=== PATIENT | female | born 1995 | race Caucasian/White ===

== ENCOUNTER 2017-11-13 03:55 | Emergency (ER) | payer MEDICAID, SELFPAY ==
[2017-11-13 03:56] VITALS: BP 134/79; PULSE 70; RESP 16; TEMP 36.5; O2SAT 98; BMI 42.3
--- NOTE | 2017-11-13 04:32 | ED.VISSUMM ---
- ER Visit Summary Date of Service: 11/13/17 Chief Complaint: [] left ear pain that started at midnight History of Present Illness: The patient is a 22 F with the above complaint that started at midnight. She took some Tylenol and some eardrops. The aching pain of moderate to severe in intensity. Came in for further evaluation. Physical Examination: [] Vital signs reviewed General: Well-nourished well-developed Head: Normocephalic atraumatic Eyes: Pupils equal round and reactive to light extraocular movements intact ENT: TMs left-sided acute otitis media with dullness redness and decreased landmarks. No hemotympanum no trauma Neck: Nontender full range of motion Cardiovascular: Regular rate rhythm no murmurs normal S1-S2 Respiratory: No distress clear to auscultation bilaterally chest nontender Abdomen: Soft nontender nondistended normal bowel sounds no masses Back: Nontender no CVA tenderness Extremities: Nontender active range of motion ?4 extremities no trauma Skin: Normal color no trauma Neuro alert oriented cranial nerves II through XII intact normal strength sensation reflexes Test Results: [] Emergency Department Course and Treatment: [] Given amoxicillin and home pack of Vicodin 4 tablets. She also use ibuprofen. She will continue amoxicillin for otitis media Treatment Plan: [] Disposition: [] Impression: [] Acute left-sided otitis media This note was generated with [employer] dictation software. It may contain incorrect words, spelling, and punctuation that were not noted in review of the chart prior to signing ED Disposition - Plan for ED Patient: Chief Complaint: Ear Problem Referrals: Care Physician,No Primary [Primary Care Provider] -
--- NOTE | 2017-11-13 04:33 | ED.DEP ---
ED Disposition - Plan for ED Patient: Disposition: Home or Assisted Living Chief Complaint: Ear Problem Instructions: ED Otitis Media Acute Adult Prescriptions: Amoxicillin 875 mg PO BID #14 tab Referrals: Care Physician,No Primary [Primary Care Provider] - Blade Hester DO [NON-STAFF] -
[2017-11-13] MEDS: AMOXICILLIN 500 MG CAPSULE 1000 MG PO (04:38)
[2017-11-13] MEDS: HYDROcodone Bitartrate/Apap 5/325 Tablet PO (04:39)
[2017-11-13 04:43] VITALS: BP 122/76; PULSE 74; RESP 17; O2SAT 98
== END 2017-11-13 04:43 | disposition home or self-care (01) ==
PROVIDERS: Emergency Provider Emergency Medicine
DX: H66.92 Otitis media, unspecified, left ear (principal); Z72.0 Tobacco use
CPT/HCPCS: 99283

== ENCOUNTER 2018-02-05 09:57 | Emergency (ER) | payer MEDICAID, SELFPAY ==
[2018-02-05 09:57] VITALS: BP 154/95; PULSE 99; RESP 14; TEMP 36.6; O2SAT 100; BMI 35.4
--- NOTE | 2018-02-05 10:15 | CT_ITS ---
STUDY: CT ABDOMEN AND PELVIS WITHOUT CONTRAST REASON FOR EXAM: Female, 22 years old. Lower abdomen pain x1 year, worse today. RADIATION DOSAGE (If Supplied By Facility): CTDIvol = ( 19.5 ) mGy, DLP = ( 993.6 ) mGycm TECHNIQUE: Transaxial images were obtained from the dome of the diaphragm to the symphysis pubis without oral contrast, and without intravenous contrast. Sagittal and coronal images were reconstructed. Individualized dose optimization techniques were used for this CT. COMPARISON: None. FINDINGS: The visualized lung bases are remarkable only for mild multifocal subsegmental atelectasis. The visualized portions of the heart are within normal limits. Normal liver. Normal gallbladder and extrahepatic biliary system. Normal spleen. Normal pancreas. Normal bilateral adrenal glands. Normal right kidney. There is a 4.2 mm nonobstructing calculi within the left renal collecting system. Normal visualized stomach. Normal small intestine. Normal colon. The appendix is visualized and appears normal. Normal abdominal aorta. Normal inferior vena cava. Normal retroperitoneum. Normal urinary bladder. There multiple calcified pelvic phleboliths. The right ovary appears minimally asymmetrically enlarged. Normal abdominal wall. Normal osseous structures. CT/Abdomen/Pelvis without Cont IMPRESSION: Mild multifocal subsegmental atelectasis throughout visualized lung bases. Asymmetrically enlarged right ovary. Consider evaluation with dedicated pelvic sonography. Otherwise, no CT evident acute intra-abdominal or intrapelvic pathology. Electronically Signed: Cresencio Briseno MD at 12:49 EDT , Service support ,
[2018-02-05 10:31] LABS: Absolute Lymphocyte Count 3.61 X10^3/ul (0.83-4.51); Absolute Neutrophil Count 4.2 X10^3/uL (2.0-7.7); Basophil# 0.03 X10^3/uL; Basophil% 0.3 % (0-1); Eosinophil# 0.31 X10^3/uL; Eosinophils% 3.6 % (0-5); Hematocrit 42.9 % (37-47); Lymphocyte # 3.61 X10^3/ul (4.0); Lymphocyte % 41.5 % (19-41); Mean Corp Hgb Conc 32.6 g/gl (32-36); Mean Corpuscular Hgb 29.9 pg (27.0-32.0); Mean Corpuscular Volume 91.5 fL (81-99); Mean Platelet Vol. 9.7 fl (6.2-12.0); Monocyte# 0.52 X10^3/uL; Neutrophil # 4.22 X10^3/uL (2.7-7.7); Neutrophil % 48.5 % (47-70); POSITIVE COUNT NO; POSITIVE DIFFERENTIAL NO; POSITIVE MORPHOLOGY NO; Platelet Count 332 K/mm3 (150-450); RBC Distribution Width CV 12.3 % (11.6-14.6); RBC Distribution Width SD 41.1 fl (35.1-43.9); Red Blood Count 4.69 M/mm3 (4.2-5.4); White Blood Count 8.7 K/mm3 (4.4-11.0)
[2018-02-05] MEDS: 0.9% Normal Saline 1,000 ML 125 ML IV (10:36)
[2018-02-05] MEDS: HYDROmorphone 1 MG/ML Syringe IV ×2 (10:37→11:32)
[2018-02-05 10:44] LABS: Mucous, Urine 0 SEEN /hpf (<or=2+); Red Blood Cells-Urine 0 SEEN /hpf (0-5)
[2018-02-05] MEDS: Ondansetron 4 MG/2 ML Vial IV (10:44)
[2018-02-05 10:45] LABS: Color, Urine Yellow (Yellow); Glucose, Dipstick Normal (Normal); Ketone-Dipstick Negative (Negative); Leukocyte Esterase-Dipstick 25 /ul (Negative); Nitrite-Dipstick Positive (Negative); Occult Blood-Urine 150 /ul (Negative); Protein-Dipstick 15 mg/dl (Negative); Urine Bilirubin Dipstick Negative (Negative); Urine Clarity Clear (Clear); Urine Urobilinogen Normal (Normal)
[2018-02-05 10:46] LABS: Anion Gap 5 (5-15); BUN 8 mg/dL (7-18); BUN/Creat Ratio 11.2 RATIO (10-20); Calcium,Total 9.1 mg/dL (8.5-10.1); Chloride 104 mmol/L (98-107); Creatinine, Serum 0.71 mg/dL (0.55-1.02); EST Glomerular Filtration Rate 106 mL/min (>60); Est Glom Filt Rate - Afr Amer 129 mL/min (>60); Estimated Creatinine Clearance 101.07 ml/min; Glucose 85 mg/dL (74-106); Potassium 4.1 mmol/L (3.5-5.1); Sodium Level 138 mmol/L (136-145)
[2018-02-05 10:51] LABS: Pregnancy, Serum, hCG Quali. NEGATIVE Negative (0-9 Nonpreg)
[2018-02-05 11:00] LABS: Bacteria 2+ /hpf (None Seen); Squamous Epithelial Cells - UA 0-5 SEEN /hpf (5-10); White Blood Cells 0-5 SEEN /hpf (0-5)
[2018-02-05] MEDS: Ceftriaxone 1 GM/50 ML BAG IV (12:07)
[2018-02-05] MEDS: proMETHazine 25 MG/ML Syringe 12.5 MG IV (13:09)
[2018-02-05 13:10] VITALS: BP 113/72; PULSE 95; RESP 14; O2SAT 98
--- NOTE | 2018-02-05 13:39 | ED.DCSUM_ITS ---
- ER Visit Summary Date of Service: 02/05/18 Chief Complaint: [Abdominal pain] History of Present Illness: The patient is a 22 F [presents to the emergency department with abdominal pain that started greater than 6 months ago. Patient has been seen by general surgeon and been diagnosed with endometriosis. Patient states she has had CAT scans and MRIs of her abdomen. The pain was more severe today and she called Dr. Lopez's office and was instructed to come to the emergency department. Patient denies any fever. Patient denies nausea or vomiting. Patient denies diarrhea. Her last menstrual period was 1 month ago.] Physical Examination: [HEENT-PERRLA, EOMI. Cranial nerves II through XII grossly intact. TMs clear. Mucous membranes moist. No adenopathy. Cardiovascular-regular rate and rhythm without murmur or ectopy Lungs-clear to auscultation, chest wall stable without crepitus or subcu emphysema Abdomen-normoactive bowel sounds, soft. Patient has tenderness to palpation over right lower quadrant. There is a soft tissue mass in the right lower pelvic region adjacent to her scar it is tender to palpation. There is no rebound, rigidity, or perineal signs. Extremities-intact ?4, normal range of motion, normal pulses, atraumatic] Test Results: [CBC with differential intentional weight of 8.7, hemoglobin 14, hematocrit 43, platelets 332. Chemistries were normal. Urinalysis was positive for nitrates. Positive for 0-5 WBCs and +2 bacteria. [address] was negative. [address] flank obtained read by radiology as mild multifocal subsegmental atelectasis throughout the visualized lung bases. Patient also had asymmetric enlargement of the right ovary.] Emergency Department Course and Treatment: Patient was medicated with Dilaudid. Patient ventrally had pain control after second dose of Dilaudid. Patient case was discussed with Dr. Lopez who states that patient has endometrioma of the right abdominal wall musculature and that will require surgical excision however he wants the patient to have quit smoking for 4 weeks prior to surgery. [] Treatment Plan: [Patient advised to quit smoking. And follow-up with Dr. Lopez 's office.] Disposition: [Discharged home in stable condition] Impression: [Abdominal pain Endometrioma] This note was generated with [employer] software. It may contain incorrect words, spelling, and punctuation that were not noted in review of the chart prior to signing ED Disposition - Plan for ED Patient: Chief Complaint: Abd Pain Referrals: Care Physician,No Primary [Primary Care Provider] -
--- NOTE | 2018-02-05 13:41 | DCINST.ED_ITS ---
ED Disposition - Plan for ED Patient: Chief Complaint: Abd Pain Instructions: ED Endometriosis Prescriptions: Hydrocodone Bitart/Apap 5-325 [[place] 5/325] 1 - 2 tab PO Q4H PRN PRN 5 Days #20 tab PRN Reason: Pain Referrals: Care Physician,No Primary [Primary Care Provider] - Bishop Dash MD [STAFF PHYSICIAN] - As Needed
[2018-02-05 14:03] VITALS: PULSE 92; RESP 16; O2SAT 98
== END 2018-02-05 14:04 | disposition home or self-care (01) ==
LOC: ED 10:33
PROVIDERS: Emergency Provider Emergency Medicine
DX: N80.9 Endometriosis, unspecified (principal); F17.200 Nicotine dependence, unspecified, uncomplicated
CPT/HCPCS: 74176; 80048; 81001; 84703; 85025; 87086; 87088; 87186; 96365; 96375; 96376; 99283; J7030; A4216; J2405

== ENCOUNTER 2018-04-07 11:50 | Emergency (ER) | payer MEDICAID, SELFPAY ==
[2018-04-07 11:50] VITALS: BP 161/94; PULSE 101; RESP 16; TEMP 36.6; O2SAT 99; BMI 38.7
--- NOTE | 2018-04-07 12:18 | US_ITS ---
STUDY: FIRST TRIMESTER OBSTETRICAL ULTRASOUND REASON FOR EXAM: Female, 23 years old. Bleeding. History of endometriosis. LMP: March 05, 2018. TECHNIQUE: Transabdominal and Transvaginal PRIOR ULTRASOUND: None. FINDINGS: There is no demonstrated intrauterine gestational sac. There is no demonstrated yolk sac. The placenta is non-visualized. There is no demonstrated embryo ( pole). The estimated gestation age (EGA) by LMP is 4 weeks, 5 days. The estimated date of delivery (RUDOLPH) by LMP is December 10, 2018. The uterus measures 8.8 cm x 3.9 cm x 4.1 cm. The endometrium measures 4.4 mm. There is no demonstrated uterine fibroid. The cervix is closed. The right ovary measures 3.7 cm x 2.1 cm x 3.0 cm. There is no right ovarian cyst. There is no visualized right adnexal mass or complex lesion. The left ovary is not visualized. There is no fluid in the cul de sac. US/Transvaginal w/Preg US IMPRESSION: No intrauterine gestational sac is seen. The left ovary is not visualized. Electronically Signed: Evelio Briscoe MD at 14:27 EDT Tel [phone], Service support ,
[2018-04-07 13:00] LABS: Absolute Lymphocyte Count 2.93 X10^3/ul (0.83-4.51); Absolute Neutrophil Count 3.7 X10^3/uL (2.0-7.7); Basophil# 0.06 X10^3/uL; Basophil% 0.8 % (0-1); Eosinophil# 0.35 X10^3/uL; Eosinophils% 4.7 % (0-5); Hematocrit 40.6 % (37-47); Hemoglobin 13.3 g/dl (12.0-15.0); Lymphocyte # 2.93 X10^3/ul (4.0); Lymphocyte % 39.3 % (19-41); Mean Corp Hgb Conc 32.8 g/gl (32-36); Mean Corpuscular Hgb 29.8 pg (27.0-32.0); Mean Corpuscular Volume 90.8 fL (81-99); Mean Platelet Vol. 9.6 fl (6.2-12.0); Monocyte# 0.43 X10^3/uL; Monocyte% 5.8 % (0-10); Neutrophil # 3.68 X10^3/uL (2.7-7.7); Neutrophil % 49.3 % (47-70); Platelet Count 335 K/mm3 (150-450); RBC Distribution Width CV 12.1 % (11.6-14.6); RBC Distribution Width SD 40.5 fl (35.1-43.9); Red Blood Count 4.47 M/mm3 (4.2-5.4); White Blood Count 7.5 K/mm3 (4.4-11.0)
[2018-04-07 13:08] LABS: POSITIVE COUNT NO; POSITIVE DIFFERENTIAL NO; POSITIVE MORPHOLOGY NO
[2018-04-07 13:16] LABS: hCG Titer Quant., Serum 200 mIU/mL (<9 non-preg)
[2018-04-07 13:56] LABS: Mucous, Urine 0 SEEN /hpf (<or=2+); White Blood Cells 0 SEEN /hpf (0-5)
[2018-04-07 13:58] LABS: Color, Urine Yellow (Yellow); Glucose, Dipstick Normal (Normal); Ketone-Dipstick Negative (Negative); Leukocyte Esterase-Dipstick Negative /ul (Negative); Nitrite-Dipstick Negative (Negative); Occult Blood-Urine 250 /ul (Negative); Protein-Dipstick Negative (Negative); Specific Gravity, Urine 1.015 (1.002-1.030); Urine Bilirubin Dipstick Negative (Negative); Urine Clarity Sl. Cloudy (Clear); Urine Urobilinogen Normal (Normal)
[2018-04-07 14:03] LABS: Red Blood Cells-Urine 25-50 SEEN /hpf (0-5); Squamous Epithelial Cells - UA 0-5 SEEN /hpf (5-10)
[2018-04-07 14:04] LABS: Bacteria 1+ /hpf (None Seen)
[2018-04-07 14:41] VITALS: BP 126/66; PULSE 77; RESP 18; O2SAT 96
--- NOTE | 2018-04-07 15:16 | ED.DCSUM_ITS ---
- ER Visit Summary Date of Service: 04/07/18 Chief Complaint: [vaginal bleeding] History of Present Illness: The patient is a 23 F [that presents with anal bleeding that began this morning. She describes light vaginal bleeding similar to her period. She denies passing any clots. She took a test yesterday that was positive. She was concerned because on 03/12 had an abdominal wall mass removed by Dr. Lopez due to history of endometriosis. She states she was not at that time. She is uncertain about LMP history of irregular periods from endometriosis. She denies any pelvic pain. She appears in no acute distress. She has no other complaints.] Physical Examination: [General: The patient appears well and in no apparent distress. Patient is resting comfortably on cart. Skin: Warm, dry, no pallor noted. No rash. Head: Normocephalic, atraumatic Neck: Supple, nontender. Cardiovascular: Regular Rate and Rhythm, no gallups or rubs Respiratory: Patient is in no distress, no accessory muscle use, lungs are clear to auscultation, no wheezing, rales or rhonchi Musculoskeletal: normal ROM, no deformity, no tenderness, no swelling. 2+ radial and DP pulses symmetric. GI: No tenderness to palpation, no masses appreciated. No rebound, guarding, or rigidity noted. : Patient declines pelvic exam. Neurological: A&O, normal strength and sensation. Psychiatric: Cooperative] Test Results: [Quant HCG 200. CBC is normal. Ultrasound visualizes no gestational sac but no other acute abnormalities were identified. There was nonvisualization of the left ovary. Urinalysis not consistent with infection.] Emergency Department Course and Treatment: [see below] Treatment Plan: [Quant HCG 200. There was no definite intrauterine on ultrasound. Patient appears hemodynamically stable. She had no further bleeding in the emergency department. She declines pelvic examination secondary to just having had an ultrasound. I spoke with Dr. Langley, ux information architect for Dr. Cunha, who is agreeable with patient discharge and close follow-up with their office to obtain repeat quantitative hCG testing and further evaluation. Patient understands return with any new or worsening symptoms. Patient discharged home in stable condition.] Disposition: [discharge] Impression: [Threatened ] This note was generated with [employer] software. It may contain incorrect words, spelling, and punctuation that were not noted in review of the chart prior to signing ED Disposition - Plan for ED Patient: Chief Complaint: Vag Bleeding Referrals: Care Physician,No Primary [Primary Care Provider] -
--- NOTE | 2018-04-07 15:18 | ED.DCSUM_ITS ---
- ER Visit Summary Date of Service: 04/07/18 Chief Complaint: [] History of Present Illness: The patient is a 23 F [] Physical Examination: [] Test Results: [] Emergency Department Course and Treatment: [] Treatment Plan: [] Disposition: [] Impression: [] This note was generated with [employer] dictation software. It may contain incorrect words, spelling, and punctuation that were not noted in review of the chart prior to signing ED Disposition - Plan for ED Patient: Disposition: Home or Assisted Living Chief Complaint: Vag Bleeding Instructions: Bleeding During Early Referrals: Philly Cunha MD [STAFF PHYSICIAN] - Additional Instructions: Call tomorrow for close follow up and and repeat hCG testing.
[2018-04-07 15:27] VITALS: BP 112/71; PULSE 67; RESP 15; O2SAT 98
== END 2018-04-07 15:27 | disposition home or self-care (01) ==
PROVIDERS: Emergency Provider Emergency Medicine
DX: O20.0 Threatened abortion (principal); Z3A.00 Weeks of gestation of pregnancy not specified
CPT/HCPCS: 76817; 81001; 84702; 85025; 86900; 99283

== ENCOUNTER → 2018-04-09 13:22 | Outpatient (CLI) | payer MEDICAID, SELFPAY ==
[2018-04-09 14:45] LABS: hCG Titer Quant., Serum 158 mIU/mL (<9 non-preg)
== END ==
PROVIDERS: Visit Provider Obstetrics & Gynecology
DX: O20.0 Threatened abortion (principal); Z3A.00 Weeks of gestation of pregnancy not specified
CPT/HCPCS: 36415; 84702

== ENCOUNTER → 2018-04-14 13:16 | Outpatient (CLI) | payer MEDICAID, SELFPAY ==
[2018-04-14 14:17] LABS: hCG Titer Quant., Serum 82 mIU/mL (<9 non-preg)
== END ==
PROVIDERS: Visit Provider Obstetrics & Gynecology
DX: O03.9 Complete or unspecified spontaneous abortion without complication (principal)
CPT/HCPCS: 36415; 84702

== ENCOUNTER → 2018-04-29 11:57 | Outpatient (CLI) | payer MEDICAID, SELFPAY ==
[2018-04-29 12:44] LABS: hCG Titer Quant., Serum 11 mIU/mL (<9 non-preg)
== END ==
PROVIDERS: Visit Provider Obstetrics & Gynecology
DX: O20.0 Threatened abortion (principal); Z3A.00 Weeks of gestation of pregnancy not specified
CPT/HCPCS: 36415; 84702

== ENCOUNTER → 2018-08-12 18:52 | Outpatient (CLI) | payer MEDICAID, SELFPAY ==
[2018-08-12 21:13] LABS: Chlamydia Trachomatis by PCR Negative (Negative); Neisserai gonorrhoeae by PCR Negative (Negative); Probe Check PASS; Sample Adequacy Control PASS; Specimen Processing Control PASS
== END ==
PROVIDERS: Referring Provider Obstetrics & Gynecology; Visit Provider Obstetrics & Gynecology
DX: Z11.3 Encounter for screening for infections with a predominantly sexual mode of transmission (principal); R10.9 Unspecified abdominal pain
CPT/HCPCS: 87086; 87088; 87186; 87491; 87591

== ENCOUNTER 2018-08-17 18:08 | Observation (INO) | payer MEDICAID, SELFPAY ==
[2018-08-17 18:09] VITALS: BP 163/81; PULSE 95; RESP 17; TEMP 36.6; O2SAT 100; BMI 39.3
--- NOTE | 2018-08-17 18:49 | US_ITS ---
STUDY: FIRST TRIMESTER OBSTETRICAL ULTRASOUND REASON FOR EXAM: Female, 23 years old. Left lower quadrant pain LMP: TECHNIQUE: Transvaginal TECHNICAL QUALITY: Adequate. PRIOR ULTRASOUND: None. FINDINGS: There is visualization of a single gestational sac in a normal intrauterine position. The mean sac diameter (MSD) measures 3.69 cm, indicating an estimated gestational age (EGA) of 9 weeks, 2 days. The gestational sac shape is within normal limits. There is a visualized yolk sac. The yolk sac measures 3 mm. The placenta is non-visualized. There is visualization of a live embryo. The crown-rump length (CRL) measures 2.46 cm, indicating an estimated gestational age (EGA) of 9 weeks, 2 days. There is demonstrated cardiac activity with a heart rate of 170 bpm. The estimated gestation age (EGA) by LMP is 9 weeks, 3 days. The estimated date of delivery (RUDOLPH) by LMP is March 19 2019. The estimated gestation age (EGA) by US is 9 weeks, 2 days. The estimated date of delivery (RUDOLPH) by US is March 20, 2019. The uterus measures 12.1 x 7.2 x 6.4 cm. There is no demonstrated uterine fibroid. The cervix is closed. The right ovary measures 4.3 x 2.2 x 2.9 cm. There is no right ovarian cyst. There is no visualized right adnexal mass or complex lesion. Left ovary is nonvisualized. There is no adnexal mass There is no fluid in the cul de sac. US/Transvaginal w/Preg US IMPRESSION: Viable intrauterine gestation approximately 9 weeks 2 days gestational age. No acute abnormalities Nonvisualization of left ovary however if there is concern for adnexal mass MRI recommended Electronically Signed: Arnoldo Montes MD at 20:33 EST , Service support ,
--- NOTE | 2018-08-17 18:54 | ED.DCSUM_ITS ---
- ER Visit Summary Date of Service: 08/17/18 Chief Complaint: Abdominal pain History of Present Illness: The patient is a 23 F with 3-hour history of left lower quadrant abdominal pain, she has some pain into her left lower back and CVA region. She is 9 weeks . She denies any vaginal bleeding. She is on Keflex for urinary tract infection but denies any urinary symptoms. She has no upper abdominal pain. No right sided abdominal pain. No fever or chills. No diarrhea constipation. She is nauseated but no vomiting. Physical Examination: Patient appears in some distress. Moist mucous membranes, no obvious facial deformity No C-spine tenderness supple neck. Regular rate and rhythm without any obvious murmurs Clear lungs bilaterally speaking in full sentences without any obvious respiratory distress Abdomen soft, there is some tenderness in the left suprapubic and left lower quadrant region. No guarding or rebound Moves all extremities without any difficulty or pain. Skin does not show any obvious rashes or lesions, no trauma. Alert oriented ?3 with no gross focal deficit Emergency Department Course and Treatment: Patient had a normal EKG. Troponin was unremarkable. Chest x-ray alert rest of blood work were also unremarkable. His heart score is a 0 although he does have some high blood pressure noticed on the monitor in the emergency department which would make his heart score 1. He appears well. I advised him that he needs to take his blood pressure over the next week to have a daily record of this and to go to see his PCP. I also advised him that his chest pain is getting worse or changing in quality he needs to return for reevaluation. At this time he appears well and is asymptomatic and has a very low risk for adverse cardiac events in the next 30 days. Disposition: Discharge stable condition Impression: Chest pain This note was generated with [employer] dictation software. It may contain incorrect words, spelling, and punctuation that were not noted in review of the chart prior to signing ED Disposition - Plan for ED Patient: Disposition: Home or Assisted Living Chief Complaint: Abd Pain Instructions: ED Chest Pain Atypical Unkn Cause Referrals: Care Physician,No Primary [Primary Care Provider] - 1 Week
[2018-08-17 19:00] LABS: Absolute Neutrophil Count 7.1 X10^3/uL (2.0-7.7); Basophil# 0.04 X10^3/uL; Basophil% 0.3 % (0-1); Eosinophils% 2.6 % (0-5); Hematocrit 37.8 % (37-47); Hemoglobin 12.6 g/dl (12.0-15.0); Lymphocyte % 29.4 % (19-41); Mean Corp Hgb Conc 33.3 g/gl (32-36); Mean Corpuscular Hgb 30.3 pg (27.0-32.0); Mean Corpuscular Volume 90.9 fL (81-99); Mean Platelet Vol. 10.1 fl (6.2-12.0); Monocyte# 0.71 X10^3/uL; Monocyte% 6.1 % (0-10); Neutrophil # 7.08 X10^3/uL (2.7-7.7); Neutrophil % 61.3 % (47-70); POSITIVE COUNT NO; POSITIVE DIFFERENTIAL NO; POSITIVE MORPHOLOGY NO; Platelet Count 347 K/mm3 (150-450); RBC Distribution Width CV 11.9 % (11.6-14.6); RBC Distribution Width SD 38.8 fl (35.1-43.9); Red Blood Count 4.16 M/mm3 (4.2-5.4); White Blood Count 11.6 K/mm3 (4.4-11.0)
[2018-08-17] MEDS: Morphine 4 MG/ML Syringe IV ×2 (19:03→20:25)
[2018-08-17] MEDS: 0.9% Normal Saline 1,000 ML 1000 ML IV (19:03)
[2018-08-17] MEDS: proMETHazine 25 MG/ML Syringe 12.5 MG IV (19:03)
[2018-08-17 19:15] LABS: Color, Urine Yellow (Yellow); Glucose, Dipstick Normal (Normal); Ketone-Dipstick 5 mg/dl (Negative); Leukocyte Esterase-Dipstick 500 /ul (Negative); Nitrite-Dipstick Negative (Negative); Occult Blood-Urine 150 /ul (Negative); Protein-Dipstick 30 mg/dl (Negative); Specific Gravity, Urine 1.025 (1.002-1.030); Urine Bilirubin Dipstick Negative (Negative); Urine Clarity Clear (Clear); Urine Urobilinogen Normal (Normal)
[2018-08-17 19:19] LABS: Anion Gap 7 (5-15); BUN 8 mg/dL (7-18); BUN/Creat Ratio 13.8 RATIO (10-20); Calcium,Total 8.4 mg/dL (8.5-10.1); Chloride 106 mmol/L (98-107); Creatinine, Serum 0.58 mg/dL (0.55-1.02); EST Glomerular Filtration Rate 134 mL/min (>60); Est Glom Filt Rate - Afr Amer 162 mL/min (>60); Estimated Creatinine Clearance 122.66 ml/min; Glucose 103 mg/dL (74-106); Potassium 3.4 mmol/L (3.5-5.1); Sodium Level 138 mmol/L (136-145)
[2018-08-17 19:22] LABS: Bacteria 1+ /hpf (None Seen); Mucous, Urine RARE /hpf (<or=2+); Red Blood Cells-Urine 5-10 SEEN /hpf (0-5); Squamous Epithelial Cells - UA 5-10 SEEN /hpf (5-10); White Blood Cells 10-25 SEEN /hpf (0-5); Yeast-Urine 2+ /hpf (None Seen)
[2018-08-17 20:16] VITALS: BP 122/85; PULSE 85; RESP 15; O2SAT 97
[2018-08-17] MEDS: Ceftriaxone 1 GM/50 ML BAG IV (21:07)
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
[2018-08-17 22:10] VITALS: RESP 14
[2018-08-17 23:08] VITALS: BP 115/67; PULSE 68; RESP 14; O2SAT 98
[2018-08-17 23:15] VITALS: BMI 39.9; BMI 40.0
[2018-08-17 23:32] VITALS: BP 109/59; PULSE 83; RESP 16; TEMP 36.5; O2SAT 99
[2018-08-18] MEDS: Ondansetron 4 MG/2 ML Vial IV (00:07)
[2018-08-18] MEDS: Lactated Ringers 1,000 ML 500 ML IV (00:07)
[2018-08-18] MEDS: 0.9% NaCl Peripheral Flush Adult/Peds IV (00:08)
[2018-08-18] MEDS: Prenatal Vits Tablet 1 TABLET PO ×2 (00:22→22:27)
[2018-08-18] MEDS: Lactated Ringers 1,000 ML 125 ML IV ×3 (02:26→20:32)
[2018-08-18 05:28] VITALS: BP 117/66; PULSE 75; RESP 18; TEMP 36.6; O2SAT 100
[2018-08-18] MEDS: Cefazolin 2 GM in 0.9% Normal Saline 100 ML IV ×3 (06:36→22:26)
[2018-08-18 07:07] LABS: Hematocrit 35.6 % (37-47); Hemoglobin 11.6 g/dl (12.0-15.0); Mean Corp Hgb Conc 32.6 g/gl (32-36); Mean Corpuscular Hgb 29.7 pg (27.0-32.0); Mean Corpuscular Volume 91.3 fL (81-99); Mean Platelet Vol. 9.8 fl (6.2-12.0); Platelet Count 289 K/mm3 (150-450); RBC Distribution Width CV 12.3 % (11.6-14.6); RBC Distribution Width SD 40.9 fl (35.1-43.9); White Blood Count 8.3 K/mm3 (4.4-11.0)
[2018-08-18 07:10] LABS: Scan Indicated on CBC? Y/N NO
--- NOTE | 2018-08-18 08:28 | CT_ITS ---
STUDY: CT ABDOMEN AND PELVIS WITH CONTRAST REASON FOR EXAM: Female, 23 years old. Severe left lower quadrant pain. The patient is 9 weeks spurring. RADIATION DOSAGE (If Supplied By Facility): CTDIvol = ( 16.78 ) mGy, DLP = ( 1240.11 ) mGycm TECHNIQUE: Transaxial images were obtained from the dome of the diaphragm to the symphysis pubis without oral contrast. 100 ml of Isovue 300 contrast was administered. Sagittal and coronal images were reconstructed. Individualized dose optimization techniques were used for this CT. COMPARISON: Comparison is made with prior study dated February 05, 2018. FINDINGS: Mild degree of increased linear markings at the lung bases suggestive of bibasilar atelectasis. This is slightly worse on the left side. The visualized portions of the heart are within normal limits. Normal liver. Normal gallbladder and extrahepatic biliary system. Normal spleen. Normal pancreas. Normal bilateral adrenal glands. Normal right kidney. Normal left kidney. The previously seen 4.2 mm nonobstructive calculus in the upper pole of the left kidney is is now seen in the distal portion of the left ureter at the ureterovesical junction. Normal visualized stomach. Normal small intestine. Normal colon. The appendix is visualized and appears normal. Normal abdominal aorta. Normal inferior vena cava. Normal retroperitoneum. Normal urinary bladder. There is a 2.6 cm right ovarian cyst. A gravid uterus is seen. Small bilateral benign appearing inguinal lymph nodes. Normal abdominal wall. Normal osseous structures. CT/Abdomen/Pelvis W IV Cont ONLY IMPRESSION: 2.6 cm right ovarian cyst. 4.2 mm calculus at the left ureterovesical junction. Electronically Signed: Evelio Briscoe MD at 11:24 EST Tel [phone], Service support ,
--- NOTE | 2018-08-18 08:31 | PCM.PROGNOTE ---
Subjective: 9 wk EGA . Severe LLQ pain. States still with pain 7-8/10 on pain scale unless medicated. IV fluids running after IV bolus given at admission. Tolerating diet very well. Reg diet tray for breakfast. States pain more in front, but still severe. In front and radiation to lower L back last pm. Objective: Sitting up eating regular breakfast. - Physical Exam General: Alert, Oriented x3, Cooperative, No apparent distress HEENT: Atraumatic Neck: Supple Abdomen: Soft, Non Tender - Back No CVAT this am. Neurological: Cranial nerves II-XII grossly intact Psych/Mental Status: Normal Affect Vital Signs Temp Pulse Resp BP Pulse Ox 97.9 F 75 18 117/66 100 08/18/18 05:28 08/18/18 05:28 08/18/18 05:28 08/18/18 05:28 08/18/18 05:28 Oxygen Delivery Method Room Air Weight: 102.4 kg Body Mass Index (BMI) 39.9 Intake and Output for Last 24 Hours 08/17/18 08/17/18 08/18/18 00:59 23:59 23:59 Intake Total 1937 / 1937 Output Total 100 / 100 Balance 1838 / 1838 Laboratory Tests Past 24 Hrs 08/17/18 08/17/18 08/17/18 18:30 18:30 19:06 WBC 11.6 H RBC 4.16 L Hgb 12.6 Hct 37.8 MCV 90.9 MCH 30.3 MCHC 33.3 RDW 11.9 RDW Differential 38.8 Plt Count 347 MPV 10.1 Immature Gran % (Auto) 0.300 Neut % (Auto) 61.3 Lymph % (Auto) 29.4 [place] % (Auto) 6.1 Eos % (Auto) 2.6 Baso % (Auto) 0.3 Absolute Neuts (auto) 7.1 Absolute Lymphs (auto) 3.40 Total Counted Not Reportable Sodium 138 Potassium 3.4 L Chloride 106 Carbon Dioxide 25.0 Anion Gap 7 BUN 8 Creatinine 0.58 Estim Creat Clear Calc 122.66 Est GFR (MDRD) Af Amer 162 Est GFR (MDRD) Non-Af 134 BUN/Creatinine Ratio 13.8 Glucose 103 Calcium 8.4 L Urine Color Yellow Urine Clarity Clear Urine pH 5.0 Ur Specific Dresser 1.025 Urine Protein 30 H Urine Glucose (UA) Normal Urine Ketones 5 H Urine Occult Blood 150 H Urine Nitrite Negative Urine Bilirubin Negative Urine Urobilinogen Normal Ur Leukocyte Esterase 500 H Urine RBC 5-10 SEEN Urine WBC 10-25 SEEN Ur Squamous Epith Cells 5-10 SEEN Urine Bacteria 1+ Urine Mucus RARE Urine Yeast 2+ 08/18/18 06:37 WBC 8.3 RBC 3.90 L Hgb 11.6 L Hct 35.6 L MCV 91.3 MCH 29.7 MCHC 32.6 RDW 12.3 RDW Differential 40.9 Plt Count 289 MPV 9.8 Immature Gran % (Auto) Neut % (Auto) Lymph % (Auto) [place] % (Auto) Eos % (Auto) Baso % (Auto) Absolute Neuts (auto) Absolute Lymphs (auto) Total Counted Sodium Potassium Chloride Carbon Dioxide Anion Gap BUN Creatinine Estim Creat Clear Calc Est GFR (MDRD) Af Amer Est GFR (MDRD) Non-Af BUN/Creatinine Ratio Glucose Calcium Urine Color Urine Clarity Urine pH Ur Specific Dresser Urine Protein Urine Glucose (UA) Urine Ketones Urine Occult Blood Urine Nitrite Urine Bilirubin Urine Urobilinogen Ur Leukocyte Esterase Urine RBC Urine WBC Ur Squamous Epith Cells Urine Bacteria Urine Mucus Urine Yeast Medical Necessity - Tobacco Use Smoking Status: Current every day smoker Tobacco Use: Cigarettes Assessment/Plan Hematuria LLQ pain Likely urolithiasis. -- Still requiring IV narcotics for pain. -- plan CT today for persistent, severe LLQ pain. Leukocytosis Resolved. CBC wnl this am. 9 wk EGA . Viable IUP and no adnexal pathology on L side last night sono. Continue care with prn IV narcotics to control pain.
[2018-08-18 10:34] VITALS: BP 116/64; PULSE 81; RESP 18; TEMP 36.4; O2SAT 95
[2018-08-18] MEDS: Acetaminophen 500 MG Tablet PO ×2 (10:36→17:56)
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
[2018-08-18 14:00] VITALS: BP 99/55; PULSE 94; RESP 16; TEMP 37; O2SAT 96
[2018-08-18] MEDS: oxyCODONE 5 MG Tablet PO (20:20)
[2018-08-18 20:25] VITALS: BP 96/55; PULSE 65; RESP 16; TEMP 36.8; O2SAT 100
--- NOTE | 2018-08-18 21:22 | NURSING ---
walking in [place] gait steady
[2018-08-19 02:25] VITALS: BP 103/59; PULSE 75; RESP 16; TEMP 36.9; O2SAT 98
[2018-08-19] MEDS: Lactated Ringers 1,000 ML 125 ML IV (04:47)
[2018-08-19] MEDS: Cefazolin 2 GM in 0.9% Normal Saline 100 ML IV (05:22)
[2018-08-19] MEDS: oxyCODONE 5 MG Tablet PO (07:14)
[2018-08-19 07:52] VITALS: BP 105/71; PULSE 90; RESP 18; TEMP 37; O2SAT 98
--- NOTE | 2018-08-19 08:02 | PCM.PROGNOTE ---
Subjective: HD#3 Admitted Sun for LLQ pain, severe Pain improved. States voiding a lot. IV fluids at 125 cc /hr still. Strained urine but no stones, crystals only. Tolerating diet. No IV narcotic recently. PO meds only. - Physical Exam General: Alert, Oriented x3, Cooperative, No apparent distress HEENT: Atraumatic Neck: Supple Abdomen: Obese Neurological: Cranial nerves II-XII grossly intact Psych/Mental Status: Normal Affect Vital Signs Temp Pulse Resp BP Pulse Ox 98.6 F 90 18 105/71 98 08/19/18 07:52 08/19/18 07:52 08/19/18 07:52 08/19/18 07:52 08/19/18 07:52 Oxygen Delivery Method Room Air Weight: 102.4 kg Body Mass Index (BMI) 39.9 Intake and Output for Last 24 Hours 08/17/18 08/18/18 08/19/18 23:59 23:59 23:59 Intake Total 3873 / 3873 1697 / 1697 Output Total 1800 / 1800 2200 / 2200 Balance 2072 / 2072 -503 / -503 Medical Necessity - Tobacco Use Smoking Status: Current every day smoker Tobacco Use: Cigarettes Assessment/Plan Hematuria LLQ pain Likely urolithiasis. -- No longer requiring IV narcotics for pain. -- CT yesterday showed migration of stone which had been in L kidney, to L ureterovesical jct. -- D/C IV fluids. continue PO meds for pain. If adequate pain control by oral meds, home later today. Advised will need to maintain adequate hydration or risk recurrent stones. Encouraged inc water, less pop. 9 wk EGA . Viable IUP and no adnexal pathology on L side last night sono. Continue care with possible dischg later today if stable.
[2018-08-19] MEDS: 0.9% NaCl Peripheral Flush Adult/Peds IV (08:51)
[2018-08-19] MEDS: Acetaminophen 500 MG Tablet PO (11:01)
--- NOTE | 2018-08-19 12:37 | PCM.PN.BLA ---
Progress Note ADDENDUM: Sitting up eating lunch. Parents in room now with lunch from [employer]. AVSS States taking pain med prn , no further IV pain med. Sore, but manageable. A/P: kidney stone Pain ok for now. likely stone passage into bladder. Home. PO OxyIR prn.
--- NOTE | 2018-08-19 12:39 | PCM.DC ---
- Discharge Diagnoses Current Active Problems: Kidney stone, L flank pain. 8- 9 wk You will use the following diet at home:: No restrictions Discharge Activity: May not drive while taking narcotic pain medications., May Shower, May Take a Tub Bath Return to work on:: 08/25/18 May resume sexual activity in: No Restrictions Call your doctor if you observe: Uncontrolled pain Allergies/Adverse Reactions: Allergies nickel [Nickel] Allergy (Unknown, Verified 08/17/18 18:08) Rash Medications to take at Discharge Vits [Prenatabs FA ] 1 tablet PO DAILY 08/17/18 Acetaminophen [Tylenol] 500 - 1,000 mg PO Q6H PRN PRN tablet 08/19/18 Oxycodone [Oxyir] 5 mg PO Q6H PRN PRN 4 Days #15 tablet 08/19/18 Vits [Prenatabs FA ] 1 tablet PO DAILY@2200 tablet 08/19/18 The following prescriptions were given: Oxycodone [Oxyir] 5 mg PO Q6H PRN PRN 4 Days #15 tablet PRN Reason: Severe Pain (6-10/10) Primary Care Physician: Care Physician,No Primary [Primary Care Provider] - 1 Week Test Results: Test results from this visit will be discussed in further detail at your follow-up appointment, if applicable. Please Follow Up With: Philly Cunha MD - [phone] When: within 1 wk, by 08/25/18 Proposed Discharge Date: 08/19/18
--- NOTE | 2018-08-19 12:43 | DCINST_ITS ---
- Discharge Diagnoses Current Active Problems: Kidney stone, L flank pain. 8- 9 wk You will use the following diet at home:: No restrictions Discharge Activity: May not drive while taking narcotic pain medications., May Shower, May Take a Tub Bath Return to work on:: 08/25/18 May resume sexual activity in: No Restrictions Call your doctor if you observe: Uncontrolled pain Allergies/Adverse Reactions: Allergies nickel [Nickel] Allergy (Unknown, Verified 08/17/18 18:08) Rash Medications to take at Discharge Vits [Prenatabs FA ] 1 tablet PO DAILY 08/17/18 Acetaminophen [Tylenol] 500 - 1,000 mg PO Q6H PRN PRN tablet 08/19/18 Oxycodone [Oxyir] 5 mg PO Q6H PRN PRN 4 Days #15 tablet 08/19/18 Vits [Prenatabs FA ] 1 tablet PO DAILY@2200 tablet 08/19/18 The following prescriptions were given: Oxycodone [Oxyir] 5 mg PO Q6H PRN PRN 4 Days #15 tablet PRN Reason: Severe Pain (6-10/10) Primary Care Physician: Care Physician,No Primary [Primary Care Provider] - 1 Week Test Results: Test results from this visit will be discussed in further detail at your follow- up appointment, if applicable. Please Follow Up With: Philly Cunha MD - [phone] When: within 1 wk, by 08/25/18 Proposed Discharge Date: 08/19/18
--- NOTE | 2018-08-19 12:45 | PCM.DC.SUM ---
Discharge Date and Diagnosis Date of Admission: 08/17/18 - L flank pain, Kidney stone. 8-9 wk EGA Date of Discharge: 08/19/18 - Same Hospital Course and Treatment Summary of Care Provided: The patient is a 23 year old F approx 8-9 wk EGA presents with severe LLQ, L flank pain. Admitted for IV pain medication, IV fluids w/ diagnosis of likely kidney stone. requiring IV narcotics still by HD#2. CT done to r/o other pathology : kidney stone which has been non obstructing at pole of L kidney now at ureterovesical junction. Pt stable and now on PO OxyIR with less pain. Home to continue PO pain med prn. Encouraged to cut back on pop and to maintain hydration. RTO in 1 wk or less for f/u in office. - Physical Exam Vital Signs Temp Pulse Resp BP Pulse Ox 98.6 F 90 18 105/71 98 08/19/18 07:52 08/19/18 07:52 08/19/18 07:52 08/19/18 07:52 08/19/18 07:52 Oxygen Delivery Method Room Air Weight: 102.4 kg Body Mass Index (BMI) 39.9 Intake and Output for Last 24 Hours 08/17/18 08/18/18 08/19/18 23:59 23:59 23:59 Intake Total 3873 / 3873 1697 / 1697 Output Total 1800 / 1800 2200 / 2200 Balance 2073 / 2073 -503 / -503 Microbiology Past 72 Hours 08/17/18 19:06 Urine Culture - Final Urine, Clean Catch Mixed Gram Pos & Gram Neg Org Discharge Activity: May not drive while taking narcotic pain medications., May Shower, May Take a Tub Bath Return to work on:: 08/25/18 May resume sexual activity in: No Restrictions Call your doctor if you observe: Uncontrolled pain Home Medications: Medications to take at Discharge Vits [Prenatabs FA ] 1 tablet PO DAILY 08/17/18 Acetaminophen [Tylenol] 500 - 1,000 mg PO Q6H PRN PRN tablet 08/19/18 Oxycodone [Oxyir] 5 mg PO Q6H PRN PRN 4 Days #15 tablet 08/19/18 Vits [Prenatabs FA ] 1 tablet PO DAILY@2200 tablet 08/19/18 Following Prescrptions Were Given to Patient: Oxycodone [Oxyir] 5 mg PO Q6H PRN PRN 4 Days #15 tablet PRN Reason: Severe Pain (-07/23) Primary Care Physician: Care Physician,No Primary [Primary Care Provider] - 1 Week Please Follow Up With: Philly Cunha MD - [phone] When: within 1 wk, by 08/25/18 Medical Necessity - Tobacco Use Smoking Status: Current every day smoker Tobacco Use: Cigarettes Meaningful Use Info Meaningful Use Diagnoses (Choose all that apply): None applicable
[2018-08-19 13:27] VITALS: BP 110/59; PULSE 85; RESP 16; TEMP 37.1; O2SAT 99
== END 2018-08-19 14:43 | disposition home or self-care (01) ==
LOC: ED 18:56 → MS3 22:46
PROVIDERS: Admitting Provider Obstetrics & Gynecology; Emergency Provider Emergency Medicine; Visit Provider Obstetrics & Gynecology
DX: O26.839 Pregnancy related renal disease, unspecified trimester (principal); Z3A.09 9 weeks gestation of pregnancy; N20.0 Calculus of kidney; O99.331 Smoking (tobacco) complicating pregnancy, first trimester; F17.210 Nicotine dependence, cigarettes, uncomplicated; O23.41 Unspecified infection of urinary tract in pregnancy, first trimester
CPT/HCPCS: 36415; 74177; 76817; 80048; 81001; 85025; 85027; 87086; 87088; 96361; 96365; 96366; 96367; 96375; 96376; 99218; 99282; 99406; J7030; J7050; J7120; Q9967; A4216; G0378; J2405

== ENCOUNTER → 2018-11-24 17:17 | Outpatient (CLI) | payer MEDICAID, SELFPAY ==
[2018-08-17 23:15] VITALS: BMI 39.9
[2018-11-24 19:53] LABS: Chlamydia Trachomatis by PCR Negative (Negative); Neisserai gonorrhoeae by PCR Negative (Negative); Probe Check PASS; Sample Adequacy Control PASS; Specimen Processing Control PASS
== END ==
PROVIDERS: Referring Provider Obstetrics & Gynecology; Visit Provider Obstetrics & Gynecology
DX: Z11.3 Encounter for screening for infections with a predominantly sexual mode of transmission (principal)
CPT/HCPCS: 87491; 87591

== ENCOUNTER 2019-09-22 22:49 | Emergency (ER) | payer MEDICAID, SELFPAY ==
[2019-07-02 17:09] VITALS: BMI 39.9
[2019-09-22 22:50] VITALS: BP 137/82; PULSE 99; RESP 15; TEMP 36.3; O2SAT 98; BMI 42.0
--- NOTE | 2019-09-22 22:58 | ED.DCSUM_ITS ---
History of Present Illness Chief Complaint: Abd Pain Informant: Patient Onset: Days Context: Gradual Onset Timing: Intermittent Current Severity: Moderate Maximum Severity: Moderate Narrative: The patient is a 24-year-old female with medical history significant for recurrent urinary tract infection and kidney stone that presents to the emergency department with pelvic pain and dysuria. She states she is had symptoms for about 5 days. She states initially she started with some pain when she would urinate. Now she has persistent pain that is made much worse when she urinates. She denies any fevers or chills. She denies any back pain. She denies any nausea or vomiting. She states that she noticed her urine was blood- tinged today. She is otherwise been in her normal state of health. Prior similar symptoms: No Recent Illness/Hospitalization: No Past Medical History - Allergies and Home Meds Allergies/Adverse Reactions: Allergies nickel [Nickel] Allergy (Unknown, Verified 09/22/19 22:50) Rash Primary Care Physician: Care Physician,No Primary [Primary Care Provider] - Prior records reviewed: Yes Past Medical History: - - Frequent UTI, kidney stones Surgical History: noncontributory Smoking Status: Current every day smoker Review of Systems General: Denies: Chills, Fever, Sweats Eyes: Denies: Visual changes - bilaterally, Diplopia ENT: Denies: Rhinorrhea, Sore throat Cardiovascular: Denies: Chest pain, Palpitations Respiratory: Denies: Dyspnea, Cough, Dyspnea on exertion Gastrointestinal: Denies: Abdominal pain, Nausea, Vomiting, Diarrhea, Melena, Hematochezia Genitourinary: Reports: Dysuria, Hematuria, Frequency Musculoskeletal: Denies: Back pain, Extremity Pain Skin: Denies: Rash, Wounds Neurological: Denies: Headache, Weakness, Numbness Physical Exam Vital Signs/Narrative: Vital Signs Temp Pulse Resp BP Pulse Ox 09/22/19 22:50 97.3 F L 99 15 137/82 H 98 Inital Vital Signs reviewed: Yes General: Well nourished, Well developed, No Acute Distress Head: Normocephalic, Atraumatic Eyes: Perrl, EOMI ENT: Moist mucous membranes, No rhinorrhea Neck: Supple, Nontender Cardiovascular: Regular rate, Regular rhythm, No murmurs Respiratory: No distress, CTA bilaterally, Chest nontender Abdomen: Soft, Nontender, Nondistended, Normal bowel sounds Back: Nontender, Normal Inspection Extremities: Nontender, No edema Skin: Normal color, No rash Neurological: Alert, Oriented x3, Cranial nerves II-XII grossly intact, Normal Strength, Normal Sensation Psychological: Normal affect, Normal Mood Diagnostic/Tx/Re-eval - Medical Decision Making The patient has no flank pain. She does have dysuria and suprapubic pain. Urine was obtained. She is not . There is evidence of infection. Culture was added. I do not suspect stone or pyelonephritis. The patient will be started on Bactrim. She was counseled on concerning symptoms and reasons to return. She will be discharged home. Impression 1. Acute cystitis ED Disposition - Plan for ED Patient: Instructions: Bladder Infection, Female (Adult) Prescriptions: Smz/Tmp Ds [Bactrim Ds] 1 tab PO BID #6 tab Prescription Printed Phenazopyridine HCl [Pyridium] 200 mg PO BID PRN PRN #10 tab PRN Reason: Pain Prescription Printed Referrals: Care Physician,No Primary [Primary Care Provider] -
[2019-09-22 23:37] LABS: Color, Urine Yellow (Yellow); Glucose, Dipstick Normal (Normal); Ketone-Dipstick 5 mg/dl (Negative); Leukocyte Esterase-Dipstick 25 /ul (Negative); Nitrite-Dipstick Negative (Negative); Occult Blood-Urine Negative /ul (Negative); Protein-Dipstick Negative (Negative); Urine Bilirubin Dipstick Negative (Negative); Urine Clarity Clear (Clear); Urine Urobilinogen 1 mg/dl (Normal)
[2019-09-22 23:49] LABS: Internal QC Validated? YES +Cl - CLEAR BKGD; Pregnancy, Urine Negative Negative
[2019-09-23 00:02] LABS: Bacteria RARE /hpf (None Seen); Mucous, Urine 1+ /hpf (<or=2+); Red Blood Cells-Urine 0-5 SEEN /hpf (0-5)
[2019-09-23 00:03] LABS: Squamous Epithelial Cells - UA 0-5 SEEN /hpf (5-10); White Blood Cells 0-5 SEEN /hpf (0-5)
[2019-09-23] MEDS: Phenazopyridine 95 MG Tablet 190 MG PO (00:15)
[2019-09-23] MEDS: Smz/Tmp Ds Tablet 1 TABLET PO (00:15)
[2019-09-23 00:18] VITALS: BP 134/78; PULSE 78; RESP 16; O2SAT 100
== END 2019-09-23 00:19 | disposition home or self-care (01) ==
LOC: ED 23:12
PROVIDERS: Emergency Provider Emergency Medicine
DX: N30.00 Acute cystitis without hematuria (principal); Z87.442 Personal history of urinary calculi; Z87.440 Personal history of urinary (tract) infections; F17.200 Nicotine dependence, unspecified, uncomplicated
CPT/HCPCS: 81001; 81025; 87086; 87088; 99283

== ENCOUNTER 2019-11-17 00:37 | Emergency (ER) | payer MEDICAID, SELFPAY ==
[2019-11-17 00:41] VITALS: BP 122/76; PULSE 90; RESP 17; TEMP 36.6; O2SAT 98; BMI 40.7
--- NOTE | 2019-11-17 00:51 | ED.RN ---
PULLED OLD EKG
--- NOTE | 2019-11-17 01:14 | EKG12_ITS ---
Test Reason : DYSRHYTHMIA Blood Pressure : / mmHG Vent. Rate : 092 BPM Atrial Rate : 092 BPM P-R Int : 160 ms QRS Dur : 088 ms QT Int : 356 ms P-R-T Axes : 055 021 036 degrees QTc Int : 440 ms Normal sinus rhythm Nonspecific ST abnormality Abnormal ECG Confirmed by TONY TREJO ([id number]), book editor GREG STEVE ([id number]) on 11/20/2019 9:26:01 AM Referred By: No Primary Care Physician Confirmed By:TONY TREJO
--- NOTE | 2019-11-17 01:16 | ED.DCSUM_ITS ---
History of Present Illness Chief Complaint: Dizziness Narrative: Patient is a 24-year-old female who presents with sudden onset of nausea vomiting and diarrhea. This is severe. It began 2 hours ago. While on the commode she had a syncopal episode. She was woke by her daughter. Since that time she has developed abdominal pain which was initially 5 but she now rates it as 7. When asked to describe it I asked if it was dull, aching, cramping. She replied all of the above. No fevers. Daughter is ill with a fever but does not have similar symptoms of vomiting and diarrhea. Patient does have a history of endometriosis. She has not had an appendectomy, cholecystectomy, no history of bowel resection. She does have a history of surgery for scarring related to endometriosis by Dr. Dash that sounds like possibly it was lysis of adhesions. Patient also reports removal of a benign mass. She had a hernia repair as well with mesh. Last menstrual period was 2 weeks ago. No vaginal bleeding or discharge. No urinary symptoms such as dysuria or frequency. Past Medical History - Allergies and Home Meds Allergies/Adverse Reactions: Allergies nickel [Nickel] Allergy (Unknown, Verified 11/17/19 00:49) Rash Primary Care Physician: Care Physician,No Primary [Primary Care Provider] - Past Medical History: - - Endometriosis Surgical History: noncontributory Smoking Status: Current every day smoker Review of Systems All systems negative except as indicated General: Denies: Fever Cardiovascular: Reports: - - Syncope. Denies: Chest pain Respiratory: Denies: Dyspnea Gastrointestinal: Reports: Abdominal pain, Nausea, Vomiting, Diarrhea Musculoskeletal: Denies: Myalgias Skin: Denies: Rash Neurological: Denies: Headache Physical Exam Vital Signs/Narrative: Vital Signs Temp Pulse Resp BP Pulse Ox 11/17/19 00:41 97.9 F 90 17 122/76 H 98 Inital Vital Signs reviewed: Yes General: Well nourished Head: Normocephalic Eyes: EOMI ENT: Moist mucous membranes Neck: Supple Cardiovascular: Regular rate, Regular rhythm Respiratory: No distress, CTA bilaterally Abdomen: Soft, Tender, - - Diffuse nonfocal abdominal tenderness without guarding without rebound. Negative for: Guarding, Rebound tenderness Skin: Normal color Neurological: Alert Psychological: Normal affect Diagnostic/Tx/Re-eval Impressions Abdomen/Pelvis CT 02/04/20 01:39 IMPRESSION: Right ovarian cyst as described above. Fluid within the colon which may represent nonspecific enteritis versus a diarrhea. No acute appendicitis or bowel obstruction. Unremarkable abdominal viscera. Electronically Signed: Shanice Jessica MD at 2:41 EST , Service support , Transvaginal US 11/17/19 03:18 IMPRESSION: Large right ovarian simple cyst. No right ovarian torsion. The left ovary is not visualized. Intrauterine device in good position. Electronically Signed: Maddie Conner MD at 5:12 EST , Service support , 11/17/19 01:39 CT Abd [Abdomen/Pelvis W IV Cont ONLY] [CT] Stat 11/17/19 03:18 Transvaginal Non- [US] Stat Laboratory Results 11/17/19 11/17/19 11/17/19 01:00 01:00 01:00 WBC 20.3 H RBC 5.04 Hgb 15.1 H Hct 45.5 MCV 90.3 MCH 30.0 MCHC 33.2 RDW Std Deviation 38.5 RDW Coeff of Theo 11.8 Plt Count 365 MPV 10.1 Immature Gran % (Auto) 0.600 Neut % (Auto) 80.7 H Lymph % (Auto) 10.6 L Armstrong % (Auto) 6.4 Eos % (Auto) 1.3 Baso % (Auto) 0.4 Absolute Neuts (auto) 16.4 H Absolute Lymphs (auto) 2.14 Nucleated RBC % 0 Sodium 138 Potassium 3.3 L Chloride 104 Carbon Dioxide 25.0 Anion Gap 9 BUN 16 Creatinine 0.90 Estim Creat Clear Calc 78.36 Est GFR (MDRD) Af Amer 97 Est GFR (MDRD) Non-Af 80 BUN/Creatinine Ratio 17.8 Glucose 155 H Lactic Acid Calcium 9.6 Total Bilirubin 0.30 AST 17 ALT 33 Alkaline Phosphatase 96 Total Protein 8.4 H Albumin 4.4 Globulin 4.0 Albumin/Globulin Ratio 1.1 Lipase 102 Serum , Qual NEGATIVE Urine Color Urine Clarity Urine pH Ur Specific [place] Urine Protein Urine Glucose (UA) Urine Ketones Urine Occult Blood Urine Nitrite Urine Bilirubin Urine Urobilinogen Ur Leukocyte Esterase Urine RBC Urine WBC Ur Squamous Epith Cells Urine Bacteria Urine Mucus 11/17/19 11/17/19 01:51 02:50 WBC RBC Hgb Hct MCV MCH MCHC RDW Std Deviation RDW Coeff of Theo Plt Count MPV Immature Gran % (Auto) Neut % (Auto) Lymph % (Auto) Armstrong % (Auto) Eos % (Auto) Baso % (Auto) Absolute Neuts (auto) Absolute Lymphs (auto) Nucleated RBC % Sodium Potassium Chloride Carbon Dioxide Anion Gap BUN Creatinine Estim Creat Clear Calc Est GFR (MDRD) Af Amer Est GFR (MDRD) Non-Af BUN/Creatinine Ratio Glucose Lactic Acid 1.1 Calcium Total Bilirubin AST ALT Alkaline Phosphatase Total Protein Albumin Globulin Albumin/Globulin Ratio Lipase Serum , Qual Urine Color Yellow Urine Clarity Clear Urine pH 5.0 Ur Specific [place] 1.010 Urine Protein 15 H Urine Glucose (UA) Normal Urine Ketones 15 H Urine Occult Blood Negative Urine Nitrite Negative Urine Bilirubin Negative Urine Urobilinogen Normal Ur Leukocyte Esterase Negative Urine RBC 0 SEEN Urine WBC 0 SEEN Ur Squamous Epith Cells 0 SEEN Urine Bacteria 0 SEEN Urine Mucus 0 SEEN - Medical Decision Making Patient's initial presentation was most suggestive of a viral syndrome, viral gastroenteritis or food poisoning. She was given IV fluids, Bentyl, Zofran. She continued to complain of significant pain and nausea so was then given morphine and Phenergan. On reevaluation she is resting comfortably and feels much better. However her labs did return notable for a white count of 20,000. At this point I did obtain CT imaging. CT results as above notable for right ovarian cyst otherwise essentially unremarkable. Pelvic ultrasound was obtained to rule out torsion given her pain and vomiting. This shows a simple cyst without evidence of ovarian torsion although the left ovary was not visualized the side with the cyst has good flow. I discussed hospital observation versus outpatient follow-up. The patient would prefer to go home and follow-up as an outpatient. 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 I advised that she actually make an appointment for follow-up for reevaluation and possible repeat laboratory testing. Her leukocytosis is most likely reactive to her acute illness and I see no evidence of any focal bacterial infection. I did not leave antibiotics are warranted at this time. She tolerated a p.o. challenge well here. She was given clear instructions to return for new or worsening symptoms and was instructed on specific signs and symptoms to monitor for and she was discharged home. ED Disposition - Plan for ED Patient: Disposition: Home or Assisted Living Diagnosis: Gastroenteritis, Ovarian cyst Instructions: FOOD POISONING or GASTROENTERITIS (6y-Adult), Ovarian Cyst Prescriptions: Ondansetron [Zofran Odt] 4 mg PO Q8H PRN PRN #10 tab PRN Reason: Nausea Prescription Printed Referrals: Care Physician,No Primary [Primary Care Provider] - Emma Haji MD [COURTESY STAFF PHYSICIAN] - Brenda Elizalde MD [STAFF PHYSICIAN] -
[2019-11-17 01:21] LABS: Absolute Lymphocyte Count 2.14 X10^3/uL (0.83-4.51); Absolute Neutrophil Count 16.4 X10^3/uL (2.0-7.7); Basophil# 0.09 X10^3/uL; Basophil% 0.4 % (0-1); Eosinophil# 0.27 X10^3/uL; Eosinophils% 1.3 % (0-5); Hematocrit 45.5 % (37-47); Hemoglobin 15.1 g/dL (12.0-15.0); Lymphocyte # 2.14 X10^3/ul (4.0); Lymphocyte % 10.6 % (19-41); Mean Corp Hgb Conc 33.2 g/dL (32-36); Mean Corpuscular Volume 90.3 fL (81-99); Mean Platelet Vol. 10.1 fl (6.2-12.0); Monocyte# 1.29 X10^3/uL; Monocyte% 6.4 % (0-10); NRBC Flagged by Analyzer 0 % (0-5); Neutrophil # 16.36 X10^3/uL (2.7-7.7); Neutrophil % 80.7 % (47-70); Platelet Count 365 K/mm3 (150-450); RBC Distribution Width CV 11.8 % (11.6-14.6); RBC Distribution Width SD 38.5 fl (35.1-43.9); Red Blood Count 5.04 M/mm3 (4.2-5.4); White Blood Count 20.3 K/mm3 (4.4-11.0)
[2019-11-17 01:26] LABS: Internal QC Validated? YES +Cl - CLEAR BKGD; Pregnancy, Serum, hCG Quali. NEGATIVE Negative
[2019-11-17] MEDS: Dicyclomine 20 MG/2 ML Vial IM (01:31)
[2019-11-17] MEDS: Ondansetron 4 MG/2 ML Vial IV (01:31)
[2019-11-17] MEDS: 0.9% Normal Saline 1,000 ML 999 ML IV (01:31)
[2019-11-17 01:35] LABS: ALB/GLOB Ratio 1.1 RATIO (0.9-2.4); AST(SGOT) 17 U/L (15-37); Alanine Aminotransfer ALT/SGPT 33 U/L (13-56); Albumin, Serum 4.4 g/dL (3.2-5.0); Alkaline Phosphatase 96 U/L (45-117); Anion Gap 9 (5-15); BUN 16 mg/dL (7-18); BUN/Creat Ratio 17.8 RATIO (10-20); Calcium,Total 9.6 mg/dL (8.5-10.1); Chloride 104 mmol/L (98-107); EST Glomerular Filtration Rate 80 mL/min (>60); Est Glom Filt Rate - Afr Amer 97 mL/min (>60); Estimated Creatinine Clearance 78.36 ml/min; Glucose 155 mg/dL (74-106); Lipase 102 U/L (73-393); Potassium 3.3 mmol/L (3.5-5.1); Protein, Total 8.4 g/dL (6.4-8.2); Sodium Level 138 mmol/L (136-145)
--- NOTE | 2019-11-17 01:39 | CT_ITS ---
STUDY: CT ABDOMEN AND PELVIS WITH CONTRAST REASON FOR EXAM: Female, 24 years old. ABD PAIN N/V/D. Syncopal episodes. Tumor removed from stomach 2017 RADIATION DOSAGE (If Supplied By Facility): CTDIvol = ( 15.30 ) mGy, DLP = ( 1301.26 ) mGycm TECHNIQUE: Transaxial images were obtained from the dome of the diaphragm to the symphysis pubis without oral contrast. Isovue 370 100ml was administered. Sagittal and coronal images were reconstructed. Individualized dose optimization techniques were used for this CT. COMPARISON: 08/18/2018. FINDINGS: The visualized lung bases are unremarkable. The visualized portions of the heart are within normal limits. Normal liver. Normal gallbladder and extrahepatic biliary system. Normal spleen. Normal pancreas. Normal bilateral adrenal glands. Normal right kidney. Normal left kidney. Normal visualized stomach. Normal small intestine. Fluid within the colon which may be seen with nonspecific enteritis or diarrhea. Mild focal loop of small bowel distention in the proximal jejunum which may represent localized ileus. The appendix is visualized and appears normal. Normal abdominal aorta. Normal inferior vena cava. Normal retroperitoneum. The urinary bladder is decompressed. The uterus is anteverted with IUD in place. There is a right-sided ovarian cyst measuring 5.1 x 5.0 cm. Normal abdominal wall. Normal osseous structures. CT/Abdomen/Pelvis W IV Cont ONLY IMPRESSION: Right ovarian cyst as described above. Fluid within the colon which may represent nonspecific enteritis versus a diarrhea. No acute appendicitis or bowel obstruction. Unremarkable abdominal viscera. Electronically Signed: Shanice Jessica MD at 2:41 EST , Service support ,
[2019-11-17 02:26] LABS: Lactic Acid 1.1 mmol/L (0.4-1.9)
[2019-11-17 02:54] VITALS: BP 129/80; PULSE 72; RESP 18; O2SAT 99
[2019-11-17 03:01] LABS: Bacteria 0 SEEN /hpf (None Seen); Mucous, Urine 0 SEEN /hpf (<or=2+); Red Blood Cells-Urine 0 SEEN /hpf (0-5); Squamous Epithelial Cells - UA 0 SEEN /hpf (5-10); White Blood Cells 0 SEEN /hpf (0-5)
[2019-11-17 03:02] LABS: Color, Urine Yellow (Yellow); Glucose, Dipstick Normal (Normal); Ketone-Dipstick 15 mg/dl (Negative); Leukocyte Esterase-Dipstick Negative /ul (Negative); Nitrite-Dipstick Negative (Negative); Occult Blood-Urine Negative /ul (Negative); Protein-Dipstick 15 mg/dl (Negative); Urine Bilirubin Dipstick Negative (Negative); Urine Clarity Clear (Clear); Urine Urobilinogen Normal (Normal)
[2019-11-17] MEDS: proMETHazine 25 MG/ML Syringe 12.5 MG IV (03:07)
[2019-11-17] MEDS: Morphine 4 MG/ML Syringe IV (03:07)
--- NOTE | 2019-11-17 03:18 | US_ITS ---
STUDY: ULTRASOUND TRANSVAGINAL CLINICAL: Female, 24 years old. Ovarian cyst, pelvic pain. 4 para 3 TECHNIQUE: Transvaginal COMPARISON: CT abdomen pelvis 11/17/2019 FINDINGS: Normal uterine size measuring 9 cm in maximal craniocaudal dimension. There are no myometrial masses. Normal endometrial thickness measuring 7 mm. There is an intrauterine device in good position. Normal uterine cervix. Normal right ovary, measuring 6 x 5 x 5 x 4.5 cm. There is color flow. There is a 4.5 x 3.8 x 4.2 cm simple cyst. Left ovary is not visualized. There is no free fluid in the pelvis. Polycystic ovary disease: No. US/Transvaginal Non- IMPRESSION: Large right ovarian simple cyst. No right ovarian torsion. The left ovary is not visualized. Intrauterine device in good position. Electronically Signed: Maddie Conner MD at 5:12 EST , Service support ,
[2019-11-17 04:14] VITALS: BP 100/71; PULSE 62; RESP 16; O2SAT 98
[2019-11-17 05:35] VITALS: BP 120/72; PULSE 70; RESP 16; O2SAT 97
[2019-11-17 05:41] VITALS: BP 120/72; PULSE 70; RESP 16; O2SAT 97
== END 2019-11-17 05:47 | disposition home or self-care (01) ==
PROVIDERS: Emergency Provider Emergency Medicine
DX: N83.201 Unspecified ovarian cyst, right side (principal); K52.9 Noninfective gastroenteritis and colitis, unspecified; R55 Syncope and collapse; Z72.0 Tobacco use
CPT/HCPCS: 74177; 76830; 80053; 81001; 83605; 83690; 84703; 85025; 93005; 93976; 96361; 96372; 96374; 96375; 99285; J7030; Q9967; A4216; J2405

== ENCOUNTER 2019-11-28 22:53 | Emergency (ER) | payer MEDICAID, SELFPAY ==
[2019-11-28 22:54] VITALS: BP 118/96; PULSE 102; RESP 18; TEMP 36.6; O2SAT 98; BMI 40.1
--- NOTE | 2019-11-28 23:07 | ED.VIS.GEN ---
History of Present Illness Chief Complaint: Lower Extremity Injury Detail of Chief Complaint: Left foot injury Informant: Patient Onset: Today Current Severity: Moderate Maximum Severity: Moderate Narrative: Patient presents with pain to the top of her left foot. She was trying to go down some steps with shoes that had a heel on them. She rolled her foot. She denies any other injury. She denies pain at the ankle. Past Medical History - Allergies and Home Meds Allergies/Adverse Reactions: Allergies nickel [Nickel] Allergy (Unknown, Verified 11/28/19 22:53) Rash pistachio nut Allergy (Verified 11/28/19 22:53) Swelling Primary Care Physician: Care Physician,No Primary [Primary Care Provider] - Past Medical History: None Surgical History: noncontributory Lives: With Family Smoking Status: Former smoker Review of Systems General: Denies: Chills, Fever Eyes: Denies: Visual changes - bilaterally ENT: Denies: Bilateral ear pain Cardiovascular: Denies: Chest pain Respiratory: Denies: Dyspnea, Cough Gastrointestinal: Denies: Abdominal pain, Nausea, Vomiting, Diarrhea Musculoskeletal: Reports: Extremity Pain. Denies: Back pain Skin: Denies: Rash Neurological: Denies: Parasthesia Allergy: Denies: Uticaria Physical Exam Vital Signs/Narrative: Vital Signs Temp Pulse Resp BP Pulse Ox 11/28/19 22:54 97.9 F 102 H 18 118/96 H 98 Inital Vital Signs reviewed: Yes General: Well nourished, Well developed Head: Normocephalic ENT: Moist mucous membranes Neck: Supple Cardiovascular: Regular rate, Regular rhythm Respiratory: No distress, CTA bilaterally Abdomen: Soft, Nontender Extremities: - - Tenderness outpatient over the dorsum of the left foot. Minimal edema. No ecchymosis. No obvious deformity. Good cap refill distally and good sensation. No tenderness of the ankle or knee. Neurological: Alert, Oriented x3 Psychological: Normal affect Diagnostic/Tx/Re-eval Impressions Foot X-Ray 11/28/19 23:10 IMPRESSION: Normal x-ray examination of the foot. Electronically Signed: Marcelo Rashid MD at 23:20 EST , Service support , 11/28/19 23:10 Foot min 3 Views [RAD] Stat - Medical Decision Making Patient was given naproxen for pain. On repeat evaluation she is resting comfortably. Test results are discussed with her. Foot will be wrapped in an Marvin wrap and she will be given crutches, she may weight-bear as tolerated. ED Disposition - Plan for ED Patient: Disposition: Home or Assisted Living Diagnosis: Sprain of left foot Instructions: Sprain Foot Prescriptions: Naproxen [Naprosyn] 500 mg PO BID PRN PRN #20 tablet PRN Reason: Pain Score 4-10/10 Referrals: Al Bernardo MD [STAFF PHYSICIAN] - 1 Week if not improving
[2019-11-28] MEDS: Naproxen 500 MG Tablet PO (23:10)
--- NOTE | 2019-11-28 23:10 | RAD_ITS ---
STUDY: X-RAY - LEFT FOOT CLINICAL: Female, 24 years old. Foot injury, felt a pop on top of foot, pain TECHNIQUE: 3 view(s) of the foot. COMPARISON: None. FINDINGS: Normal talus, calcaneus, and tarsal bones. Normal visualized subtalar, talonavicular, calcaneocuboid, tarsal and tarsometatarsal articulations. Normal metatarsi. Normal metatarsophalangeal joint of the great toe. Normal tibial and fibular sesamoid bones. Normal interphalangeal joint of the great toe. Normal phalanges of the great toe. Normal second through fifth metatarsophalangeal joints. Normal interphalangeal joints and phalanges of the lesser toes. The soft tissue structures are unremarkable. There is no demonstrated fracture. RAD/Foot min 3 Views IMPRESSION: Normal x-ray examination of the foot. Electronically Signed: Marcelo Rashid MD at 23:20 EST , Service support ,
[2019-11-28 23:33] VITALS: PULSE 82; RESP 15; O2SAT 100
== END 2019-11-29 00:11 | disposition home or self-care (01) ==
PROVIDERS: Emergency Provider Emergency Medicine
DX: S93.602A Unspecified sprain of left foot, initial encounter (principal); X50.1XXA Overexertion from prolonged static or awkward postures, initial encounter; Y93.89 Activity, other specified; Y92.89 Other specified places as the place of occurrence of the external cause; Z87.891 Personal history of nicotine dependence
CPT/HCPCS: 73630; 99284

== ENCOUNTER 2020-06-27 18:20 | Observation (INO) | payer MEDICAID, SELFPAY ==
[2020-06-27 18:21] VITALS: BP 124/66; PULSE 86; PULSE 89; RESP 17; TEMP 36.3; O2SAT 99; BMI 35.9
--- NOTE | 2020-06-27 18:42 | CT_ITS ---
STUDY: CTA HEAD AND NECK WITH CONTRAST REASON FOR EXAM: Female, 25 years old. BLURRED VISIONIN BOTH EYES,LT EYE PRESSURE,IMPAIRED MEMORY LOSS X 6 MONTHS,MIGRAINE HEADACHE''S,PREG TEST WAS NEG RADIATION DOSAGE (If Supplied By Facility): CTDIvol = ( 26.86 ) mGy, DLP = ( 1480.06 ) mGycm TECHNIQUE: CT angiography was performed with a multi-detector CT scanner. Data acquisition was obtained from the skull base through the vertex following intravenous administration of . MIP images were reconstructed from the axial data set. Post-processing of the angiographic images was performed, with multiplanar reformation and 3D reconstruction. Individualized dose optimization techniques were used for this CT. COMPARISON: No relevant priors. FINDINGS: Normal bilateral petrous carotid arteries. Normal right cavernous carotid artery with a normal supraclinoid bifurcation. Normal left cavernous carotid artery with a normal supraclinoid bifurcation. Normal right A1 segments of the anterior cerebral artery. Normal left A1 segments of the anterior cerebral artery. Normal intact anterior communicating artery (ACOM). Normal bilateral A2 segments of the anterior cerebral arteries. Normal right M1 and M2 segments of the middle cerebral arteries, with a normal M1 bifurcation. Normal left M1 and M2 segments of the middle cerebral arteries, with a normal M1 bifurcation. Nonvisualization of the posterior communicating arteries (PCOM). Normal bilateral vertebral arteries. Normal basilar artery with a normal basilar bifurcation. The visualized bilateral superior cerebellar (SCA) arteries are normal. Normal bilateral P1, P2 and visualized P3 segments of the posterior cerebral arteries. There is no demonstrated aneurysm of the [place]. There is no demonstrated abnormality of the visualized brain. AORTIC ARCH: Normal visualized aortic arch. Normal origins of the brachiocephalic, left common carotid, and left subclavian arteries. RIGHT CAROTID ARTERIES: Normal right common carotid artery (CCA). Normal right common carotid bulb. Normal origin of the right internal carotid (ICA) artery without a hemodynamically significant stenosis. Normal visualized cervical portion of the right internal carotid artery. Normal origin of the right external carotid artery (ECA). LEFT CAROTID ARTERIES: Normal left common carotid artery (CCA). Normal left common carotid bulb. Normal origin of the left internal carotid (ICA) artery without a hemodynamically significant stenosis. Normal visualized cervical portion of the left internal carotid artery. Normal origin of the left external carotid artery (ECA). VERTEBRAL ARTERIES: Normal bilateral vertebral arteries. CT/CTA Head AND Neck W/ Contrast IMPRESSION: Normal CTA Head and neck with contrast. Electronically Signed: Jaya Benito DO at 20:32 EDT Tel [phone], Service support ,
--- NOTE | 2020-06-27 18:53 | ED.VISSUMM ---
- ER Visit Summary Date of Service: 06/27/20 Chief Complaint: Vision changes History of Present Illness: The patient is a 25 F presenting with vision changes. She states that this started approximately 1 hour ago. She states that she feels like she is looking through a kaleidoscope with her left eye. Her right eye is blurry. She has a pressure behind her left eye. She states she has a history of migraines but this feels different. She has no headache. Denies nausea or vomiting. Denies fever. She states her boyfriend has also noticed that she has been repeating herself and has had memory loss over the past 6 months. She denies other complaints. Physical Examination: Vitals are stable. Patient is afebrile. Alert no acute distress. HEENT exam is unremarkable. PERRL, EOMI Neck is supple. No meningismus Lungs are clear and equal bilaterally. Heart is regular rate and rhythm. Abdomen is soft nontender nondistended. Extremities are unremarkable. Skin is warm and dry. No focal neurologic deficit. NIH is 0. Remainder of exam is unremarkable. Emergency Department Course and Treatment: Visual acuity shows 20/40 OD, 20/40 OS, 20/25 OU. Intraocular pressure 23. CTA head and neck normal CTA head and neck with contrast. CBC, chemistries unremarkable. hCG negative. Discussed with ophthalmology and [facility] neurology. Her symptoms likely represent an ocular migraine. Neurology recommends admission for MRI to rule out MS. Discussed with the hospitalist for admission. Disposition: Observation Impression: Ocular migraine This note was generated with [employer] dictation software. It may contain incorrect words, spelling, and punctuation that were not noted in review of the chart prior to signing ED Disposition - Plan for ED Patient: Disposition: Acute Care Hospital [facility]
[2020-06-27] MEDS: Tetracaine 0.5% Ophthalmic Bottle 1 DRP LEFT EYE (19:17)
[2020-06-27 19:35] LABS: Absolute Lymphocyte Count 3.14 X10^3/uL (0.83-4.51); Absolute Neutrophil Count 5.5 X10^3/uL (2.0-7.7); Basophil# 0.05 X10^3/uL; Basophil% 0.5 % (0-1); Eosinophil# 0.21 X10^3/uL; Eosinophils% 2.2 % (0-5); Hematocrit 39.9 % (37-47); Hemoglobin 13.3 g/dL (12.0-15.0); Lymphocyte # 3.14 X10^3/ul (4.0); Lymphocyte % 33.2 % (19-41); Mean Corp Hgb Conc 33.3 g/dL (32-36); Mean Corpuscular Hgb 30.4 pg (27.0-32.0); Mean Corpuscular Volume 91.3 fL (81-99); Mean Platelet Vol. 10.3 fl (6.2-12.0); Monocyte# 0.56 X10^3/uL; Monocyte% 5.9 % (0-10); NRBC Flagged by Analyzer 0 % (0-5); Neutrophil # 5.47 X10^3/uL (2.7-7.7); Neutrophil % 57.9 % (47-70); Platelet Count 367 K/mm3 (150-450); RBC Distribution Width CV 11.1 % (11.6-14.6); RBC Distribution Width SD 37.3 fl (35.1-43.9); Red Blood Count 4.37 M/mm3 (4.2-5.4); White Blood Count 9.5 K/mm3 (4.4-11.0)
[2020-06-27 19:50] LABS: Internal QC Validated? YES +Cl - CLEAR BKGD; Pregnancy, Serum, hCG Quali. NEGATIVE Negative
[2020-06-27 19:53] LABS: Anion Gap 5 (5-15); BUN 9 mg/dL (7-18); BUN/Creat Ratio 10.5 RATIO (10-20); Calcium,Total 8.6 mg/dL (8.5-10.1); Chloride 106 mmol/L (98-107); Creatinine, Serum 0.86 mg/dL (0.55-1.02); EST Glomerular Filtration Rate 84 mL/min (>60); Est Glom Filt Rate - Afr Amer 102 mL/min (>60); Estimated Creatinine Clearance 81.28 ml/min; Glucose 136 mg/dL (74-106); Potassium 3.5 mmol/L (3.5-5.1); Sodium Level 139 mmol/L (136-145)
--- NOTE | 2020-06-27 21:07 | TELEMED_ITS ---
[facility] Telemed has confirmed receipt of a request for visit. This document confirms receipt of the order initiating the consult. To find the results of the consultation, please view the patient's reports for the scanned Telemed Consult.
[2020-06-27 21:45] VITALS: BP 110/71; PULSE 64; RESP 16; TEMP 36.7; O2SAT 99
--- NOTE | 2020-06-27 22:05 | PCM.HP.STD ---
Problem List (1) Ocular migraine Status: Acute History of Present Illness Date of Admission: 06/27/20 Chief Complaint: Blurry vision The patient is a 25 year old F with a significant history of PCOS; migraine; and endometriosis who presents to the emergency department with bilateral blurry vision that started on the same day of presentation. Patient described her blurry vision as a feeling of looking into kaleidoscope. She reports seeing triangular spots which looks blurry inside. Her blurry vision is worse in her left eye. Moreover she she feels a severe pressure behind her left eye. She had a headache that she described as pain at the back of her neck after she had received IV contrast at emergency department. She describes this headache as mild. She reported that this headache usually appears when she received IV contrast. She reported that she also had this blurry vision about 3 weeks ago. Emergent department doctor reported discussing the case with an collections manager who thought the patient may be having ocular migraine and patient can follow outpatient upon discharge. Also emergency department doctor consulted [facility] neurologist who recommended that multiple sclerosis be ruled out with brain and spine MRI with and without contrast. Past Medical History Medical History: Medical History (Last Reviewed 06/27/20 @ 23:[address] Abhijit Quinones MD) History of endometriosis Z87.42 mass removal 2018 history of child Allergies nickel [Nickel] Allergy (Unknown, Verified 06/27/20 18:21) Rash pistachio nut Allergy (Verified 06/27/20 18:21) Swelling Home Medications: Ambulatory Orders Medication Instructions Recorded Levonorgesterol [Mirena] 1 ea IY X1 09/22/19 Naproxen [Naprosyn] 500 mg PO BID PRN PRN #20 tab 11/28/19 Spironolactone [Aldactone] 100 mg PO 06/27/20 Surgical History: herniorrhaphy - With mesh in place, - - Removal of mass from abdomen secondary to scar tissue from endometriosis. Smoking Status: Never smoker Alcohol: Occasional Review of Systems Constitutional: Denies: Chills, Fever, Weight Change HEENT: Reports: Eye Pain, Head Aches. Denies: Sinus Congestion, Sinus Drainage Cardiovascular: Denies: Chest Pain, Palpitations Respiratory: Denies: Cough, Shortness of breath at rest, Sputum production Gastrointestinal: Denies: Abdominal Pain, Nausea, Vomiting Genitourinary: Denies: Dysuria Musculoskeletal: Reports: Neck Pain. Denies: Joint Pain, Joint Tenderness Skin: Denies: Rash, Wounds Neurological: Reports: Blurred vision. Denies: Focal weakness, Numbness, Tingling Psychiatric: Denies: Anxiety, Depression, Homicidal Ideations, Suicidal Ideations Hematologic/ Lymphatic: Denies: Easy Bruising, Easy Bleeding VTE Information - Inpt Only VTE Present on Admission: No VTE Mechan Device Prophylaxis: None VTE Pharm Prophylaxis ordered?: Yes Patient Problems: Active and Suspected Problems (Last Reviewed 06/27/20 @ 23:[address] Abhijit Quinones MD) Ocular migraine (Acute) - Physical Exam Vitals/I&O's: Vital Signs Temp Pulse Resp BP Pulse Ox 98.1 F 64 16 110/71 99 06/27/20 21:45 06/27/20 21:45 06/27/20 21:45 06/27/20 21:45 06/27/20 21:45 Oxygen Delivery Method Room Air Weight: 92.079 kg Body Mass Index (BMI) 35.9 General: Alert, Oriented x3, Cooperative HEENT: Atraumatic, PERRLA, EOMI, Normocephalic Neck: Supple, No JVD, Negative Carotid Bruits Lungs: Clear to auscultation, Normal air movement Cardiovascular: Regular rate, Regular Rhythm, Normal S1, Normal S2, No murmurs Abdomen: Bowel Sounds Present, Soft, Non Tender Extremities: No edema, Capillary Refill Less than 3 Seconds Skin: No rashes, No breakdown Musculoskeletal: No Tenderness to Palpation of Joints or Extremities Neurological: Cranial nerves II-XII grossly intact - Except that patient has blurry vision of bilateral eyes with left worse than right. Psych/Mental Status: Normal Affect, Appropriate Laboratory Results 06/27/20 19:05: WBC 9.5, RBC 4.37, Hgb 13.3, Hct 39.9, MCV 91.3, MCH 30.4, MCHC 33.3, RDW Std Deviation 37.3, RDW Coeff of Theo 11.1 L, Plt Count 367, MPV 10.3, Immature Gran % (Auto) 0.300, Neut % (Auto) 57.9, Lymph % (Auto) 33.2, [place] % (Auto) 5.9, Eos % (Auto) 2.2, Baso % (Auto) 0.5, Absolute Neuts (auto) 5.5, Absolute Lymphs (auto) 3.14, Nucleated RBC % 0 06/27/20 19:05: Sodium 139, Potassium 3.5, Chloride 106, Carbon Dioxide 28.0, Anion Gap 5, BUN 9, Creatinine 0.86, Estim Creat Clear Calc 81.28, Est GFR (MDRD) Af Amer 102, Est GFR (MDRD) Non-Af 84, BUN/Creatinine Ratio 10.5, Glucose 136 H, Calcium 8.6 06/27/20 19:05: Serum , Qual NEGATIVE Assessment/Plan All Active Problems (Last Reviewed 06/27/20 @ 23:[address] Abhijit Quinones MD) Ocular migraine (Acute) The patient is a 25 year old F with a significant history of PCOS; migraine; and endometriosis who presents emergency department with bilateral blurry vision and left eye pain. Complex migraine Emergency department doctor reported normal eye pressure measurements of 28. Will order MRI of brain and spine with and without contrast per neurology recommendation. Will order MRA of head and neck pain neurology recommendation. Tylenol PRN , ibuprofen PRN , and oxycodone PRN for pain. DVT Prophylaxis Subcutaneous Lovenox. OBSV E&M: [id number] Initial observation care L3
[2020-06-27 22:13] VITALS: BP 110/71; PULSE 64; RESP 16; TEMP 36.7; O2SAT 99
[2020-06-27 23:04] VITALS: BMI 35.9
[2020-06-27 23:13] VITALS: BMI 35.9
[2020-06-27 23:27] VITALS: BP 128/69; PULSE 86; RESP 16; TEMP 36.7; O2SAT 96
[2020-06-27 23:31] VITALS: PULSE 75
[2020-06-27] MEDS: oxyCODONE 5 MG Tablet 10 MG PO (23:34)
[2020-06-28 03:00] VITALS: PULSE 81
[2020-06-28] MEDS: Acetaminophen 325 MG Tablet 650 MG PO (03:48)
[2020-06-28 03:53] VITALS: BP 106/69; PULSE 80; RESP 16; TEMP 36.8; O2SAT 96
[2020-06-28 06:35] VITALS: PULSE 60
--- NOTE | 2020-06-28 08:00 | MRI_ITS ---
STUDY: MRA NECK WITH AND WITHOUT CONTRAST REASON FOR EXAM: Female, 25 years old. Blurred vision, H/A, pressure behind eyes TECHNIQUE: 3-D ceum-xd-ltfnab (TOF) imaging was performed in an 1.5 T MRI scanner. IV Dotarem 18ml was administered for the contrast enhanced images. COMPARISON: None. FINDINGS: RIGHT CAROTID ARTERIES: Normal right common carotid artery (CCA). Normal right common carotid bulb. Normal origin of the right internal carotid (ICA) artery without a hemodynamically significant stenosis. Normal visualized cervical portion of the right internal carotid artery. Normal origin of the right external carotid artery (ECA). LEFT CAROTID ARTERIES: Normal left common carotid artery (CCA). Normal left common carotid bulb. Normal origin of the left internal carotid (ICA) artery without a hemodynamically significant stenosis. Normal visualized cervical portion of the left internal carotid artery. Normal origin of the left external carotid artery (ECA). VERTEBRAL ARTERIES: Normal antegrade flow within the bilateral vertebral artery without a hemodynamically significant stenosis. MRI/MRA Neck WITH and W/O Contrast IMPRESSION: Normal bilateral cervical carotid and vertebral arteries. Electronically Signed: Bishop Adkins MD at 10:16 EDT Tel , Service support ,
--- NOTE | 2020-06-28 08:00 | MRI_ITS ---
STUDY: MRI BRAIN WITH AND WITHOUT CONTRAST REASON FOR EXAM: Female, 25 years old. Blurred vision,H/A, memory loss, pressure behind eyes TECHNIQUE: Standardized multiplanar fat and water weighted pulse sequences were obtained. 18ml Dotarem via IV was administered for the contrast portion of the examination. COMPARISON: None. FINDINGS: Normal size of the ventricles and extra-axial spaces for the patient''s age. Normal white matter tracts of the supratentorial brain. There is no evidence for recent intracranial ischemia or other cause of cytotoxic edema on diffusion weighted imaging (DWI). Normal T2* images of the brain without demonstrated susceptibility artifact. There is no demonstrated hemosiderin stain. Normal bilateral basal ganglia. Normal thalami. There is no extra-axial fluid accumulation. Normal flow voids within the major intracranial circulation suggesting patency by spin echo criteria. Normal venous enhancement. There is no enhancing intra-axial or extra-axial abnormality. Normal sella turcica, pituitary gland, infundibular stalk, optic chiasm and hypothalamus. Normal tectal plate and pineal gland. Normal midbrain, roxanne and medulla. Normal cerebellum. Normal basal cisterns. Normal bilateral temporal bones. Normal bilateral internal auditory canals. No demonstrated orbital abnormality, within the constraints of a routine brain study. Normal visualized paranasal sinuses. Normal calvarium and skull base. Normal visualized soft tissue structures. Normal visualized upper cervical spine. MRI/Brain W/WO Contrast IMPRESSION: Normal unenhanced and enhanced MRI of the brain. Electronically Signed: Bishop Adkins MD at 10:11 EDT Tel , Service support ,
--- NOTE | 2020-06-28 08:00 | MRI_ITS ---
STUDY: MRA OF THE HEAD WITHOUT CONTRAST REASON FOR EXAM: Female, 25 years old. Blurred vision, pressure behind eye, memory loss. Blurred vision, pressure behind eye, memory loss TECHNIQUE: 3-D bspa-ec-xbigbn (TOF) imaging was performed with MIPs. The study was performed unenhanced. COMPARISON: None. FINDINGS: Patent right cavernous carotid artery. Patent left cavernous carotid artery. Patent right A1 segments of the anterior cerebral artery. Patent left A1 segments of the anterior cerebral artery. Unremarkable anterior communicating artery (ACOM) region. Normal bilateral A2 segments of the anterior cerebral arteries. Patent right M1 and M2 segments of the middle cerebral arteries, with a unremarkable M1 bifurcation. Patent left M1 and M2 segments of the middle cerebral arteries, with a unremarkable M1 bifurcation. There is non-visualization of the right posterior communicating artery (PCOM). There is non-visualization of the left posterior communicating artery (PCOM). Patent basilar artery with a normal basilar bifurcation. Patent bilateral posterior cerebral arteries. MRI/MRA Head ONLY without Contrast IMPRESSION: No large vessel occlusion Electronically Signed: Chayito Keith MD at 10:27 EDT Tel , Service support ,
--- NOTE | 2020-06-28 08:00 | MRI_ITS ---
STUDY: MRI CERVICAL SPINE WITH AND WITHOUT CONTRAST REASON FOR EXAM: Female, 25 years old. Blurred vision, H/A, vertigo,pressure behind eyes TECHNIQUE: Standardized fat and water weighted pulse sequences were obtained in the sagittal and axial following administration of IV Dotarem 18ml. COMPARISON: None FINDINGS: Normal foramen magnum and brainstem-cervical cord junction. Normal craniovertebral junction. Normal anterior atlantoaxial articulation. Normal odontoid process. There is straightening of the normal cervical lordosis. Normal vertebral bodies and posterior osseous elements. C2-3: Normal endplates. Normal disc height, signal and morphology. Normal central canal and intervertebral neural foramina. C3-4: Normal endplates. Normal disc height, signal and morphology. Normal central canal and intervertebral neural foramina. C4-5: Normal endplates. Normal disc height, signal and morphology. Normal central canal and intervertebral neural foramina. C5-6: Normal endplates. Normal disc height, signal and morphology. Normal central canal and intervertebral neural foramina. C6-7: Normal endplates. Normal disc height, signal and morphology. Normal central canal and intervertebral neural foramina. C7-T1: Normal endplates. Normal disc height, signal and morphology. Normal central canal and intervertebral neural foramina. Normal cervical cord. Normal visualized soft tissue structures. MRI/Spine Cervical W/WO Contrast IMPRESSION: Straightening of the normal lordotic curvature possibly from muscular spasm. No spinal stenosis or neural foraminal stenosis. Electronically Signed: Bishop Adkins MD at 10:16 EDT Tel , Service support ,
[2020-06-28] MEDS: 0.9% Saline Lock 10 ML Syringe IV ×2 (08:01→13:05)
[2020-06-28] MEDS: Ondansetron 4 MG/2 ML Vial IV (08:01)
[2020-06-28] MEDS: oxyCODONE 5 MG Tablet 10 MG PO (08:01)
[2020-06-28 10:03] VITALS: BP 110/68; PULSE 73; RESP 14; TEMP 36.6; O2SAT 98
--- NOTE | 2020-06-28 11:20 | DCINST_ITS ---
- Discharge Diagnoses Current Active Problems: Current Active and Chronic Problems (Last Reviewed 06/27/20 @ 23:[address] Abhiijt Quinones MD) Ocular migraine (Acute) You will use the following diet at home:: No restrictions Discharge Activity: Return to Normal Activity Call your doctor if you observe: Shortness of breath, Dizziness, Fainting spells, Chest pain Additional Instructions: Attempt lifestyle modifications to help reduce migraine s including regulating sleep cycle, eating regular meals, adequate hydration, avoiding common food triggers such as cheese, chocolate or red wine. Keep a calendar to document migraine events. Allergies/Adverse Reactions: Allergies nickel [Nickel] Allergy (Unknown, Verified 06/27/20 18:21) Rash pistachio nut Allergy (Verified 06/27/20 18:21) Swelling Medications to take at Discharge Levonorgesterol [Mirena] 1 ea IY X1 09/22/19 Naproxen [Naprosyn] 500 mg PO BID PRN PRN #20 tab 11/28/19 Spironolactone [Aldactone] 100 mg PO 06/27/20 Primary Care Physician: Care Physician,No Primary [Primary Care Provider] - Please follow up with your Primary Care Physician in: 1 Week Test Results: Test results from this visit will be discussed in further detail at your follow- up appointment, if applicable. Please Follow Up With: Rafita Hampton MD - Neurology When: As scheduled 07/19/2020 at 2pm Proposed Discharge Date: 06/28/20
--- NOTE | 2020-06-28 11:51 | PHA.DC.MR ---
Pharmacy Service has performed discharge medication reconciliation for this patient. No new medications at time of discharge review. Medications reviewed are form previously reported home medications. Home Medications Levonorgesterol [Mirena] 1 ea IY X1 09/22/19 Naproxen [Naprosyn] 500 mg PO BID PRN PRN #20 tab 11/28/19 Spironolactone [Aldactone] 100 mg PO 06/27/20 The patient's discharge medication list was reviewed for discrepancies and discrepancies were resolved.
--- NOTE | 2020-06-28 12:00 | PCM.DC.SUM ---
<JesúsRobyn [employer] OPERATOR - Last Filed: 06/28/20 12:13> Discharge Date and Diagnosis Date of Admission: 06/27/20 Date of Discharge: 06/28/20 - Primary Discharge Diagnosis Acute Problems: Active Problems (Last Reviewed 06/27/20 @ 23:[address] Abhijit Quinones MD) 1. Intractable recurrent migraine 2. PCOS/endometriosis 3. Obesity Hospital Course and Treatment Imaging Results: Diagnostic Data Head/Neck CTA 06/27/20 18:42 IMPRESSION: Normal CTA Head and neck with contrast. Electronically Signed: Jaya Benito DO at 20:32 EDT Tel [phone], Service support , Brain MRI 06/28/20 08:00 IMPRESSION: Normal unenhanced and enhanced MRI of the brain. Electronically Signed: Bishop Adkins MD at 10:11 EDT Tel , Service support , Cervical Spine MRI 06/28/20 08:00 IMPRESSION: Straightening of the normal lordotic curvature possibly from muscular spasm. No spinal stenosis or neural foraminal stenosis. Electronically Signed: Bishop Adkins MD at 10:16 EDT Tel , Service support , Head MRA 06/28/20 08:00 IMPRESSION: No large vessel occlusion Electronically Signed: Chayito Keith MD at 10:27 EDT Tel , Service support , Neck MRA 06/28/20 08:00 IMPRESSION: Normal bilateral cervical carotid and vertebral arteries. Electronically Signed: Bishop Adkins MD at 10:16 EDT Tel , Service support , SOC neurology Operations: None Summary of Care Provided: The patient is a 25 year old F admitted 06/27/2020 due to blurry vision. 1. Intractable recurrent migraine-patient reports chronic history of migraines for the past 10 years however have increased in frequency and severity recently. She has not previously seen neurology or had work-up for her migraines. Imaging including MRA of neck, MRA of head, cervical spine MRI and brain MRI unremarkable. SOC neurology consult obtained who recommends lifestyle modifications to help reduce migraines including regulating sleep cycle, eating regular meals, adequate hydration, avoiding common food triggers such as cheese, chocolate or red wine. As well as keeping calendar of migraine events. Referred to neurology for outpatient evaluation and consideration of daily prophylactic treatment. Appointment scheduled with neurology, Dr. Hampton 07/19/2020. Follow-up with PCP in 1 week. 2. PCOS/endometriosis-on Aldactone. 3. Obesity-60 pound weight loss over the past year. Encouraged continued lifestyle and dietary modifications. Patient seen and examined prior to discharge. Physical assessment as noted below. Patient is stable for discharge with follow up recommendations as noted above. This patient was seen by BROOKE Mcpherson under the supervision of Dr. Duque. - Physical Exam Vitals/I&O's: Vital Signs Temp Pulse Resp BP Pulse Ox 97.8 F 73 14 110/68 98 06/28/20 10:03 06/28/20 10:03 06/28/20 10:03 06/28/20 10:03 06/28/20 10:03 Oxygen Delivery Method Room Air Weight: 202 lb 9.6 oz Body Mass Index (BMI) 35.9 Intake and Output for Last 24 Hours 06/26/20 06/27/20 06/28/20 23:59 23:59 23:59 Intake Total 100 / 100 150 / 150 Balance 100 / 100 150 / 150 General: Alert, Oriented x3, Cooperative HEENT: Atraumatic, PERRLA, EOMI, Normocephalic Neck: Supple, No JVD, Negative Carotid Bruits Lungs: Clear to auscultation, Normal air movement Cardiovascular: Regular rate, No murmurs Abdomen: Bowel Sounds Present, Soft, Non Tender Extremities: No edema, Capillary Refill Less than 3 Seconds Skin: No rashes, No breakdown Musculoskeletal: No Tenderness to Palpation of Joints or Extremities Neurological: Cranial nerves II-XII grossly intact, Neuro grossly intact Psych/Mental Status: Normal Affect, Appropriate Laboratory Results 06/27/20 19:05: WBC 9.5, RBC 4.37, Hgb 13.3, Hct 39.9, MCV 91.3, MCH 30.4, MCHC 33.3, RDW Std Deviation 37.3, RDW Coeff of Theo 11.1 L, Plt Count 367, MPV 10.3, Immature Gran % (Auto) 0.300, Neut % (Auto) 57.9, Lymph % (Auto) 33.2, Hutchinson % (Auto) 5.9, Eos % (Auto) 2.2, Baso % (Auto) 0.5, Absolute Neuts (auto) 5.5, Absolute Lymphs (auto) 3.14, Nucleated RBC % 0 06/27/20 19:05: Sodium 139, Potassium 3.5, Chloride 106, Carbon Dioxide 28.0, Anion Gap 5, BUN 9, Creatinine 0.86, Estim Creat Clear Calc 81.28, Est GFR (MDRD) Af Amer 102, Est GFR (MDRD) Non-Af 84, BUN/Creatinine Ratio 10.5, Glucose 136 H, Calcium 8.6 06/27/20 19:05: Serum , Qual NEGATIVE Current Medications Acetaminophen (Tylenol) 650 mg PO Q6H PRN PRN PRN Reason: Pain Score 1-10/Temp > 100.7 F Last Admin: 06/28/20 03:48 Dose: 650 mg Documented by: Enoxaparin Sodium (Lovenox) 40 mg SC DAILY GISELA Sodium Chloride () 250 mls @ 15 mls/hr IV .[id number] PRN PRN Reason: Saline Flush Sodium Chloride () 250 mls @ 15 mls/hr IV .[id number] PRN PRN Reason: Additional IVPB Infusion Ibuprofen (Motrin) 400 mg PO Q4H PRN PRN PRN Reason: Pain Score 1-10/Temp > 100.7 F Melatonin (Melatonin) 3 mg PO QHS PRN PRN PRN Reason: INSOMNIA Ondansetron HCl (Zofran) 4 mg IV Q8H PRN PRN PRN Reason: NAUSEA/VOMITING Last Admin: 06/28/20 08:01 Dose: 4 mg Documented by: Oxycodone HCl (Oxyir) 5 mg PO Q4H PRN PRN PRN Reason: Pain Score 4-5/10 Oxycodone HCl (Oxyir) 10 mg PO Q4H PRN PRN PRN Reason: Pain Score 6-10/10 Last Admin: 06/28/20 08:01 Dose: 10 mg Documented by: Sodium Chloride () 10 - 40 ml IV UD PRN PRN Reason: SALINE FLUSH Last Admin: 06/28/20 08:01 Dose: 20 ml Documented by: Discharge Diet: No Restrictions Discharge Activity: Return to Normal Activity Call your doctor if you observe: Shortness of breath, Dizziness, Fainting spells, Chest pain Home Medications: Medications to take at Discharge Levonorgesterol [Mirena] 1 ea IY X1 09/22/19 Naproxen [Naprosyn] 500 mg PO BID PRN PRN #20 tab 11/28/19 Spironolactone [Aldactone] 100 mg PO 06/27/20 Primary Care Physician: Care Physician,No Primary [Primary Care Provider] - Please follow up with your Primary Care Physician in: 1 Week Please Follow Up With: Rafita Hampton MD - Neurology When: As scheduled 07/19/2020 at 2pm Disposition: Home Minutes spent on discharge:: 35 Patient Condition:: Stable Medical Necessity - Tobacco Use Smoking Status: Former smoker Meaningful Use Info Meaningful Use Diagnoses (Choose all that apply): None applicable <Pamella Duque - Last Filed: 06/28/20 12:28> Hospital Course and Treatment Imaging Results: 06/28/20 08:00 Brain W/WO Contrast [MRI] Routine MRA Head ONLY without Contrast [MRI] Routine MRA Neck WITH and W/O Contrast [MRI] Routine Spine Cervical W/WO Contrast [MRI] Routine Summary of Care Provided: This patient was seen in conjunction with Robyn Espinosa NP. I have independently interviewed and examined the patient and reviewed pertinent historical, laboratory, and other data. Please refer to her note for patient's presentation, findings, and recommendations. 68-year-old female with past medical history of chronic migraine, who presented with bilateral blurred vision as well as headaches that started on the day of presentation. Patient describes the vision changes as apparently she is looking to a kaleidoscope with her left eye. Her right eye is blurry. She feels pressure behind the left eye. She complains of having migraine headaches 4-5 times a week and takes Excedrin which helps. Her usual migraines are associated with photophobia and blurred vision. She has noted memory deficits past few months. He had denied any focal neurological presentation. Physical exam was unremarkable. CTA of the head and neck was also unremarkable. Cervical spine MRI, brain MRI, MRA of the head and neck were also unremarkable. Patient was monitored overnight with improvement in her dizziness. Blurry vision appeared improved but was slightly persistent. Tele-neurology did not recommend daily prophylactic treatment for migraine. Recommended lifestyle modification and follow-up with neurologist within 2 weeks. On the day of discharge, patient was seen and examined. Denied any new complaint. She felt much improved. 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: Grossly intact - Physical Exam Vitals/I&O's: Vital Signs Temp Pulse Resp BP Pulse Ox 97.8 F 73 14 110/68 98 06/28/20 10:03 06/28/20 10:03 06/28/20 10:03 06/28/20 10:03 06/28/20 10:03 Oxygen Delivery Method Room Air Weight: 91.898 kg Body Mass Index (BMI) 35.9 Intake and Output for Last 24 Hours 06/26/20 06/27/20 06/28/20 23:59 23:59 23:59 Intake Total 100 / 100 150 / 150 Balance 100 / 100 150 / 150 Laboratory Results 06/27/20 19:05: WBC 9.5, RBC 4.37, Hgb 13.3, Hct 39.9, MCV 91.3, MCH 30.4, MCHC 33.3, RDW Std Deviation 37.3, RDW Coeff of Theo 11.1 L, Plt Count 367, MPV 10.3, Immature Gran % (Auto) 0.300, Neut % (Auto) 57.9, Lymph % (Auto) 33.2, Hutchinson % (Auto) 5.9, Eos % (Auto) 2.2, Baso % (Auto) 0.5, Absolute Neuts (auto) 5.5, Absolute Lymphs (auto) 3.14, Nucleated RBC % 0 06/27/20 19:05: Sodium 139, Potassium 3.5, Chloride 106, Carbon Dioxide 28.0, Anion Gap 5, BUN 9, Creatinine 0.86, Estim Creat Clear Calc 81.28, Est GFR (MDRD) Af Amer 102, Est GFR (MDRD) Non-Af 84, BUN/Creatinine Ratio 10.5, Glucose 136 H, Calcium 8.6 06/27/20 19:05: Serum , Qual NEGATIVE Current Medications Acetaminophen (Tylenol) 650 mg PO Q6H PRN PRN PRN Reason: Pain Score 1-10/Temp > 100.7 F Last Admin: 06/28/20 03:48 Dose: 650 mg Documented by: Enoxaparin Sodium (Lovenox) 40 mg SC DAILY GISELA Sodium Chloride () 250 mls @ 15 mls/hr IV .[id number] PRN PRN Reason: Saline Flush Sodium Chloride () 250 mls @ 15 mls/hr IV .[id number] PRN PRN Reason: Additional IVPB Infusion Ibuprofen (Motrin) 400 mg PO Q4H PRN PRN PRN Reason: Pain Score 1-10/Temp > 100.7 F Melatonin (Melatonin) 3 mg PO QHS PRN PRN PRN Reason: INSOMNIA Ondansetron HCl (Zofran) 4 mg IV Q8H PRN PRN PRN Reason: NAUSEA/VOMITING Last Admin: 06/28/20 08:01 Dose: 4 mg Documented by: Oxycodone HCl (Oxyir) 5 mg PO Q4H PRN PRN PRN Reason: Pain Score 4-5/10 Oxycodone HCl (Oxyir) 10 mg PO Q4H PRN PRN PRN Reason: Pain Score 6-10/10 Last Admin: 06/28/20 08:01 Dose: 10 mg Documented by: Sodium Chloride () 10 - 40 ml IV UD PRN PRN Reason: SALINE FLUSH Last Admin: 06/28/20 08:01 Dose: 20 ml Documented by: OBSV E&M: [id number] Observation care discharge
[2020-06-28] MEDS: dexAMETHasone 10 MG/ML Vial IV (13:05)
[2020-06-28 13:13] VITALS: BP 102/62; PULSE 71; RESP 14; TEMP 36.6; O2SAT 97
[2020-06-28] MEDS: Ibuprofen 400 MG Tablet PO (13:31)
== END 2020-06-28 11:20 | disposition home or self-care (01) ==
LOC: ED 19:22 → PCU 22:29
PROVIDERS: Admitting Provider Hospitalist; Emergency Provider Emergency Medicine; Visit Provider Internal Medicine
DX: G43.109 Migraine with aura, not intractable, without status migrainosus (principal); E28.2 Polycystic ovarian syndrome; E66.9 Obesity, unspecified; Z79.899 Other long term (current) drug therapy; Z68.35 Body mass index [BMI] 35.0-35.9, adult; Z87.891 Personal history of nicotine dependence
CPT/HCPCS: 70496; 70498; 70544; 70549; 70553; 72156; 80048; 84703; 85025; 96374; 96375; 99218; 99285; A9575; Q9967; A4216; G0378; J2405

== ENCOUNTER 2020-09-17 20:56 | Observation (INO) | payer MEDICAID, SELFPAY ==
[2020-09-17 20:56] VITALS: BP 118/86; PULSE 92; RESP 16; TEMP 36.3; O2SAT 100; BMI 36.4
--- NOTE | 2020-09-17 21:02 | CT_ITS ---
STUDY: CT ABDOMEN AND PELVIS WITHOUT CONTRAST REASON FOR EXAM: Female, 25 years old. RLQ PAIN X 2 HR. Hx of asthma, seizures and kidney stones RADIATION DOSAGE (If Supplied By Facility): CTDIvol = ( 18.39 ) mGy, DLP = ( 950.92 ) mGycm TECHNIQUE: Transaxial images were obtained from the dome of the diaphragm to the symphysis pubis without oral contrast, and without intravenous contrast. Sagittal and coronal images were reconstructed. Individualized dose optimization techniques were used for this CT. COMPARISON: None. FINDINGS: The visualized lung bases are unremarkable. The visualized portions of the heart are within normal limits. Normal liver. Normal gallbladder and extrahepatic biliary system. Normal spleen. Normal pancreas. Normal bilateral adrenal glands. Normal right kidney. Normal left kidney. Normal visualized stomach. Normal small intestine. Normal colon. The appendix is visualized and appears normal. Normal abdominal aorta. Normal inferior vena cava. Normal retroperitoneum. Normal urinary bladder. Multiple right ovarian cysts are present and limited by noncontrast CT evaluation. Normal abdominal wall. Normal osseous structures. CT/Abdomen/Pelvis without Cont IMPRESSION: 1. No evidence of nephrolithiasis or hydronephrosis. 2. Right quadrant adnexal multiple cysts likely ovarian, further characterization may be obtained with dedicated pelvic ultrasound as clinically warranted. Electronically Signed: Evan Saleh DO at 22:10 EST , Service support ,
[2020-09-17] MEDS: 0.9% Normal Saline 1,000 ML 1000 ML IV (21:14)
[2020-09-17] MEDS: Ondansetron 4 MG/2 ML Vial IV (21:15)
[2020-09-17] MEDS: morphine 8 MG/ML Syringe IV ×2 (21:15→22:03)
[2020-09-17 21:21] LABS: Absolute Lymphocyte Count 2.85 X10^3/uL (0.83-4.51); Absolute Neutrophil Count 7.3 X10^3/uL (2.0-7.7); Basophil# 0.07 X10^3/uL; Basophil% 0.6 % (0-1); Eosinophil# 0.18 X10^3/uL; Eosinophils% 1.6 % (0-5); Hematocrit 38.7 % (37-47); Hemoglobin 13.1 g/dL (12.0-15.0); Lymphocyte # 2.85 X10^3/ul (4.0); Lymphocyte % 25.6 % (19-41); Mean Corp Hgb Conc 33.9 g/dL (32-36); Mean Corpuscular Hgb 31.2 pg (27.0-32.0); Mean Corpuscular Volume 92.1 fL (81-99); Mean Platelet Vol. 9.7 fl (6.2-12.0); Monocyte# 0.72 X10^3/uL; Monocyte% 6.5 % (0-10); NRBC Flagged by Analyzer 0 % (0-5); Neutrophil # 7.27 X10^3/uL (2.7-7.7); Neutrophil % 65.3 % (47-70); Platelet Count 377 K/mm3 (150-450); RBC Distribution Width CV 11.6 % (11.6-14.6); White Blood Count 11.1 K/mm3 (4.4-11.0)
[2020-09-17 21:31] LABS: Internal QC Validated? YES +Cl - CLEAR BKGD; Pregnancy, Serum, hCG Quali. NEGATIVE Negative
[2020-09-17 21:37] LABS: ALB/GLOB Ratio 1.1 RATIO (0.9-2.4); AST(SGOT) 14 U/L (15-37); Alanine Aminotransfer ALT/SGPT 26 U/L (13-56); Albumin, Serum 3.9 g/dL (3.2-5.0); Alkaline Phosphatase 80 U/L (45-117); Anion Gap 6 (5-15); BUN 10 mg/dL (7-18); BUN/Creat Ratio 14.9 RATIO (10-20); Calcium,Total 8.7 mg/dL (8.5-10.1); Chloride 107 mmol/L (98-107); Creatinine, Serum 0.67 mg/dL (0.55-1.02); EST Glomerular Filtration Rate 111 mL/min (>60); Est Glom Filt Rate - Afr Amer 135 mL/min (>60); Estimated Creatinine Clearance 104.33 ml/min; Globulin 3.7 g/dL (2.2-4.2); Glucose 116 mg/dL (74-106); Lipase 138 U/L (73-393); Protein, Total 7.6 g/dL (6.4-8.2); Sodium Level 141 mmol/L (136-145)
--- NOTE | 2020-09-17 21:37 | ED.DCSUM_ITS ---
History of Present Illness Chief Complaint: Abd Pain Informant: Patient Onset: Hours Maximum Severity: Mild Narrative: Patient presents with 2-hour history of right flank pain that began suddenly while she was shopping for groceries she was not ill when she walked into the grocery store, she has had no coronavirus exposures, has history of hernia mesh repair to the right lower abdomen years ago no complications with that normal bowel bladder habits has an IUD does not believe she is , describes the pain as sharp and stabbing bowel and bladder habits unremarkable Past Medical History - Allergies and Home Meds Allergies/Adverse Reactions: Allergies nickel [Nickel] Allergy (Unknown, Verified 09/17/20 20:58) Rash pistachio nut Allergy (Verified 09/17/20 20:58) Swelling Primary Care Physician: Care Physician,No Primary [Primary Care Provider] - Past Medical History: - Surgical History: herniorrhaphy - With mesh in place, - - Removal of mass from abdomen secondary to scar tissue from endometriosis. Smoking Status: Never smoker Review of Systems ROS: - Clues as above General: Denies: Chills, Fever, Sweats Eyes: Denies: Visual changes - bilaterally, Diplopia ENT: Denies: Rhinorrhea, Sore throat Cardiovascular: Denies: Chest pain, Palpitations Respiratory: Denies: Dyspnea, Cough, Dyspnea on exertion Gastrointestinal: Reports: Abdominal pain. Denies: Nausea, Vomiting, Diarrhea, Melena, Hematochezia Genitourinary: Denies: Dysuria, Hematuria, Frequency Musculoskeletal: Denies: Back pain, Extremity Pain Skin: Denies: Rash, Wounds Neurological: Denies: Headache, Weakness, Numbness Physical Exam Vital Signs/Narrative: Vital Signs Temp Pulse Resp BP Pulse Ox 09/17/20 20:56 97.3 F L 92 16 118/86 H 100 General: Well nourished, Well developed, No Acute Distress Head: Normocephalic, Atraumatic Eyes: Perrl, EOMI ENT: Moist mucous membranes, No rhinorrhea Neck: Supple, Nontender Cardiovascular: Regular rate, Regular rhythm, No murmurs Respiratory: No distress, CTA bilaterally, Chest nontender Abdomen: Soft, Nontender, Nondistended, Normal bowel sounds Back: Nontender, Normal Inspection Extremities: Nontender, No edema Skin: Normal color, No rash Neurological: Alert, Oriented x3, Cranial nerves II-XII grossly intact, Normal Strength, Normal Sensation Psychological: Normal affect, Normal Mood Diagnostic/Tx/Re-eval - Medical Decision Making Is a vague discomfort to the right lower abdomen there is no obvious signs of hernia redness warmth swelling or anything acute, her back is unremarkable, her lower extremities the rest of her exam is unremarkable given all of the above ED screening evaluation labs urine CT pain management Patient's ED screening evaluation labs and UA are generally unremarkable, hCG negative, CT abdomen pelvis shows right-sided ovarian cysts normal appendix size of cyst etc. not delineated on the scan recommend ultrasound, the technical assistant was called in stat to evaluate this condition for ovarian torsion etc. 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
[2020-09-17] MEDS: Ketorolac 30 MG/ML Syringe IV (21:40)
[2020-09-17 22:01] VITALS: BP 110/72; PULSE 68; RESP 16; O2SAT 99
[2020-09-17 22:21] LABS: Color, Urine Yellow (Yellow); Glucose, Dipstick Normal (Normal); Ketone-Dipstick Negative (Negative); Leukocyte Esterase-Dipstick 25 /ul (Negative); Mucous, Urine 0 SEEN /hpf (<or=2+); Nitrite-Dipstick Negative (Negative); Occult Blood-Urine Negative /ul (Negative); Protein-Dipstick Negative (Negative); Red Blood Cells-Urine 0 SEEN /hpf (0-5); Urine Bilirubin Dipstick Negative (Negative); Urine Clarity Clear (Clear); Urine Urobilinogen Normal (Normal)
[2020-09-17 22:27] LABS: Bacteria 1+ /hpf (None Seen); White Blood Cells 0-5 SEEN /hpf (0-5)
[2020-09-17 22:28] LABS: Squamous Epithelial Cells - UA 0-5 SEEN /hpf (5-10)
--- NOTE | 2020-09-17 22:28 | US_ITS ---
We are attempting to reach an attending provider to discuss findings. An addendum with communication details will be sent when the communication is complete. HISTORY: ABNL CT PELVIC PAIN ADDITIONAL HISTORY: None provided. COMPARISON: CT 09/17/2020 TECHNIQUE: Transvaginal sonographic images of the pelvis were acquired utilizing grayscale, color Doppler and spectral Doppler imaging. FINDINGS: UTERUS: Unremarkable measuring 10.3 x 5.5 x 3.4 cm. ENDOMETRIUM: Unremarkable measuring [address] OVARIES: An enlarged ovary is seen in the posterior pelvis with cysts, ovary measuring up to 6.2 x 4.9 x 6.2 cm. Cysts are noted within this ovary measuring up to 3.4 cm. This appears to arise from the right adnexum on the CT but is measured as the left ovary on ultrasound. Only high resistance flow is present within this ovary on the single spectral Doppler image provided. The structure measured as the right ovary on ultrasound is heterogeneous in density with atypical appearance for ovarian tissue. No additional ovary is definitively demonstrated. ADNEXA: No mass. FREE FLUID: Small amount of free fluid. US/Transvaginal Non- IMPRESSION: Enlarged ovary with only high resistance flow demonstrated. Based upon correlation of the CT and ultrasound, this is favored to represent the right ovary. Appearance is concerning for the possibility of incomplete torsion. at 0025 Reported and signed by: Neida Helms MD Electronically Signed: Neida Helms MD at 0:25 EST Tel , Service support ,
[2020-09-18] VITALS (13 sets, daily range): BP systolic 86–123; BP diastolic 52–82; PULSE 66–110; RESP 16–18; TEMP 36.3–37.3; O2SAT 94–100; BMI 36.8; BMI 37.0
[2020-09-18] MEDS: HYDROmorphone 1 MG/ML Syringe IV ×3 (00:04→08:11)
[2020-09-18] MEDS: HYDROmorphone 0.5 MG/0.5 ML SYRINGE IV ×2 (01:41→03:16)
[2020-09-18] MEDS: 0.9% Normal Saline 1,000 ML 125 ML IV (03:15)
[2020-09-18] MEDS: 0.9% Saline Lock 10 ML Syringe IV ×2 (03:15→06:00)
[2020-09-18] MEDS: Ondansetron 4 MG/2 ML Vial IV (03:16)
[2020-09-18] MEDS: Metoclopramide 10 MG/2 ML Vial 5 MG IV (06:08)
--- NOTE | 2020-09-18 07:38 | NURSING ---
dr taylor called to get update on pt
--- NOTE | 2020-09-18 08:48 | HP.PCM_ITS ---
History of Present Illness Date of Admission: 09/18/20 Chief Complaint: Lower abdominal pain The patient is a 25 year old F presents with lower abdominal pain. Patient states last night she was at the store and the pain brought her to her knees. Thus she presented to the ED. The pain medications initially helped some but now they maybe improve the pain from a 10 to an 8. Holding her knees up makes the pain more tolerable. The pain can radiate to her right back and down her right leg. Past Medical History Medical History: Medical History (Last Reviewed 06/27/20 @ 23:[address] Abhijit Quinones MD) History of endometriosis Z87.42 mass removal 2018 history of child Allergies nickel [Nickel] Allergy (Unknown, Verified 09/17/20 20:58) Rash pistachio nut Allergy (Verified 09/17/20 20:58) Swelling Home Medications: Ambulatory Orders Medication Instructions Recorded Levonorgesterol [Mirena] 1 ea IY X1 09/22/19 Spironolactone [Aldactone] 100 mg PO DAILY 06/27/20 Imitrex 09/17/20 Oxycodone [Oxyir] 5 mg PO Q6H PRN PRN 3 Days #12 tab 09/18/20 Surgical History: herniorrhaphy - With mesh in place - at incision, - - Removal of mass from abdomen secondary to scar tissue from endometriosis. 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 History: endometriosis, ovarian cysts Smoking Status: Former smoker Tobacco Use: Cigarettes Review of Systems Constitutional: Denies: Chills, Fever, Weight Change Cardiovascular: Denies: Chest Pain, Palpitations Respiratory: Denies: Cough, Shortness of breath at rest, Sputum production Genitourinary: Reports: - - Some difficulty urinating because of the pain, denies dysuria Neurological: Denies: Numbness, Tingling, Focal weakness VTE Information - Inpt Only VTE Present on Admission: No - Physical Exam Vitals/I&O's: Vital Signs Temp Pulse Resp BP Pulse Ox 98.9 F 88 18 120/67 99 09/18/20 07:56 09/18/20 07:56 09/18/20 07:56 09/18/20 07:56 09/18/20 07:56 Oxygen Delivery Method Room Air Weight: 208 lb 12.444 oz Body Mass Index (BMI) 37.0 Intake and Output for Last 24 Hours 12/04/20 12/05/20 12/06/20 23:59 23:59 23:59 Intake Total 999 0 / 0 Balance 999 0 / 0 General: Alert, Oriented x3 Lungs: Clear to auscultation, Normal air movement Cardiovascular: Regular rate, Regular Rhythm Abdomen: Soft, Tender - diffuse abdominal tenderness that is worse in the lower abdomen, right more than left Extremities: No Calf Tenderness Neurological: Cranial nerves II-XII grossly intact Psych/Mental Status: Normal Affect - but in pain Laboratory Results 09/17/20 21:15: WBC 11.1 H, RBC 4.20, Hgb 13.1, Hct 38.7, MCV 92.1, MCH 31.2, MCHC 33.9, RDW Std Deviation 39.0, RDW Coeff of Theo 11.6, Plt Count 377, MPV 9.7, Immature Gran % (Auto) 0.400, Neut % (Auto) 65.3, Lymph % (Auto) 25.6, [place] % (Auto) 6.5, Eos % (Auto) 1.6, Baso % (Auto) 0.6, Absolute Neuts (auto) 7.3, Absolute Lymphs (auto) 2.85, Nucleated RBC % 0 09/17/20 21:15: Sodium 141, Potassium 4.0, Chloride 107, Carbon Dioxide 28.0, Anion Gap 6, BUN 10, Creatinine 0.67, Estim Creat Clear Calc 104.33, Est GFR (MDRD) Af Amer 135, Est GFR (MDRD) Non-Af 111, BUN/Creatinine Ratio 14.9, Glucose 116 H, Calcium 8.7, Total Bilirubin 0.20, AST 14 L, ALT 26, Alkaline Phosphatase 80, Total Protein 7.6, Albumin 3.9, Globulin 3.7, Albumin/Globulin Ratio 1.1, Lipase 138 09/17/20 21:15: Serum , Qual NEGATIVE 09/17/20 22:10: Urine Color Yellow, Urine Clarity Clear, Urine pH 7.0, Ur Specific [place] 1.010, Urine Protein Negative, Urine Glucose (UA) Normal, Urine Ketones Negative, Urine Occult Blood Negative, Urine Nitrite Negative, Urine Bilirubin Negative, Urine Urobilinogen Normal, Ur Leukocyte Esterase 25 H, Urine RBC 0 SEEN, Urine WBC 0-5 SEEN, Ur Squamous Epith Cells 0-5 SEEN, Urine Bacteria 1+, Urine Mucus 0 SEEN Current Medications Hydromorphone HCl (Hydromorphone 1 Mg/Ml Syringe) 1 mg IV Q2H PRN PRN PRN Reason: Pain 1-10 or Fever Last Admin: 09/18/20 08:11 Dose: 1 mg Documented by: Sodium Chloride () 1,000 mls @ 125 mls/hr IV .Q8H GISELA Last Admin: 09/18/20 03:15 Dose: 125 mls/hr Documented by: Metoclopramide HCl (Metoclopramide 10 Mg/2 Ml Vial) 5 mg IV Q8H PRN PRN PRN Reason: NAUSEA Last Admin: 09/18/20 06:08 Dose: 5 mg Documented by: Ondansetron HCl (Ondansetron 4 Mg/2 Ml Vial) 4 mg IV Q6H PRN PRN PRN Reason: NAUSEA Sodium Chloride (0.9% Saline Lock 10 Ml Syringe) 10 - 40 ml IV UD PRN PRN Reason: SALINE FLUSH Last Admin: 09/18/20 06:00 Dose: 10 ml Documented by: Assessment/Plan All Active Problems (Last Reviewed 06/27/20 @ 23:[address] Abhijit Quinones MD) Ocular migraine (Acute) 25yo female with lower abdominal pain & right ovarian cysts Pelvic imaging shows right ovarian cysts with decreased blood flow to the right adnexa. Patient with worsening pain that is no longer controlled with medication. Thus patient with suspected ovarian torsion. Discussed R/B/A with patient & will proceed with laparoscopic right ovarian cystectomy, possible RSO. Patient agrees with plan & all questions answered. to assist with surgery. COVID test negative Patient requests discharge to home later today if possible
[2020-09-18 08:54] LABS: Absolute Lymphocyte Count 2.35 X10^3/uL (0.83-4.51); Absolute Neutrophil Count 6.9 X10^3/uL (2.0-7.7); Basophil# 0.06 X10^3/uL; Basophil% 0.6 % (0-1); Eosinophil# 0.05 X10^3/uL; Eosinophils% 0.5 % (0-5); Hematocrit 38.6 % (37-47); Hemoglobin 12.2 g/dL (12.0-15.0); Lymphocyte # 2.35 X10^3/ul (4.0); Lymphocyte % 23.2 % (19-41); Mean Corp Hgb Conc 31.6 g/dL (32-36); Mean Corpuscular Hgb 29.5 pg (27.0-32.0); Mean Corpuscular Volume 93.5 fL (81-99); Mean Platelet Vol. 9.5 fl (6.2-12.0); Monocyte# 0.72 X10^3/uL; Monocyte% 7.1 % (0-10); NRBC Flagged by Analyzer 0 % (0-5); Neutrophil # 6.91 X10^3/uL (2.7-7.7); Neutrophil % 68.2 % (47-70); Platelet Count 393 K/mm3 (150-450); RBC Distribution Width CV 11.7 % (11.6-14.6); RBC Distribution Width SD 40.5 fl (35.1-43.9); Red Blood Count 4.13 M/mm3 (4.2-5.4); White Blood Count 10.1 K/mm3 (4.4-11.0)
[2020-09-18 09:17] LABS: Thyroid Stim Hormone (TSH) 1.61 uIU/mL (0.358-3.74)
--- NOTE | 2020-09-18 09:41 | PCM.DC.TUB ---
Discharge Diet: No Restrictions Discharge Activity: May not drive while taking narcotic pain medications., May Shower May resume sexual activity in: 4 weeks Weight Bearing Status: Weight bearing as tolerated Call your doctor if your incision/area has: Continuous Slow Oozing, Sudden Increased Bleeding, Increased Pain/ Swelling, Increased Redness, Foul Smelling Discharge, Swelling at the incision site Call your doctor if you observe: Fever of 101 or Higher, Coldness, Increased Pain, Numbness or Tingling, Change in Color, Inability to urinate, Inability to have a bowel movement, Using more than one pad per hour, Shortness of breath, Fainting spells, Chest pain, Increased palpitations (irregular heartbeat) Suture Line Care: Avoid Pulling/Pushing, Avoid Pinching/Bending Cleanse incision/area with: Soap & Water Allergies/Adverse Reactions: Allergies nickel [Nickel] Allergy (Unknown, Verified 09/17/20 20:58) Rash pistachio nut Allergy (Verified 09/17/20 20:58) Swelling Medications to take at Discharge Levonorgesterol [Mirena] 1 ea IY X1 09/22/19 Spironolactone [Aldactone] 100 mg PO DAILY 06/27/20 Imitrex 09/17/20 Oxycodone [Oxyir] 5 mg PO Q6H PRN PRN 3 Days #12 tab 09/18/20 The following prescriptions were given: Oxycodone [Oxyir] 5 mg PO Q6H PRN PRN 3 Days #12 tab PRN Reason: Pain Score 6-10 Transmission Status: Received by [facility] Primary Care Physician: Care Physician,No Primary [Primary Care Provider] - Test Results: Test results from this visit will be discussed in further detail at your follow-up appointment, if applicable. Please Follow Up With: Migue Schofield MD When: 1-2 weeks
--- NOTE | 2020-09-18 10:08 | NURSING ---
@ 0549 pt take to surgical area per their request via bed
[2020-09-18] MEDS: Bupivacaine Mpf 0.5% 30 ML VIAL (10:20)
[2020-09-18] MEDS: 0.9% Normal Saline 1,000 ML 100 ML IV (10:45)
--- NOTE | 2020-09-18 10:46 | OP.PCM_ITS ---
Report of Operation Date of Procedure: 09/18/20 Pre-Operative Diagnosis: right ovarian cyst, RLQ pain, right ovarian torsion Post-Operative Diagnosis: right ovarian hemorrhagic cyst, right ovarian torsion Surgery/Procedure Performed:: Laparoscopic correction of right ovarian torsion and evacuation right ovarian hemorrhagic cyst Description of Surgical Findings:: right ovarian cyst w/ torsion of tube and ovary, normal left ovary, tube and chapo sariah sustainability purchasing agent: Misty Stephens Type of Anesthesia:: General Anesthesiologist: Christina Schneider Special Medications: none Specimen's removed: none Drains: none Estimated Blood Loss (mL): 20 Fluids Replaced: 500 Description of Procedure: The patient was taken to the operating room where she was prepped and draped in the dorsolithotomy position. A weighted speculum was placed in the vagina and the anterior lip of the cervix was grasped with a tenaculum. The Conn cannula uterine manipulator was placed because I could not easily penetrate the internal cervical os and the remainder of the instruments were removed from the vagina. Attention was turned to the abdomen. All port sites were infiltrated with 0.5% Marcaine before skin incisions were made. A 5 mm [intraumbilical] incision was made. The anterior abdominal wall was tented up with 2 towel clamps while a 5 mm blade less trocar and sleeve were [directly inserted]. Intraperitoneal placement was confirmed with the laparoscope. The pneumoperitoneum was created and the underlying abdominal contents were intact. The patient was placed in Trendelenburg. Right and left lower quadrant ports were placed under direct visualization lateral to the inferior epigastric vessels. The bowel was swept away and the above findings were noted. Ovary and tube were untwisted. The hemorrhagic cyst was then ruptured bluntly and a suction raw hide trimmer was used to evacuate blood and clots. Some fibrillar was placed in the ovarian cyst and the wall wrapped around it. Hemostasis was assured. The ovary was then placed in the posterior cul-de-sac and care was again taken to make sure that none of the pedicles are tube were torsed. There was still some white tissue on the ovary and it began to look much urine color and the tube pinked up nicely so the decision was to conserve the tube and ovary. The lateral ports were removed under direct visualization and no active bleeding was noted. The pneumoperitoneum was released. The skin incisions were closed with skin glue. The vaginal instruments were removed and the vaginal sweep was completed by DR. Schofield. The procedure was performed by Dr. Schofield with my assistance. All sponge and needle counts were correct and the patient was taken to the recovery room in stable condition. Start time 1018 Stop time 1048 The primary surgeon was Dr. Schofield, Dr. Stephens was the support assistant Grafts/Implants Used: none - Complications none - Admit VTE Documentation VTE Present on Admission: No VTE Mechan Device Prophylaxis: SCD's VTE Pharm Prophylaxis ordered?: No Reason prophylaxis not ordered:: Procedure Not Indicated
[2020-09-18] MEDS: Acetaminophen 500 MG Tablet 1000 MG PO (12:13)
[2020-09-18] MEDS: oxyCODONE 5 MG Tablet PO (12:13)
[2020-09-18] MEDS: Lactated Ringers 1,000 ML 70 ML IV (12:15)
[2020-09-18] MEDS: Ketorolac 30 MG/ML Syringe IV (13:43)
[2020-09-18] MEDS: Ondansetron ODT 4 MG Tablet PO (13:43)
[2020-09-18 14:40] LABS: Hematocrit 36.6 % (37-47); Hemoglobin 12.1 g/dL (12.0-15.0); Mean Corp Hgb Conc 33.1 g/dL (32-36); Mean Corpuscular Volume 93.8 fL (81-99); Mean Platelet Vol. 9.8 fl (6.2-12.0); Platelet Count 376 K/mm3 (150-450); RBC Distribution Width CV 11.7 % (11.6-14.6); White Blood Count 16.9 K/mm3 (4.4-11.0)
== END 2020-09-18 16:18 | disposition home or self-care (01) ==
LOC: ED 22:21 → MS3 09-19 13:42
PROVIDERS: Obstetrics & Gynecology; Admitting Provider Obstetrics & Gynecology; Emergency Provider Emergency Medicine; Visit Provider Obstetrics & Gynecology
PROC: (CPT 58999; principal; 2020-09-18 09:30)
DX: N83.201 Unspecified ovarian cyst, right side (principal); N83.511 Torsion of right ovary and ovarian pedicle; Z87.891 Personal history of nicotine dependence; Z86.39 Personal history of other endocrine, nutritional and metabolic disease; E66.01 Morbid (severe) obesity due to excess calories; G43.809 Other migraine, not intractable, without status migrainosus; Z68.37 Body mass index [BMI] 37.0-37.9, adult
CPT/HCPCS: 00840; 49322; 58999; 36415; 74176; 76830; 80053; 81001; 83690; 84443; 84703; 85025; 85027; 86850; 86900; 86901; 87426; 93976; 94762; 96361; 96374; 96375; 96376; 99218; 99284; J7030; J7120; A4216; G0378; J2405

== ENCOUNTER 2021-08-19 23:00 | Emergency (ER) | payer MEDICAID, SELFPAY ==
[2021-08-19 23:00] VITALS: BP 140/83; PULSE 94; RESP 16; TEMP 36.6; O2SAT 97; BMI 45.2
--- NOTE | 2021-08-19 23:44 | EDS_ITS ---
HPI HPI - Female History of Present Illness Chief Complaint: Vag Bld, Preg Informant: patient Pain Pain: Positive for - (NO pain) Bleeding Issue: Positive for Vaginal bleeding Onset: Today Context: - (noticed when went to restroom at work tonight) Current Severity: Spotting Associated Symptoms P: 2 Ab: 3 Narrative Narrative: Patient has had multiple miscarriages, currently 15 weeks , started bleeding today. No pain. History of a blood type of O+, she feels well otherwise and wants to have the baby checked out. She has not been feeling any movement yet. She has already had an ultrasound showing intrauterine . Follows with Dr. Birdie Schofield. [facility] Medical History history of child History of endometriosis Home Medications levonorgestrel 1 ea IY X1 09/22/19 [History Last Taken Unknown] spironolactone 100 mg PO DAILY 06/27/20 [History Last Taken 06/27/20] Imitrex 09/17/20 [History Last Taken Unknown] Allergy/AdvReac Type Severity Reaction Status Date / Time nickel [Nickel] Allergy Unknown Rash Verified 08/19/21 23:04 pistachio nut Allergy Swelling Verified 08/19/21 23:04 Social History Smoking Status: Former smoker alcohol intake: never ROS ROS ED Constitutional Constitutional ED: Denies chills or fever(s) Eyes Eyes: Denies change in vision or diplopia ENT ENT ED: Denies rhinorrhea or sore throat Cardiovascular Cardiovascular: Denies chest pain or palpitations Respiratory/Chest Respiratory/Chest: Denies cough or dyspnea Gastrointestinal Gastrointestinal: Denies abdominal pain, diarrhea, nausea or vomiting Genitourinary Genitourinary ED: Reports vaginal bleeding; Denies dysuria or hematuria Musculoskeletal Musculoskeletal: Denies back pain or neck pain Integumentary Denies abscess or rash Neurologic Neurologic: Denies headache(s), paresthesias or weakness Psychiatric Psychiatric: Denies anxiety or suicidal thoughts EXAM Physical Exam Const Vital Signs: 08/19/21 23:00 Temperature 97.8 F Temperature Source Temporal Pulse Rate 94 Respiratory Rate 16 Blood Pressure 140/83 H Blood Pressure Mean 102 Pulse Ox 97 Oxygen Delivery Method Room Air Positive well nourished and well developed General Appearance ED: well developed and NAD HEENT Reports moist mucous membranes normocephalic and atraumatic Eyes PERRL and EOMs intact bilaterally Neck full ROM and supple Resp normal respiratory effort Cardio regular rate, regular rhythm and no murmurs GI non-tender and non-distended Auscultation: normoactive bowel sounds Palpation: soft Speculum Exam - Vagina: vaginal bleeding Neuro oriented x3, CN's II-XII intact bilaterally and no sensory deficits noted Sensorium / Orientation: awake and alert Motor Exam: strength 5/5 throughout Skin no rashes or lesions noted and no wounds MDM MDM MDM Narrative Medical decision making narrative: I visualize the single live intrauterine with a heartbeat and movement with our ED bedside ultrasound. Biparietal distance is consistent with 15-week 2-day , and hear tbeat is 142, normal. Patient is reassured, her blood type is confirmed to be O+ based on prior blood bank measurement, therefore RhoGam is not indicated and she does not have any urinary symptoms so I am okay with her going home and following up with her OB after the weekend. She is comfortable with that plan. Discharge Plan Triage Chief Complaint: Vag Bld, Preg ED Provider: Tray Jaime Dx/Rx/DC Orders Clinical Impression: Vaginal bleeding during , antepartum Instructions: Bleeding During Early Prescriptions: No Action levonorgestrel 1 EACH intrauterine device 1 ea IY X1 RF: 0 spironolactone 100 MG tablet 100 mg PO DAILY RF: 0 Imitrex RF: 0 Primary Care Provider: Care Physician,No Primary Referrals: Migue Schofield MD [STAFF PHYSICIAN] - As soon as possible Care Physician,No Primary [Primary Care Provider] - Disposition Disposition: Home, Self Care
[2021-08-19 23:51] VITALS: PULSE 90; RESP 15; O2SAT 98
== END 2021-08-19 23:53 | disposition home or self-care (01) ==
PROVIDERS: Emergency Provider Emergency Medicine
DX: O20.9 Hemorrhage in early pregnancy, unspecified (principal); Z3A.15 15 weeks gestation of pregnancy; Z87.891 Personal history of nicotine dependence
CPT/HCPCS: 99282

== ENCOUNTER 2022-02-01 15:35 | Inpatient (IN) | payer MEDICAID, SELFPAY ==
[2022-02-01] VITALS (13 sets, daily range): BP systolic 94–129; BP diastolic 55–78; PULSE 74–114; RESP 12–20; TEMP 36.5–37; O2SAT 96–100; BMI 42.3
--- NOTE | 2022-02-01 | FALS_PTH ---
PATIENT: CLARK LOPEZ LOC: [facility] U#:[id number] AGE/SX: 26/F ROOM: WP004 RE02/01/[address]: Dr. Misty Stephens MD : 1995 BED: 1 DIS: 02/03/2022 SPEC #: [id number] RECD: 02/02/22 10:59 STATUS: CHRIS REJuana #: [id number] BIBI: 02/01/22 00:[address]: iMsty Stephens DEPT: SURGICAL PATHOLOGY RECD BY: Parish Soriano ENTERED: 02/02/22 10:59 SP TYPE: FALL TUBES OTHR DR: No Primary Care Phys Tissues: Fallopian tube Procedures: Surgery Specimen Level II HEADER OPERATION: Tubal ligation PRE-OP DIAGNOSIS: Sterilization TISSUE SUBMITTED: Fallopian tubes MICROSCOPIC DIAGNOSIS Bilateral fallopian tubes, salpingectomy: Bilateral fallopian tubes, no pathologic diagnosis. KELLIE:jeff 02/05/2022 MICROSCOPIC DESCRIPTION Slides are reviewed. GROSS DESCRIPTION Received in fixative is one container labeled with the patient's name and designated bilateral fallopian tubes, suture in left tube. The specimen consists of bilateral fallopian tubes including fimbrial ends. The right fallopian tube measures 7 cm in length and up to 0.8 cm in diameter and the left fallopian tube measures 5.5 cm in length and 0.8 cm in diameter. Sections reveal unremarkable cut surfaces. Hot Strip Finisher sections are submitted in two cassettes as follows: 1 - right fallopian tube, 2 - left fallopian tube. / KELLIE:jeff 02/02/2022 TC:4 CPT: 84653 x2
--- NOTE | 2022-02-01 15:48 | HP.PCM.OB_ITS ---
HPI - General General Date of Admission: 02/01/22 HPI Narrative HPI: The patient is a 26 year old female presenting for pre-operative visit. She is scheduled for , for late decels and 38 weeks w/ h/o previous c/s on today. Procedure discussed along with risks, benefits and complications. Other alternatives discussed for management. Consent form signed? Yes. ? ? PAST MEDICAL HISTORY PAST MEDICAL HISTORY Diagnosis Date ? Diabetes, gestational ? ? Endometriosis ? ? Goiter 01/27/2016 ? Herpes simplex type 2 (HSV-2) infection affecting , antepartum, unspecified trimester 12/12/2021 ? History of pre-eclampsia in prior , currently ? ? Intractable migraine with aura ? ? Kidney stones 03/11/2018 ? Mental disorder ? ? Non morbid obesity 03/11/2018 ? Ovarian torsion 09/18/2020 ? right ? PCOS (polycystic ovarian syndrome) ? ? depression ? ? hemorrhage ? ? Recurrent UTI ? ? ? PAST SURGICAL HISTORY PAST SURGICAL HISTORY Procedure Laterality Date ? SECTION HX ? 2011,2009 ? HERNIA REPAIR HX ? 03/12/2018 ? ventral hernia repair [facility] ? OTHER ? 12/2017 ? laparotomy with removal of endometriosis implants ? PAST SURGICAL HISTORY OF ? 09/18/2020 ? right ovarian torsion-had right ovarian cystectomy ? ? ? CURRENT MEDICATIONS Current Outpatient Medications Medication Sig Dispense Refill ? blood sugar diagnostic test strip 1 Strip four times daily. Use as instructed 120 Strip 9 ? Lancets lancets 1 Each four times daily. Use as instructed 120 Each 9 ? acyclovir (ZOVIRAX) 400 mg tablet Take 1 tablet by mouth three times daily. 90 tablet 4 ? triamcinolone acetonide (KENALOG) 0.1 % cream Apply to affected area twice daily. 28.4 g 1 ? cholecalciferol, vitamin D3, (VITAMIN D3 ORAL) Take by mouth. ? ? ? pyridoxine, vitamin B6, (VITAMIN B-6) 50 mg tablet Take 1 tablet by mouth twice daily. 60 tablet 3 ? ondansetron orally disintegrating (ZOFRAN ODT) 4 mg disintegrating tablet Take 1 tablet by mouth once daily. DISSOLVE ON TONGUE 20 tablet 1 ? Yvordapz-Yb-Egz-Fe-FA ( VITAMIN) tab Take 1 tablet by mouth once daily. ? ? ? Lactobacillus acidophilus (PROBIOTIC ACIDOPHILUS ORAL) Take 1 capsule by mouth once daily. ? ? ? No current facility-administered medications for this visit. ? ? ALLERGIES: Tree Nuts and Nickel ? PERSONAL HISTORY: SOCIAL HISTORY Social History ? Tobacco Use ? Smoking status: Former Smoker ? ? Packs/day: 0.50 ? ? Years: 4.00 ? ? Pack years: 2.00 ? ? Quit date: 02/18/2018 ? ? Years since quittin.9 ? Smokeless tobacco: Never Used Vaping Use ? Vaping Use: Some days ? Substances: Nicotine ? Devices: Pre-filled or refillable cartridge Substance Use Topics ? Alcohol use: Not Currently ? ? Comment: occasional ? Drug use: No ? FAMILY HISTORY: FAMILY HISTORY FAMILY HISTORY Problem Relation Age of Onset ? Cancer Mother 49 ? SCC lung cancer ? GI Mother ? ? PUD ? Thyroid Father ? ? No Known Problems Sister ? ? Infertility Sister ? ? Breast Cancer Maternal Grandmother ? ? other (black lung disease) Maternal Grandfather ? ? Diabetes Paternal Grandmother ? ? No Known Problems Paternal Grandfather ? ? No Known Problems Son ? ? No Known Problems Daughter ? ? ? REVIEW OF SYMPTOMS: GENERAL: denies fevers or chills ENDOCRINOLOGY: has not been on steroids Cardiology : denies palpitations or chest pain Respiratory: denies SOB or cough Hematology: denies history of prolonged bleeding or easy bruising or VTE Allergy: Denies history of personal or family history of allergy to anesthesia ? PHYSICAL EXAMINATION: ? VITALS: Blood pressure 118/74, weight 239 lb 9.6 oz (108.7 kg), last menstrual period 05/08/2021. ? GENERAL: The patient is well nourished, well hydrated in no acute distress. , The patient is oriented to time, place, and person. NECK: Supple. No lynphadenopathy, normal thyroid, no thyromegaly. LUNGS: Clear to auscultation bilaterally. no wheezes, rhonchi or rales HEART: Regular rate and rhythm, Normal heart sounds and No murmurs or gallops ? IMPRESSION: 38w3d with decels, previous c/s, sterilization request ? PLAN: The risks/benefits/alternatives and personal involved for the planned c/s and bilateral salpingectomy were reviewed with the patient. Her questions were answered to her satisfaction and she desires to proceed. Consent was signed. I reviewed with her postop instructions and expectations. ? Risks, benefits and alternatives to sterilization have been discussed with the patient. She declines reversible options including LARC. She understands sterilization is permanent, irreversible, risks of failure, regret and ectopic. In addition she understands there are surgical risks as well. Her questions were answered to her satisfaction and consent was signed ? I have reviewed and updated past medical and surgical history, medications and allergies Maternal Data Information Final RUDOLPH: 02/12/22 Gestational age: 38 3/7 [facility] Medical History history of child History of endometriosis Home Medications levonorgestrel 1 ea IY X1 09/22/19 [History Last Taken Unknown] spironolactone 100 mg PO DAILY 06/27/20 [History Last Taken 06/27/20] Imitrex 09/17/20 [History Last Taken Unknown] Allergy/AdvReac Type Severity Reaction Status Date / Time nickel [Nickel] Allergy Unknown Rash Verified 08/19/21 23:04 pistachio nut Allergy Swelling Verified 08/19/21 23:04 Social History Smoking Status: Former smoker alcohol intake: never Vital Signs Vital Signs Vital Signs: Weight Weight: 108.3 kg Body Mass Index (BMI) 42.3 Labs Labs Labs: Blood Type O POSITIVE Antibody Screen NEGATIVE Hct 36.6 % (37-47) L Hgb 12.1 g/dL (12.0-15.0) Obstetrics US Chlamydia DNA (ALEYDA) Negative (Negative-) Neisseria gonorrhoeae DNA (ALEYDA) Negative (Negative-) Assessment & Plan (1) 38 weeks gestation of : (2) High risk multigravida in third trimester: (3) Maternal 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: (4) Previous delivery affecting , antepartum: (5) Sterilization: (6) BMI 40.0-44.9, adult: (7) Late deceleration of heart rate:
[2022-02-01] MEDS: Lactated Ringers 1,000 ML 150 ML IV (16:05)
[2022-02-01 16:31] LABS: Absolute Lymphocyte Count 1.84 X10^3/uL (0.83-4.51); Absolute Neutrophil Count 6.6 X10^3/uL (2.0-7.7); Basophil# 0.04 X10^3/uL; Basophil% 0.4 % (0-1); Eosinophils% 1.1 % (0-5); Hematocrit 34.8 % (37-47); Lymphocyte # 1.84 X10^3/ul (0.83-4.51); Lymphocyte % 19.9 % (19-41); Mean Corp Hgb Conc 34.5 g/dL (32-36); Mean Corpuscular Hgb 30.5 pg (27.0-32.0); Mean Corpuscular Volume 88.3 fL (81-99); Mean Platelet Vol. 10.4 fl (6.2-12.0); Monocyte# 0.59 X10^3/uL; Monocyte% 6.4 % (0-10); NRBC Flagged by Analyzer 0 % (0-5); Neutrophil # 6.62 X10^3/uL (2.7-7.7); Neutrophil % 71.8 % (47-70); Platelet Count 304 K/mm3 (150-450); RBC Distribution Width CV 12.9 % (11.6-14.6); RBC Distribution Width SD 41.6 fl (35.1-43.9); Red Blood Count 3.94 M/mm3 (4.2-5.4); White Blood Count 9.2 K/mm3 (4.4-11.0)
[2022-02-01] MEDS: Acetaminophen 500 MG Tablet 1000 MG PO ×2 (17:15→22:51)
[2022-02-01] MEDS: Sodium Citrate/Citric Acid 30 ML UDC PO (17:20)
[2022-02-01] MEDS: Cefazolin 2 GM in 0.9% Normal Saline 100 ML IV (17:45)
--- NOTE | 2022-02-01 18:18 | OP.PCM_ITS ---
Assessment & Plan (1) Late deceleration of heart rate: (2) BMI 40.0-44.9, adult: (3) Sterilization: (4) Previous delivery affecting , antepartum: (5) Maternal 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: (6) High risk multigravida in third trimester: (7) 38 weeks gestation of : Maternal Data Information Final RUDOLPH: 02/05/22 Gestational age: 38 3*/7 Details Operative Information Date of Procedure: 02/01/22 Pre-Operative Diagnosis: late decels Post-Operative Diagnosis: same Indications for : Repeat Elective and Desires elective sterilization Classification: Scheduled Procedure Type: bilateral salpingectomy Type of Anesthesia: Spinal Anesthesiologist: Reinier Worley Special Medications: none Antibiotic Given: Ancef 2 grams IV x1 Drain: Alfred to straight drain Estimated Blood Loss: 700 Fluids Replaced: 1000 Procedure Start Time: 17:50 Procedure Stop Time: 18:21 Time of Delivery: 17:55 Findings Description of Procedure: The patient was taken to the operating room. She was prepped and draped in the dorsal supine position with a leftward tilt. A Pfannenstiel skin incision was made approximately 2 cm above the symphysis pubis and carried through to underlying layer fascia with the scalpel. The fascia was incised incised in the midline and extended laterally with the Knowles scissors. The fascia was dissected off the rectus muscles with blunt and sharp dissection. The rectus muscles were in the midline and the peritoneum was entered bluntly. The peritoneal incision was stretched and the Eligio O retractor was placed. There were no significant peritoneal adhesions. The uterine incision was made in a low transverse fashion with the scalpel and extended superiorly and inferiorly with blunt dissection. The amniotic membranes were ruptured bluntly and clear amniotic fluid returned. The infant's head was brought to the incision in the flexed position and delivered without difficulty. The remainder of the infant was delivered with gentle traction and fundal pressure in the standard fashion. The mouth and nares were bulb suctioned. The cord was clamped and cut as the was stimulated. Cord clamping was delayed. The was handed off to the waiting nursing staff. The placenta was delivered with fundal massage and gentle traction in the standard fashion. The uterus was exteriorized and cleared of all clots and debris. The cervix was dilated with a ring forcep. The uterine incision was closed with #1 Vicryl in a running locked fashion. The incision was examined and was found to be hemostatic. The right fallopian tube was identified and followed up to the form but fimbriated end. The LigaSure device was used to clamp, seal and transect antimesenteric portion of the tube to the insertion of the tube at the cornua. The LigaSure device was used to amputate the tube from the cornua and hemostasis of the pedicles was noted. The same procedure was pe rformed performed on the contralateral side. The uterus was placed back into the peritoneal cavity and hemostasis was again confirmed. The rectus muscles were examined and any bleeding was Bovie cau terized. The parietal peritoneum and rectus muscles were closed en bloc with an 0 Vicryl running suture. The surgical teams outer gloves were then changed. The rectus fascia was examined and any bleeding was Bovie cauterized and the rectus fascia was closed with #1 PDS suture in a running standard fashion. The subcutaneous tissue was examining and any bleeding was Bovie cauterized. The subcutaneous tissue was reapproximated with 3-0 Vicryl suture. The skin was closed in a subcuticular fashion by the HIGH SCHOOL ADMISSIONS REPRESENTATIVE with me present in the labor and delivery suite. I performed the remainder of the procedure with assistance. All sponge, lap, and needle counts were correct. The patient was taken to her room for recovery in a stable condition. Presentation: Positive for Vertex Amniotic Membrane Rupture Type: Artificial Amniotic Fluid Description: Clear Placental Delivery Description: Expressed Placenta Disposition: [facility] Specimen(s) Sent to Pathology: bilateral fallopian tubes Cord Vessel Description: 3 Vessels Cord Entanglement: None Infant A Gender: Male (Syed 7lb 2 oz) (1 minute): 8 (5 minute): 9 Delayed Cord Clamping: Yes Complications Complications: none Admit VTE Documentation VTE Present on Admission: No VTE Mechan Device Prophylaxis: [facility] [place] [place] Pharm Prophylaxis Ordered: Yes
[2022-02-01] MEDS: Oxytocin 30 units/NS 500 ml 30 UNITS/500 ML IV.SOLN 167 UNITS IV (18:50)
[2022-02-01] MEDS: Ketorolac 30 MG/ML Syringe IV (19:28)
[2022-02-01] MEDS: 0.9% Saline Lock 10 ML Syringe IV ×2 (19:28→20:18)
[2022-02-01] MEDS: HYDROmorphone 1 MG/ML Syringe IV (20:18)
--- NOTE | 2022-02-01 20:55 | NURSING ---
pt CPR certified
[2022-02-01] MEDS: Lactated Ringers 1,000 ML 100 ML IV (22:01)
[2022-02-01] MEDS: oxyCODONE 5 MG Tablet PO (22:25)
[2022-02-02] VITALS (7 sets, daily range): BP systolic 101–132; BP diastolic 56–71; PULSE 82–101; RESP 18; TEMP 36.2–37; O2SAT 95–98
[2022-02-02] MEDS: Ketorolac 30 MG/ML Syringe IV ×3 (00:58→14:46)
[2022-02-02] MEDS: 0.9% Saline Lock 10 ML Syringe IV ×4 (00:58→20:54)
[2022-02-02] MEDS: oxyCODONE 5 MG Tablet PO ×5 (03:02→21:44)
[2022-02-02] MEDS: Acetaminophen 500 MG Tablet 1000 MG PO ×4 (05:14→23:05)
[2022-02-02] MEDS: Enoxaparin 40 MG/0.4 ML Syringe SC ×2 (06:29→23:05)
--- NOTE | 2022-02-02 08:38 | PN.OBGYN_ITS ---
Subjective Subjective Patient seen at bedside. Resting. Pain controlled at this time. Up and ambulated x1. without support. Denies any headache, vision changes, SOB, or CP. Desires discharge home tomorrow. Objective Data Objective Data Vital Signs: Vital Signs Temp Pulse Resp BP Pulse Ox 97.5 F L 87 18 114/57 L 96 02/02/22 08:04 02/02/22 08:04 02/02/22 08:04 02/02/22 08:04 02/02/22 08:04 Oxygen Delivery Method Room Air Weight: 238 lb 12.17 oz Body Mass Index (BMI) 42.3 Intake & Output: Intake and Output for Last 24 Hours 01/31/22 02/01/22 02/02/22 23:59 23:59 23:59 Intake Total 1367.5 / 1367.5 953.33 / 953.33 Output Total 250 / 250 1300 / 1300 Balance 1117.5 / 1117.5 -346.67 / -346.67 Lab / Micro Data Result Diagrams: 02/01/22 16:05 Labs: Laboratory Results - last 24 hr 02/01/22 16:05: WBC 9.2, RBC 3.94 L, Hgb 12.0, Hct 34.8 L, MCV 88.3, MCH 30.5, MCHC 34.5, RDW Std Deviation 41.6, RDW Coeff of Theo 12.9, Plt Count 304, MPV 10.4, Immature Gran % (Auto) 0.400, Neut % (Auto) 71.8 H, Lymph % (Auto) 19.9, [place] % (Auto) 6.4, Eos % (Auto) 1.1, Baso % (Auto) 0.4, Absolute Neuts (auto) 6.6, Absolute Lymphs (auto) 1.84, Nucleated RBC % 0 02/01/22 16:05: Blood Type O POSITIVE, Antibody Screen NEGATIVE Micro: Microbiology 02/01/22 16:15 Nasal Secretion SARS-CoV-2 Antigen (Rapid) - Final ROS Eyes Eyes: Denies blurry vision, change in vision or spots in vision ENT HEENT: Denies dizziness or headache(s) Cardiovascular Cardiovascular: Denies abdominal pain, chest pain or dyspnea Respiratory/Chest Respiratory/Chest: Denies cough, dyspnea, shortness of breath at rest or shortness of breath with exertion Gastrointestinal Gastrointestinal: Denies abdominal pain, diarrhea or vomiting Genitourinary Genitourinary: Denies change in urinary stream, difficulty urinating or dysuria Musculoskeletal Musculoskeletal: Reports none Integumentary Integumentary: Denies rash Neurologic Neurologic: Denies dizziness, headache(s), memory loss or weakness Physical Exam Narrative Dressing is dry and intact Const alert and no apparent distress General Appearance: cooperative and comfortable Exam Limitations: no limitations HEENT normocephalic Eyes General Eye: normal appearance of both eyes Neck full ROM General: normal visual inspection Chest Chest: symmetrical chest wall rise Resp normal respiratory effort and normal air movement Effort and Inspection: symmetric chest movement Auscultation: clear to auscultation bilaterally Cardio regular rate and regular rhythm GI normal to inspection, nondistended, normoactive bowel sounds Back/Spine normal ROM Extremity full ROM and no calf tenderness General Extremity: normal exam except as noted Skin no rashes or lesions noted Neuro CN's II-XII intact bilaterally Psych mental status grossly normal Assessment & Plan (1) Status post repeat low transverse section: (2) Care and examination of lactating mother: PLAN: PO Day 1 Repeat C/S Routine care Pain control support Ambulate Anticipate discharge home tomorrow
[2022-02-02] MEDS: Senna/Docusate Sodium 1 Tablet PO (12:05)
[2022-02-02 13:05] LABS: Hematocrit 34.6 % (37-47); Hemoglobin 11.4 g/dL (12.0-15.0); Mean Corp Hgb Conc 32.9 g/dL (32-36); Mean Corpuscular Hgb 30.1 pg (27.0-32.0); Mean Corpuscular Volume 91.3 fL (81-99); Mean Platelet Vol. 10.3 fl (6.2-12.0); Platelet Count 271 K/mm3 (150-450); RBC Distribution Width CV 13.1 % (11.6-14.6); RBC Distribution Width SD 42.5 fl (35.1-43.9); Red Blood Count 3.79 M/mm3 (4.2-5.4); White Blood Count 9.5 K/mm3 (4.4-11.0)
[2022-02-02] MEDS: Ondansetron 4 MG/2 ML Vial IV (20:54)
[2022-02-02] MEDS: Naproxen 500 MG Tablet PO (23:05)
[2022-02-03 02:35] VITALS: BP 99/65; PULSE 93; RESP 16; TEMP 36.6
[2022-02-03] MEDS: oxyCODONE 5 MG Tablet PO (04:55)
[2022-02-03] MEDS: Naproxen 500 MG Tablet PO (05:59)
[2022-02-03] MEDS: Acetaminophen 500 MG Tablet 1000 MG PO (05:59)
--- NOTE | 2022-02-03 07:44 | PCM.DC.SUM ---
Providers Date of Admission: 02/01/22 Primary Care Physician: No Primary Care Phys Reason For Visit: RPEAT C SECTION/C SECTION DELIVERY Diagnosis Discharge Diagnosis (1) Status post repeat low transverse section: Status: Acute Code(s): Z98.891 - History of uterine scar from previous surgery (2) Care and examination of lactating mother: Status: Acute Code(s): Z39.1 - Encounter for care and examination of lactating mother Medications at Discharge Home Medications PNV #[id number] 1 cap PO DAILY 02/01/22 Hospital Course Operations section Summary of Care Provided Hospital Course: Patient here for repeat section. Hospital course was uneventful. Physical Exam Narrative Patient seen at bedside. Feeling good. Ambulating and voiding without difficulty. Pain is controlled. independantly. Desires discharge home today. Const alert and no apparent distress General Appearance: cooperative and comfortable Exam Limitations: no limitations HEENT normocephalic Eyes General Eye: normal appearance of both eyes Neck full ROM General: normal visual inspection Chest Chest: symmetrical chest wall rise Resp normal respiratory effort and normal air movement Effort and Inspection: symmetric chest movement Auscultation: clear to auscultation bilaterally Cardio regular rate and regular rhythm GI normal to inspection, nondistended, normoactive bowel sounds Back/Spine normal ROM Extremity full ROM and no calf tenderness General Extremity: normal exam except as noted Skin no rashes or lesions noted Neuro CN's II-XII intact bilaterally Psych mental status grossly normal Weight / BMI Weight Weight: 238 lb 12.17 oz Body Mass Index (BMI) 42.3 ABG / Lab / Microbiology Data Result Diagrams: 02/02/22 12:50 Laboratory: Laboratory Results - last 24 hr 02/02/22 12:50: WBC 9.5, RBC 3.79 L, Hgb 11.4 L, Hct 34.6 L, MCV 91.3, MCH 30.1, MCHC 32.9, RDW Std Deviation 42.5, RDW Coeff of Theo 13.1, Plt Count 271, MPV 10.3 Microbiology: Microbiology 02/01/22 16:15 Nasal Secretion SARS-CoV-2 Antigen (Rapid) - Final D/C Instructions Discharge Diet: No restrictions May resume sexual activity in: 6-8 weeks Weight Bearing Status: Weight bearing as tolerated Lifting Restrictions: 20 lbs Call your doctor if your incision/area has: Continuous Slow Oozing, Increased Pain/ Swelling, Increased Redness, Foul Smelling Discharge and Swelling at the incision site Call your doctor if you observe: Fever of 101 or Higher, Inability to urinate, Using more than 1 pad per hour, Shortness of breath, Chest pain, Calf discomfort and Uncontrolled pain Remove Dressing in: 5 days Cleanse incision/area with: Soap & Water and Keep Dressing Clean & Dry When: 1 week in office for incision check or sooner if needed 6 weeks Meaningful Use Info Meaningful Use Diagnoses (Choose all that apply): None applicable Discharge Plan Admission Admit Date/Time: 02/01/22 15:35 Primary Reason for Your Visit: Repeat section Attending Provider: Misty Stephens Primary Care Provider: Care Physician,Mary Primary Discharge Orders/Prescriptions Prescriptions: Continued PNV #[id number] 27 mg iron-1 mg -300 mg-50 mg Capsule 1 cap PO DAILY RF: 0 Discontinued acyclovir 400 mg tablet 400 mg PO TID RF: 0 Referrals / Follow Up: Care Physician,No Primary [Primary Care Provider] - Disposition Disposition (needs filled in before D/C Order can be placed): Home, Self Care
[2022-02-03 11:07] VITALS: BP 118/78; PULSE 98; RESP 16; TEMP 36.6; O2SAT 98
[2022-02-03 11:13] VITALS: RESP 16
[2022-02-05 15:26] LABS: Pathology Specimen OB SEE PATHOLOGY REPORT
== END 2022-02-03 11:20 | disposition home or self-care (01) | DRG 539 ==
PROVIDERS: Admitting Provider Obstetrics & Gynecology; Visit Provider Obstetrics & Gynecology
DX: O34.211 Maternal care for low transverse scar from previous cesarean delivery (principal); O98.33 Other infections with a predominantly sexual mode of transmission complicating the puerperium; A60.9 Anogenital herpesviral infection, unspecified; O76 Abnormality in fetal heart rate and rhythm complicating labor and delivery; O99.213 Obesity complicating pregnancy, third trimester; Z37.0 Single live birth; Z87.891 Personal history of nicotine dependence; Z3A.38 38 weeks gestation of pregnancy; Z30.2 Encounter for sterilization; O24.429 Gestational diabetes mellitus in childbirth, unspecified control; Z79.899 Other long term (current) drug therapy
CPT/HCPCS: 59025; 59050; 85025; 85027; 86850; 86900; 86901; 87426; 88302; 99218; 99251; 99406; J7120; A4216; G0378; G0463; J2405

== ENCOUNTER 2022-12-13 05:33 | Emergency (ER) | payer MEDICAID, SELFPAY ==
[2022-12-13 05:33] VITALS: BP 101/65; PULSE 97; RESP 18; TEMP 36.1; O2SAT 97; BMI 42.0
--- NOTE | 2022-12-13 06:10 | EKG12_ITS ---
Test Reason : GENERAL Blood Pressure : / mmHG Vent. Rate : 106 BPM Atrial Rate : 106 BPM P-R Int : 136 ms QRS Dur : 084 ms QT Int : 338 ms P-R-T Axes : 063 030 005 degrees QTc Int : 448 ms Sinus tachycardia Nonspecific ST and T wave abnormality Abnormal ECG Confirmed by GARY LU, MARTIN ([id number]), publishing editor DARIN MACE ([id number]) on 12/17/2022 10:59:53 AM Referred By: Confirmed By:MARTIN VEGA MD
--- NOTE | 2022-12-13 06:28 | EDS_ITS ---
HPI History of Present Illness Chief Complaint: Nausea/Vomiting Narrative Narrative: Patient is a 27-year-old female with past medical history of endometriosis and PCOS. 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 She states that yesterday evening she began feeling an upset stomach which progressed to bouts of nausea vomiting and diarrhea. She reports there is no blood or discoloration to either. She states there has been no recent travel outside the country recent antibiotic use or livestock exposure. She denies any history of ulcerative colitis Crohn's disease or IBS. She states that this evening/morning she was in the bathroom having bouts of vomiting and diarrhea in the next thing she remembers is waking up on the bathroom floor with daughter reported that she had a bout of passing out. Therefore with her GI symptoms and now syncopal event she was brought in for evaluation [facility] Medical History 38 weeks gestation of BMI 40.0-44.9, adult Care and examination of lactating mother High risk multigravida in third trimester history of child History of endometriosis Late deceleration of heart rate Maternal 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 Sterilization Home Medications PNV#14-iron [id number] 27 mg iron-1 mg-300 mg-50 mg capsule 1 cap PO DAILY Check with primary doctor 02/01/22 [History Last Taken Unknown] oxycodone 5 mg tablet 5 - 10 mg PO Q6H PRN PRN Pain Score 6-10 5 days #15 tabs 02/03/22 [Rx Last Taken Unknown] dicyclomine 20 mg tablet 20 mg PO 4X/DAY PRN PRN Abdominal bloating/spasm #28 tabs 12/13/22 [Rx Last Taken Unknown] diphenoxylate-atropine 2.5 mg-0.025 mg tablet (Lomotil) 1 tab PO 4X/DAY PRN PRN diarrhea 5 days #20 tabs 12/13/22 [Rx Last Taken Unknown] ondansetron 4 mg disintegrating tablet 4 mg PO TID PRN nausea and vomiting #21 tabs 12/13/22 [Rx Last Taken Unknown] oxycodone-acetaminophen 5 mg-325 mg tablet (Percocet) 1 tab PO Q6H PRN pain 3 days #12 tabs 12/13/22 [Rx Last Taken Unknown] Allergy/AdvReac Type Severity Reaction Status Date / Time nickel [Nickel] Allergy Unknown Rash Verified 12/13/22 05:36 pistachio nut Allergy Swelling Verified 12/13/22 05:36 Surgical History Previous delivery affecting , antepartum Status post repeat low transverse section Social History Smoking Status: Current every day smoker tobacco type: cigarettes alcohol intake: never ROS ROS ED Constitutional Constitutional ED: Denies chills or fever(s) ENT ENT ED: Denies sore throat Cardiovascular Cardiovascular: Reports other Details: Positive syncope ; Denies chest pain Respiratory/Chest Respiratory/Chest: Denies cough or dyspnea Gastrointestinal Gastrointestinal: Reports abdominal pain, diarrhea, nausea and vomiting Genitourinary Genitourinary ED: Denies dysuria Musculoskeletal Musculoskeletal: Reports myalgias; Denies back pain Integumentary Denies rash Neurologic Neurologic: Denies headache(s) Hematologic/Lymphatic Hematologic/Lymphatic: Denies easy bleeding or easy bruising EXAM Physical Exam Const Vital Signs: 12/13/22 05:33 Temperature 96.9 F L Temperature Source Temporal Pulse Rate 97 Respiratory Rate 18 Blood Pressure 101/65 Blood Pressure Mean 77 Pulse Ox 97 Oxygen Delivery Method Room Air Positive well nourished, well developed and obese General Appearance ED: well developed Nutritional Appearance: obese HEENT Reports dry mucous membranes HEENT Narrative: Mucous membranes are dry and tacky Mouth ED: Yes dry mucous membranes Mouth: dry mucous membranes Eyes PERRL and EOMs intact bilaterally General Eye ED: Negative for scleral icterus Neck supple Neck Narrative: No nuchal rigidity or meningeal signs noted Resp normal respiratory effort and clear to auscultation bilaterally Cardio regular rhythm Rate: tachycardic and other Other Details: Slightly tachycardic rate with regular rhythm radial pulses are plus 2 out of 4 bilaterally are equal and symmetric GI non-distended GI Narrative: Abdomen is obese soft and nondistended with hyperactive bowel sounds. Patient has mild diffuse pain on palpation without voluntary guarding or rigidity. No pulsatile mass or fluid wave Auscultation: hyperactive bowel sounds Palpation: soft Extremity normal to inspection Neuro oriented x3 and CN's II-XII intact bilaterally Sensorium / Orientation: alert Psych mental status grossly normal Skin no rashes or lesions noted General Skin Exam: Negative for jaundice MDM MDM MDM Narrative Medical decision making narrative: You want her to go patient presented to the ER with stable vitals and a soft nonsurgical abdomen so I felt no need for emergent imaging studies. Her history and exam is most consistent with a viral stomach infection but as there is concern this could be gallbladder dysfunction and acute pancreatitis a possible complication or she could have severe dehydration causing acute kidney injury or electrolyte imbalance basic blood work was obtained. Labs revealed no clinically significant finding. Patient was given 2 L of fluid for hydration. She was treated with morphine and Zofran and still complained of mild nausea so Compazine was added as well as Bentyl. On reevaluation after treatment she reports feeling moderate improvement in her abdomen remains soft and nonsurgical. Therefore at this time there is no need for imaging studies as she has had improvement of symptoms and negative laboratory values. The plan of care was discussed with the patient she does feel comfortable going home. I do feel her syncopal event was related to activation of the vagal nerve secondary to retching and as her EKG reveals no cardiac dysrhythmia and she had no further bouts of syncope there is no need for further evaluation of this and she is otherwise safe for discharge History & Record Review Discussion w/independent historian: EMS personnel and Patient Lab Data Attestation: I reviewed the patient's lab results. Labs: Laboratory Results - last 24 hr 12/13/22 12/13/22 12/13/22 06:25 06:25 06:25 WBC 9.8 RBC 4.53 Hgb 13.4 Hct 41.0 MCV 90.5 MCH 29.6 MCHC 32.7 RDW Std Deviation 38.2 RDW Coeff of Theo 11.5 L Plt Count 395 MPV 9.8 Immature Gran % (Auto) 0.300 Neut % (Auto) 83.0 H Lymph % (Auto) 8.9 L [place] % (Auto) 4.9 Eos % (Auto) 2.5 Baso % (Auto) 0.4 Absolute Neuts (auto) 8.2 H Absolute Lymphs (auto) 0.88 Nucleated RBC % 0 Sodium 136 Potassium 4.0 Chloride 103 Carbon Dioxide 25.0 Anion Gap 8 BUN 10 Creatinine 0.70 Estim Creat Clear Calc 98.09 Est GFR (MDRD) Af Amer 126 Est GFR (MDRD) Non-Af 105 BUN/Creatinine Ratio 14.3 Glucose 110 H Calcium 8.7 Total Bilirubin 0.40 Direct Bilirubin 0.10 AST 19 ALT 31 Alkaline Phosphatase 106 Total Protein 7.5 Albumin 3.5 Globulin 4.0 Lipase 142 Serum , Qual NEGATIVE Discharge Plan Triage Chief Complaint: Nausea/Vomiting ED Provider: Arnaldo Olivas Dx/Rx/DC Orders Clinical Impression: Nausea vomiting and diarrhea, Dehydration, Nonspecific abdominal pain Instructions: ED Dehydration (Adult), ED Gastroenteritis, Viral (Adult) Prescriptions: New ondansetron 4 mg tablet,disintegrating 4 mg PO TID PRN (Reason: nausea and vomiting) Qty: 21 0RF dicyclomine 20 mg tablet 20 mg PO 4X/DAY PRN PRN (Reason: Abdominal bloating/spasm) Qty: 28 0RF diphenoxylate-atropine [Lomotil] 2.5-0.025 mg tablet 1 tab PO 4X/DAY PRN PRN (Reason: diarrhea) 5 Days Qty: 20 0RF oxycodone-acetaminophen [Percocet] 5-325 mg tablet 1 tab PO Q6H PRN (Reason: pain) 3 Days Qty: 12 0RF No Action PNV #[id number] 27 mg iron-1 mg -300 mg-50 mg Capsule 1 cap PO DAILY oxycodone 5 mg Tablet 5 - 10 mg PO Q6H PRN PRN (Reason: Pain Score 6-10) 5 Days Qty: 15 0RF Stand Alone Forms: ED Work / School Excuse Primary Care Provider: Care Physician,No Primary Referrals: Juan Batres MD [Non-Staff] - Care Physician,No Primary [Primary Care Provider] - Activity Restrictions/Additional Instructions: Please keep yourself well-hydrated and take your medication as directed to help control your symptoms. If you have any further concerns or worsening of symptoms despite taking her medication please return for repeat evaluation Disposition Disposition: Home, Self Care
[2022-12-13 06:31] LABS: Absolute Lymphocyte Count 0.88 X10^3/uL (0.83-4.51); Absolute Neutrophil Count 8.2 X10^3/uL (2.0-7.7); Basophil# 0.04 X10^3/uL; Basophil% 0.4 % (0-1); Eosinophil# 0.25 X10^3/uL; Eosinophils% 2.5 % (0-5); Hemoglobin 13.4 g/dL (12.0-15.0); Lymphocyte # 0.88 X10^3/ul (0.83-4.51); Lymphocyte % 8.9 % (19-41); Mean Corp Hgb Conc 32.7 g/dL (32-36); Mean Corpuscular Hgb 29.6 pg (27.0-32.0); Mean Corpuscular Volume 90.5 fL (81-99); Mean Platelet Vol. 9.8 fl (6.2-12.0); Monocyte# 0.48 X10^3/uL; Monocyte% 4.9 % (0-10); NRBC Flagged by Analyzer 0 % (0-5); Neutrophil # 8.16 X10^3/uL (2.7-7.7); Platelet Count 395 K/mm3 (150-450); RBC Distribution Width CV 11.5 % (11.6-14.6); RBC Distribution Width SD 38.2 fl (35.1-43.9); Red Blood Count 4.53 M/mm3 (4.2-5.4); White Blood Count 9.8 K/mm3 (4.4-11.0)
[2022-12-13 06:50] LABS: AST(SGOT) 19 U/L (15-37); Alanine Aminotransfer ALT/SGPT 31 U/L (13-56); Albumin, Serum 3.5 g/dL (3.2-5.0); Alkaline Phosphatase 106 U/L (45-117); Anion Gap 8 (5-15); BUN 10 mg/dL (7-18); BUN/Creat Ratio 14.3 RATIO (10-20); Calcium,Total 8.7 mg/dL (8.5-10.1); Chloride 103 mmol/L (98-107); EST Glomerular Filtration Rate 105 mL/min (>60); Est Glom Filt Rate - Afr Amer 126 mL/min (>60); Estimated Creatinine Clearance 98.09 ml/min; Glucose 110 mg/dL (74-106); Lipase 142 U/L (73-393); Protein, Total 7.5 g/dL (6.4-8.2); Sodium Level 136 mmol/L (136-145)
[2022-12-13] MEDS: Morphine 4 MG/ML Syringe IV (06:53)
[2022-12-13] MEDS: Ondansetron 4 MG/2 ML Vial IV (06:53)
[2022-12-13] MEDS: 0.9% Normal Saline 1,000 ML 999 ML IV ×2 (06:54→08:26)
[2022-12-13 06:57] LABS: Internal QC Validated? YES +Cl - CLEAR BKGD; Pregnancy, Serum, hCG Quali. NEGATIVE Negative
[2022-12-13] MEDS: proCHLORPERazine 10 MG/2 ML Vial IV (07:41)
[2022-12-13] MEDS: Ketorolac 30 MG/ML Syringe IV (07:42)
[2022-12-13] MEDS: Dicyclomine 10 MG Capsule 20 MG PO (07:43)
[2022-12-13 10:34] VITALS: BP 120/82; PULSE 79; RESP 16; O2SAT 97
== END 2022-12-13 10:44 | disposition home or self-care (01) ==
PROVIDERS: Emergency Provider Emergency Medicine; Visit Provider Emergency Medicine
DX: R11.2 Nausea with vomiting, unspecified (principal); R19.7 Diarrhea, unspecified; E86.0 Dehydration; R10.9 Unspecified abdominal pain; F17.210 Nicotine dependence, cigarettes, uncomplicated; E66.9 Obesity, unspecified
CPT/HCPCS: 80048; 80076; 83690; 84703; 85025; 93005; 96374; 96375; 99285; J7030; A4216; J2405

== ENCOUNTER 2024-02-04 08:59 | Emergency (ER) | payer MEDICAID, SELFPAY ==
[2024-02-04 08:59] VITALS: BP 115/79; PULSE 97; RESP 18; TEMP 36.6; O2SAT 99; BMI 40.0
--- NOTE | 2024-02-04 10:04 | CT_ITS ---
STUDY: CT SOFT TISSUE NECK WITH CONTRAST REASON FOR EXAM: Female, 28 years old. Pharyngitis. Left-sided sore throat with swelling. RADIATION DOSAGE (If Supplied By Facility): CTDIvol = ( 17.69 ) mGy, DLP = ( 508.14 ) mGycm TECHNIQUE: The patient was scanned in a multi-detector CT scanner. High resolution transaxial imaging was performed following intravenous administration of IV 100mL Isovue-300. Sagittal and coronal images were reconstructed. Individualized dose optimization techniques were used for this CT. COMPARISON: None. FINDINGS: Normal bilateral parotid glands. Normal bilateral shutdown coordinator spaces. Normal bilateral parapharyngeal spaces. Normal bilateral carotid spaces. Normal bilateral sublingual and submandibular glands and spaces. Normal visualized nasopharynx. Normal retropharyngeal space. Normal perivertebral space. There is enlargement of the faucial tonsils bilaterally more prominent on the left side. There is heterogeneous appearance of the left tonsil with areas of decreased attenuation suggestive of possible early abscess formation. There is narrowing of the airway at that site. The visualized tongue, tongue base and oropharynx are normal. There are minimally enlarged lymph nodes of the neck, with preservation of normal anahy architecture, consistent with a reactive lymph hyperplasia. There is no demonstrated solid or cystic mass lesion. There is no abnormal contrast enhancement. Normal epiglottis, bilateral vallecula and hypopharynx. The pre-epiglottic and paraglottic adipose spaces are normal. Normal visualized bilateral piriform sinuses, aryepiglottic folds, vocal cords, and arytenoid-cricoid articulations. Normal subglottic trachea. Normal bilateral lobes of the thyroid gland. Normal visualized pulmonary apices. Normal visualized paranasal sinuses. Normal visualized cervical spine. CT/Soft Tissue Neck WITH Contrast IMPRESSION: Enlargement of the faucial tonsils bilaterally worse on the left side with focal areas of decreased attenuation in the left tonsils suggestive of early abscess formation. Mild narrowing of the airways. Electronically Signed: Evelio Briscoe MD at 11:09 EDT ,
--- NOTE | 2024-02-04 10:04 | EX.ED.VIS.UR ---
HPI HPI - URI History of Present Illness Chief Complaint: Sore Throat Informant: patient Onset/Context/Timing Onset: Days (5) Context: Gradual Onset Timing: Continuous Quality: Sharp Location: Left side of throat Worsened by: Swallowing Relieved by: - (Nothing) Associated Symptoms Associated Symptoms: Positive for Headache, Myalgias, Nausea and Diarrhea; Negative for Nasal Congestion, Sinus Pressure, Vomiting, Shortness of Breath, Chest Pain, Nonproductive cough, Hemoptysis or Productive Cough Narrative Narrative: Patient presents with sore throat that has been getting worse over the past 5 days. Patient states she went to the urgent care yesterday and they did a rapid strep. Patient states that they called her today and told her that her rapid strep was negative. Patient states she was started on amoxicillin yesterday. Patient states she has had 3 doses. Patient states her pain is sharp. Patient states it is worse with swallowing. Patient states it is worse on the left side of her throat. Patient admits to some general myalgias. Patient admits to some nausea but denies any vomiting. Patient states she started having some diarrhea today because of the antibiotics. Patient also admits to a mild headache. ROS ROS ED Constitutional Constitutional ED: Reports chills, fever(s) and sweats Eyes Eyes: Denies blurry vision or change in vision ENT ENT ED: Reports sore throat; Denies rhinorrhea Cardiovascular Cardiovascular: Denies chest pain or palpitations Respiratory/Chest Respiratory/Chest: Denies cough or dyspnea Gastrointestinal Gastrointestinal: Denies nausea or vomiting Genitourinary Genitourinary ED: Denies dysuria or hematuria Musculoskeletal Musculoskeletal: Reports myalgias and neck pain; Denies back pain Integumentary Denies abscess or rash Neurologic Neurologic: Reports headache(s); Denies weakness Allergic/Immunologic Allergic/Immunologic ED: Denies mouth swelling or urticaria [facility] Medical History 38 weeks gestation of BMI 40.0-44.9, adult Care and examination of lactating mother High risk multigravida in third trimester history of child History of endometriosis Late deceleration of heart rate Maternal 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 Sterilization Home Medications ondansetron 4 mg disintegrating tablet 4 mg PO TID PRN nausea and vomiting #21 tabs 12/13/22 [Rx Last Taken Unknown] acyclovir 400 mg tablet 400 mg PO TID 02/04/24 [History Last Taken Unknown] amoxicillin 875 mg-potassium clavulanate 125 mg tablet 875 mg (0.875 x 875-125 mg) PO Q12H #20 TABLETS 02/04/24 [Rx Last Taken Unknown] Allergy/AdvReac Type Severity Reaction Status Date / Time nickel [Nickel] Allergy Unknown Rash Verified 02/04/24 08:59 pistachio nut Allergy Swelling Verified 02/04/24 08:59 Surgical History Previous delivery affecting , antepartum Status post repeat low transverse section Social History Smoking Status: Current every day smoker tobacco type: cigarettes alcohol intake: never EXAM Physical Exam Const Vital Signs: 02/04/24 08:59 Temperature 97.8 F Temperature Source Temporal Pulse Rate 97 Respiratory Rate 18 Blood Pressure 115/79 Blood Pressure Mean 91 Pulse Ox 99 Oxygen Delivery Method Room Air Positive well nourished, well developed and obese General Appearance ED: well developed and NAD Nutritional Appearance: obese HEENT Reports moist mucous membranes HEENT Narrative: Oropharynx is erythematous. There are exudates noted. There is some swelling of the left tonsil and peritonsillar area. There is no fluctuance. Airway is patent. normocephalic Throat: tonsils abnormal and posterior oropharynx abnormal Positive for erythema and exudates Neck supple, no meningeal signs and no JVD Cardio Rate: regular rate Rhythm: regular rhythm GI non-tender and non-distended Palpation: soft Extremity normal to inspection and full ROM Neuro oriented x3, CN's II-XII intact bilaterally and no sensory deficits noted Motor Exam: strength 5/5 throughout Psych mental status grossly normal MDM MDM MDM Narrative Medical decision making narrative: Differential diagnosis includes pharyngitis, viral infection, and peritonsillar abscess. CBC will be obtained to assess for leukocytosis and anemia. Basic metabolic profile will be obtained to assess for electrolyte abnormality and renal function. Soft tissue neck CT will be obtained to assess for peritonsillar abscess. COVID-19, influenza, and RSV PCR will be obtained to assess for viral infection. Lab Data Attestation: I reviewed the patient's lab results. Lab results narrative: CBC was reviewed and was within normal limits. Basic metabolic profile was reviewed. Potassium is slightly low at 3.1. The remainder was within normal limits. COVID-19 PCR was reviewed and was negative. Influenza PCR was reviewed and was negative for influenza A and influenza B. RSV PCR was reviewed and was negative. Labs: Laboratory Results - last 24 hr 02/04/24 10:20 WBC 8.1 RBC 4.56 Hgb 13.4 Hct 41.2 MCV 90.4 MCH 29.4 MCHC 32.5 RDW Std Deviation 40.3 RDW Coeff of Theo 12.1 Plt Count 358 MPV 9.5 Immature Gran % (Auto) 0.200 Neut % (Auto) 70.9 H Lymph % (Auto) 18.7 L [place] % (Auto) 8.1 Eos % (Auto) 1.5 Baso % (Auto) 0.6 Absolute Neuts (auto) 5.7 Absolute Lymphs (auto) 1.51 Nucleated RBC % 0 Sodium 138 Potassium 3.1 L Chloride 104 Carbon Dioxide 29.0 Anion Gap 5 BUN 6 L Creatinine 0.63 Estim Creat Clear Calc 149.37 Est GFR (MDRD) Af Amer 141 Est GFR (MDRD) Non-Af 117 BUN/Creatinine Ratio 9.5 L Glucose 96 Calcium 8.7 Radiography Diagnostic Testing: Clinical Impression(s) from Imaging Studies Soft Tissue Neck CT 02/04/24 10:04 IMPRESSION: Enlargement of the faucial tonsils bilaterally worse on the left side with focal areas of decreased attenuation in the left tonsils suggestive of early abscess formation. Mild narrowing of the airways. Electronically Signed: Evelio Briscoe MD at 11:09 EDT , CT scan of the soft tissue neck was obtained. There is enlargement of the tonsils bilaterally, worse on the left. There could be early abscess formation. This was interpreted by the radiologist and was also independently reviewed by myself. Treatment and Re-Evaluation Narrative: Patient was given a dose of Unasyn here. Patient was given a dose of potassium. Patient was advised of her findings. Patient was instructed to stop the amoxicillin. Patient was given a prescription for Augmentin. Patient was instructed to drink plenty of fluids. Patient was given a referral for ENT for follow-up in 3 to 5 days. Patient was instructed to return if worse in any way. Patient understood and was agreeable with the plan. All questions were answered. Discharge Plan Triage Chief Complaint: Sore Throat ED Provider: Reinier Lopez Dx/Rx/DC Orders Clinical Impression: Acute tonsillitis, Pharyngitis Instructions: ED Peritonsillar Abscess Prescriptions: New amoxicillin-pot clavulanate [amoxicillin-pot clavulanate] 875-125 mg tablet 875 mg PO Q12H Qty: 20 0RF Discontinued amoxicillin 500 mg capsule 500 mg PO BID No Action ondansetron 4 mg tablet,disintegrating 4 mg PO TID PRN (Reason: nausea and vomiting) Qty: 21 0RF acyclovir 400 mg tablet 400 mg PO TID Primary Care Provider: Care Physician,No Primary Referrals: Anton Guajardo MD [Med Staff - Active Staff] - 3-5 Days Care Physician,No Primary [Primary Care Provider] - Disposition Disposition: Home, Self Care
[2024-02-04 10:44] LABS: Anion Gap 5 (5-15); BUN 6 mg/dL (7-18); BUN/Creat Ratio 9.5 RATIO (10-20); Calcium,Total 8.7 mg/dL (8.5-10.1); Chloride 104 mmol/L (98-107); Creatinine, Serum 0.63 mg/dL (0.55-1.02); EST Glomerular Filtration Rate 117 mL/min (>60); Est Glom Filt Rate - Afr Amer 141 mL/min (>60); Estimated Creatinine Clearance 149.37 ml/min; Glucose 96 mg/dL (74-106); Potassium 3.1 mmol/L (3.5-5.1); Sodium Level 138 mmol/L (136-145)
[2024-02-04] MEDS: Ampicillin/Sulbactam 3 GM in 0.9% Normal Saline (100mL MB+) 100 ML IV (10:44)
[2024-02-04 10:52] LABS: Absolute Lymphocyte Count 1.51 X10^3/uL (0.83-4.51); Absolute Neutrophil Count 5.7 X10^3/uL (2.0-7.7); Basophil# 0.05 X10^3/uL; Basophil% 0.6 % (0-1); Eosinophil# 0.12 X10^3/uL; Eosinophils% 1.5 % (0-5); Hematocrit 41.2 % (37-47); Hemoglobin 13.4 g/dL (12.0-15.0); Lymphocyte # 1.51 X10^3/ul (0.83-4.51); Lymphocyte % 18.7 % (19-41); Mean Corp Hgb Conc 32.5 g/dL (32-36); Mean Corpuscular Hgb 29.4 pg (27.0-32.0); Mean Corpuscular Volume 90.4 fL (81-99); Mean Platelet Vol. 9.5 fl (6.2-12.0); Monocyte# 0.65 X10^3/uL; Monocyte% 8.1 % (0-10); NRBC Flagged by Analyzer 0 % (0-5); Neutrophil # 5.71 X10^3/uL (2.7-7.7); Neutrophil % 70.9 % (47-70); Platelet Count 358 K/mm3 (150-450); RBC Distribution Width CV 12.1 % (11.6-14.6); RBC Distribution Width SD 40.3 fl (35.1-43.9); Red Blood Count 4.56 M/mm3 (4.2-5.4); White Blood Count 8.1 K/mm3 (4.4-11.0)
[2024-02-04] MEDS: Potassium Chloride Oral Tablet 20 MEQ 40 MEQ PO (11:36)
[2024-02-04 12:10] VITALS: BP 115/68; PULSE 96; RESP 18; TEMP 36.8; O2SAT 97
== END 2024-02-04 12:10 | disposition home or self-care (01) ==
PROVIDERS: Emergency Provider Emergency Medicine; Visit Provider Emergency Medicine
DX: J03.90 Acute tonsillitis, unspecified (principal); F17.210 Nicotine dependence, cigarettes, uncomplicated; E66.9 Obesity, unspecified
CPT/HCPCS: 70491; 80048; 85025; 87631; 96365; 99283; Q9967; A4216; J0295

== ENCOUNTER 2024-02-18 15:30 | Outpatient (RCR) | payer MEDICAID, SELFPAY ==
--- NOTE | 2024-01-23 17:46 | HP.OTEVAL_ITS ---
Patient's Visit Information Visit Information Visit Information: CLARK LOPEZ is a 28 year old F, referred to Occupational Therapy by RUBY Thompson, with a diagnosis of radial styloid tenosynovitis. Date of Evaluation: 01/23/24 Occupational Therapist: Sarina Villeda Subjective Subjective: This female arrives for OT s/p sx for dequerviens complete Dec 10 6 weeks and 2 days out on date of eval. pt is having pain at thumb region and reports some numbness. pt has not had any therapy s/p sx at this time. pt wearing brace which now wants on 25% of day and off 75%. wear at night. 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 pt is affected in day to day tasks due to pain as well as weakness and stiffness. pt is R hand dominant. Pt goal is to decrease stiffness and pain and increase ROM for return to day to day tasks as well as work. Pain R radial wrist region: Current Pain Intensity: 5 Pain Intensity Range: 8 Objective Objective/Observation: pt arrives this date with slight swelling in R wrist region scar healed and intact ROM Shoulder: wfl Elbow: wfl Forearm: supination 60 degrees pronation 50 Wrist: R 60/45 CMC: R 0/15 MP: R 0/45 IP: R 0/55 Opposition: able to oppose to D3 MP: wfl PIP: wfl DIP: wfl ROM Comments: reports stiffness with movement Strength Commercial Litigation Paralegal: L hand 60 pounds Lateral Pinch: L hand 18 pounds Tripod Pinch: L hand 15 pounds Strength Comments: unable to test R hand at this time due to pain and swelling to assess once able Edema Other: L 16 cm R 18.5 cm wrist Sensation Sensation Comments: numbness along scar line up and down as well as side to side Quick DASH-Disab of Arm,Shoulder& Hand Quick DASH Score: [phone] Goals Goal:100% adherence to protocol: Yes Comment: dequervain post op recovery protocal Goal:Daily scar massage when approriate: Yes Goal:ROM equal to unaffected hand: Yes Goal:Commercial Litigation Paralegal/Pinch strength at least 75% of unaffected hand: Yes Comment: manager animal strength once appropriate Goal:No pain with affected hand use: Yes Goal:Full use of affected hand in daily activities including work: Yes Goal:Decrease scar hypersensitivity: Yes Other Goal: pt will improve quick dash score by 10 points for improved participation in day to day activities within 6 weeks pt will demonstrate 100% accuracy in completion of post op dequervain sx HEP by second session Rehabilitation Rehabilitation Potential: Good Anticipated Interventions Anticipated Interventions: A/AAROM/PROM, Strengthening, Edema Control, Scar Care, Massage, Triggerpoint Release, Sensory Retraining, Modalities, Joint Protection/Energy Conservation, Ergonomic Education, Fine Motor Coord/Pramod, ADL Training, Education re Diagnosis, Education re Self Massage Techniques and Home Program Visit Plan Frequency: 2x /Week Duration: 6 Weeks General Plan: increase AROM, decrease stiffness decrease pain provide ed and training on joint protection and positioning modalities and swelling management TEXT: Thank you for the opportunity to evaluate your patient. For Medicare and Medicare HMO plans, please review the plan of care and approve it. It will need to be FAXED BACK to us at [phone] for Medicare purposes. Please let me know if there are questions or concerns regarding this plan of care. Physician Signature: Date:
--- NOTE | 2024-05-05 11:00 | HP.OT.NRP ---
Patient Information Patient Information: CLARK LOPEZ was seen in my office for initial evaluation on 01/23/24. The following Plan of Care was established for this patient: POC Established Initial Frequency: 2x /Week Initial Duration: 6 Weeks Plan: AROM AAROM trigger point massage modalities scar massage Anticipated Interventions Anticipated Interventions: A/AAROM/PROM, Strengthening, Edema Control, Scar Care, Massage, Triggerpoint Release, Sensory Retraining, Modalities, Joint Protection/Energy Conservation, Ergonomic Education, Fine Motor Coord/Pramod, ADL Training, Education re Diagnosis, Education re Self Massage Techniques and Home Program Last Seen Last Seen: This patient was last seen in our office 02/18/24. Pertinent comments regarding their Occupational therapy will appear below: This 29 year old female seen for OT s/p sx for [place] complete 12/10/23 pt was seen 6 weeks after surgery and attended 6 sessions before no showing final three visits. Pt made progress in ROM in pain reduction as well as ROM and functional use of hand. discharge at this time as pt stopped showing up for appointments and lapse in time. At this point I will be discontinuing this patient from occupational therapy. I would be happy to see this patient again in the future if found appropriate by the physician. Thank you! Sarina Villeda
== END 2024-02-18 19:00 | disposition home or self-care (01) ==
LOC: OT 15:30
PROVIDERS: Referring Provider Physician Assistant Surgical; Visit Provider Physician Assistant Surgical
DX: M65.4 Radial styloid tenosynovitis [de Quervain] (principal)
CPT/HCPCS: 97035; 97110; 97140; 97165; 97530

== ENCOUNTER 2024-02-19 21:53 | Emergency (ER) | payer SELFPAY ==
[2024-02-19 21:54] VITALS: BP 121/83; PULSE 107; RESP 14; TEMP 36.1; O2SAT 93; BMI 41.1
[2024-02-19] MEDS: Morphine 4 MG/ML Syringe IV (23:06)
[2024-02-19] MEDS: 0.9% Normal Saline (1000mL) 1,000 ML 999 ML IV (23:06)
[2024-02-19] MEDS: DiphenhydrAMINE 50 MG/ML Syringe 12.5 MG IV (23:06)
[2024-02-19] MEDS: proCHLORPERazine 10 MG/2 ML Vial IV (23:06)
[2024-02-19 23:30] LABS: Absolute Lymphocyte Count 0.78 X10^3/uL (0.83-4.51); Absolute Neutrophil Count 7.9 X10^3/uL (2.0-7.7); Basophil# 0.05 X10^3/uL; Basophil% 0.5 % (0-1); Eosinophil# 0.17 X10^3/uL; Eosinophils% 1.8 % (0-5); Hematocrit 38.3 % (37-47); Hemoglobin 12.3 g/dL (12.0-15.0); Lymphocyte # 0.78 X10^3/ul (0.83-4.51); Lymphocyte % 8.2 % (19-41); Mean Corp Hgb Conc 32.1 g/dL (32-36); Mean Corpuscular Volume 90.3 fL (81-99); Mean Platelet Vol. 9.8 fl (6.2-12.0); Monocyte# 0.65 X10^3/uL; Monocyte% 6.8 % (0-10); NRBC Flagged by Analyzer 0 % (0-5); Neutrophil # 7.88 X10^3/uL (2.7-7.7); Neutrophil % 82.3 % (47-70); Platelet Count 381 K/mm3 (150-450); RBC Distribution Width CV 12.6 % (11.6-14.6); RBC Distribution Width SD 41.2 fl (35.1-43.9); Red Blood Count 4.24 M/mm3 (4.2-5.4); White Blood Count 9.6 K/mm3 (4.4-11.0)
[2024-02-19 23:53] VITALS: BP 125/80; PULSE 87; RESP 18; O2SAT 99
[2024-02-19 23:53] LABS: AST(SGOT) 17 U/L (15-37); Alanine Aminotransfer ALT/SGPT 30 U/L (13-56); Albumin, Serum 3.3 g/dL (3.2-5.0); Alkaline Phosphatase 65 U/L (45-117); Anion Gap 5 (5-15); BUN 7 mg/dL (7-18); BUN/Creat Ratio 13.6 RATIO (10-20); Bilirubin, Direct 0.16 mg/dL (0.00-0.30); Calcium,Total 8.3 mg/dL (8.5-10.1); Chloride 107 mmol/L (98-107); Creatinine, Serum 0.52 mg/dL (0.55-1.02); EST Glomerular Filtration Rate 148 mL/min (>60); Est Glom Filt Rate - Afr Amer 179 mL/min (>60); Estimated Creatinine Clearance 183.67 ml/min; Globulin 3.5 g/dL (2.2-4.2); Glucose 98 mg/dL (74-106); Lipase 43 U/L (13-75); Magnesium 1.7 mg/dL (1.6-2.6); Potassium 3.7 mmol/L (3.5-5.1); Protein, Total 6.8 g/dL (6.4-8.2); Sodium Level 138 mmol/L (136-145)
--- NOTE | 2024-02-20 00:27 | EX.ED.DYSGE1 ---
HPI History of Present Illness Chief Complaint: Nausea/Vomiting/Diarrhea Informant: patient and friend Narrative Narrative: Patient is a 28-year-old female with past medical history of migraine as well as endometriosis. She states that earlier today she developed generalized abdominal discomfort with sensation of fatigue and bouts of nausea vomiting and diarrhea. She denies any history of intestinal disorders such as ulcer colitis or Crohn's disease. She denies any known sick contact. 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 Sterilization Home Medications ondansetron 4 mg disintegrating tablet 4 mg PO TID PRN nausea and vomiting #21 tabs 12/13/22 [Rx Last Taken Unknown] acyclovir 400 mg tablet 400 mg PO TID 02/04/24 [History Last Taken Unknown] amoxicillin 875 mg-potassium clavulanate 125 mg tablet 875 mg (0.875 x 875-125 mg) PO Q12H #20 TABLETS 02/04/24 [Rx Last Taken Unknown] ondansetron 4 mg disintegrating tablet 4 mg PO TID PRN nausea and vomiting #21 tabs 02/20/24 [Rx Last Taken Unknown] Allergy/AdvReac Type Severity Reaction Status Date / Time nickel [Nickel] Allergy Unknown Rash Verified 02/19/24 21:56 pistachio nut Allergy Swelling Verified 02/19/24 21:56 Surgical History Previous delivery affecting , antepartum Status post repeat low transverse section Social History Smoking Status: Current every day smoker tobacco type: cigarettes alcohol intake: never ROS ROS ED Constitutional Constitutional ED: Reports chills, fever(s) and subjective Eyes Eyes: Denies change in vision ENT ENT ED: Denies sore throat Cardiovascular Cardiovascular: Denies chest pain Respiratory/Chest Respiratory/Chest: Denies cough or dyspnea Gastrointestinal Gastrointestinal: Reports abdominal pain, diarrhea, nausea and vomiting; Denies melena Genitourinary Genitourinary ED: Denies dysuria, hematuria or urinary frequency Musculoskeletal Musculoskeletal: Reports myalgias Integumentary Denies rash Neurologic Neurologic: Reports headache(s) Hematologic/Lymphatic Hematologic/Lymphatic: Denies easy bleeding or easy bruising EXAM Physical Exam Const Vital Signs: 02/19/24 21:54 02/19/24 23:53 Temperature 96.9 F L Temperature Source Temporal Pulse Rate 107 H 87 Respiratory Rate 14 18 Blood Pressure 121/83 H 125/80 H Blood Pressure Mean 95 95 Pulse Ox 93 99 Oxygen Delivery Method Room Air Room Air Positive well nourished, well developed and obese General Appearance ED: well developed; Negative for pallor Nutritional Appearance: obese HEENT Reports dry mucous membranes HEENT Narrative: Mucous membranes are mildly dry and tacky No tongue or lip swelling no oral lesions no airway edema or compromise No secondary findings to suggest infection in the posterior pharynx Mouth ED: Yes dry mucous membranes Mouth: dry mucous membranes Eyes PERRL and EOMs intact bilaterally General Eye ED: Negative for scleral icterus Neck supple Neck Narrative: No nuchal rigidity or meningeal signs Resp normal respiratory effort and clear to auscultation bilaterally Cardio regular rhythm Rate: tachycardic and other Other Details: Mildly tachycardic rate with regular rhythm Radial and carotid pulses are equal and symmetric GI non-distended and no masses GI Narrative: Abdomen is soft and nondistended with hyperactive bowel sounds. There is mild diffuse pain on palpation without voluntary guarding or rigidity or pulsatile mass Auscultation: hyperactive bowel sounds Palpation: soft Back/Spine no CVA tenderness Extremity normal to inspection Neuro oriented x3, CN's II-XII intact bilaterally and no sensory deficits noted Sensorium / Orientation: alert Motor Exam: strength 5/5 throughout Psych mental status grossly normal Skin no rashes or lesions noted and no wounds Skin Narrative: Skin turgor is slightly increased General Skin Exam: Negative for jaundice or pallor MDM MDM MDM Narrative Medical decision making narrative: Patient arrived to the ER afebrile but mildly tachycardic. She reported multiple sowed's of nausea vomiting and diarrhea while at home. Differential diagnosis is for viral stomach infection such as [place] virus versus rotavirus. There is also concern for potential pancreatitis versus biliary colic versus acute cholecystitis versus acute kidney injury or severe electrolyte abnormality. Basic blood work was obtained which revealed no clinically significant changes and after treatment with IV hydration and nausea meds and pain control she had complete resolution of symptoms with no further bouts of vomiting or diarrhea while in the ER. As she does not have any risk factors for infectious diarrhea did not feel the need for stool sample at this time. Therefore as patient's had resolution of symptoms and overall negative workup I feel this is most likely viral in nature and she will be discharged home with symptomatic care History & Record Review Discussion w/independent historian: Patient and Friend Lab Data Attestation: I reviewed the patient's lab results. Labs: Laboratory Results - last 24 hr 02/19/24 23:05 WBC 9.6 RBC 4.24 Hgb 12.3 Hct 38.3 MCV 90.3 MCH 29.0 MCHC 32.1 RDW Std Deviation 41.2 RDW Coeff of Theo 12.6 Plt Count 381 MPV 9.8 Immature Gran % (Auto) 0.400 Neut % (Auto) 82.3 H Lymph % (Auto) 8.2 L [place] % (Auto) 6.8 Eos % (Auto) 1.8 Baso % (Auto) 0.5 Absolute Neuts (auto) 7.9 H Absolute Lymphs (auto) 0.78 L Nucleated RBC % 0 Sodium 138 Potassium 3.7 Chloride 107 Carbon Dioxide 26.0 Anion Gap 5 BUN 7 Creatinine 0.52 L Estim Creat Clear Calc 183.67 Est GFR (MDRD) Af Amer 179 Est GFR (MDRD) Non-Af 148 BUN/Creatinine Ratio 13.6 Glucose 98 Calcium 8.3 L Magnesium 1.7 Total Bilirubin 0.50 Direct Bilirubin 0.16 AST 17 ALT 30 Alkaline Phosphatase 65 Total Protein 6.8 Albumin 3.3 Globulin 3.5 Lipase 43 Discharge Plan Triage Chief Complaint: Nausea/Vomiting/Diarrhea ED Provider: Arnaldo Olivas Dx/Rx/DC Orders Clinical Impression: Nausea vomiting and diarrhea, Mild dehydration, History of endometriosis Instructions: ED Dehydration (Adult), ED Gastroenteritis, Viral (Adult) Prescriptions: New ondansetron 4 mg tablet,disintegrating 4 mg PO TID PRN (Reason: nausea and vomiting) Qty: 21 0RF No Action ondansetron 4 mg tablet,disintegrating 4 mg PO TID PRN (Reason: nausea and vomiting) Qty: 21 0RF acyclovir 400 mg tablet 400 mg PO TID amoxicillin-pot clavulanate [amoxicillin-pot clavulanate] 875-125 mg tablet 875 mg PO Q12H Qty: 20 0RF Stand Alone Forms: ED Work / School Excuse Primary Care Provider: Care Physician,No Primary Referrals: Tony Sandoval MD [Med Staff - Active Staff] - Care Physician,No Primary [Primary Care Provider] - Activity Restrictions/Additional Instructions: Keep yourself well-hydrated and use the Zofran as directed to control any further bouts of nausea and vomiting. Return to the ER should you have any further concerns Disposition Disposition: Home, Self Care Discharge Date/Time: 02/20/24 00:36
== END 2024-02-20 00:36 | disposition home or self-care (01) ==
PROVIDERS: Emergency Provider Emergency Medicine; Visit Provider Emergency Medicine
DX: R11.2 Nausea with vomiting, unspecified (principal); E86.0 Dehydration; R19.7 Diarrhea, unspecified; F17.210 Nicotine dependence, cigarettes, uncomplicated; E66.9 Obesity, unspecified; Z87.42 Personal history of other diseases of the female genital tract
CPT/HCPCS: 80048; 80076; 83690; 83735; 85025; 96361; 96374; 96375; 99283; J7030; A4216

== ENCOUNTER 2024-04-23 00:39 | Observation (INO) | payer MEDICAID, SELFPAY ==
[2024-04-23] VITALS (20 sets, daily range): BP systolic 96–140; BP diastolic 55–90; PULSE 85–116; RESP 16–28; TEMP 36.5–39.4; O2SAT 93–98; BMI 39.5
[2024-04-23 01:41] LABS: Absolute Lymphocyte Count 1.21 X10^3/uL (0.83-4.51); Absolute Neutrophil Count 13.2 X10^3/uL (2.0-7.7); Basophil# 0.06 X10^3/uL; Basophil% 0.4 % (0-1); Eosinophil# 0.04 X10^3/uL; Eosinophils% 0.3 % (0-5); Hematocrit 44.4 % (37-47); Hemoglobin 14.8 g/dL (12.0-15.0); Lymphocyte # 1.21 X10^3/ul (0.83-4.51); Lymphocyte % 7.9 % (19-41); Mean Corp Hgb Conc 33.3 g/dL (32-36); Mean Corpuscular Hgb 28.9 pg (27.0-32.0); Mean Corpuscular Volume 86.7 fL (81-99); Mean Platelet Vol. 10.3 fl (6.2-12.0); Monocyte# 0.72 X10^3/uL; Monocyte% 4.7 % (0-10); NRBC Flagged by Analyzer 0 % (0-5); Neutrophil # 13.23 X10^3/uL (2.7-7.7); Neutrophil % 86.3 % (47-70); Platelet Count 349 K/mm3 (150-450); RBC Distribution Width CV 12.3 % (11.6-14.6); Red Blood Count 5.12 M/mm3 (4.2-5.4); White Blood Count 15.3 K/mm3 (4.4-11.0)
[2024-04-23 01:57] LABS: ALB/GLOB Ratio 0.8 RATIO (0.9-2.4); AST(SGOT) 15 U/L (15-37); Alanine Aminotransfer ALT/SGPT 24 U/L (13-56); Albumin, Serum 3.7 g/dL (3.2-5.0); Alkaline Phosphatase 99 U/L (45-117); Anion Gap 11 (5-15); BUN 11 mg/dL (7-18); Calcium,Total 9.8 mg/dL (8.5-10.1); Chloride 99 mmol/L (98-107); EST Glomerular Filtration Rate 69 mL/min (>60); Est Glom Filt Rate - Afr Amer 83 mL/min (>60); Globulin 4.6 g/dL (2.2-4.2); Glucose 136 mg/dL (74-106); Potassium 3.4 mmol/L (3.5-5.1); Protein, Total 8.3 g/dL (6.4-8.2); Sodium Level 133 mmol/L (136-145)
[2024-04-23] MEDS: Ondansetron 4 MG/2 ML Vial IV (01:58)
[2024-04-23] MEDS: 0.9% Normal Saline (1000mL) 1,000 ML 999 ML IV ×3 (01:58→06:50)
--- NOTE | 2024-04-23 02:03 | ED.RN ---
Pt found on bedside commode, naked. Pt told this RN that she had passed out on commode, but was able to put self back onto it. There is diarrhea on pt, the floor and all over the commode. RN assisted pt with cleaning, placed pt back into bed. Dr. Coburn notified.
--- NOTE | 2024-04-23 02:09 | EKG12_ITS ---
Test Reason : NAUSEA/VOMITING Blood Pressure : / mmHG Vent. Rate : 105 BPM Atrial Rate : 105 BPM P-R Int : 144 ms QRS Dur : 084 ms QT Int : 322 ms P-R-T Axes : 063 030 048 degrees QTc Int : 425 ms Sinus tachycardia Nonspecific ST abnormality Abnormal ECG Confirmed by EDDI LU, JIM ([id number]), editor managing newspaper DARIN MACE ([id number]) on 04/29/2024 10:36:38 A M Referred By: LINH Confirmed By:NICOLE MONTAGUE MD
[2024-04-23] MEDS: Ketorolac 15 MG/ML Vial IV (02:15)
[2024-04-23 03:03] LABS: Lactic Acid 2.3 mmol/L (0.4-1.9)
--- NOTE | 2024-04-23 03:10 | EDS_ITS ---
HPI History of Present Illness Chief Complaint: Nausea/Vomiting Informant: patient Narrative Narrative: Patient is a 29-year-old female with history of multiple abdominal surgeries presenting with 2 days of chills and sweats that is progressed into vomiting and now diarrhea. Patient states she does with fluid lightheaded and dizzy. She denies any blood in her vomit or her stool. She not been eating or drinking much over the past 2 days because her symptoms. She states she is now starting to have some crampy abdominal pain attributed to her diarrhea. She is here abdomen otherwise has been feeling sore from the vomiting. Denies any sick contacts but does that her son was treated for pneumonia about a week ago and is feeling better. She denies any cough or respiratory symptoms. Has no report of fever even though she is felt very cold. Denies any URI symptoms. Denies any urinary symptoms. While patient was on the bedside commode in her room she apparently had a syncopal episode and fell to the ground. She was able to get herself back up onto the commode before nurses were made aware. [facility] Medical History Care and examination of lactating mother Late deceleration of heart rate BMI 40.0-44.9, adult Sterilization Maternal 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 High risk multigravida in third trimester 38 weeks gestation of History of endometriosis history of child Home Medications ?Medication ?Instructions ?Recorded ?Last Taken ?Type NK 04/23/24 Unknown History Allergy/AdvReac Type Severity Reaction Status Date / Time nickel (Nickel) Allergy Unknown Rash Verified 02/19/24 21:56 pistachio nut Allergy Swelling Verified 02/19/24 21:56 Surgical History Status post repeat low transverse section Previous delivery affecting , antepartum Social History Smoking Status: Current every day smoker tobacco type: cigarettes and e- cigarettes alcohol intake: never ROS ROS ED Constitutional Constitutional ED: Reports chills; Denies fever(s) Eyes Eyes: Denies change in vision ENT ENT ED: Denies sore throat Cardiovascular Cardiovascular: Reports chest pain; Denies palpitations Respiratory/Chest Respiratory/Chest: Reports cough and dyspnea Gastrointestinal Gastrointestinal: Reports abdominal pain, diarrhea, nausea and vomiting Genitourinary Genitourinary ED: Denies dysuria Musculoskeletal Musculoskeletal: Reports other Details: right shoulder pain after fall ; Denies arthralgias Integumentary Denies rash Neurologic Neurologic: Reports headache(s) and weakness Psychiatric Psychiatric: Denies anxiety EXAM Physical Exam Const Vital Signs: 04/23/24 00:40 04/23/24 00:52 04/23/24 00:55 Temperature 97.7 F L 98.6 F 98.7 F Temperature Source Oral Oral Oral Pulse Rate 96 101 H 105 H Respiratory Rate 20 H 25 H 28 H Blood Pressure 96/70 96/70 96/70 Blood Pressure Mean 78 78 78 Pulse Ox 96 98 96 Oxygen Delivery Method Room Air Room Air Room Air 04/23/24 02:01 04/23/24 02:40 04/23/24 03:00 Temperature 98.1 F 97.8 F Temperature Source Oral Temporal Pulse Rate 101 H 96 103 H Respiratory Rate 27 H 17 22 H Blood Pressure 105/59 L 112/72 106/73 Blood Pressure Mean 74 85 84 Pulse Ox 97 95 96 Oxygen Delivery Method Room Air Room Air Room Air 04/23/24 04:00 04/23/24 05:00 04/23/24 06:00 Temperature 97.9 F 98.4 F 98.1 F Temperature Source Temporal Temporal Temporal Pulse Rate 102 H 85 89 Respiratory Rate 20 H 18 19 H Blood Pressure 103/71 140/90 H 138/83 H Blood Pressure Mean 81 106 101 Pulse Ox 95 95 95 Oxygen Delivery Method Room Air Room Air Room Air 04/23/24 06:52 04/23/24 07:00 Temperature 97.9 F 98.1 F Temperature Source Temporal Pulse Rate 96 94 Respiratory Rate 16 18 Blood Pressure 118/66 112/70 Blood Pressure Mean 83 84 Pulse Ox 95 93 Oxygen Delivery Method Room Air Positive well nourished and well developed General Appearance ED: well developed HEENT Reports TM's clear and dry mucous membranes Tympanic Membrane ED: Yes TM's clear Mouth ED: Yes dry mucous membranes Mouth: dry mucous membranes Eyes PERRL and EOMs intact bilaterally Neck supple General: Negative for tenderness Chest Wall inspection of chest normal Resp normal respiratory effort Auscultation: diminished lung sounds right lower; Negative for wheezes Cardio regular rate and regular rhythm GI normal to inspection, nondistended, normoactive bowel sounds and non-tender Back/Spine no CVA tenderness Extremity normal to inspection Extremity Narrative: No deformity. No tenderness over the clavicles. Pain with range of motion of the right shoulder anterior aspect. Range of motion is preserved and I do not suspect a subluxation or dislocation. Neuro oriented x3 Sensorium / Orientation: alert Motor Exam: general weakness Psych mental status grossly normal Skin no rashes or lesions noted Sepsis Attestation Sepsis Alert: Yes Sepsis Attestation: Agree w/Sepsis Date exam was performed: 04/23/24 Time exam was performed: 04:00 Possible Source of Sepsis: Pulmonary Sepsis Organ Dysfunction Criteria Present: Lactic Acid > 2 mmol/L Fluid Resuscitation Fluid resuscitation indicated?: Yes Amount of fluid ordered: 3,000 Sepsis Note Date exam was performed: 04/23/24 Time exam was performed: 06:35 Sepsis Attestation: Sepsis re-evaluation was performed (Patient was not hypotensive, repeat lactate is pending) MDM MDM MDM Narrative Medical decision making narrative: Patient is evaluated for nausea, vomiting, cough and episode of diarrhea. She has a syncopal episode while in the emergency room. Concern for infectious etiology/acute dehydration. She does have a significant leukocytosis of 15.3. As well her creatinine is normal at 1.0 this is elevated from her baseline of 0.5-0.6. Patient is given 2 L IV fluid in the emergency room. She also has an elevated lactate of 2.3. CT of the abdomen pelvis as well as chest x-ray are obtained looking for infectious source/cause of her symptoms. CT and chest x- ray both show airspace disease of the right lung consistent with pneumonia. This fits patient's clinical picture and the patient's son recently had pneumonia. Patient started on advised her kidney acquired pneumonia (Rocephin and azithromycin). Attempt to ambulate patient after 2 L of fluid given her initial syncopal episode. She did not tolerate this and was very dizzy and had to lay back down again. O2 saturation sleeping goes down to 9091% and I am not able to check an amatory pulse ox because she is too dizzy to ambulate. Will admit patient for antibiotics, IV fluids and further supportive care. Patient agreeable this plan of care. Lab Data Attestation: I reviewed the patient's lab results. Labs: Laboratory Results - last 24 hr 04/23/24 04/23/24 04/23/24 00:52 02:03 06:20 WBC 15.3 H RBC 5.12 Hgb 14.8 Hct 44.4 MCV 86.7 MCH 28.9 MCHC 33.3 RDW Std Deviation 39.0 RDW Coeff of Theo 12.3 Plt Count 349 MPV 10.3 Immature Gran % (Auto) 0.400 Neut % (Auto) 86.3 H Lymph % (Auto) 7.9 L Payne % (Auto) 4.7 Eos % (Auto) 0.3 Baso % (Auto) 0.4 Absolute Neuts (auto) 13.2 H Absolute Lymphs (auto) 1.21 Nucleated RBC % 0 Sodium 133 L Potassium 3.4 L Chloride 99 Carbon Dioxide 23.0 Anion Gap 11 BUN 11 Creatinine 1.00 Estim Creat Clear Calc 92.60 Est GFR (MDRD) Af Amer 83 Est GFR (MDRD) Non-Af 69 BUN/Creatinine Ratio 11.0 Glucose 136 H Lactic Acid 2.3 H* 1.1 Calcium 9.8 Total Bilirubin 0.60 AST 15 ALT 24 Alkaline Phosphatase 99 Total Protein 8.3 H Albumin 3.7 Globulin 4.6 H Albumin/Globulin Ratio 0.8 L Radiography Chest X-Ray - ED: 1 View, Read by ED Physician, Read by Radiologist and Right Infiltrate Diagnostic Testing: Clinical Impression(s) from Imaging Studies Abdomen/Pelvis CT 04/23/24 04:48 IMPRESSION: Dense right lung base airspace disease, to include pneumonia. Recommend follow-up to resolution. No acute abdominal abnormality is identified, to include normal appendix and no evidence of obstructing ureteral calculus. Electronically Signed: Hussein Yu MD at 5:48 EDT , Chest X-Ray 04/23/24 04:48 IMPRESSION: Dense right lung base airspace disease, to include pneumonia, containing air bronchograms. Recommend follow-up to resolution. Electronically Signed: Hussein Yu MD at 5:30 EDT , Rhythm Strip Rhythm Strip: Sinus Tach Rate: 105 Ectopy: None EKG Initial EKG: Attestation: I personally reviewed and interpreted this EKG as follows: Interpretation: Sinus Tachycardia Comments: Sinus tachycardia rate 105 bpm Normal axis Normal intervals Normal ST segments Management Discussion w/another healthcare provider: Hospitalist Discharge Plan Triage Chief Complaint: Nausea/Vomiting ED Provider: Miranda Coburn Dx/Rx/DC Orders Clinical Impression: Syncope and collapse, RLL pneumonia, Nausea vomiting and diarrhea, Sepsis, Contusion of right shoulder Prescriptions: No Action NK Primary Care Provider: Care Physician,No Primary Referrals: Care Physician,No Primary [Primary Care Provider] - Print Language: Kinyarwanda Disposition Disposition: Acute Care [facility]
--- NOTE | 2024-04-23 04:48 | CT_ITS ---
INDICATION: ABD PAIN COMPARISON: None. IV Contrast dosage and agent: 100 cc [id number]-370 IV. A radiation dose optimization technique was used for this scan. RADIATION DOSAGE (If Supplied By Facility): CTDIvol/DLP = ( 17.00 ) / ( 1334.76 ) mGy/mGycm FINDINGS: Contrast enhanced serial CT axial images through the abdomen and pelvis with coronal and sagittal reformatted series. PANCREAS: No peripancreatic fat stranding. BOWEL/MESENTERY: No dilated bowel loops. No significant free fluid. No free air. GALLBLADDER: No pericholecystic fat stranding. LIVER/STOMACH: Fatty liver. Likely associated hepatomegaly measuring up to 22 cm in the craniocaudal dimension. URINARY COLLECTING SYSTEM/ KIDNEYS: No obstructing ureteral calculus. No significant renal parenchymal abnormality. APPENDIX: Normal caliber appendix. LUNG BASES: Dense right lung base pulmonary parenchymal consolidation containing air bronchograms, consistent with airspace disease. BONES: Unremarkable for age. CT/Abdomen/Pelvis W IV Cont ONLY IMPRESSION: Dense right lung base airspace disease, to include pneumonia. Recommend follow-up to resolution. No acute abdominal abnormality is identified, to include normal appendix and no evidence of obstructing ureteral calculus. Electronically Signed: Hussein Yu MD at 5:48 EDT ,
--- NOTE | 2024-04-23 04:48 | RAD_ITS ---
INDICATION: sob EXAMINATION/TECHNIQUE: X-RAY - XR Chest 1 View COMPARISON: None. Findings: Single frontal view of the chest. LUNG PARENCHYMA: Dense right lung base airspace disease containing air bronchograms. PLEURA: No pleural effusion. No pneumothorax. HEART/GREAT VESSELS: Cardiomediastinal silhouette is unremarkable. BONES: Osseous structures are unremarkable for age. RAD/Chest 1 View (Portable) IMPRESSION: Dense right lung base airspace disease, to include pneumonia, containing air bronchograms. Recommend follow-up to resolution. Electronically Signed: Hussein Yu MD at 5:30 EDT ,
[2024-04-23 06:11] LABS: Reflex Lactate? Y
[2024-04-23] MEDS: Ceftriaxone 2 GM in 0.9% Normal Saline (50mL MB+) 50 ML IV (06:50)
[2024-04-23 06:52] LABS: Lactic Acid 1.1 mmol/L (0.4-1.9)
[2024-04-23] MEDS: Azithromycin 500 MG in Dextrose 5%-Water (250mL Bag) 250 ML 250 MG IV (07:27)
--- NOTE | 2024-04-23 08:15 | PCM.HP.STD ---
[facility] - General General Date of Admission: 04/23/24 Date of Service: 04/23/24 Chief Complaint: shortness of breath. n/v. HPI Narrative CLARK LOPEZ, is a 29 F who presents with shortness of breath that began 1 day but beginning yesterday,has had intractable nausea and vomiting. She presented to the ED where she was diagnosed with pneumonia. Patient has not been eating or drinking during this time and received several liters of IV fluid as well as antibiotics with ceftriaxone azithromycin. Patient is also been dizzy. Patient has a history of syncope particular when she gets sick. She was on the toilet today and then passed out. She did not hit her head but had no recollection of the event. Patient has been having cough. Cough has been nonproductive. Patient is also having headache. Chest tightness. Started having diarrhea today. [facility] Medical History Care and examination of lactating mother Late deceleration of heart rate BMI 40.0-44.9, adult Sterilization Maternal 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 High risk multigravida in third trimester 38 weeks gestation of History of endometriosis history of child Home Medications ?Medication ?Instructions ?Recorded ?Last Taken ?Type NK 04/23/24 Unknown History Allergy/AdvReac Type Severity Reaction Status Date / Time nickel (Nickel) Allergy Unknown Rash Verified 02/19/24 21:56 pistachio nut Allergy Swelling Verified 02/19/24 21:56 Surgical History Status post repeat low transverse section Previous delivery affecting , antepartum Social History Smoking Status: Current every day smoker tobacco type: cigarettes and e-cigarettes alcohol intake: never ROS ROS Narrative All review of systems were negative except as mentioned above in the history of present illness and the other review of systems. Vital Signs Vital Signs Vital Signs: 04/23/24 00:40 04/23/24 00:52 04/23/24 00:55 Temperature 36.5 C L 37.0 C 37.1 C Temperature Source Oral Oral Oral Pulse Rate 96 101 H 105 H Respiratory Rate 20 H 25 H 28 H Blood Pressure 96/70 96/70 96/70 Blood Pressure Mean 78 78 78 Pulse Ox 96 98 96 Oxygen Delivery Method Room Air Room Air Room Air 04/23/24 02:01 04/23/24 02:40 04/23/24 03:00 Temperature 36.7 C 36.6 C Temperature Source Oral Temporal Pulse Rate 101 H 96 103 H Respiratory Rate 27 H 17 22 H Blood Pressure 105/59 L 112/72 106/73 Blood Pressure Mean 74 85 84 Pulse Ox 97 95 96 Oxygen Delivery Method Room Air Room Air Room Air 04/23/24 04:00 04/23/24 05:00 04/23/24 06:00 Temperature 36.6 C 36.9 C 36.7 C Temperature Source Temporal Temporal Temporal Pulse Rate 102 H 85 89 Respiratory Rate 20 H 18 19 H Blood Pressure 103/71 140/90 H 138/83 H Blood Pressure Mean 81 106 101 Pulse Ox 95 95 95 Oxygen Delivery Method Room Air Room Air Room Air 04/23/24 06:52 04/23/24 07:00 Temperature 36.6 C 36.7 C Temperature Source Temporal Pulse Rate 96 94 Respiratory Rate 16 18 Blood Pressure 118/66 112/70 Blood Pressure Mean 83 84 Pulse Ox 95 93 Oxygen Delivery Method Room Air Weight Weight: 101.3 kg Body Mass Index (BMI) 39.5 Physical Exam Const alert and no apparent distress HEENT normocephalic and moist oral mucous membranes Resp normal respiratory effort, no retractions, no use of accessory muscles and clear to auscultation bilaterally Cardio regular rate, regular rhythm, S1 normal heart sound and S2 normal heart sound GI normal to inspection, nondistended, normoactive bowel sounds, soft to palpation, non-tender and non-distended Extremity normal to inspection Neuro Sensorium / Orientation: awake and alert Results Lab / Micro Data 04/23/24 00:52 04/23/24 00:52 Labs: Laboratory Results - last 24 hr 04/23/24 00:52: WBC 15.3 H, RBC 5.12, Hgb 14.8, Hct 44.4, MCV 86.7, MCH 28.9, MCHC 33.3, RDW Std Deviation 39.0, RDW Coeff of Theo 12.3, Plt Count 349, MPV 10.3, Immature Gran % (Auto) 0.400, Neut % (Auto) 86.3 H, Lymph % (Auto) 7.9 L, Garland % (Auto) 4.7, Eos % (Auto) 0.3, Baso % (Auto) 0.4, Absolute Neuts (auto) 13.2 H, Absolute Lymphs (auto) 1.21, Nucleated RBC % 0, Sodium 133 L, Potassium 3.4 L, Chloride 99, Carbon Dioxide 23.0, Anion Gap 11, BUN 11, Creatinine 1.00, Estim Creat Clear Calc 92.60, Est GFR (MDRD) Af Amer 83, Est GFR (MDRD) Non-Af 69, BUN/Creatinine Ratio 11.0, Glucose 136 H, Calcium 9.8, Total Bilirubin 0.60, AST 15, ALT 24, Alkaline Phosphatase 99, Total Protein 8.3 H, Albumin 3.7, Globulin 4.6 H, Albumin/Globulin Ratio 0.8 L 04/23/24 02:03: Lactic Acid 2.3 H* 04/23/24 06:20: Lactic Acid 1.1 Micro: Microbiology 04/23/24 02:16 Nasal Secretion SARS-CoV-2 Antigen (Rapid) - Final Rhythm Strip Rhythm Strip: Sinus Tach Rate: 105 Ectopy: None EKG Initial EKG: Attestation: I personally reviewed and interpreted this EKG as follows: Prior EKG tracings: available for review EKG Rhythm Intrepretation: Sinus Rhythm Imaging Radiology Impression Abdomen/Pelvis CT 04/23/24 04:48 IMPRESSION: Dense right lung base airspace disease, to include pneumonia. Recommend follow-up to resolution. No acute abdominal abnormality is identified, to include normal appendix and no evidence of obstructing ureteral calculus. Electronically Signed: Hussein Yu MD at 5:48 EDT , Chest X-Ray 04/23/24 04:48 IMPRESSION: Dense right lung base airspace disease, to include pneumonia, containing air bronchograms. Recommend follow-up to resolution. Electronically Signed: Hussein Yu MD at 5:30 EDT , Assessment & Plan Assessment/Plan (1) RLL pneumonia: PLAN: Plan Pneumonia Suspect pneumococcal Continue antibiotics ceftriaxone azithromycin Pulmonary toilet. Check urinary antigens for strep and Legionella. Check sputum culture. Nausea and vomiting . Zofran. Syncope Suspect vasovagal. Patient has had a series of syncopal events in the past when she gets sick. May also be due to the fact that she got dehydrated she felt dizzy particular when she stands up and sits up. Hopefully with correcting her volume depletion that that will improve. Will monitor on telemetry for the next 24 hours if no events, then can likely discontinue. If she does continue to have further events that may consider additional studies. VTE prophylaxis with enoxaparin CODE STATUS: Addressed with the patient. Patient wishes to be DNR Comfort Care arrest. Patient advised that she may change her mind at any time during the admission. Charges/Coding Visit Charges Inpatient E&M: 67230 Init Hosp L3
[2024-04-23 08:30] LABS: Bacteria 0 SEEN /hpf (None Seen); Mucous, Urine 0 SEEN /hpf (<or=2+)
[2024-04-23 08:34] LABS: Color, Urine Yellow (Yellow); Glucose, Dipstick Normal (Normal); Leukocyte Esterase-Dipstick 100 /ul (Negative); Nitrite-Dipstick Positive (Negative); Occult Blood-Urine 150 /ul (Negative); Protein-Dipstick 15 mg/dl (Negative); Urine Bilirubin Dipstick Negative (Negative); Urine Clarity Sl. Cloudy (Clear); Urine Urobilinogen Normal (Normal)
[2024-04-23 08:36] LABS: Ketone-Dipstick 150 mg/dl (Negative)
[2024-04-23 08:40] LABS: Internal QC Validated? YES +Cl - CLEAR BKGD; Pregnancy, Urine Negative Negative; Record Kit Lot#,Urine Preg HCG0000772476; Red Blood Cells-Urine 0-5 SEEN /hpf (0-5); Squamous Epithelial Cells - UA 0-5 SEEN /hpf (5-10); White Blood Cells 10-25 SEEN /hpf (0-5)
[2024-04-23] MEDS: 0.9% Normal Saline (1000mL) 1,000 ML 125 ML IV (08:57)
[2024-04-23] MEDS: Enoxaparin 40 MG/0.4 ML Syringe SC (09:17)
[2024-04-23] MEDS: Guaifenesin/Codeine 5 ML WCH UDC PO (09:18)
[2024-04-23] MEDS: Acetaminophen 500 MG Tablet 1000 MG PO ×2 (09:27→20:59)
[2024-04-23] MEDS: Ketorolac 30 MG/ML Syringe IV ×2 (14:21→20:59)
--- NOTE | 2024-04-23 15:27 | CT_ITS ---
STUDY: CT BRAIN WITHOUT CONTRAST REASON FOR EXAM: Female, 29 years old. syncope RADIATION DOSAGE (If Supplied By Facility): CTDIvol = ( 44.99 ) mGy, DLP = ( 796.11 ) mGycm TECHNIQUE: Transaxial CT imaging of the brain was performed without administration of intravenous contrast material. Individualized dose optimization techniques were used for this CT. COMPARISON: No relevant priors. FINDINGS: Normal soft tissue structures. Normal calvarium. Normal size ventricles and extra-axial spaces for the patient''s age. Normal white matter tracts of the cerebral hemispheres. Normal basal ganglia and thalami. Normal brainstem. Normal cerebellum. There is no intracranial hemorrhage. There are no findings of an acute ischemic infarction. Normal visualized paranasal sinuses. CT/Brain/Head without Contrast IMPRESSION: Normal unenhanced CT scan of the brain. Electronically Signed: Bishop Adkins MD at 16:21 EDT ,
[2024-04-23] MEDS: cycloBENZAPRine HCl 10 MG Tablet PO (16:13)
[2024-04-23] MEDS: Albuterol 2.5 MG/3 ML VIAL.NEB. INHALATION ×2 (16:44→21:26)
[2024-04-23] MEDS: Guaifenesin/Codeine 5 ML WCH UDC 10 ML PO (21:02)
[2024-04-24] VITALS (9 sets, daily range): BP systolic 92–137; BP diastolic 62–80; PULSE 66–110; RESP 16–18; TEMP 36.7–37.4; O2SAT 92–97
[2024-04-24] MEDS: cycloBENZAPRine HCl 10 MG Tablet PO ×2 (03:58→13:12)
[2024-04-24] MEDS: Ketorolac 30 MG/ML Syringe IV ×4 (03:58→21:01)
[2024-04-24] MEDS: Guaifenesin/Codeine 5 ML WCH UDC 10 ML PO ×4 (03:59→22:01)
[2024-04-24] MEDS: Acetaminophen 500 MG Tablet 1000 MG PO ×3 (03:59→22:01)
[2024-04-24] MEDS: Albuterol 2.5 MG/3 ML VIAL.NEB. INHALATION ×4 (05:05→22:23)
[2024-04-24 06:08] LABS: Absolute Lymphocyte Count 1.06 X10^3/uL (0.83-4.51); Absolute Neutrophil Count 7.3 X10^3/uL (2.0-7.7); Basophil# 0.04 X10^3/uL; Basophil% 0.4 % (0-1); Eosinophil# 0.01 X10^3/uL; Eosinophils% 0.1 % (0-5); Hematocrit 34.1 % (37-47); Hemoglobin 11.4 g/dL (12.0-15.0); Lymphocyte # 1.06 X10^3/ul (0.83-4.51); Lymphocyte % 11.4 % (19-41); Mean Corp Hgb Conc 33.4 g/dL (32-36); Mean Corpuscular Hgb 29.5 pg (27.0-32.0); Mean Corpuscular Volume 88.1 fL (81-99); Mean Platelet Vol. 10.2 fl (6.2-12.0); Monocyte# 0.86 X10^3/uL; Monocyte% 9.2 % (0-10); NRBC Flagged by Analyzer 0 % (0-5); Neutrophil # 7.32 X10^3/uL (2.7-7.7); Neutrophil % 78.6 % (47-70); Platelet Count 286 K/mm3 (150-450); RBC Distribution Width CV 12.4 % (11.6-14.6); RBC Distribution Width SD 40.4 fl (35.1-43.9); Red Blood Count 3.87 M/mm3 (4.2-5.4); White Blood Count 9.3 K/mm3 (4.4-11.0)
[2024-04-24 07:06] LABS: Anion Gap 6 (5-15); BUN 7 mg/dL (7-18); Calcium,Total 8.1 mg/dL (8.5-10.1); Chloride 105 mmol/L (98-107); Creatinine, Serum 0.64 mg/dL (0.55-1.02); EST Glomerular Filtration Rate 116 mL/min (>60); Est Glom Filt Rate - Afr Amer 140 mL/min (>60); Estimated Creatinine Clearance 144.69 ml/min; Glucose 135 mg/dL (74-106); Potassium 3.2 mmol/L (3.5-5.1); Sodium Level 135 mmol/L (136-145)
--- NOTE | 2024-04-24 07:39 | PCM.PN.HOSP ---
Reason for Visit Reason for Visit: Diagnoses Pneumonia, unspecified organism (04/23/24) Subjective Subjective Still coughing but more productive. Still feels dizzy when she stands up. States that she went to brush her teeth today but had to sit down because she was so dizzy when she was standing up. No loss of consciousness. Objective Data Objective Data Vital Signs: Vital Signs Temp Pulse Resp BP Pulse Ox O2 Del Method 37.4 C H 101 H 18 137/80 H 94 Room Air 04/24/24 04:47 04/24/24 05:05 04/24/24 05:05 04/24/24 04:47 04/24/24 04:47 04/24/24 04:47 Oxygen Delivery Method Room Air Weight: 101.3 kg Body Mass Index (BMI) 39.5 Intake & Output: Intake and Output for Last 24 Hours 04/22/24 04/23/24 04/24/24 23:59 23:59 23:59 Intake Total 4305.00 / 4305.00 800 / 800 Balance 4305.00 / 4305.00 800 / 800 Lab / Micro Data 04/24/24 05:19 04/24/24 05:19 Labs: Laboratory Results - last 24 hr 04/23/24 08:20: Urine Color Yellow, Urine Clarity Sl. Cloudy, Urine pH 5.0, Ur Specific [place] 1.010, Urine Protein 15 H, Urine Glucose (UA) Normal, Urine Ketones 150 A*, Urine Occult Blood 150 H, Urine Nitrite Positive H, Urine Bilirubin Negative, Urine Urobilinogen Normal, Ur Leukocyte Esterase 100 H, Urine RBC 0-5 SEEN, Urine WBC 10-25 SEEN, Ur Squamous Epith Cells 0-5 SEEN, Urine Bacteria 0 SEEN, Urine Mucus 0 SEEN, Urine Test Negative 04/24/24 05:19: WBC 9.3, RBC 3.87 L, Hgb 11.4 L, Hct 34.1 L, MCV 88.1, MCH 29.5, MCHC 33.4, RDW Std Deviation 40.4, RDW Coeff of Theo 12.4, Plt Count 286, MPV 10.2, Immature Gran % (Auto) 0.300, Neut % (Auto) 78.6 H, Lymph % (Auto) 11.4 L, Parker % (Auto) 9.2, Eos % (Auto) 0.1, Baso % (Auto) 0.4, Absolute Neuts (auto) 7.3, Absolute Lymphs (auto) 1.06, Nucleated RBC % 0, Sodium 135 L, Potassium 3.2 L, Chloride 105, Carbon Dioxide 24.0, Anion Gap 6, BUN 7, Creatinine 0.64, Estim Creat Clear Calc 144.69, Est GFR (MDRD) Af Amer 140, Est GFR (MDRD) Non-Af 116, BUN/Creatinine Ratio 11.0, Glucose 135 H, Calcium 8.1 L Micro: Microbiology 04/23/24 09:28 Mucosa - Nasopharyngeal Respiratory Panel (PCR) - Final 04/23/24 08:20 Urine, Clean Catch Legionella Antigen - Final 04/23/24 08:20 Urine, Clean Catch Streptococcus pneumoniae Antigen (M - Final 04/23/24 02:16 Nasal Secretion SARS-CoV-2 Antigen (Rapid) - Final Radiography Diagnostic Testing: Radiology Impression Brain CT 04/23/24 15:27 IMPRESSION: Normal unenhanced CT scan of the brain. Electronically Signed: Bishop Adkins MD at 16:21 EDT , Rhythm Strip Rhythm Strip: Sinus Tach Rate: 105 Ectopy: None Physical Exam Const alert, no apparent distress and average body habitus HEENT head/scalp atraumatic and moist oral mucous membranes Eyes EOMs intact bilaterally Eyes Narrative: No nystagmus though she did state that she felt her eyes lagging behind my finger Resp normal respiratory effort, no retractions, no use of accessory muscles and clear to auscultation bilaterally Cardio regular rate, regular rhythm, S1 normal heart sound and S2 normal heart sound GI normal to inspection, nondistended, normoactive bowel sounds, soft to palpation, non-tender and non-distended Extremity normal to inspection and full ROM Neuro oriented x3 and moves all extremities Sensorium / Orientation: awake and alert Psych affect normal Assessment & Plan Assessment/Plan (1) RLL pneumonia: PLAN: Plan Pneumonia Suspect pneumococcal Continue antibiotics ceftriaxone azithromycin Pulmonary toilet. Strep and Legionella antigens negative. Respiratory panel negative. COVID-19, influenza and RSV negative. Check sputum culture. Nausea and vomiting Improving, likely due to the underlying illness. Zofran. Syncope Suspect vasovagal. Patient has had a series of syncopal events in the past when she gets sick. May also be due to the fact that she got dehydrated she felt dizzy particular when she stands up and sits up. Hopefully with correcting her volume depletion that that will improve. Will monitor on telemetry for the next 24 hours if no events, then can likely discontinue. If she does continue to have further events that may consider additional studies. Head CT negative Still have dizziness when she stands up no reproducible nystagmus. Unclear if she does have some underlying due to vertigo at this time. VTE prophylaxis with enoxaparin CODE STATUS: Addressed with the patient. Patient wishes to be DNR Comfort Care arrest. Patient advised that she may change her mind at any time during the admission. Charges/Coding Visit Charges Inpatient E&M: 88761 Subs Hosp L2
[2024-04-24] MEDS: 0.9% Saline Lock 10 ML Syringe IV ×3 (09:33→21:01)
[2024-04-24] MEDS: Ceftriaxone 2 GM in 0.9% Normal Saline (50mL MB+) 50 ML IV (09:34)
[2024-04-24] MEDS: Enoxaparin 40 MG/0.4 ML Syringe SC (09:46)
[2024-04-24] MEDS: Azithromycin 500 MG in Dextrose 5%-Water (250mL Bag) 250 ML 250 MG IV (10:13)
--- NOTE | 2024-04-24 12:05 | CASEMGMT ---
RN CM Face to Face with patient for initial transition planning/care coordination assessment. RN CM introduced self and role at [facility]. Patient lying in bed, alert and oriented, father at bedside. Patient willing to participate in assessment and is able to answer all questions appropriately. Care providers, pharmacy, and demographics verified. PCP: No PCP, list provided Specialists: none Preferred Pharmacy: [facility] retail Insurance: [employer] Prescription Benefit: yes Living Will/HPOA: none LNOK: father Living Arrangements: Patient lives with children in a 2 story duplex. Children are staying with family. Patient is independent and ambulates stairs. Transportation: self, dad DME/HHC: Patient denies DME. Previous HHC or SNF Patient wishes to discharge home, denies need for home health at this time. Patient states he has no further needs or concerns at this time. CM to follow for discharge planning needs that may arise. Disposition Plan: Patient to discharge home with family support and follow-up plans in place. Francia WALTER, RN, CM
--- NOTE | 2024-04-24 14:47 | CASEMGMT ---
Per LUCILA Feldman CM, the pt might qualify for home oxygen and prefers [facility] for this need. GREEN SHEET placed on chart to facilitate weekend DC if the pt qualifies for home oxygen.
--- NOTE | 2024-04-24 15:01 | CT_ITS ---
STUDY: CTA CHEST REASON FOR EXAM: Female, 29 years old. Shortness of breath RADIATION DOSAGE (If Supplied By Facility): CTDIvol = ( 12.59 ) mGy, DLP = ( 503.47 ) mGycm TECHNIQUE: The examination was performed with the intravenous administration of IV 100mL Isovue-370. Post-processing of the angiographic images was performed, with multiplanar reformation and 3D reconstruction. The protocol utilizes one or more of the following dose reduction techniques: automated exposure control, adjustment of mA and/or kV according to patient size,and/or use of iterative reconstruction technique. COMPARISON: CT of the abdomen and pelvis dated April 23, 2024 FINDINGS: Normal enhancement of the main pulmonary artery and right and left pulmonary arteries. Normal enhancement of the bilateral peripheral pulmonary arteries. There is no demonstrated pulmonary embolism. Normal thoracic aorta and visualized great vessels. There is no demonstrated aortic dissection. Normal heart and pericardium. There are no coronary artery calcifications. Normal mediastinum. There are prominent right hilar lymph nodes. Normal visualized trachea and bronchi. There is a small right pleural effusion associated with extensive consolidation within the right lower lobe with air bronchograms. There are associated few bibasilar patchy opacities. Normal chest wall structures. Normal osseous structures. Normal visualized upper abdomen. CT/CTA Chest W/WO Contrast IMPRESSION: No demonstrated pulmonary embolism or arterial dissection. Right lower lobe consolidation associated with a small right pleural effusion and additional bibasilar patchy opacities concerning for pneumonia; recommend follow-up chest CT in 6-8 weeks for cannot exclude an underlying neoplastic process. Prominent right hilar lymph nodes, likely reactive. Electronically Signed: Eileen Hayes MD at 15:25 EDT ,
[2024-04-25] VITALS (17 sets, daily range): BP systolic 93–124; BP diastolic 54–86; PULSE 64–99; RESP 15–18; TEMP 36.6–37; O2SAT 91–97
[2024-04-25] MEDS: Ketorolac 30 MG/ML Syringe IV ×3 (03:31→15:04)
[2024-04-25] MEDS: 0.9% Saline Lock 10 ML Syringe IV ×3 (03:31→15:05)
[2024-04-25] MEDS: cycloBENZAPRine HCl 10 MG Tablet PO ×2 (05:28→19:52)
[2024-04-25] MEDS: Acetaminophen 500 MG Tablet 1000 MG PO ×3 (05:28→21:57)
[2024-04-25] MEDS: Guaifenesin/Codeine 5 ML WCH UDC 10 ML PO ×3 (05:30→19:53)
[2024-04-25] MEDS: Albuterol 2.5 MG/3 ML VIAL.NEB. INHALATION (05:46)
--- NOTE | 2024-04-25 07:20 | PN.HOSP_ITS ---
Reason for Visit Reason for Visit: Diagnoses Pneumonia, unspecified organism (04/23/24) Subjective Subjective Coughing somewhat better but still frequent. Not coughing anything up but she feels at the back of her throat. Still feeling dizzy when she stands up. Still with chills but the severity is not as intense that it has been. Objective Data Objective Data Vital Signs: Vital Signs Temp Pulse Resp BP Pulse Ox O2 Del Method 37.0 C 77 18 116/66 96 Room Air 04/25/24 06:15 04/25/24 06:15 04/25/24 06:15 04/25/24 06:15 04/25/24 06:15 04/25/24 06:15 Oxygen Delivery Method Room Air Weight: 101.3 kg Body Mass Index (BMI) 39.5 Intake & Output: Intake and Output for Last 24 Hours 04/23/24 04/24/24 04/25/24 23:59 23:59 23:59 Intake Total 4305.00 / 4305.00 1105 / 1105 400 / 400 Balance 4305.00 / 4305.00 1105 / 1105 400 / 400 Lab / Micro Data 04/24/24 05:19 04/24/24 05:19 Micro: Microbiology 04/23/24 09:28 Mucosa - Nasopharyngeal Respiratory Panel (PCR) - Final 04/23/24 08:20 Urine, Clean Catch Legionella Antigen - Final 04/23/24 08:20 Urine, Clean Catch Streptococcus pneumoniae Antigen (M - Final 04/23/24 02:16 Nasal Secretion SARS-CoV-2 Antigen (Rapid) - Final Radiography Diagnostic Testing: Radiology Impression Chest CTA 04/24/24 15:01 IMPRESSION: No demonstrated pulmonary embolism or arterial dissection. Right lower lobe consolidation associated with a small right pleural effusion and additional bibasilar patchy opacities concerning for pneumonia; recommend follow-up chest CT in 6-8 weeks for cannot exclude an underlying neoplastic process. Prominent right hilar lymph nodes, likely reactive. Electronically Signed: Eileen Hayes MD at 15:25 EDT , Rhythm Strip Rhythm Strip: Sinus Tach Rate: 105 Ectopy: None Physical Exam Const alert and no apparent distress HEENT head/scalp atraumatic and moist oral mucous membranes Resp normal respiratory effort and no retractions Resp Narrative: Diminished in right lower lobe. Cardio regular rate, regular rhythm, S1 normal heart sound and S2 normal heart sound GI normal to inspection, nondistended, normoactive bowel sounds, soft to palpation, non-tender, non-distended and hepatosplenomegaly Extremity normal to inspection and full ROM Neuro Sensorium / Orientation: awake and alert Assessment & Plan Assessment/Plan (1) RLL pneumonia: PLAN: Plan Pneumonia * Suspect pneumococcal * Continue antibiotics ceftriaxone azithromycin * Pulmonary toilet. * Strep and Legionella antigens negative. Respiratory panel negative. COVID- 19, influenza and RSV negative. * Check sputum culture. * CTA of the chest did not show any PE but did show right lower lobe consolidation. Add PEP, duonebs. Patient will need outpatient follow-up CAT scan in about 6 weeks. Nausea and vomiting * Improving, likely due to the underlying illness. * Zofran. Syncope * Suspect vasovagal. Patient has had a series of syncopal events in the past when she gets sick. May also be due to the fact that she got dehydrated she felt dizzy particular when she stands up and sits up. * Hopefully with correcting her volume depletion that that will improve. * Will monitor on telemetry for the next 24 hours if no events, then can likely discontinue. If she does continue to have further events that may consider additional studies. * Head CT negative * Still have dizziness when she stands up no reproducible nystagmus. Unclear if she does have some underlying due to vertigo at this time. VTE prophylaxis with enoxaparin CODE STATUS: Addressed with the patient. Patient wishes to be DNR Comfort Care arrest. Patient advised that she may change her mind at any time during the admission. Disposition: To be determined. Monitor patient daily basis. Ideally like to see the patient coughing up more phlegm and overall feeling better. Charges/Coding Visit Charges Inpatient E&M: 20823 Subs Hosp L2
[2024-04-25] MEDS: Ipratropium/Albuterol Sulfate 3 ML AMPUL.NEB INHALATION ×5 (08:22→23:56)
[2024-04-25] MEDS: guaiFENesin 600 MG Tablet PO ×2 (09:17→21:56)
[2024-04-25] MEDS: Enoxaparin 40 MG/0.4 ML Syringe SC (09:17)
[2024-04-25] MEDS: Ceftriaxone 2 GM in 0.9% Normal Saline (50mL MB+) 50 ML IV (09:17)
[2024-04-25] MEDS: Azithromycin 500 MG in Dextrose 5%-Water (250mL Bag) 250 ML 250 MG IV (10:38)
[2024-04-26] VITALS (14 sets, daily range): BP systolic 105–127; BP diastolic 67–83; PULSE 60–105; RESP 15–18; TEMP 36.5–37.2; O2SAT 94–97
[2024-04-26] MEDS: Ibuprofen 600 MG Tablet PO (03:32)
[2024-04-26] MEDS: Ipratropium/Albuterol Sulfate 3 ML AMPUL.NEB INHALATION ×4 (03:37→23:52)
[2024-04-26] MEDS: Acetaminophen 500 MG Tablet 1000 MG PO ×3 (06:44→21:20)
[2024-04-26] MEDS: Guaifenesin/Codeine 5 ML WCH UDC 10 ML PO ×2 (07:02→21:20)
--- NOTE | 2024-04-26 07:34 | PN.HOSP_ITS ---
Reason for Visit Reason for Visit: Diagnoses Pneumonia, unspecified organism (04/23/24) Subjective Subjective Breathing better. Coughing up some phlegm. Objective Data Objective Data Vital Signs: Vital Signs Temp Pulse Resp BP Pulse Ox O2 Del Method 37.2 C 60 16 120/75 95 Room Air 04/26/24 02:59 04/26/24 05:00 04/26/24 03:39 04/26/24 02:59 04/26/24 02:59 04/26/24 02:59 Oxygen Delivery Method Room Air Weight: 101.3 kg Body Mass Index (BMI) 39.5 Intake & Output: Intake and Output for Last 24 Hours 04/24/24 04/25/24 04/26/24 23:59 23:59 23:59 Intake Total 1105 / 1105 1705 / 1705 Balance 1105 / 1105 1705 / 1705 Lab / Micro Data 04/26/24 07:32 04/26/24 07:32 Micro: Microbiology 04/23/24 06:51 Blood Culture (Wb) - Anticubital Left Blood Culture - Preliminary No growth in 48 hours. 04/23/24 06:43 Blood Culture (Wb) - Anticubital Right Blood Culture - Preliminary No growth in 48 hours. 04/23/24 09:28 Mucosa - Nasopharyngeal Respiratory Panel (PCR) - Final 04/23/24 08:20 Urine, Clean Catch Legionella Antigen - Final 04/23/24 08:20 Urine, Clean Catch Streptococcus pneumoniae Antigen (M - Final 04/23/24 02:16 Nasal Secretion SARS-CoV-2 Antigen (Rapid) - Final Rhythm Strip Rhythm Strip: Sinus Tach Rate: 105 Ectopy: None Physical Exam Const alert and no apparent distress HEENT head/scalp atraumatic and moist oral mucous membranes Resp normal respiratory effort and no retractions Resp Narrative: Improved aeration in the right lower lobe, but still diminished compared to the left.. Cardio regular rate, regular rhythm, S1 normal heart sound and S2 normal heart sound GI normal to inspection, nondistended, normoactive bowel sounds, soft to palpation, non-tender and non-distended Neuro Sensorium / Orientation: awake and alert Assessment & Plan Assessment/Plan (1) RLL pneumonia: PLAN: Plan Pneumonia * Suspect pneumococcal * Continue antibiotics ceftriaxone azithromycin * Pulmonary toilet. * Strep and Legionella antigens negative. Respiratory panel negative. COVID- 19, influenza and RSV negative. * Check sputum culture. * CTA of the chest did not show any PE but did show right lower lobe consolidation. Add PEP, duonebs. Patient will need outpatient follow-up CAT scan in about 6 weeks. * Will add vest therapy today. Nausea and vomiting * Improving, likely due to the underlying illness. * Zofran. Syncope * Suspect vasovagal. Patient has had a series of syncopal events in the past when she gets sick. May also be due to the fact that she got dehydrated she felt dizzy particular when she stands up and sits up. * Hopefully with correcting her volume depletion that that will improve. * Will monitor on telemetry for the next 24 hours if no events, then can likely discontinue. If she does continue to have further events that may consider additional studies. * Head CT negative * Still have dizziness when she stands up no reproducible nystagmus. Unclear if she does have some underlying due to vertigo at this time. VTE prophylaxis with enoxaparin CODE STATUS: Addressed with the patient. Patient wishes to be DNR Comfort Care arrest. Patient advised that she may change her mind at any time during the admission. Disposition: To be determined. Monitor patient daily basis. Hopefully home in 1-2 more days. Greater than 50 minutes of which greater than 50% of time was reviewing the patient's treatment, plan, actually pulling up the images of her CAT scan to help her understand the severity of her pneumonia. Charges/Coding Visit Charges Inpatient E&M: 05584 Subs Hosp L3
[2024-04-26 07:53] LABS: Absolute Lymphocyte Count 1.45 X10^3/uL (0.83-4.51); Absolute Neutrophil Count 2.6 X10^3/uL (2.0-7.7); Basophil# 0.06 X10^3/uL; Basophil% 1.3 % (0-1); Eosinophil# 0.27 X10^3/uL; Eosinophils% 5.6 % (0-5); Hematocrit 33.6 % (37-47); Hemoglobin 10.8 g/dL (12.0-15.0); Lymphocyte # 1.45 X10^3/ul (0.83-4.51); Lymphocyte % 30.2 % (19-41); Mean Corp Hgb Conc 32.1 g/dL (32-36); Mean Corpuscular Hgb 28.5 pg (27.0-32.0); Mean Corpuscular Volume 88.7 fL (81-99); Mean Platelet Vol. 9.7 fl (6.2-12.0); Monocyte# 0.38 X10^3/uL; Monocyte% 7.9 % (0-10); NRBC Flagged by Analyzer 0 % (0-5); Neutrophil % 54.2 % (47-70); Platelet Count 338 K/mm3 (150-450); RBC Distribution Width CV 12.7 % (11.6-14.6); RBC Distribution Width SD 41.1 fl (35.1-43.9); Red Blood Count 3.79 M/mm3 (4.2-5.4); White Blood Count 4.8 K/mm3 (4.4-11.0)
[2024-04-26 08:14] LABS: Anion Gap 5 (5-15); BUN 9 mg/dL (7-18); BUN/Creat Ratio 17.1 RATIO (10-20); Calcium,Total 8.3 mg/dL (8.5-10.1); Chloride 107 mmol/L (98-107); Creatinine, Serum 0.52 mg/dL (0.55-1.02); EST Glomerular Filtration Rate 145 mL/min (>60); Est Glom Filt Rate - Afr Amer 175 mL/min (>60); Estimated Creatinine Clearance 178.07 ml/min; Glucose 91 mg/dL (74-106); Potassium 3.2 mmol/L (3.5-5.1); Sodium Level 139 mmol/L (136-145)
[2024-04-26] MEDS: guaiFENesin 600 MG Tablet PO ×2 (08:16→21:20)
[2024-04-26] MEDS: Enoxaparin 40 MG/0.4 ML Syringe SC (08:17)
[2024-04-26] MEDS: cycloBENZAPRine HCl 10 MG Tablet PO (08:21)
[2024-04-26] MEDS: Ceftriaxone 2 GM in 0.9% Normal Saline (50mL MB+) 50 ML IV (09:56)
[2024-04-26] MEDS: Ketorolac 30 MG/ML Syringe IV (09:56)
[2024-04-26] MEDS: Potassium Chloride Oral Tablet 20 MEQ 40 MEQ PO (09:56)
[2024-04-26] MEDS: Azithromycin 500 MG in Dextrose 5%-Water (250mL Bag) 250 ML 250 MG IV (10:44)
--- NOTE | 2024-04-26 19:48 | CPS ---
Requested to skip chest vest therapy at this time
[2024-04-27] MEDS: Ipratropium/Albuterol Sulfate 3 ML AMPUL.NEB INHALATION ×3 (03:46→10:06)
[2024-04-27 03:51] VITALS: BP 108/77; PULSE 78; RESP 18; TEMP 36.4; O2SAT 97
[2024-04-27] MEDS: Ketorolac 30 MG/ML Syringe IV (03:59)
[2024-04-27] MEDS: Guaifenesin/Codeine 5 ML WCH UDC 10 ML PO ×2 (03:59→04:24)
[2024-04-27] MEDS: Acetaminophen 500 MG Tablet 1000 MG PO (04:24)
--- NOTE | 2024-04-27 07:00 | PN.HOSP_ITS ---
Reason for Visit Reason for Visit: Diagnoses Pneumonia, unspecified organism (04/23/24) Subjective Subjective Feeling better. No longer coughing up phlegm. Not dizzy when she stands up, but has not walked very far. Objective Data Objective Data Vital Signs: Vital Signs Temp Pulse Resp BP Pulse Ox O2 Del Method 36.4 C L 78 18 108/77 97 Room Air 04/27/24 03:51 04/27/24 03:51 04/27/24 03:51 04/27/24 03:51 04/27/24 03:51 04/27/24 03:51 Oxygen Delivery Method Room Air Weight: 101.3 kg Body Mass Index (BMI) 39.5 Intake & Output: Intake and Output for Last 24 Hours 04/25/24 04/26/24 04/27/24 23:59 23:59 23:59 Intake Total 1705 / 1705 1205 / 1205 Balance 1705 / 1705 1205 / 1205 Lab / Micro Data 04/26/24 07:32 04/26/24 07:32 Labs: Laboratory Results - last 24 hr 04/26/24 07:32: WBC 4.8, RBC 3.79 L, Hgb 10.8 L, Hct 33.6 L, MCV 88.7, MCH 28.5, MCHC 32.1, RDW Std Deviation 41.1, RDW Coeff of Theo 12.7, Plt Count 338, MPV 9.7, Immature Gran % (Auto) 0.800, Neut % (Auto) 54.2, Lymph % (Auto) 30.2, Tate % (Auto) 7.9, Eos % (Auto) 5.6 H, Baso % (Auto) 1.3 H, Absolute Neuts (auto) 2.6, Absolute Lymphs (auto) 1.45, Nucleated RBC % 0, Sodium 139, Potassium 3.2 L , Chloride 107, Carbon Dioxide 27.0, Anion Gap 5, BUN 9, Creatinine 0.52 L, Estim Creat Clear Calc 178.07, Est GFR (MDRD) Af Amer 175, Est GFR (MDRD) Non-Af 145, BUN/Creatinine Ratio 17.1, Glucose 91, Calcium 8.3 L Micro: Microbiology 04/26/24 10:00 Sputum, Expectorated/Coughed Gram Stain - Final 04/23/24 06:51 Blood Culture (Wb) - Anticubital Left Blood Culture - Preliminary No growth in 48 hours. 04/23/24 06:43 Blood Culture (Wb) - Anticubital Right Blood Culture - Preliminary No growth in 48 hours. 04/23/24 09:28 Mucosa - Nasopharyngeal Respiratory Panel (PCR) - Final 04/23/24 08:20 Urine, Clean Catch Legionella Antigen - Final 04/23/24 08:20 Urine, Clean Catch Streptococcus pneumoniae Antigen (M - Final 04/23/24 02:16 Nasal Secretion SARS-CoV-2 Antigen (Rapid) - Final Rhythm Strip Rhythm Strip: Sinus Tach Rate: 105 Ectopy: None Physical Exam Const alert and no apparent distress Resp normal respiratory effort and no retractions Resp Narrative: diminished but present breath sounds in RLL. Assessment & Plan Assessment/Plan (1) RLL pneumonia: PLAN: Plan Pneumonia * Suspect pneumococcal * Continue antibiotics ceftriaxone azithromycin * Pulmonary toilet. * Strep and Legionella antigens negative. Respiratory panel negative. COVID- 19, influenza and RSV negative. * Check sputum culture. * CTA of the chest did not show any PE but did show right lower lobe consolidation. Add PEP, duonebs. Patient will need outpatient follow-up CAT scan in about 6 weeks. * PEP and vest therapy initiated. Nausea and vomiting * POA. Since resolved. Improving, likely due to the underlying illness. * Zofran. Syncope * Occurred in the ED while on the toilet. I suspect vasovagal. Patient has had a series of syncopal events in the past when she gets sick. May also be due to the fact that she got dehydrated she felt dizzy particular when she stands up and sits up. * Hopefully with correcting her volume depletion that that will improve. * Will monitor on telemetry for the next 24 hours if no events, then can likely discontinue. If she does continue to have further events that may consider additional studies. * Head CT negative VTE prophylaxis with enoxaparin CODE STATUS: Readdressed with the patient on 04/26. On admission, she wanted DNRCCA. When I readdressed, I emphasized that she has several small children, she changed back to full code. Disposition: to home.
[2024-04-27 07:01] VITALS: PULSE 88; RESP 16; O2SAT 93
[2024-04-27] MEDS: guaiFENesin 600 MG Tablet PO (08:01)
[2024-04-27] MEDS: Enoxaparin 40 MG/0.4 ML Syringe SC (08:05)
[2024-04-27 08:23] VITALS: BP 120/82; PULSE 98; RESP 16; TEMP 36.6; O2SAT 95
[2024-04-27] MEDS: Ceftriaxone 2 GM in 0.9% Normal Saline (50mL MB+) 50 ML IV (09:23)
[2024-04-27] MEDS: 0.9% Saline Lock 10 ML Syringe IV (09:24)
--- NOTE | 2024-04-27 09:25 | PCM.DC.SUM ---
Providers Date of Admission: 04/23/24 Primary Care Physician: No Primary Care Phys Reason For Visit: PNEUMONIA,SYNCOPE Diagnosis Discharge Diagnosis (1) RLL pneumonia: Status: Acute Code(s): J18.9 - Pneumonia, unspecified organism Plan Pneumonia Suspect pneumococcal Continue antibiotics ceftriaxone azithromycin Pulmonary toilet. Strep and Legionella antigens negative. Respiratory panel negative. COVID-19, influenza and RSV negative. Check sputum culture. CTA of the chest did not show any PE but did show right lower lobe consolidation. Add PEP, duonebs. Patient will need outpatient follow-up CAT scan in about 6 weeks. PEP and vest therapy initiated. Nausea and vomiting POA. Since resolved. Improving, likely due to the underlying illness. Zofran. Syncope Occurred in the ED while on the toilet. I suspect vasovagal. Patient has had a series of syncopal events in the past when she gets sick. May also be due to the fact that she got dehydrated she felt dizzy particular when she stands up and sits up. Hopefully with correcting her volume depletion that that will improve. Will monitor on telemetry for the next 24 hours if no events, then can likely discontinue. If she does continue to have further events that may consider additional studies. Head CT negative VTE prophylaxis with enoxaparin CODE STATUS: Readdressed with the patient on 04/26. On admission, she wanted DNRCCA. When I readdressed, I emphasized that she has several small children, she changed back to full code. Disposition: to home. Medications at Discharge Home Medications acetaminophen 500 mg tablet 1,000 mg (2 x 500 mg) PO Q8 PRN Pain #0 tabs 04/27/24 codeine 10 mg-guaifenesin 100 mg/5 mL oral liquid 10 ml PO Q4H PRN COUGH/CONGESTION #120 mL 04/27/24 cyclobenzaprine 10 mg tablet 10 mg PO TID PRN PRN Muscle Spasm #15 tabs 04/27/24 guaifenesin 600 mg tablet, extended release 12 hr (Mucinex) 600 mg PO BID #10 tabs 04/27/24 ibuprofen 200 mg tablet 400 mg (2 x 200 mg) PO Q6H PRN pain #30 tabs 04/27/24 levofloxacin 750 mg tablet 750 mg PO Q24H #3 tabs 04/27/24 Hospital Course Operations None Procedures None Summary of Care Provided Minutes Spent on Discharge: 35 Hospital Course: Patient presents with right lower lobe pneumonia. Course was complicated by syncopal episode that she sustained while she is in the emergency room in the emergency room. She landed on her right arm and hit her head. Subsequent head CT did not show any acute process. Symptoms from the pain and the fall did improve. Patient had issues in regards to dizziness Pilar when she stood up. Probably is related to being dehydrated as she was having intractable nausea and vomiting during and before her hospitalization. With her shortness of breath though she did not require oxygen, CTA was performed. Did not show any pulmonary embolism but did show a very dense consolidation in her right lower lobe. Patient was continued on antibiotics with ceftriaxone azithromycin but after getting a CAT scan results, vest therapy was initiated. Patient did have some productive phlegm with the vest therapy. Patient is continue to feel better but is not quite back to her baseline. Patient advised that it may take her least couple more weeks before she is back to normal. Patient is also advised that with her very dense consolidation that she should have a repeat CAT scan of her chest in 6 to 8 weeks. She will need to establish a primary care doctor and has been given a list of individuals to follow-up with. Weight / BMI Weight Weight: 101.3 kg Body Mass Index (BMI) 39.5 ABG / Lab / Microbiology Data 04/26/24 07:32 04/26/24 07:32 Microbiology: Microbiology 04/26/24 10:00 Sputum, Expectorated/Coughed Gram Stain - Final 04/23/24 06:51 Blood Culture (Wb) - Anticubital Left Blood Culture - Preliminary No growth in 48 hours. 04/23/24 06:43 Blood Culture (Wb) - Anticubital Right Blood Culture - Preliminary No growth in 48 hours. 04/23/24 09:28 Mucosa - Nasopharyngeal Respiratory Panel (PCR) - Final 04/23/24 08:20 Urine, Clean Catch Legionella Antigen - Final 04/23/24 08:20 Urine, Clean Catch Streptococcus pneumoniae Antigen (M - Final 04/23/24 02:16 Nasal Secretion SARS-CoV-2 Antigen (Rapid) - Final D/C Instructions Discharge Diet: No restrictions Return to work on: 05/04/24 Meaningful Use Info Meaningful Use Meaningful Use Diagnoses (Choose all that apply): None applicable Ischemic Stroke Statin Dosing Therapy Reference: STATIN DOSE THERAPY REFERENCE: * Patients > 75 years receive moderate or high dose statin therapy. * Patients 75 years or YOUNGER should receive HIGH intensity statin dose unless contraindicated. You will be required to document reason for non-treatment if statin daily dose does not meet guidelines. HIGH DOSE STATIN THERAPY DAILY Atorvastatin > than or = to 40 mg Rosuvastatin > than or = to 20 mg Amlodipine + Atorvastatin > than or = to 2.5/40 mg Ezetimibe + Simvastatin 10/80 mg Simvastatin 80mg Discharge Plan Admission Admit Date/Time: 04/23/24 07:47 Primary Reason for Your Visit: Pneumonia Attending Provider: Reinier Ho Primary Care Provider: Care Physician,No Primary Instructions Additional Instructions / Restrictions: You had a pneumonia and you overall done well. Scan take at least 2 more weeks till you are back to your baseline. 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 Please take your antibiotics until they are completed. Given the severity of your pneumonia, it is recommended that you do have a follow-up CAT scan in about 6 to 8 weeks to make sure that it is resolving. That will need to be initiated per your primary care doctor and you state you are provided a list of individuals to follow-up with. Discharge Orders/Prescriptions Prescriptions: New cyclobenzaprine 10 mg Tablet 10 mg PO TID PRN PRN (Reason: Muscle Spasm) Qty: 15 0RF acetaminophen 500 mg Tablet 1,000 mg PO Q8 PRN (Reason: Pain) Qty: 0 0RF codeine-guaifenesin 10-100 mg/5 mL Liquid 10 ml PO Q4H PRN (Reason: COUGH/CONGESTION) Qty: 120 0RF guaifenesin [Mucinex] 600 mg Tablet Extended Release 12hr 600 mg PO BID Qty: 10 0RF ibuprofen 200 mg tablet 400 mg PO Q6H PRN (Reason: pain) Qty: 30 0RF Rx Instructions: over the counter, no prescription required. levofloxacin 750 mg tablet 750 mg PO Q24H Qty: 3 0RF Rx Instructions: start 04/28 Referrals / Follow Up: Care Physician,No Primary [Primary Care Provider] - Disposition Disposition (needs filled in before D/C Order can be placed): Home, Self Care Charges/Coding Visit Charges Inpatient E&M: 88805 Disch Hosp >30min
[2024-04-27] MEDS: Azithromycin 500 MG in Dextrose 5%-Water (250mL Bag) 250 ML 250 MG IV (09:59)
[2024-04-27 10:09] VITALS: PULSE 79; RESP 18
--- NOTE | 2024-04-27 10:10 | CPS ---
patient refused vest at this time
--- NOTE | 2024-04-27 11:59 | PHA.DC.MC.R ---
Pharmacy [facility] has performed discharge medication reconciliation and counseling for this patient. 1. ACETAMINOPHEN 1000MG PO Q8H PRN PAIN 2. CODEINE/GUAIFENESIN 10ML PO Q4H PRN COUGH/CONGESTION 3. CYCLOBENZAPRINE 10MG PO TID PRN MUSCLE SPASMS 3. GUAIFENESIN 600MG PO BID 4. IBUPROFEN 400MG PO Q6H PRN PAIN 5. LEVOFLOXACIN 750MG PO DAILY X 3 DAYS The patient's discharge medication list was reviewed for discrepancies and discrepancies were resolved. The patient was counseled on the following discharge medications and changes in medications for homegoing were reviewed. The Reason for Use, instructions for use, and potential side effects were reviewed for all new medications. The patient's questions regarding all of their medications were answered. The patient was able to verbally demonstrate an understanding of their discharge medications. Patient counseled by pharmacy informatics manager Medications at Discharge Home Medications acetaminophen 500 mg tablet 1,000 mg (2 x 500 mg) PO Q8 PRN Pain #0 tabs 04/27/24 codeine 10 mg-guaifenesin 100 mg/5 mL oral liquid 10 ml PO Q4H PRN COUGH/CONGESTION #120 mL 04/27/24 cyclobenzaprine 10 mg tablet 10 mg PO TID PRN PRN Muscle Spasm #15 tabs 04/27/24 guaifenesin 600 mg tablet, extended release 12 hr (Mucinex) 600 mg PO BID #10 tabs 04/27/24 ibuprofen 200 mg tablet 400 mg (2 x 200 mg) PO Q6H PRN pain #30 tabs 04/27/24 levofloxacin 750 mg tablet 750 mg PO Q24H #3 tabs 04/27/24
== END 2024-04-27 11:54 | disposition home or self-care (01) | DRG 139 ==
LOC: ED 07:57 → MS3 04-24 09:14
PROVIDERS: Emergency Provider Emergency Medicine
DX: J18.9 Pneumonia, unspecified organism (principal); R19.7 Diarrhea, unspecified; S40.011A Contusion of right shoulder, initial encounter; R11.2 Nausea with vomiting, unspecified; W18.11XA Fall from or off toilet without subsequent striking against object, initial encounter; F17.290 Nicotine dependence, other tobacco product, uncomplicated; F17.210 Nicotine dependence, cigarettes, uncomplicated; R55 Syncope and collapse; Y92.238 Other place in hospital as the place of occurrence of the external cause; Z66 Do not resuscitate; R07.89 Other chest pain
CPT/HCPCS: 36415; 70450; 71045; 71275; 74177; 80048; 80053; 81001; 81025; 83605; 85025; 87040; 87070; 87205; 87449; 87633; 87811; 93005; 94640; 94667; 94668; 96361; 96365; 96366; 96367; 96372; 96375; 96376; 99221; 99284; J7030; Q9967; A4216; G0378; J0696; J2405

== ENCOUNTER 2024-11-27 12:38 | Emergency (ER) | payer MEDICAID, SELFPAY ==
[2024-11-27 12:39] VITALS: BP 110/76; PULSE 99; RESP 20; TEMP 36.3; O2SAT 99; BMI 42.7
--- NOTE | 2024-11-27 13:22 | EX.ED.DYSGE1 ---
HPI History of Present Illness Chief Complaint: Nausea/Vomiting/Diarrhea Informant: patient Narrative Narrative: Patient is a 29-year-old female presenting with sudden onset of nausea vomiting diarrhea and abdominal pain. Patient states her symptoms started this morning. She has had and numerous episodes of vomiting and diarrhea and has had multiple episodes since being in the ER. Denies any black or blood in her vomit or her stool. 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 Went to urgent care initially where she had flu swab (states it was a send out and does not have the results) as well as strep swab which she states was negative. Was sent to the ER. She did try to take some DayQuil with her symptoms with no relief. No fevers reported. States she is having pretty severe, diffuse abdominal pain. Has had tubal ligation and denies any concern for . No other complaints or concerns reported at this time. Denies eating any new foods or concerns for food poisoning. [facility] Medical History Care and examination of lactating mother Late deceleration of heart rate BMI 40.0-44.9, adult Sterilization Maternal 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 High risk multigravida in third trimester 38 weeks gestation of History of endometriosis history of child Home Medications ?Medication ?Instructions ?Recorded ?Last Taken ?Type acetaminophen 500 mg tablet 1,000 mg (2 x 500 mg) PO Q8 PRN 04/27/24 Unknown Rx Pain #0 tabs codeine 10 mg-guaifenesin 100 mg/5 10 ml PO Q4H PRN COUGH/CONGESTION 04/27/24 Unknown Rx mL oral liquid #120 mL cyclobenzaprine 10 mg tablet 10 mg PO TID PRN PRN Muscle Spasm 04/27/24 Unknown Rx #15 tabs guaifenesin 600 mg tablet, 600 mg PO BID #10 tabs 04/27/24 Unknown Rx extended release 12 hr (Mucinex) ibuprofen 200 mg tablet 400 mg (2 x 200 mg) PO Q6H PRN 04/27/24 Unknown Rx pain #30 tabs levofloxacin 750 mg tablet 750 mg PO Q24H #3 tabs 04/27/24 Unknown Rx ondansetron 4 mg disintegrating 4 mg PO Q6H PRN PRN Nausea #30 tabs 11/27/24 Unknown Rx tablet Allergy/AdvReac Type Severity Reaction Status Date / Time nickel (Nickel) Allergy Unknown Rash Verified 11/27/24 12:39 pistachio nut Allergy Swelling Verified 11/27/24 12:39 Surgical History Status post repeat low transverse section Previous delivery affecting , antepartum Social History Smoking Status: Former smoker alcohol intake: never ROS ROS ED Constitutional Constitutional ED: Reports sweats; Denies chills or fever(s) ENT ENT ED: Reports sore throat Cardiovascular Cardiovascular: Denies chest pain Respiratory/Chest Respiratory/Chest: Denies cough Gastrointestinal Gastrointestinal: Reports abdominal pain, diarrhea, nausea and vomiting; Denies melena Musculoskeletal Musculoskeletal: Reports myalgias; Denies arthralgias Neurologic Neurologic: Reports weakness Psychiatric Psychiatric: Denies anxiety Hematologic/Lymphatic Hematologic/Lymphatic: Denies easy bleeding or easy bruising EXAM Physical Exam Const Vital Signs: 11/27/24 12:39 Temperature 97.4 F L Temperature Source Oral Pulse Rate 99 Respiratory Rate 20 H Blood Pressure 110/76 Blood Pressure Mean 87 Pulse Ox 99 Oxygen Delivery Method Room Air Positive well nourished and well developed Constitutional Narrative: Uncomfortable. General Appearance ED: well developed and NAD HEENT Reports moist mucous membranes Eyes PERRL Neck supple Neck Narrative: No nuchal rigidity Resp normal respiratory effort and clear to auscultation bilaterally Cardio regular rate, regular rhythm and no murmurs GI non-tender and non-distended Inspection: Negative for abdominal distention Auscultation: hyperactive bowel sounds Palpation: soft; Negative for guarding Extremity normal to inspection General Extremety ED: Negative for edema General Extremity: Negative for edema Neuro oriented x3 Sensorium / Orientation: alert Motor Exam: general weakness Psych mental status grossly normal Skin no rashes or lesions noted and no wounds General Skin Exam: Negative for jaundice MDM MDM MDM Narrative Medical decision making narrative: Patient evaluated for acute onset abdominal pain, nausea, vomiting diarrhea. Vital signs normal in the emergency room. Patient appears to be in distress secondary to having vomiting and diarrhea and uncomfortable for this. She is nontoxic-appearing. Is given IV fluids, Toradol and Zofran for symptom control. I will send off stool study as well as basic labs including CBC, CMP and lipase. She has had tubal ligation so of the concern for . Patient does have significant leukocytosis of 23.8 by suspect this is reactive. Lab work is otherwise normal. Normal lipase. On repeat exam patient is feeling much better. Abdomen is soft and nontender. She is given a p.o. challenge and tolerates it. She states she is feeling much better. Will be discharged home with prescription for Zofran. Studies are pending at this time. Patient to return precautions. I did discuss that she does have a leukocytosis so she develops high fever, blood in her stool or worsening symptoms she should return the emergency room. At this point however I suspect this is more of an acute gastroenteritis and does not require advanced imaging. Patient discharged home in stable and improved condition. Lab Data Attestation: I reviewed the patient's lab results. Labs: Laboratory Results - last 24 hr 11/27/24 13:34 WBC 23.8 H RBC 5.37 Hgb 15.8 H Hct 47.8 H MCV 89.0 MCH 29.4 MCHC 33.1 RDW Std Deviation 39.7 RDW Coeff of Theo 12.2 Plt Count 496 H MPV 9.9 Immature Gran % (Auto) 0.500 Neut % (Auto) 80.6 H Lymph % (Auto) 10.9 L [place] % (Auto) 6.1 Eos % (Auto) 1.2 Baso % (Auto) 0.7 Absolute Neuts (auto) 19.2 H Absolute Lymphs (auto) 2.60 Nucleated RBC % 0 Sodium 140 Potassium 3.3 L Chloride 108 H Carbon Dioxide 22.0 Anion Gap 9 BUN 10 Creatinine 0.97 Estim Creat Clear Calc 99.87 Est GFR (MDRD) Af Amer 86 Est GFR (MDRD) Non-Af 71 BUN/Creatinine Ratio 10.3 Glucose 134 H Calcium 9.8 Total Bilirubin 0.30 AST 28 ALT 50 Alkaline Phosphatase 110 Total Protein 8.4 H Albumin 4.1 Globulin 4.3 H Albumin/Globulin Ratio 1.0 Lipase 46 L Discharge Plan Triage Chief Complaint: Nausea/Vomiting/Diarrhea Other Complaint: Sore Throat ED Provider: Miranda Coburn Dx/Rx/DC Orders Clinical Impression: Gastroenteritis Instructions: ED FOOD POIS or G-ENTERITIS 4y-israel, ED Gastroenteritis, Viral (Adult) Prescriptions: New ondansetron 4 mg tablet,disintegrating 4 mg PO Q6H PRN PRN (Reason: Nausea) Qty: 30 0RF No Action cyclobenzaprine 10 mg Tablet 10 mg PO TID PRN PRN (Reason: Muscle Spasm) Qty: 15 0RF acetaminophen 500 mg Tablet 1,000 mg PO Q8 PRN (Reason: Pain) Qty: 0 0RF codeine-guaifenesin 10-100 mg/5 mL Liquid 10 ml PO Q4H PRN (Reason: COUGH/CONGESTION) Qty: 120 0RF guaifenesin [Mucinex] 600 mg Tablet Extended Release 12hr 600 mg PO BID Qty: 10 0RF ibuprofen 200 mg tablet 400 mg PO Q6H PRN (Reason: pain) Qty: 30 0RF Rx Instructions: over the counter, no prescription required. levofloxacin 750 mg tablet 750 mg PO Q24H Qty: 3 0RF Rx Instructions: start 04/28 Primary Care Provider: Care Physician,No Primary Referrals: Care Physician,No Primary [Primary Care Provider] - [facility],Jerica Bailon [Non-Staff] - Activity Restrictions/Additional Instructions: I suspect you likely have a virus as cause your symptoms. Your stool was sent off for studies to make sure he did not have a bacterial pathogen that would require antibiotics. Your white blood cell count was elevated today but likely this is reactive from vomiting diarrhea. Could also high fever, worsening symptoms or blood in your stool please return to the emergency room. In the meantime push fluids and electrolytes. Print Language: Occitan Disposition Disposition: Home, Self Care
[2024-11-27] MEDS: Ketorolac 15 MG/ML Vial IV (13:32)
[2024-11-27] MEDS: 0.9% Normal Saline (1000mL) 1,000 ML 999 ML IV (13:32)
[2024-11-27] MEDS: Ondansetron 4 MG/2 ML Vial IV (13:32)
[2024-11-27 14:03] LABS: Absolute Neutrophil Count 19.2 X10^3/uL (2.0-7.7); Basophil# 0.16 X10^3/uL; Basophil% 0.7 % (0-1); Eosinophil# 0.28 X10^3/uL; Eosinophils% 1.2 % (0-5); Hematocrit 47.8 % (37-47); Hemoglobin 15.8 g/dL (12.0-15.0); Lymphocyte % 10.9 % (19-41); Mean Corp Hgb Conc 33.1 g/dL (32-36); Mean Corpuscular Hgb 29.4 pg (27.0-32.0); Mean Platelet Vol. 9.9 fl (6.2-12.0); Monocyte# 1.46 X10^3/uL; Monocyte% 6.1 % (0-10); NRBC Flagged by Analyzer 0 % (0-5); Neutrophil # 19.22 X10^3/uL (2.7-7.7); Neutrophil % 80.6 % (47-70); Platelet Count 496 K/mm3 (150-450); RBC Distribution Width CV 12.2 % (11.6-14.6); RBC Distribution Width SD 39.7 fl (35.1-43.9); Red Blood Count 5.37 M/mm3 (4.2-5.4); White Blood Count 23.8 K/mm3 (4.4-11.0)
[2024-11-27 14:17] LABS: AST(SGOT) 28 U/L (15-37); Alanine Aminotransfer ALT/SGPT 50 U/L (13-56); Albumin, Serum 4.1 g/dL (3.2-5.0); Alkaline Phosphatase 110 U/L (45-117); Anion Gap 9 (5-15); BUN 10 mg/dL (7-18); BUN/Creat Ratio 10.3 RATIO (10-20); Calcium,Total 9.8 mg/dL (8.5-10.1); Chloride 108 mmol/L (98-107); Creatinine, Serum 0.97 mg/dL (0.55-1.02); EST Glomerular Filtration Rate 71 mL/min (>60); Est Glom Filt Rate - Afr Amer 86 mL/min (>60); Estimated Creatinine Clearance 99.87 ml/min; Globulin 4.3 g/dL (2.2-4.2); Glucose 134 mg/dL (74-106); Lipase 46 U/L (73-393); Potassium 3.3 mmol/L (3.5-5.1); Protein, Total 8.4 g/dL (6.4-8.2); Sodium Level 140 mmol/L (136-145)
[2024-11-27 14:38] VITALS: PULSE 90; RESP 18; O2SAT 98
== END 2024-11-27 15:24 | disposition home or self-care (01) ==
PROVIDERS: Emergency Provider Emergency Medicine; Referring Provider Emergency Medicine; Visit Provider Emergency Medicine
DX: K52.9 Noninfective gastroenteritis and colitis, unspecified (principal); Z87.891 Personal history of nicotine dependence
CPT/HCPCS: 80053; 83690; 85025; 87493; 87506; 96361; 96374; 96375; 96376; 99285; A4216; J2405

== ENCOUNTER 2025-07-12 02:02 | Emergency (ER) | payer MEDICAID, SELFPAY ==
--- OUTSIDE RECORDS SUMMARY | 2025-06-18 15:36 | XMS RPT_ITS ---
Author Name Auto Generated Organization OHIP Care Team Providers Care Pipe Buffer Name Role Phone EROS CORTSE Referring Unavailable KERRY CROCKER Attending Unavailable KORTNEY JOHNSON Attending Unavailable KORTNEY JOHNSON Referring Unavailable YULIANA HARDING Attending Unavailable EROS CORTES Attending Unavailable PROBLEMS DATE TYPE CONDITION / CODE ATTENDING STATUS [facility] 06/18/2025 Active Encounter for gynecological examination with abnormal finding / Z01.411(ICD-10) YULIANA HARDING Active [facility] 06/18/2025 Active Chronic pelvic p ain in female / R10.2(ICD-10) YULIANA HARDING Active [facility] 06/18/2025 Active Chronic pelvic p ain in female / G89.29(ICD-10) YULIANA HARDING Active [facility] 06/18/2025 Active Deep dyspareunia / N94.12(ICD-10) YULIANA HARDING Active [facility] 06/18/2025 Active Endometriosis / N80.9(ICD-10) YULIANA HARDING Active [facility] 06/18/2025 Active Polycystic ovari an syndrome / E28.2(ICD-10) YULIANA HARDING Active [facility] 06/18/2025 Active Genital herpes s implex, unspecified site / A60.00(ICD-10) YULIANA HARDING Active [facility] 06/18/2025 Active Provided repeat prescription for oral contraceptive / Z30.41(ICD-10) YULIANA HARDING Active [facility] 06/18/2025 Active Screening for ce rvical cancer / Z12.4(ICD-10) YULIANA HARDING Active [facility] 06/18/2025 Active Encounter for sc reening for human papillomavirus (HPV) / Z11.51(ICD-10) YULIANA HARDING Active [facility] 06/09/2025 Active Acute cough / R05.1(ICD-10) KORTNEY JOHNSON Active [facility] 06/09/2025 Active URI with cough a nd congestion / J06.9(ICD-10) KORTNEY JOHNSON Active [facility] 05/04/2025 Active [employer]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 / H00.021(ICD-10) KERRY CROCKER Active [facility] 01/06/2025 Active Chronic bilatera l low back pain with right-sided sciatica / M54.41(ICD-10) NA Active [facility] 01/06/2025 Active Chronic bilatera l low back pain with right-sided sciatica / G89.29(ICD-10) NA Active [facility] 01/06/2025 Active SI (sacroiliac) pain / M53.3(ICD-10) NA Active [facility] PROCEDURES No Procedure Records Found RESULTS PAP TEST Collected: 5:06 PM Status: F Source: [facility] Order Comment: Specimen Type : FLUID SPECIMEN Ordering Facility: [facility] Address: [address] [place] [address] TYPE CODE TESTS RESULT OUT OF RANGE REFERENCE UNITS PATHOLOGY [id number] CASE REPORT Result Comment: Gynecologic Cytology Report Case: [id number] Authorizing Provider: Yuliana Harding APRN.AUXILIARY POWERPLANT OPERATOR Collected: 06/18/2025 05:06 PM Ordering Location: OB/Gynecology Received: 06/18/2025 05:14 PM First Screen: Reva Sandoval CT, ASCP Rescreen: Elliot Bruno CT, ASCP Specimen: Pap Test, ThinPrep, Cervix PATHOLOGY [id number] ADEQUACY Result Comment: Satisfactory for interpretation. No endocervical component PATHOLOGY [id number] INTERPRETATIO N, CYTOLOGY, QA INTERNSHIP Result Comment: Negative for intraepithelial lesion or malignancy. at 1458 EDT PATHOLOGY [id number] CLINICAL HISTORY, CYTOLOGY, QA INTERNSHIP Previous Abnormal Pap Result Comment: [facility] PATHOLOGY [id number] LMP 04/22/2025 PATHOLOGY PAPDC PAP DISCLAIMER COMMENT The Pap Smear is a screening test for cervical cancer. False negative results occur with all screening tests, emphasizing the need for rescreening at recommended intervals, and clinical correlation. PATHOLOGY [facility] FINAL PERFORMING LAB Result Comment: Technical co viv, digital marketing specialist screening performed at: [facility], [address] [place] [address] CLIA: [id number] Diagnostic interpretation performed at: [facility], [address] [place] [address] CLIA# [id number] Channel Executive: Sushil Monk MD Performed By: #### [id number] # ### [facility] CLIA [id number] [address] [place] [address] OF HOME HIGH RISK HUMAN PAPILLOMA VIRUS (HPV), PCR FOR DETECTION AND GENOTYPING Collected: 06/18/2025 5:06 PM Status: F Source: [facility] Order Comment: Specimen Type : FLUID SPECIMEN Ordering Facility: [facility] Address: [address] [place] [address] TYPE CODE TESTS RESULT OUT OF RANGE REFERENCE UNITS LAB 62339-3(LOINC) HPV16 Ag Spec Ql Not detected Not detected LAB 97165-6(LOINC) HPV18 Ag Spec Ql Not detected Not detected LAB 11847-1([facility]) HPV HR 12 DNA Cvx Ql ALEYDA+probe Not detected Not detected Result Comment: High Risk HP V Other Type includes HPV types 31, 33, 35, 39, 45, 51, 52, 56, 58, 59, 66 and 68. Performed By: #### HPVHRT ## ## [facility] CLIA [id number] [address] [place] [address] STATES OF HOME CNOV Observed: 06/18/2025 4:00 PM Status: COMPLETED Source: [facility] Office Visit (OBGYWM) LULA HULL ([id number]) 1995 F Date Time Provider Department 06/18/25 4:00 PM YULIANA HARDING During your visit today, we recorded the following information about you: Blood pressure Weight Height Last Period 114/81 112 kg 1.59 m 06/03/25 Yuliana Harding APRN.CNP 06/18/2025 9:59 PM Signed Cement Mason Helper offered: Patient declines. Lula is a 30 year old who presents for an annual gynecologic exam with complaints, pelvic pain and pain with intercourse. Pelvic Pain - Reports a dull ache and pressure-like sensation in the pelvis, described as similar to feeling constipated but without actual constipation. - Pain is constant and located above the pubic bone. - Symptoms are exacerbated after intercourse. - Denies any urinary symptoms. - Bowel movements are regular, occurring 1-2 times daily, with normal consistency. Dyspareunia - Long-standing dyspareunia, described as positional. - Pain persists after intercourse, accompanied by the same pressure sensation in the pelvis. Menstrual History - Reports regular monthly periods, which became consistent after the of her son. - Periods are described as horrible and painful, lasting about 5 days. - Previously had irregular and heavy periods before using Mirena IUD. Endometriosis - Diagnosed with endometriosis; had an endometrioma removed from the ovary in 2018, which provided immediate relief from previous stabbing pain. - Current pelvic pain is different from the stabbing pain experienced before the surgery. PCOS - Diagnosed with PCOS; has a history of ovarian cysts. - Has had multiple pregnancies despite PCOS, noting that she can get quickly. - She discontinued prescribed metformin. Herpes Simplex Virus - Takes Valtrex daily for herpes simplex virus suppression. - Denies recent outbreaks, stating it has been a while since the last one. Menses: cycles every 28-30 days and 5-6 days of flow. Contraception: tubal sterilization Bleeding amount bothersome: Yes Bleeding between periods: Yes Period symptoms: Acne; Breast tenderness; Cramps; Mood change; Pelvic pain HPV vaccine: No Last Pap: 05/12/2024 LSIL HPV: 05/12/2024 negative History of abnormal pap: Yes Last mammogram: never Sexually active: Yes History of STDS: None Patient concerns for STD exposure: No. Time with current partner: 1 year Number of lifetime partners: 6 Pain with intercourse: Yes, long-term and positional Postcoital bleeding: No Documentation from previous visit of 05/12/2024 was copied and pasted, documentation has been reviewed and edited as necessary for today's visit. OB History Gravida6 Para3 Term2 Preterm1 AB3 Living3 SAB3 IAB0 Ectopic0 Multiple1 Live Births4 Comment: Patient delivered twins at 26weeks and 5 days, 1 twin at 1 year at 3 weeks, from grade 4 brain bleed that she had at . [employer] History LMP: 06/03/2025 (Exact Date), Having periods Age at Menarche: 10 Age at First : Age at Menopause: [employer] History Comments: Sexual Activity: Yes; Male Contraception: Surgical Menstrual Tracking History Flowsheet Row Office Visit from 06/18/2025 in OB/Gynecology Appointment from 05/13/2025 in OB/Gynecology Period Cycle (Days) 25 25 Period Duration (Days) 5 5 Menstrual Flow Heavy Heavy PAST MEDICAL HISTORY Diagnosis Date Coitus painful for female Depression Diabetes, gestational (HCC) Endometriosis 2018 endometrioma removed Goiter 01/27/2016 Herpes simplex type 2 (HSV-2) infection affecting , antepartum, unspecified trimester (HCC) 12/12/2021 Intractable migraine with aura Kidney stones 03/11/2018 Mental disorder Ovarian torsion 09/18/2020 right PCOS (polycystic ovarian syndrome) Polycystic ovary syndrome depression hemorrhage (HCC) Recurrent UTI PAST SURGICAL HISTORY Procedure Laterality Date SECTION HX 2021, 2011,2009 HERNIA REPAIR HX 03/12/2018 ventral hernia repair Mata OTHER 12/2017 laparotomy with removal of endometriosis implants PAST SURGICAL HISTORY OF 09/18/2020 right ovarian torsion-had right ovarian cystectomy SALPINGECTOMY Bilateral 02/01/2022 FAMILY HISTORY Problem Relation Age of Onset Cancer Mother 49 SCC lung cancer GI Mother PUD Thyroid Father No Known Problems Sister Infertility Sister Breast Cancer Maternal Grandmother other (black lung disease) Maternal Grandfather Diabetes Paternal Grandmother No Known Problems Paternal Grandfather No Known Problems Son No Known Problems Daughter SOCIAL HISTORY Social History Tobacco Use Smoking status: Former Current packs/day: 0.00 Average packs/day: 0.5 packs/day for 4.0 years (2.0 ttl pk-yrs) Types: Cigarettes Start date: 02/18/2014 Quit date: 02/18/2018 Years since quittin.3 Smokeless tobacco: Never Vaping Use Vaping status: Former Substances: Nicotine Devices: Pre-filled or refillable cartridge Substance Use Topics Alcohol use: Yes Alcohol/week: 1.0 standard drink of alcohol Types: 1 Cans of beer per week Drug use: Not Currently Types: Marijuana REVIEW OF SYSTEMS Abdomen: see HPI (-) diarrhea, (-) constipation Genitourinary: (+) suprapubic pelvic pain, (+) dyspareunia, (+) dysmenorrhea, (-) dysuria, (-) vaginal discharge, (-) vaginal pruritus, (-) vaginal odor Breast: No breast lumps, nipple d/c, overlying skin changes, redness or skin retraction. Allergies and current medication updated:Yes SENSITIVE EXAM: The sensitive examination was discussed with the Patient or Patient's Authorized Air Brush Artist. As applicable, any other physician, advance practice provider, medical student, or other health professional student that will be observing or involved in the sensitive examination for educational or training purposes was discussed with the Patient or Authorized Air Brush Artist. The Patient or Authorized Air Brush Artist has agreed to proceed with the sensitive examination. (Sensitive examination includes inspection and/or palpation of the breasts, pelvis, prostate and anorectal regions). EXAM: BP 114/81 Ht 5' 2.598 (1.59m) Wt 247 lb (112.0kg) LMP 06/03/2025 BMI 44.32 kg/(m2). GENERAL: Pleasant; no acute distress BREAST: soft, non-tender, symmetric, no dominant mass, normal nipple-areolar complex, no lymphadenopathy, no nipple discharge PULMONARY: normal inspiratory effort ABDOMEN: soft, non-tender, no masses : - PELVIC: external genitalia normal, normal Bartholin's glands, urethra, [place]'s glands, no vulvar lesions, no cervical lesions, good vaginal support, physiologic discharge present, normal appearing perineal body and perianal region. Posterior cervical palpation elicited discomfort; generalized pelvic tenderness more pronounced in the midline - BIMANUAL: uterus normal size, shape and consistency, no adnexal masses, tenderness noted - Patient consent for exam received NEURO: alert and oriented x3 EXTREMITIES: normal ASSESSMENT/PLAN: 1) Health maintenance: Pap done with HPV. Nutrition, exercise and routine health maintenance exams reviewed. Calcium/Vitamin D supplementation information provided. 2. Chronic pelvic pain in female (R10.2) 3. Deep dyspareunia (N94.12) 4. Endometriosis (N80.9) 5. Polycystic ovarian syndrome (E28.2) - Chronic pelvic pain and deep dyspareunia, likely related to history of endometriosis and PCOS. - Pelvic pain described as a dull ache and pressure above the pubic bone, worse after intercourse; no urinary or GI symptoms. - History of endometrioma removal in 2018 with immediate symptom improvement; current pain is different from previous stabbing pain. - Discussed control options to suppress menstruation and reduce endometriosis symptoms; patient prefers to start with continuous oral contraceptive pills. - Start continuous oral contraceptive pills (hormone pills only); prescription sent with refills for 1 year. - Educated on potential for spotting with continuous use and strategies for managing breakthrough bleeding, including scheduled NSAID use. - Pelvic ultrasound ordered with slide sign to assess for endometriosis and ovarian cysts; to be scheduled for days 6-10 (preferably) of menstrual cycle. - Discussed alternative control options, including Annovera ring, which may be considered if oral contraceptive pills are not effective or well-tolerated. - Patient educated on risks and benefits of different control methods, including potential for Mirena IUD to exacerbate ovarian cysts. - Patient expressed understanding and agreement with plan. - Follow-up via phone or message with results of pelvic ultrasound and Pap test. - PELVIC US WHI - APRI 0.15 MG-0.03 MG TABLET 6. Genital herpes simplex, unspecified site (A60.00) - No recent outbreaks; patient takes Valtrex daily. - Continue Valtrex as prescribed. - VALACYCLOVIR 500 MG TABLET 7. Provided repeat prescription for oral contraceptive (Z30.41) - APRI 0.15 MG-0.03 MG TABLET 8) Contraception: tubal sterilization. Contraceptive options reviewed and information provided. 9) STD screening: Declined STI check. 10) Follow up one year or sooner as needed Yuliana Harding APRN.AUXILIARY POWERPLANT OPERATOR Medical Decision Making: Problems: Moderate: 1+ chronic illnesses with change and 2+ stable chronic illnesses Data: Unique test result(s) reviewed: 2 Unique test(s) ordered: 1 Risk: Moderate: Drug management and Moderate risk from testing/treatment Medical Decision Making Level: 4 - Moderate Yuliana Harding APRN.CNP 06/18/2025 9:48 PM Signed - Start the new control pill (hormone-only) on the Saturday after your next period ends and take it every day without the placebo pills; your prescription with refills for one year has been sent to your pharmacy. - You may notice spotting at times. If you want to time a period (for example, before a trip), stop the pills when you?re ready and, to reduce bleeding and cramps, take ibuprofen 600 mg every 6 hours (or ibuprofen 800 mg every 8 hours, or two naproxen tablets every 12 hours), starting 48 hours before you stop the pills and continuing for at least 5 days. - Begin daily vitamin D 1,000-2,000 IU to address your low levels. - Continue Valtrex daily as you?ve been taking it; your refill has been sent to the pharmacy. - A pelvic ultrasound has been ordered for the week after your period (days 6-12) - A Pap test with HPV co-testing was done today; results usually take 1-2 weeks. You will be notified of your Pap and ultrasound results and any recommended next steps. Allergies As of Date: 06/18/2025 Noted Allergy Reaction TREE NUTS 12/16/2019 10 - Anaphylaxis COCONUT 04/18/2023 10 - Anaphylaxis NICKEL 01/27/2016 4 - Hives Date Reviewed: 06/18/2025 Reviewed by: Yuliana Harding APRN.AUXILIARY POWERPLANT OPERATOR - Fully Assessed Reason for Visit: Well Woman [[id number]] Primary Visit Diagnosis:Encounter for gynecological examination with abnormal finding [Z01.411] Other Visit Diagnoses:Chronic pelvic pain in female [R10.2, G89.29] Deep dyspareunia [N94.12] Endometriosis [N80.9] Polycystic ovarian syndrome [E28.2] Genital herpes simplex, unspecified site [A60.00] Provided repeat prescription for oral contraceptive [Z30.41] Screening for cervical cancer [Z12.4] Encounter for screening for human papillomavirus (HPV) [Z11.51] Order(s):PAP TEST [JIC3078] Order #: [id number]. #:[id number] valACYclovir (VALTREX) 500 mg tabletTake 1 tablet by mouth once daily.Disp: 90 tabletRfl: 3 PELVIC US [facility] [[id number]] Order #: [id number]: 1 FUTURE Desogestrel-Ethinyl Estradiol (APRI) 0.15-0.03 mg per tabletTake 1 tablet by mouth once daily. FOR CONTINUOUS USE - Take only hormone pillsDisp: 112 tabletRfl: 5 Prescriptions as of 06/18/2025 - valACYclovir (VALTREX) 500 mg tablet Take 1 tablet by mouth once daily. - Desogestrel-Ethinyl Estradiol (APRI) 0.15-0.03 mg per tablet Take 1 tablet by mouth once daily. FOR CONTINUOUS USE - Take only hormone pills Problem List As Of Date 06/18/2025 Noted Resolved Goiter [E04.9] 01/27/2016 06/22/2021 Abdominal pain, right lower quadrant [R10.31] 02/07/2018 06/22/2021 Abdominal mass, right lower quadrant [R19.03] 02/07/2018 06/22/2021 Endometrioma [N80.129] 02/07/2018 06/22/2021 Kidney stones [N20.0] 03/11/2018 06/22/2021 Class 3 severe obesity with body mass index (BM*03/11/2018 on oral contraceptive [O09.899, Z79.3]06/22/2021 02/13/2022 complicated by previous recurrent mis*06/22/2021 02/13/2022 with history of section, ant*06/22/2021 02/13/2022 History of goiter [Z86.39] 06/22/2021 History of depression [Z86.59] 06/22/2021 01/02/2023 History of recurrent UTIs [Z87.440] 06/22/2021 History of nicotine vaping [Z87.891] 06/22/2021 Obesity in [O99.210] 06/22/2021 02/13/2022 Family history of congenital heart defect [Z82.*06/22/2021 01/02/2023 Patient request for diagnostic testing [Z01.89] 06/22/2021 02/13/2022 Request for sterilization [Z30.2] 06/22/2021 02/13/2022 PCOS (polycystic ovarian syndrome) [E28.2] 06/22/2021 Elevated glucose [R73.09] 11/23/2021 02/13/2022 Herpes simplex type 2 (HSV-2) infection affecti*12/12/2021 02/13/2022 Metabolic syndrome [E88.810] 01/01/2023 Stress incontinence [N39.3] 01/01/2023 Depression [F32.A] 01/01/2023 Vitamin D deficiency [E55.9] 01/02/2023 Other instructions from your clinician: - Start the new control pill (hormone-only) on the Saturday after your next period ends and take it every day without the placebo pills; your prescription with refills for one year has been sent to your pharmacy. - You may notice spotting at times. If you want to time a period (for example, before a trip), stop the pills when you?re ready and, to reduce bleeding and cramps, take ibuprofen 600 mg every 6 hours (or ibuprofen 800 mg every 8 hours, or two naproxen tablets every 12 hours), starting 48 hours before you stop the pills and continuing for at least 5 days. - Begin daily vitamin D 1,000-2,000 IU to address your low levels. - Continue Valtrex daily as you?ve been taking it; your refill has been sent to the pharmacy. - A pelvic ultrasound has been ordered for the week after your period (days 6-12) - A Pap test with HPV co-testing was done today; results usually take 1-2 weeks. You will be notified of your Pap and ultrasound results and any recommended next steps. Prescriptions ordered this encounter Disp Refills Start End VALACYCLOVIR 500 MG TABLET 90 t* 3 06/18/2025 06/18/2026 Route: PO Sig: Take 1 tablet by mouth once daily. APRI 0.15 MG-0.03 MG TABLET 112 * 5 06/18/2025 Route: PO Sig: Take 1 tablet by mouth once daily. FOR CONTINUOUS USE - Take only hormone pills Medications Discontinued During This Encounter Prescriptions - miSOPROStol (CYTOTEC) 200 mcg tablet (Discontinued) Reported on 11/27/2024 - valACYclovir (VALTREX) 500 mg tablet (Discontinued) Take 1 tablet by mouth once daily. - guaiFENesin (MUCINEX) 600 mg 12 hr tablet (Discontinued) Take 2 tablets by mouth two times a day. - benzonatate (TESSALON PERLE) 100 mg capsule (Discontinued) Take 2 capsules by mouth three times a day as needed. - ergocalciferol 50,000 unit capsule (VITAMIN D2, DRISDOL) (Discontinued) Reported on 11/27/2024 - fluconazole (DIFLUCAN) 150 mg tablet (Discontinued) Reported on 11/27/2024 - metFORMIN ER (GLUCOPHAGE XR) 500 mg 24 hr tablet (Discontinued) Reported on 11/27/2024 - buPROPion SR (WELLBUTRIN SR) 150 mg 12 hr tablet (Discontinued) Reported on 11/27/2024 Disposition: Return in 1 year (on 06/18/2026) for Annual Exam. Follow-up and Disposition History for Encounter Date Provider Department Center 06/18/2025 [id number]-GLDIGOAYULIANA HARDING [facility] Encounter Status:Closed by YULIANA HARDING on 06/18/25 PROGRESS Observed: 06/18/2025 3:54 PM Status: COMPLETED Source: [facility] HNO ID: [id number] Author: YULIANA HARDING APRN.AUXILIARY POWERPLANT OPERATOR Service: ? Author Type: Nurse Practitioner Type: Progress Notes Filed: 06/18/2025 21:59 Note Text: Cement Mason Helper offered: Patient declines. Lula is a 30 year old who presents for an annual gynecologic exam with complaints, pelvic pain and pain with intercourse. Pelvic Pain - Reports a dull ache and pressure-like sensation in the pelvis, described as similar to feeling constipated but without actual constipation. - Pain is constant and located above the pubic bone. - Symptoms are exacerbated after intercourse. - Denies any urinary symptoms. - Bowel movements are regular, occurring 1-2 times daily, with normal consistency. Dyspareunia - Long-standing dyspareunia, described as positional. - Pain persists after intercourse, accompanied by the same pressure sensation in the pelvis. Menstrual History - Reports regular monthly periods, which became consistent after the of her son. - Periods are described as horrible and painful, lasting about 5 days. - Previously had irregular and heavy periods before using Mirena IUD. Endometriosis - Diagnosed with endometriosis; had an endometrioma removed from the ovary in 2018, which provided immediate relief from previous stabbing pain. - Current pelvic pain is different from the stabbing pain experienced before the surgery. PCOS - Diagnosed with PCOS; has a history of ovarian cysts. - Has had multiple pregnancies despite PCOS, noting that she can get quickly. - She discontinued prescribed metformin. Herpes Simplex Virus - Takes Valtrex daily for herpes simplex virus suppression. - Denies recent outbreaks, stating it has been a while since the last one. Menses: cycles every 28-30 days and 5-6 days of flow. Contraception: tubal sterilization Bleeding amount bothersome: Yes Bleeding between periods: Yes Period symptoms: Acne; Breast tenderness; Cramps; Mood change; Pelvic pain HPV vaccine: No Last Pap: 05/12/2024 LSIL HPV: 05/12/2024 negative History of abnormal pap: Yes Last mammogram: never Sexually active: Yes History of STDS: None Patient concerns for STD exposure: No. Time with current partner: 1 year Number of lifetime partners: 6 Pain with intercourse: Yes, long-term and positional Postcoital bleeding: No Documentation from previous visit of 05/12/2024 was copied and pasted, documentation has been reviewed and edited as necessary for today's visit. OB History Gravida6 Para3 Term2 Preterm1 AB3 Living3 SAB3 IAB0 Ectopic0 Multiple1 Live Births4 Comment: Patient delivered twins at 26weeks and 5 days, 1 twin at 1 year at 3 weeks, from grade 4 brain bleed that she had at . [employer] History LMP: 06/03/2025 (Exact Date), Having periods Age at Menarche: 10 Age at First : Age at Menopause: [employer] History Comments: Sexual Activity: Yes; Male Contraception: Surgical Menstrual Tracking History Flowsheet Row Office Visit from 06/18/2025 in OB/Gynecology Appointment from 05/13/2025 in OB/Gynecology Period Cycle (Days) 25 25 Period Duration (Days) 5 5 Menstrual Flow Heavy Heavy PAST MEDICAL HISTORY Diagnosis Date Coitus painful for female Depression Diabetes, gestational (HCC) Endometriosis 2018 endometrioma removed Goiter 01/27/2016 Herpes simplex type 2 (HSV-2) infection affecting , antepartum, unspecified trimester (HCC) 12/12/2021 Intractable migraine with aura Kidney stones 03/11/2018 Mental disorder Ovarian torsion 09/18/2020 right PCOS (polycystic ovarian syndrome) Polycystic ovary syndrome depression hemorrhage (HCC) Recurrent UTI PAST SURGICAL HISTORY Procedure Laterality Date SECTION HX 2021, 2011,2009 HERNIA REPAIR HX 03/12/2018 ventral hernia repair [facility]ata OTHER 12/2017 laparotomy with removal of endometriosis implants PAST SURGICAL HISTORY OF 09/18/2020 right ovarian torsion-had right ovarian cystectomy SALPINGECTOMY Bilateral 02/01/2022 FAMILY HISTORY Problem Relation Age of Onset Cancer Mother 49 SCC lung cancer GI Mother PUD Thyroid Father No Known Problems Sister Infertility Sister Breast Cancer Maternal Grandmother other (black lung disease) Maternal Grandfather Diabetes Paternal Grandmother No Known Problems Paternal Grandfather No Known Problems Son No Known Problems Daughter SOCIAL HISTORY Social History Tobacco Use Smoking status: Former Current packs/day: 0.00 Average packs/day: 0.5 packs/day for 4.0 years (2.0 ttl pk-yrs) Types: Cigarettes Start date: 02/18/2014 Quit date: 02/18/2018 Years since quittin.3 Smokeless tobacco: Never Vaping Use Vaping status: Former Substances: Nicotine Devices: Pre-filled or refillable cartridge Substance Use Topics Alcohol use: Yes Alcohol/week: 1.0 standard drink of alcohol Types: 1 Cans of beer per week Drug use: Not Currently Types: Marijuana REVIEW OF SYSTEMS Abdomen: see HPI (-) diarrhea, (-) constipation Genitourinary: (+) suprapubic pelvic pain, (+) dyspareunia, (+) dysmenorrhea, (-) dysuria, (-) vaginal discharge, (-) vaginal pruritus, (-) vaginal odor Breast: No breast lumps, nipple d/c, overlying skin changes, redness or skin retraction. Allergies and current medication updated:Yes SENSITIVE EXAM: The sensitive examination was discussed with the Patient or Patient's Authorized Air Brush Artist. As applicable, any other physician, advance practice provider, medical student, or other health professional student that will be observing or involved in the sensitive examination for educational or training purposes was discussed with the Patient or Authorized Air Brush Artist. The Patient or Authorized Air Brush Artist has agreed to proceed with the sensitive examination. (Sensitive examination includes inspection and/or palpation of the breasts, pelvis, prostate and anorectal regions). EXAM: BP 114/81 Ht 5' 2.598 (1.59m) Wt 247 lb (112.0kg) LMP 06/03/2025 BMI 44.32 kg/(m2). GENERAL: Pleasant; no acute distress BREAST: soft, non-tender, symmetric, no dominant mass, normal nipple-areolar complex, no lymphadenopathy, no nipple discharge PULMONARY: normal inspiratory effort ABDOMEN: soft, non-tender, no masses : - PELVIC: external genitalia normal, normal Bartholin's glands, urethra, [place]'s glands, no vulvar lesions, no cervical lesions, good vaginal support, physiologic discharge present, normal appearing perineal body and perianal region. Posterior cervical palpation elicited discomfort; generalized pelvic tenderness more pronounced in the midline - BIMANUAL: uterus normal size, shape and consistency, no adnexal masses, tenderness noted - Patient consent for exam received NEURO: alert and oriented x3 EXTREMITIES: normal ASSESSMENT/PLAN: 1) Health maintenance: Pap done with HPV. Nutrition, exercise and routine health maintenance exams reviewed. Calcium/Vitamin D supplementation information provided. 2. Chronic pelvic pain in female (R10.2) 3. Deep dyspareunia (N94.12) 4. Endometriosis (N80.9) 5. Polycystic ovarian syndrome (E28.2) - Chronic pelvic pain and deep dyspareunia, likely related to history of endometriosis and PCOS. - Pelvic pain described as a dull ache and pressure above the pubic bone, worse after intercourse; no urinary or GI symptoms. - History of endometrioma removal in 2018 with immediate symptom improvement; current pain is different from previous stabbing pain. - Discussed control options to suppress menstruation and reduce endometriosis symptoms; patient prefers to start with continuous oral contraceptive pills. - Start continuous oral contraceptive pills (hormone pills only); prescription sent with refills for 1 year. - Educated on potential for spotting with continuous use and strategies for managing breakthrough bleeding, including scheduled NSAID use. - Pelvic ultrasound ordered with slide sign to assess for endometriosis and ovarian cysts; to be scheduled for days 6-10 (preferably) of menstrual cycle. - Discussed alternative control options, including Annovera ring, which may be considered if oral contraceptive pills are not effective or well-tolerated. - Patient educated on risks and benefits of different control methods, including potential for Mirena IUD to exacerbate ovarian cysts. - Patient expressed understanding and agreement with plan. - Follow-up via phone or message with results of pelvic ultrasound and Pap test. - PELVIC US WHI - APRI 0.15 MG-0.03 MG TABLET 6. Genital herpes simplex, unspecified site (A60.00) - No recent outbreaks; patient takes Valtrex daily. - Continue Valtrex as prescribed. - VALACYCLOVIR 500 MG TABLET 7. Provided repeat prescription for oral contraceptive (Z30.41) - APRI 0.15 MG-0.03 MG TABLET 8) Contraception: tubal sterilization. Contraceptive options reviewed and information provided. 9) STD screening: Declined STI check. 10) Follow up one year or sooner as needed Yuliana Harding APRN.AUXILIARY POWERPLANT OPERATOR Medical Decision Making: Problems: Moderate: 1+ chronic illnesses with change and 2+ stable chronic illnesses Data: Unique test result(s) reviewed: 2 Unique test(s) ordered: 1 Risk: Moderate: Drug management and Moderate risk from testing/treatment Medical Decision Making Level: 4 - Moderate XR CHEST 2V FRONTAL/LAT Observed: 2024 9:33 AM Status: F Source: [facility] * * *Final Report* * * DATE OF EXAM: Jun 09 2025 9:33AM WOX [id number] - XR CHEST 2V FRONTAL/LAT / PROCEDURE REASON: Acute cough * * * * Physician Interpretation * * * * EXAMINATION: CHEST RADIOGRAPH (2 VIEW FRONTAL and LATERAL) CLINICAL HISTORY: Acute cough MQ: [id number]_6 EXAM DATE/TIME: 06/09/2025 9:33 AM COMPARISON: No relevant prior studies available. RESULT: Lines, tubes, and devices: None. Lungs and pleura: Mild central peribronchial cuffing. No consolidation. No lung mass. No pleural effusion. No pneumothorax. Cardiomediastinal silhouette: Normal cardiomediastinal silhouette. Bones and soft tissues: Unremarkable. IMPRESSION: Central peribronchial cuffing which may be seen with small airways inflammation. Mortgage Loan Reviewer: PSCB Transcribe Date/Time: Jun 09 2025 9:37A Dictated by : JESUS NUNEZ MD This examination was interpreted and the report reviewed and electronically signed by: JESUS NUNEZ MD on Jun 09 2025 9:38AM EST [id number] PROGRESS Observed: 06/09/2025 9:30 AM Status: COMPLETED Source: [facility] HNO ID: [id number] Author: ALIX MANRIQUE RT(Mandy) Service: ? Author Type: Door Slinger Type: Progress Notes Filed: 06/09/2025 09:32 Note Text: Radiology Service Progress Note PATIENT NAME: Lula Hull DATE OF SERVICE: June 09, 2025 TIME: 9:26 AM PATIENT IDENTITY VERIFICATION COMPLETED USING TWO (2) IDENTIFIERS: Name and Date of confirmed by patient verbally. FALL SCREENING: Has the patient had 2 falls in the last year or 1 fall with injury or currently using an Ambulatory Assistive Device (Walker, Cane, Wheelchair, Crutches, etc.)? No PATIENT GENDER DATA: Assigned female at . status: : No status: NO. PATIENT RELEVANT IMPLANT DATA REVIEWED: Yes PATIENT PRESENTS WITH AN IMPLANTABLE OR ATTACHED WEB CONTENT EDITOR: No RADIOLOGY DEPARTMENT: General X-ray: Exam(s) Completed: Chest X-Ray PERIPHERAL IV DATA: Not applicable SIGNED BY: RT Sravan(R) June 09, 2025 9:26 AM PROGRESS Observed: 06/09/2025 9:16 AM Status: COMPLETED Source: [facility] HNO ID: [id number] Author: KORTNEY JOHNSON APRN.AUXILIARY POWERPLANT OPERATOR Service: ? Author Type: Nurse Practitioner Type: Progress Notes Filed: 06/09/2025 10:24 Note Text: Subjective Lula Hull is a 30 year old female. The history is provided by the patient. No aquatic instructor was used. HPI Lula Hull is a 30 year old female who presents today for CC of chest congestion, cough, and heaviness. She has used robitussin, and benadryl with out relief. 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 SOCIAL HISTORY[1] PAST MEDICAL HISTORY Diagnosis Date Depression Diabetes, gestational Endometriosis 2018 endometrioma removed Goiter 01/27/2016 Herpes simplex type 2 (HSV-2) infection affecting , antepartum, unspecified trimester 12/12/2021 Intractable migraine with aura Kidney stones 03/11/2018 Mental disorder Ovarian torsion 09/18/2020 right PCOS (polycystic ovarian syndrome) depression hemorrhage Recurrent UTI I have confirmed and edited as necessary, the [facility] Review of Systems Constitutional: Negative for chills, fatigue and fever. HENT: Positive for rhinorrhea and sinus pain. Negative for congestion, sneezing and sore throat. Respiratory: Positive for cough. Negative for shortness of breath and wheezing. Cardiovascular: Positive for chest pain (heaviness with cold). Musculoskeletal: Negative for arthralgias and myalgias. Skin: Negative for color change and rash. Neurological: Negative for headaches. Objective BP 102/70 Pulse 90 Temp 36.2 ?C (97.2 ?F) Resp 18 Wt 112.6 kg (248 lb 3.8 oz) LMP 04/22/2025 SpO2 99% BMI 43.97 kg/m? Physical Exam Vitals and nursing note reviewed. Constitutional: General: She is not in acute distress. Appearance: She is not diaphoretic. HENT: Head: Normocephalic and atraumatic. Right Ear: Tympanic membrane, ear canal and external ear normal. No middle ear effusion. Tympanic membrane is not injected, erythematous, retracted or bulging. Left Ear: Tympanic membrane, ear canal and external ear normal. No middle ear effusion. Tympanic membrane is not injected, erythematous, retracted or bulging. Nose: Nose normal. Right Sinus: No maxillary sinus tenderness or frontal sinus tenderness. Left Sinus: No maxillary sinus tenderness or frontal sinus tenderness. Mouth/Throat: Pharynx: Uvula midline. Eyes: Conjunctiva/sclera: Conjunctivae normal. Pupils: Pupils are equal, round, and reactive to light. Cardiovascular: Rate and Rhythm: Normal rate and regular rhythm. Heart sounds: Normal heart sounds. Pulmonary: Effort: Pulmonary effort is normal. No respiratory distress. Breath sounds: Normal breath sounds. No wheezing or rales. Musculoskeletal: Cervical back: Normal range of motion and neck supple. Lymphadenopathy: Head: Right side of head: No submental, submandibular, tonsillar, preauricular or posterior auricular adenopathy. Left side of head: No submental, submandibular, tonsillar, preauricular or posterior auricular adenopathy. Skin: General: Skin is warm and dry. Neurological: Mental Status: She is alert and oriented to person, place, and time. History and Record Review External record(s) reviewed: prior labs/imaging. Findings from review of prior labs/imaging: Previous Renal Function Panel Reviewed No results within last 365 days. Management I performed an independent interpretation of the following:imaging Imaging: My interpretation is negative for pneumonia ASSESSMENT/PLAN: 1. Acute cough - ICD9: 786.2, ICD10: R05.1 (primary diagnosis) Tessalon Perles 2 every 8 hours, do not combine this with robitussin or delsym - XR CHEST 2V FRONTAL/LAT RESULT: Lines, tubes, and devices: None. Lungs and pleura: Mild central peribronchial cuffing. No consolidation. No lung mass. No pleural effusion. No pneumothorax. Cardiomediastinal silhouette: Normal cardiomediastinal silhouette. Bones and soft tissues: Unremarkable. IMPRESSION: Central peribronchial cuffing which may be seen with small airways inflammation. Interpreted by : JESUS NUNEZ MD 2. URI with cough and congestion - ICD9: 465.9, ICD10: J06.9 - Discussed viral etiology and rationale for treatment. - Symptomatic treatment with prn analgesia - Supportive care with fluids and rest - Delayed rx given for doxycycline to start over the weekend if no improvement or worsening symptoms. When to seek a higher level of care discussed. Diagnosis and treatment plan were discussed and questions were answered to the patient's satisfaction. Pt acknowledged understanding of concepts and follow up plan. Specific signs and symptoms that would indicate the need for higher level of care were discussed in detail warranting prompt ER evaluation. Kortney Johnson APRN.AUXILIARY POWERPLANT OPERATOR [1] Social History Tobacco Use Smoking status: Former Current packs/day: 0.00 Average packs/day: 0.5 packs/day for 4.0 years (2.0 ttl pk-yrs) Types: Cigarettes Start date: 02/18/2014 Quit date: 02/18/2018 Years since quittin.3 Smokeless tobacco: Never Vaping Use Vaping status: Former Substances: Nicotine Devices: Pre-filled or refillable cartridge Substance Use Topics Alcohol use: Yes Alcohol/week: 1.0 standard drink of alcohol Types: 1 Cans of beer per week Drug use: Not Currently Types: Marijuana CNOV Observed: 06/09/2025 8:45 AM Status: COMPLETED Source: [facility] Office Visit ([facility]) LULA HULL ([id number]) 1995 F Date Time Provider Department 06/09/25 8:45 AM KORTNEY JOHNSON During your visit today, we recorded the following information about you: Temperature Pulse Respiration Blood pressure 97.2 degrees 90/minute 18/minute 102/70 Weight 112.6 kg Kortney Johnson APRN.AUXILIARY POWERPLANT OPERATOR 06/09/2025 10:24 AM Signed Subjective Lula Hull is a 30 year old female. The history is provided by the patient. No aquatic instructor was used. HPI Lula Hull is a 30 year old female who presents today for CC of chest congestion, cough, and heaviness. She has used robitussin, and benadryl with out relief. 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 SOCIAL HISTORY[1] PAST MEDICAL HISTORY Diagnosis Date Depression Diabetes, gestational Endometriosis 2018 endometrioma removed Goiter 01/27/2016 Herpes simplex type 2 (HSV-2) infection affecting , antepartum, unspecified trimester 12/12/2021 Intractable migraine with aura Kidney stones 03/11/2018 Mental disorder Ovarian torsion 09/18/2020 right PCOS (polycystic ovarian syndrome) depression hemorrhage Recurrent UTI I have confirmed and edited as necessary, the [facility] Review of Systems Constitutional: Negative for chills, fatigue and fever. HENT: Positive for rhinorrhea and sinus pain. Negative for congestion, sneezing and sore throat. Respiratory: Positive for cough. Negative for shortness of breath and wheezing. Cardiovascular: Positive for chest pain (heaviness with cold). Musculoskeletal: Negative for arthralgias and myalgias. Skin: Negative for color change and rash. Neurological: Negative for headaches. Objective BP 102/70 Pulse 90 Temp 36.2 ?C (97.2 ?F) Resp 18 Wt 112.6 kg (248 lb 3.8 oz) LMP 04/22/2025 SpO2 99% BMI 43.97 kg/m? Physical Exam Vitals and nursing note reviewed. Constitutional: General: She is not in acute distress. Appearance: She is not diaphoretic. HENT: Head: Normocephalic and atraumatic. Right Ear: Tympanic membrane, ear canal and external ear normal. No middle ear effusion. Tympanic membrane is not injected, erythematous, retracted or bulging. Left Ear: Tympanic membrane, ear canal and external ear normal. No middle ear effusion. Tympanic membrane is not injected, erythematous, retracted or bulging. Nose: Nose normal. Right Sinus: No maxillary sinus tenderness or frontal sinus tenderness. Left Sinus: No maxillary sinus tenderness or frontal sinus tenderness. Mouth/Throat: Pharynx: Uvula midline. Eyes: Conjunctiva/sclera: Conjunctivae normal. Pupils: Pupils are equal, round, and reactive to light. Cardiovascular: Rate and Rhythm: Normal rate and regular rhythm. Heart sounds: Normal heart sounds. Pulmonary: Effort: Pulmonary effort is normal. No respiratory distress. Breath sounds: Normal breath sounds. No wheezing or rales. Musculoskeletal: Cervical back: Normal range of motion and neck supple. Lymphadenopathy: Head: Right side of head: No submental, submandibular, tonsillar, preauricular or posterior auricular adenopathy. Left side of head: No submental, submandibular, tonsillar, preauricular or posterior auricular adenopathy. Skin: General: Skin is warm and dry. Neurological: Mental Status: She is alert and oriented to person, place, and time. History and Record Review External record(s) reviewed: prior labs/imaging. Findings from review of prior labs/imaging: Previous Renal Function Panel Reviewed No results within last 365 days. Management I performed an independent interpretation of the following:imaging Imaging: My interpretation is negative for pneumonia ASSESSMENT/PLAN: 1. Acute cough - ICD9: 786.2, ICD10: R05.1 (primary diagnosis) Miko Morfin 2 every 8 hours, do not combine this with robitussin or delsym - XR CHEST 2V FRONTAL/LAT RESULT: Lines, tubes, and devices: None. Lungs and pleura: Mild central peribronchial cuffing. No consolidation. No lung mass. No pleural effusion. No pneumothorax. Cardiomediastinal silhouette: Normal cardiomediastinal silhouette. Bones and soft tissues: Unremarkable. IMPRESSION: Central peribronchial cuffing which may be seen with small airways inflammation. Interpreted by : JESUS NUNEZ MD 2. URI with cough and congestion - ICD9: 465.9, ICD10: J06.9 - Discussed viral etiology and rationale for treatment. - Symptomatic treatment with prn analgesia - Supportive care with fluids and rest - Delayed rx given for doxycycline to start over the weekend if no improvement or worsening symptoms. When to seek a higher level of care discussed. Diagnosis and treatment plan were discussed and questions were answered to the patient's satisfaction. Pt acknowledged understanding of concepts and follow up plan. Specific signs and symptoms that would indicate the need for higher level of care were discussed in detail warranting prompt ER evaluation. Kortney Johnson APRN.AUXILIARY POWERPLANT OPERATOR [1] Social History Tobacco Use Smoking status: Former Current packs/day: 0.00 Average packs/day: 0.5 packs/day for 4.0 years (2.0 ttl pk-yrs) Types: Cigarettes Start date: 02/18/2014 Quit date: 02/18/2018 Years since quittin.3 Smokeless tobacco: Never Vaping Use Vaping status: Former Substances: Nicotine Devices: Pre-filled or refillable cartridge Substance Use Topics Alcohol use: Yes Alcohol/week: 1.0 standard drink of alcohol Types: 1 Cans of beer per week Drug use: Not Currently Types: Marijuana Kortney Johnson APRN.AUXILIARY POWERPLANT OPERATOR 06/09/2025 9:52 AM Signed No pneumonia on xray Rest, increase water intake Motrin or Tylenol as needed for fever or pain. Salt water gargles, chloraseptic spray or lozenges as needed for sore throat. Warm beverages, honey. Nasal saline spray as needed Cool mist humidifier at night A cold normally lasts 7-10 days. If your symptoms are lasting longer, develop fever, or worsening by that time instead of improving then return to clinic or follow up with PCP for re-evaluation. If no improvement or worsening symptoms start doxycycline as directed Tylenol (generic acetaminophen) 500 mg-2 tabs every 8 hrs. as needed for fever and aches Ibuprofen 600 mg (3-200mg tablets) every 6 hours -Mucinex (generic is fine) Guaifenesin 1200 mg twice daily to help with cough and to thin out mucus Tessalon Perles 1-2 every 8 hours, do not combine this with robitussin or delsym Allergies As of Date: 06/09/2025 Noted Allergy Reaction TREE NUTS 12/16/2019 10 - Anaphylaxis COCONUT 04/18/2023 10 - Anaphylaxis NICKEL 01/27/2016 4 - Hives Date Reviewed: 06/09/2025 Reviewed by: Michell Andrew MA - Fully Assessed Reason for Visit: Cough [28] Cmt: Chest congestion/tightness/pressure, sob, HINOJOSA x 5 days Primary Visit Diagnosis:Acute cough [R05.1] Other Visit Diagnosis:URI with cough and congestion [J06.9] Order(s):XR CHEST 2V FRONTAL/LAT [[id number]] Order #: [id number] FUTURE doxycycline (VIBRA-TABS) 100 mg tabletTake 1 tablet by mouth two times a day for 7 days.Disp: 14 tabletRfl: 0 benzonatate (TESSALON PERLE) 100 mg capsuleTake 2 capsules by mouth three times a day as needed.Disp: 40 capsuleRfl: 0 guaiFENesin (MUCINEX) 600 mg 12 hr tabletTake 2 tablets by mouth two times a day.Disp: 20 tabletRfl: 0 Prescriptions as of 06/09/2025 - doxycycline (VIBRA-TABS) 100 mg tablet Take 1 tablet by mouth two times a day for 7 days. - benzonatate (TESSALON PERLE) 100 mg capsule Take 2 capsules by mouth three times a day as needed. - guaiFENesin (MUCINEX) 600 mg 12 hr tablet Take 2 tablets by mouth two times a day. - valACYclovir (VALTREX) 500 mg tablet Take 1 tablet by mouth once daily. - fluconazole (DIFLUCAN) 150 mg tablet Take 1 tablet by mouth as directed. Take one tablet at beginning of antibiotic and second tablet after you complete the antibiotic. - miSOPROStol (CYTOTEC) 200 mcg tablet Insert 2 tablets vaginally night prior to IUD and 2 tablets morning of procedure. Each dose should be in vagina for 6-8 hours. - metFORMIN ER (GLUCOPHAGE XR) 500 mg 24 hr tablet Take 1 tablet by mouth twice daily with meals. - ergocalciferol 50,000 unit capsule (VITAMIN D2, DRISDOL) Take 1 capsule by mouth one time a week. - buPROPion SR (WELLBUTRIN SR) 150 mg 12 hr tablet Take 1 tablet by mouth twice daily. Problem List As Of Date 06/09/2025 Noted Resolved Goiter [E04.9] 01/27/2016 06/22/2021 Abdominal pain, right lower quadrant [R10.31] 02/07/2018 06/22/2021 Abdominal mass, right lower quadrant [R19.03] 02/07/2018 06/22/2021 Endometrioma [N80.129] 02/07/2018 06/22/2021 Kidney stones [N20.0] 03/11/2018 06/22/2021 Class 3 severe obesity with body mass index (BM*03/11/2018 on oral contraceptive [O09.899, Z79.3]06/22/2021 02/13/2022 complicated by previous recurrent mis*06/22/2021 02/13/2022 with history of section, ant*06/22/2021 02/13/2022 History of goiter [Z86.39] 06/22/2021 History of depression [Z86.59] 06/22/2021 01/02/2023 History of recurrent UTIs [Z87.440] 06/22/2021 History of nicotine vaping [Z87.891] 06/22/2021 Obesity in [O99.210] 06/22/2021 02/13/2022 Family history of congenital heart defect [Z82.*06/22/2021 01/02/2023 Patient request for diagnostic testing [Z01.89] 06/22/2021 02/13/2022 Request for sterilization [Z30.2] 06/22/2021 02/13/2022 PCOS (polycystic ovarian syndrome) [E28.2] 06/22/2021 Elevated glucose [R73.09] 11/23/2021 02/13/2022 Herpes simplex type 2 (HSV-2) infection affecti*12/12/2021 02/13/2022 Metabolic syndrome [E88.810] 01/01/2023 Stress incontinence [N39.3] 01/01/2023 Depression [F32.A] 01/01/2023 Vitamin D deficiency [E55.9] 01/02/2023 Other instructions from your clinician: No pneumonia on xray Rest, increase water intake Motrin or Tylenol as needed for fever or pain. Salt water gargles, chloraseptic spray or lozenges as needed for sore throat. Warm beverages, honey. Nasal saline spray as needed Cool mist humidifier at night A cold normally lasts 7-10 days. If your symptoms are lasting longer, develop fever, or worsening by that time instead of improving then return to clinic or follow up with PCP for re-evaluation. If no improvement or worsening symptoms start doxycycline as directed Tylenol (generic acetaminophen) 500 mg-2 tabs every 8 hrs. as needed for fever and aches Ibuprofen 600 mg (3-200mg tablets) every 6 hours -Mucinex (generic is fine) Guaifenesin 1200 mg twice daily to help with cough and to thin out mucus Tessalon Perles 1-2 every 8 hours, do not combine this with robitussin or delsym Prescriptions ordered this encounter Disp Refills Start End DOXYCYCLINE HYCLATE 100 MG TABLET 14 t* 0 06/09/2025 06/16/2025 Class: Print RX Route: PO Sig: Take 1 tablet by mouth two times a day for 7 days. BENZONATATE 100 MG CAPSULE 40 c* 0 06/09/2025 Route: PO Sig: Take 2 capsules by mouth three times a day as needed. GUAIFENESIN ER 600 MG TABLET, EXTEND* 20 t* 0 06/09/2025 Route: PO Sig: Take 2 tablets by mouth two times a day. Letter Text Encounter Status:Closed by KORTNEY JOHNSON on 06/09/25 [place] Observed: 05/04/2025 2:45 PM Status: COMPLETED Source: [facility] Office Visit ([facility]) LULA HULL ([id number]) 1995 F Date Time Provider Department 05/04/25 2:45 PM KERRY CROCKER During your visit today, we recorded the following information about you: Temperature Pulse Respiration Blood pressure 97.9 degrees 85/minute 17/minute 100/68 Weight 112 kg Kerry Crocker MD 05/04/2025 2:38 PM Signed [facility] [address] [place], [place] [address] Emergency Department Diagnosis: Assessment STY: You have a sty, an infection of one of the tiny glands located on the eyelid. A sty takes several days to develop. It usually forms a small abscess along the edge of the eyelid. The pus that forms in the infected gland must drain for the sty to heal. A sty is treated by applying warm moist compresses to the eye for 15 minutes three times daily until it drains and the swelling and redness are gone. Some sties require surgical drainage. Antibiotic eye drops may be needed if the infection spreads to other areas of the eye. Please see your doctor if your eye is not better after 3 days of treatment. Return immediately of see your doctor for any fever or loss of vision. Kerry Crocker MD 05/04/2025 2:46 PM Signed [facility] Subjective Lula Hull is a 30 year old female. Patient presents with: Eye Problem: Right eye redness, swelling, pain Pt here with right upper eyelid swelling and redness x 1 day no vision changes no neck pain no HINOJOSA no discharge no injury Eye Problem Pertinent negatives include no fatigue, fever, headaches, nausea or neck pain. Review of Systems Constitutional: Negative for fatigue and fever. Eyes: Positive for pain and redness. Negative for photophobia and visual disturbance. Gastrointestinal: Negative for nausea. Musculoskeletal: Negative for neck pain. Neurological: Negative for dizziness and headaches. Objective BP 100/68 Pulse 85 Temp 36.6 ?C (97.9 ?F) Resp 17 Wt 112 kg (246 lb 14.6 oz) LMP 04/29/2024 (Exact Date) SpO2 97% BMI 43.74 kg/m? Physical Exam Vitals and nursing note reviewed. Constitutional: Appearance: Normal appearance. She is not ill-appearing. Eyes: General: Right eye: No discharge. Left eye: No discharge. Extraocular Movements: Extraocular movements intact. Conjunctiva/sclera: Conjunctivae normal. Pupils: Pupils are equal, round, and reactive to light. Comments: Right upper eyelid mild swelling and redness no abscess palpated fundus normal Neurological: Mental Status: She is alert and oriented to person, place, and time. Psychiatric: Mood and Affect: Mood normal. Behavior: Behavior normal. {ASSESSMENT/PLAN: 1. Hordeolum internum of right upper eyelid - ICD9: 373.12, ICD10: H00.021 Warm compress and drops return here as needed - POLYMYXIN B SULFATE 10,000 UNIT-TRIMETHOPRIM 1 MG/ML EYE DROPS Kerry Crocker MD Differential Diagnoses - hordeolum is more likely for the following reason(s): exam positive, suggested by HANDP - conjunctivitis is less likely for the following reason(s): normal conjunctiva, HANDP not suggestive Disposition The patient was discharged. Procedures Allergies As of Date: 05/04/2025 Noted Allergy Reaction TREE NUTS 12/16/2019 10 - Anaphylaxis COCONUT 04/18/2023 10 - Anaphylaxis NICKEL 01/27/2016 4 - Hives Date Reviewed: 05/04/2025 Reviewed by: Michell Andrew MA - Fully Assessed Reason for Visit: Eye Problem [43] Cmt: Right eye redness, swelling, pain Primary Visit Diagnosis:Hordeolum internum of right upper eyelid [H00.021] Order(s):polymyxin B-trimethoprim (POLYTRIM) 10,000 unit- 1 mg/mL ophthalmic solutionUse 1 drop in the right eye three times a day for 5 days.Disp: 5 mLRfl: 0 Prescriptions as of 05/04/2025 - polymyxin B-trimethoprim (POLYTRIM) 10,000 unit- 1 mg/mL ophthalmic solution Use 1 drop in the right eye three times a day for 5 days. - valACYclovir (VALTREX) 500 mg tablet Take 1 tablet by mouth once daily. - fluconazole (DIFLUCAN) 150 mg tablet Take 1 tablet by mouth as directed. Take one tablet at beginning of antibiotic and second tablet after you complete the antibiotic. - miSOPROStol (CYTOTEC) 200 mcg tablet Insert 2 tablets vaginally night prior to IUD and 2 tablets morning of procedure. Each dose should be in vagina for 6-8 hours. - metFORMIN ER (GLUCOPHAGE XR) 500 mg 24 hr tablet Take 1 tablet by mouth twice daily with meals. - ergocalciferol 50,000 unit capsule (VITAMIN D2, DRISDOL) Take 1 capsule by mouth one time a week. - buPROPion SR (WELLBUTRIN SR) 150 mg 12 hr tablet Take 1 tablet by mouth twice daily. Problem List As Of Date 05/04/2025 Noted Resolved Goiter [E04.9] 01/27/2016 06/22/2021 Abdominal pain, right lower quadrant [R10.31] 02/07/2018 06/22/2021 Abdominal mass, right lower quadrant [R19.03] 02/07/2018 06/22/2021 Endometrioma [N80.129] 02/07/2018 06/22/2021 Kidney stones [N20.0] 03/11/2018 06/22/2021 Class 3 severe obesity with body mass index (BM*03/11/2018 on oral contraceptive [O09.899, Z79.3]06/22/2021 02/13/2022 complicated by previous recurrent mis*06/22/2021 02/13/2022 with history of section, ant*06/22/2021 02/13/2022 History of goiter [Z86.39] 06/22/2021 History of depression [Z86.59] 06/22/2021 01/02/2023 History of recurrent UTIs [Z87.440] 06/22/2021 History of nicotine vaping [Z87.891] 06/22/2021 Obesity in [O99.210] 06/22/2021 02/13/2022 Family history of congenital heart defect [Z82.*06/22/2021 01/02/2023 Patient request for diagnostic testing [Z01.89] 06/22/2021 02/13/2022 Request for sterilization [Z30.2] 06/22/2021 02/13/2022 PCOS (polycystic ovarian syndrome) [E28.2] 06/22/2021 Elevated glucose [R73.09] 11/23/2021 02/13/2022 Herpes simplex type 2 (HSV-2) infection affecti*12/12/2021 02/13/2022 Metabolic syndrome [E88.810] 01/01/2023 Stress incontinence [N39.3] 01/01/2023 Depression [F32.A] 01/01/2023 Vitamin D deficiency [E55.9] 01/02/2023 Other instructions from your clinician: [facility] [address] [place], [place] [address] Emergency Department Diagnosis: Assessment STY: You have a sty, an infection of one of the tiny glands located on the eyelid. A sty takes several days to develop. It usually forms a small abscess along the edge of the eyelid. The pus that forms in the infected gland must drain for the sty to heal. A sty is treated by applying warm moist compresses to the eye for 15 minutes three times daily until it drains and the swelling and redness are gone. Some sties require surgical drainage. Antibiotic eye drops may be needed if the infection spreads to other areas of the eye. Please see your doctor if your eye is not better after 3 days of treatment. Return immediately of see your doctor for any fever or loss of vision. Prescriptions ordered this encounter Disp Refills Start End POLYMYXIN B SULFATE 10,000 UNIT-TRIM* 5 mL 0 05/04/2025 05/09/2025 Route: OD Sig: Use 1 drop in the right eye three times a day for 5 days. Level of Service: OFFICE/OUTPATIENT ESTABLISHED MOD MDM 30 MIN [56026] Encounter Status:Closed by KERRY CROCKER on 05/04/25 PROGRESS Observed: 05/04/2025 2:38 PM Status: COMPLETED Source: [facility] HNO ID: [id number] Author: KERRY CROCKER MD Service: ? Author Type: Physician Type: Progress Notes Filed: 05/04/2025 14:46 Note Text: [facility] Dobbins Lula Hull is a 30 year old female. Patient presents with: Eye Problem: Right eye redness, swelling, pain Pt here with right upper eyelid swelling and redness x 1 day no vision changes no neck pain no HINOJOSA no discharge no injury Eye Problem Pertinent negatives include no fatigue, fever, headaches, nausea or neck pain. Review of Systems Constitutional: Negative for fatigue and fever. Eyes: Positive for pain and redness. Negative for photophobia and visual disturbance. Gastrointestinal: Negative for nausea. Musculoskeletal: Negative for neck pain. Neurological: Negative for dizziness and headaches. Objective BP 100/68 Pulse 85 Temp 36.6 ?C (97.9 ?F) Resp 17 Wt 112 kg (246 lb 14.6 oz) LMP 04/29/2024 (Exact Date) SpO2 97% BMI 43.74 kg/m? Physical Exam Vitals and nursing note reviewed. Constitutional: Appearance: Normal appearance. She is not ill-appearing. Eyes: General: Right eye: No discharge. Left eye: No discharge. Extraocular Movements: Extraocular movements intact. Conjunctiva/sclera: Conjunctivae normal. Pupils: Pupils are equal, round, and reactive to light. Comments: Right upper eyelid mild swelling and redness no abscess palpated fundus normal Neurological: Mental Status: She is alert and oriented to person, place, and time. Psychiatric: Mood and Affect: Mood normal. Behavior: Behavior normal. {ASSESSMENT/PLAN: 1. Hordeolum internum of right upper eyelid - ICD9: 373.12, ICD10: H00.021 Warm compress and drops return here as needed - POLYMYXIN B SULFATE 10,000 UNIT-TRIMETHOPRIM 1 MG/ML EYE DROPS Kerry Crocker MD Differential Diagnoses - hordeolum is more likely for the following reason(s): exam positive, suggested by HANDP - conjunctivitis is less likely for the following reason(s): normal conjunctiva, HANDP not suggestive Disposition The patient was discharged. Procedures XR SACRUM/COCCYX 3V AP/LAT Observed: 2:39 PM Status: F Source: [facility] * * *Final Report* * * DATE OF EXAM: Jan 06 2025 2:39PM WOX [id number] - XR SACRUM/COCCYX 3V AP/LAT / PROCEDURE REASON: multiple diagnoses * * * * Physician Interpretation * * * * EXAM(s): XR SACRUM/COCCYX 3V AP/LAT..... HISTORY: 29 years old Clinical information: Chronic bilateral low back pain with right-sided sciatica Chronic bilateral low back pain with right-sided sciatica SI (sacroiliac) pain chronic back pain and is affecting her everyday life now, pain is right lower posterior hip next to sacral area no inj TECHNIQUE: Images: XR SACRUM/COCCYX 3V AP/LAT Comparison: None RESULT: Findings: The sacrum is intact, without evidence of fracture. The sacrococcygeal joint is normally aligned.. No osteolytic or sclerotic sacral lesions identified. L5-S1 joint appears normal. Pelvic phleboliths noted. SI joints appear unremarkable. IMPRESSION: No acute abnormality Mortgage Loan Reviewer: [facility] Transcribe Date/Time: Jan 08 2025 7:12P Dictated by : SUSHIL SCHMITZ MD This examination was interpreted and the report reviewed and electronically signed by: SUSHIL SCHMITZ MD on Jan 08 2025 7:14PM EST [id number] XR LUMBAR 3V AP/LAT/L5-S1 Observed: 12/13 2:39 PM Status: F Source: [facility] * * *Final Report* * * DATE OF EXAM: Jan 06 2025 2:39PM WOX [id number] - XR LUMBAR 3V AP/LAT/L5-S1 / PROCEDURE REASON: multiple diagnoses * * * * Physician Interpretation * * * * EXAM TITLE: XR LUMBAR 3V AP/LAT/L5-S1 EXAM DATE/TIME: 01/06/2025 2:39 PM COMPARISON: None. CLINICAL INDICATION/HISTORY: Low back pain. TECHNIQUE: AP, lateral and cone down lateral views of the lumbar spine are presented. FINDINGS: There are five inr-dyx-rtlmlxr lumbar vertebrae. No fracture or subluxations are noted. The disc spaces are grossly preserved. There is no significant osteophyte formation. IMPRESSION: Unremarkable lumbar spine X-ray. Mortgage Loan Reviewer: [facility] Transcribe Date/Time: Jan 08 2025 4:56P Dictated by : DENNISE SHAIKH MD This examination was interpreted and the report reviewed and electronically signed by: DENNISE SHAIKH MD on Jan 08 2025 4:57PM EST [id number] PROGRESS Observed: 01/06/2025 2:30 PM Status: COMPLETED Source: [facility] HNO ID: [id number] Author: JAN AGUILERA RT(R) Service: Radiology Author Type: Technologist Type: Progress Notes Filed: 01/06/2025 14:39 Note Text: Radiology Service Progress Note PATIENT NAME: Lula Hull DATE OF SERVICE: January 06, 2025 TIME: 2:27 PM PATIENT IDENTITY VERIFICATION COMPLETED USING TWO (2) IDENTIFIERS: Name and Date of confirmed by patient verbally. FALL SCREENING: Has the patient had 2 falls in the last year or 1 fall with injury or currently using an Ambulatory Assistive Device (Walker, Cane, Wheelchair, Crutches, etc.)? No PATIENT GENDER DATA: Assigned female at . status: : No status: NO. PATIENT RELEVANT IMPLANT DATA REVIEWED: Not Applicable PATIENT PRESENTS WITH AN IMPLANTABLE OR ATTACHED WEB CONTENT EDITOR: No RADIOLOGY DEPARTMENT: General X-ray: Exam(s) Completed: Spine X-Ray(s): Lumbar AP / LAT / L5-S1 and Sacrum/Coccyx PERIPHERAL IV DATA: Not applicable SIGNED BY: RT Conrado(R) January 06, 2025 2:27 PM PROGRESS Observed: 01/06/2025 12:45 PM Status: COMPLETED Source: [facility] HNO ID: [id number] Author: EROS CORTES APRN.AUXILIARY POWERPLANT OPERATOR Service: ? Author Type: Nurse Practitioner Type: Progress Notes Filed: 01/06/2025 13:07 Note Text: [facility] Low Back Pain - Chronic (> 12 weeks) Initial Exam SUBJECTIVE HISTORY OF PRESENT ILLNESS: Lula Hull is a 29 year old female who presents with a chief complaint of low back and leg pain and is self-referred. Patient presents with low back and leg pain x 2 years. Denies accident/injury. She states that symptoms began when she began an exercise and weight loss program. She states that she does not attribute any certain exercise or movement to being in the cause of current symptoms. 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 Vape- Cessation reviewed and encouraged Former smoker - Quit 2017 Pain localized to Bilateral low back waist line and SI Pain described as sharp, throbbing, aching, numbness, tingling Radiation: RLE - posterior to midthigh Numbness/Tingling: Back and RLE - entirely after sitting and laying for prolonged periods Bowel/Bladder dysfunction:Denies Balance problems/falls: Denies Pain 8/10 Pain worse with bending, doing dishes, playing with 2 year old son, anything that requires me not to be sitting down, sitting for prolonged periods of time. Pain improved with chiropractor, heat, muscle roller , flexeril for a short period of time. Interventions: Chiropractor weekly since September - adjustments only, standing desk , heat, muscle roller, Medications: Tylenol, Ibuprofen Past medications: Flexeril, Naltrexone, lidocaine patches, icy hot Physical Therapy: None Treating Physicians: No PCP History of Spine Injections/Surgery: None Other Issues Addressed at the Visit Today: None. Precipitating Event: None PAIN EVALUATION 01/05/2025195501/06/2025 1230 Pain Level: 8 8 Pain Location: -- Back-Lower radiates to R leg Description: Aching;Cramping;Numbness;Pressure;Pulsating;Radiating;Shooting;Stabbing;Stiffnes s;Tenderness;Throbbing;Tightness Sharp;Throbbing;Aching;Numbness Duration Amount of Time: 2 -- Duration Units: Years Years getting worse Frequency: Continuous Continuous Intervention/Comfort measure: Medication;Relaxation;Cold;Distractions;EmotionalSupport/Reassurance;Exercise;He at;Massage;Pillow support;Positioning -- Comments: -- Tylenol Litigation: No Workers' Compensation: No YELLOW AND BLUE FLAGS YES-Neg Attitude; Back Pain is Disabling YES-Avoiding Activity (for Fear of Pain) No-Depression or Anxiety Disorders No-Social Problems No-Substance Use Disorder No-Job Dissatisfaction No-Financial Disincentives Patient Entered Questionnaires PROMIS Score Percentiles 04/11/2021 PROMIS Global Health Scale Physical Health Percentile 15 Mental Health Percentile 19* Percentiles provide an indication of how the patient's score ranks in relation to the general population. Higher percentile rankings indicate better function/quality of life. 50th percentile is the average of the general population and indicates half of respondents had a worse score. Depression Screening: PHQ-9 Self-Harm (Item 9) response options: 0 Not at all 1 Several days 2 More than half the days 3 Nearly every day PHQ-9 Levels: 0-4 No - mild depression 5-9 Mild depression 10-14 Moderate depression 15-19 Moderately severe depression 20-27 Severe depression ACTIVE PROBLEM LIST Class 3 Severe Obesity With Body Mass Index (Bmi) of 40.0 to 44.9 in Adult (Hcc) History of Goiter History of Recurrent Utis History of Nicotine Vaping Pcos (Polycystic Ovarian Syndrome) Metabolic Syndrome Stress Incontinence Depression Vitamin D Deficiency PAST MEDICAL HISTORY Diagnosis Date Depression Diabetes, gestational Endometriosis 2018 endometrioma removed Goiter 01/27/2016 Herpes simplex type 2 (HSV-2) infection affecting , antepartum, unspecified trimester 12/12/2021 Intractable migraine with aura Kidney stones 03/11/2018 Mental disorder Ovarian torsion 09/18/2020 right PCOS (polycystic ovarian syndrome) depression hemorrhage Recurrent UTI PAST SURGICAL HISTORY Procedure Laterality Date SECTION HX 2021, 2011,2009 HERNIA REPAIR HX 03/12/2018 ventral hernia repair Mata OTHER 12/2017 laparotomy with removal of endometriosis implants PAST SURGICAL HISTORY OF 09/18/2020 right ovarian torsion-had right ovarian cystectomy SALPINGECTOMY Bilateral 02/01/2022 Social History Tobacco Use Smoking status: Former Current packs/day: 0.00 Average packs/day: 0.5 packs/day for 4.0 years (2.0 ttl pk-yrs) Types: Cigarettes Start date: 02/18/2014 Quit date: 02/18/2018 Years since quittin.8 Smokeless tobacco: Never Vaping Use Vaping status: Former Substances: Nicotine Devices: Pre-filled or refillable cartridge Substance Use Topics Alcohol use: Yes Alcohol/week: 1.0 standard drink of alcohol Types: 1 Cans of beer per week Drug use: Not Currently Types: Marijuana FAMILY HISTORY Problem Relation Age of Onset Cancer Mother 49 SCC lung cancer GI Mother PUD Thyroid Father No Known Problems Sister Infertility Sister Breast Cancer Maternal Grandmother other (black lung disease) Maternal Grandfather Diabetes Paternal Grandmother No Known Problems Paternal Grandfather No Known Problems Son No Known Problems Daughter ALLERGIES Allergen Reactions Tree Nuts Anaphylaxis Coconut Anaphylaxis Nickel Hives CURRENT MEDICATIONS: fluconazole (DIFLUCAN) 150 mg tablet Take 1 tablet by mouth as directed. Take one tablet at beginning of antibiotic and second tablet after you complete the antibiotic. (Patient not taking: Reported on 11/27/2024) miSOPROStol (CYTOTEC) 200 mcg tablet Insert 2 tablets vaginally night prior to IUD and 2 tablets morning of procedure. Each dose should be in vagina for 6-8 hours. (Patient not taking: Reported on 11/27/2024) metFORMIN ER (GLUCOPHAGE XR) 500 mg 24 hr tablet Take 1 tablet by mouth twice daily with meals. (Patient not taking: Reported on 11/27/2024) ergocalciferol 50,000 unit capsule (VITAMIN D2, DRISDOL) Take 1 capsule by mouth one time a week. (Patient not taking: Reported on 11/27/2024) buPROPion SR (WELLBUTRIN SR) 150 mg 12 hr tablet Take 1 tablet by mouth twice daily. (Patient not taking: Reported on 11/27/2024) REVIEW OF SYSTEMS: PAIN ASSESSMENT: See HPI. GENERAL: Denies fever, chills malaise and weight loss. HEENT: No recent change in vision or hearing. CARDIOVASCULAR: Denies chest pain, history of A-fib, valvular disease, or pacemaker/ICD. RESPIRATORY: Denies SOB, sputum production, and hemoptysis. GI: Denies GI ulcers, inflammatory disease, or liver disease. : Denies change in frequency or urgency, kidney disease, and burning with urination. MUSCULOSKELETAL: Positive for See HPI SKIN: Denies rash or itching. PSYCHOLOGICAL: Depression and Anxiety - sees a counselor NEURO: Numbness ENDOCRINE: PCOS HEMATOLOGY/LYMPHOLOGY: Denies cancer, bleeding or clotting disorders, anemia,and DVT's. ALLERGIC/IMMUNOLOGICAL: Denies risks for infection, or recent MRSA infections. OBJECTIVE: PHYSICAL EXAM Ht 160 cm (5' 3) Wt 111 kg (244 lb 11.4 oz) LMP 04/29/2024 (Exact Date) BMI 43.35 kg/m? GENERAL APPEARANCE: overweight/obese SKIN: Head, neck, trunk, and extremities dry, intact and without lesions LUNGS: even and non-labored breathing, normal chest excursion NEURO/PSYCH: oriented to time, place, and person, speech normal, mental status intact GAIT: normal, toe walking normal, heel walking normal, able to tandem gait POSTURE: Posture and spinal curves are normal PALPATION: no palpable masses, tenderness, or spasm, no palpable subluxation or step-off, no point tenderness over the spine MUSCULOSKELETAL: Extended Low Back AND Leg Exam Lumbar Range of Motion Flexion To knees Extension Normal With pain RIGHT LEFT Lateral Bending Full Full Oblique Extension Within Normal Limits Within Normal Limits Leg Raise Straight Leg Raise Caused low back pain Caused low back pain Contralateral Straight Leg Raise Negative Negative DTRs Knee Normal Normal Ankle Normal Normal Babinski normal normal Strength of Lower Extremities Extensor Hallux Longus 5/5 5/5 Ankle Dorsiflexion 5/5 5/5 Ankle Plantarflexion 5/5 5/5 Knee Extension 5/5 5/5 Theodore's Exam: Deferred Hip Range of Motion RIGHT LEFT Flexion Normal Normal Extension Normal Normal Abduction Normal Normal Adduction Normal Normal Internal Rotation Normal Normal External Rotation Normal Normal Hip Exam RIGHT LEFT LEYLA Exam Caused low back pain Caused low back pain Trochanteric Bursa Tenderness Normal Normal Gaenslen's Maneuver Normal Normal Martine's Test (IT-Band Pathology) Caused low back pain Caused low back pain @[id number]@ Cervical Range of Motion Flexion Normal Extension Normal Upper Body Reflex Exam RIGHT LEFT Reflex Status Reflex Status Biceps 2+ Normal 2+ Normal Brachioradialis 2+ Normal 2+ Normal Sorto's Sign absent absent Upper Extremity Strength RIGHT LEFT Strength (MMT) Strength (MMT) Shoulder Abduction 5/5 5/5 Biceps 5/5 5/5 Triceps 5/5 5/5 Resisted Suppination 5/5 5/5 Wrist Extension 5/5 5/5 Interossei 5/5 5/5 NEUROSENSORY: Soft touch; Within Normal Limits Logroll: Negative Thigh thrust: Negative Neto test caused low back pain bilaterally Mansi Finger test: Positive bilaterally Prone extension : Negative Neuro Tests: None Data Review: [facility] records independently reviewed Outside XR films reviewed Hemoglobin A1C (%) Date Value 12/31/2022 5.5 04/11/2021 5.3 She brought in x-ray lumbar spine imaging from September 2024. Imaging was completed at chiropractor and is on film not disc. Quality of films provided limited evaluation of spine. Spondylosis noted, no fractures. ASSESSMENT/PLAN Chronic bilateral low back pain with right-sided sciatica (primary encounter diagnosis) Si (sacroiliac) pain Lula Hull is a 29 year old female with chronic low back , SI , and leg pain. HX: PCOS, anxiety, depression. X-ray lumbar spine and sacrum orders placed for further evaluation and treatment considerations. She has not attended physical therapy in regards to current symptoms. She was educated on benefits of physical therapy and consultation order was placed. She is encouraged to establish with primary care provider for healthcare maintenance. Medications indicated for use reviewed, no changes made to current regimen. Plan of care, red flag signs, when to seek emergent treatment reviewed. 1. Imaging: X-ray lumbar and sacrum 2. Physical Therapy: Consult to 3. Medication: No changes 4. Referrals: PT 5. Considerations: MRI lumbar spine, gabapentin trial 6. Follow up: 3 months or upon completion of 6 to 8 weeks of physical therapy. I spent a total of 35 minutes on the date of the service which included preparing to see the patient, [id number] patient care, completing clinical documentation, obtaining and/or reviewing separately obtained history, performing a medically appropriate examination, counseling and educating the patient/family/caregiver, ordering medications, tests, or procedures, and communicating results to the patient/family/caregiver. Imaging Ordered: None SIGNATURE: Eros Cortes APRN.CNP PATIENT NAME: Lula Hull DATE:January 06, 2025 TIME: 12:26 PM CNOV Observed: 01/06/2025 12:45 PM Status: COMPLETED Source: [facility] JOHNLULA ([id number]) 1995 F Date Time Provider Department 01/06/25 12:45 PM EROS CORTES [facility] During your visit today, we recorded the following information about you: Weight Height 111 kg 1.6 m Eros Cortes APRN.CNP 01/06/2025 1:07 PM Signed [facility] Low Back Pain - Chronic (> 12 weeks) Initial Exam SUBJECTIVE HISTORY OF PRESENT ILLNESS: Lula Hull is a 29 year old female who presents with a chief complaint of low back and leg pain and is self-referred. Patient presents with low back and leg pain x 2 years. Denies accident/injury. She states that symptoms began when she began an exercise and weight loss program. She states that she does not attribute any certain exercise or movement to being in the cause of current symptoms. 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 Vape- Cessation reviewed and encouraged Former smoker - Quit 2018 Pain localized to Bilateral low back waist line and SI Pain described as sharp, throbbing, aching, numbness, tingling Radiation: RLE - posterior to midthigh Numbness/Tingling: Back and RLE - entirely after sitting and laying for prolonged periods Bowel/Bladder dysfunction:Denies Balance problems/falls: Denies Pain 8/10 Pain worse with bending, doing dishes, playing with 2 year old son, anything that requires me not to be sitting down, sitting for prolonged periods of time. Pain improved with chiropractor, heat, muscle roller , flexeril for a short period of time. Interventions: Chiropractor weekly since September - adjustments only, standing desk , heat, muscle roller, Medications: Tylenol, Ibuprofen Past medications: Flexeril, Naltrexone, lidocaine patches, icy hot Physical Therapy: None Treating Physicians: No PCP History of Spine Injections/Surgery: None Other Issues Addressed at the Visit Today: None. Precipitating Event: None PAIN EVALUATION 01/05/2025195501/06/2025 1230 Pain Level: 8 8 Pain Location: -- Back-Lower radiates to R leg Description: Aching;Cramping;Numbness;Pressure;Pulsating;Radiating;Shooting;Stabbing; Stiffness;Tenderness;Throbbing;Tightness Sharp;Throbbing;Aching;Numbness Duration Amount of Time: 2 -- Duration Units: Years Years getting worse Frequency: Continuous Continuous Intervention/Comfort measure: Medication;Relaxation;Cold;Distractions;Emotional Support/Reassurance;Exercise;Heat;Massage;Pillow support;Positioning -- Comments: -- Tylenol Litigation: No Workers' Compensation: No YELLOW AND BLUE FLAGS YES-Neg Attitude; Back Pain is Disabling YES-Avoiding Activity (for Fear of Pain) No-Depression or Anxiety Disorders No-Social Problems No-Substance Use Disorder No-Job Dissatisfaction No-Financial Disincentives Patient Entered Questionnaires PROMIS Score Percentiles 04/11/2021 PROMIS Global Health Scale Physical Health Percentile 15 Mental Health Percentile 19* Percentiles provide an indication of how the patient's score ranks in relation to the general population. Higher percentile rankings indicate better function/quality of life. 50th percentile is the average of the general population and indicates half of respondents had a worse score. Depression Screening: PHQ-9 Self-Harm (Item 9) response options: 0 Not at all 1 Several days 2 More than half the days 3 Nearly every day PHQ-9 Levels: 0-4 No - mild depression 5-9 Mild depression 10-14 Moderate depression 15-19 Moderately severe depression 20-27 Severe depression ACTIVE PROBLEM LIST Class 3 Severe Obesity With Body Mass Index (Bmi) of 40.0 to 44.9 in Adult ([facility]) History of Goiter History of Recurrent Utis History of Nicotine Vaping Pcos (Polycystic Ovarian Syndrome) Metabolic Syndrome Stress Incontinence Depression Vitamin D Deficiency PAST MEDICAL HISTORY Diagnosis Date Depression Diabetes, gestational Endometriosis 2018 endometrioma removed Goiter 01/27/2016 Herpes simplex type 2 (HSV-2) infection affecting , antepartum, unspecified trimester 12/12/2021 Intractable migraine with aura Kidney stones 03/11/2018 Mental disorder Ovarian torsion 09/18/2020 right PCOS (polycystic ovarian syndrome) depression hemorrhage Recurrent UTI PAST SURGICAL HISTORY Procedure Laterality Date SECTION HX 2021, 2011,2009 HERNIA REPAIR HX 03/12/2018 ventral hernia repair Mata OTHER 12/2017 laparotomy with removal of endometriosis implants PAST SURGICAL HISTORY OF 09/18/2020 right ovarian torsion-had right ovarian cystectomy SALPINGECTOMY Bilateral 02/01/2022 Social History Tobacco Use Smoking status: Former Current packs/day: 0.00 Average packs/day: 0.5 packs/day for 4.0 years (2.0 ttl pk-yrs) Types: Cigarettes Start date: 02/18/2014 Quit date: 02/18/2018 Years since quittin.8 Smokeless tobacco: Never Vaping Use Vaping status: Former Substances: Nicotine Devices: Pre-filled or refillable cartridge Substance Use Topics Alcohol use: Yes Alcohol/week: 1.0 standard drink of alcohol Types: 1 Cans of beer per week Drug use: Not Currently Types: Marijuana FAMILY HISTORY Problem Relation Age of Onset Cancer Mother 49 SCC lung cancer GI Mother PUD Thyroid Father No Known Problems Sister Infertility Sister Breast Cancer Maternal Grandmother other (black lung disease) Maternal Grandfather Diabetes Paternal Grandmother No Known Problems Paternal Grandfather No Known Problems Son No Known Problems Daughter ALLERGIES Allergen Reactions Tree Nuts Anaphylaxis Coconut Anaphylaxis Nickel Hives CURRENT MEDICATIONS: fluconazole (DIFLUCAN) 150 mg tablet Take 1 tablet by mouth as directed. Take one tablet at beginning of antibiotic and second tablet after you complete the antibiotic. (Patient not taking: Reported on 11/27/2024) miSOPROStol (CYTOTEC) 200 mcg tablet Insert 2 tablets vaginally night prior to IUD and 2 tablets morning of procedure. Each dose should be in vagina for 6-8 hours. (Patient not taking: Reported on 11/27/2024) metFORMIN ER (GLUCOPHAGE XR) 500 mg 24 hr tablet Take 1 tablet by mouth twice daily with meals. (Patient not taking: Reported on 11/27/2024) ergocalciferol 50,000 unit capsule (VITAMIN D2, DRISDOL) Take 1 capsule by mouth one time a week. (Patient not taking: Reported on 11/27/2024) buPROPion SR (WELLBUTRIN SR) 150 mg 12 hr tablet Take 1 tablet by mouth twice daily. (Patient not taking: Reported on 11/27/2024) REVIEW OF SYSTEMS: PAIN ASSESSMENT: See HPI. GENERAL: Denies fever, chills malaise and weight loss. HEENT: No recent change in vision or hearing. CARDIOVASCULAR: Denies chest pain, history of A-fib, valvular disease, or pacemaker/ICD. RESPIRATORY: Denies SOB, sputum production, and hemoptysis. GI: Denies GI ulcers, inflammatory disease, or liver disease. : Denies change in frequency or urgency, kidney disease, and burning with urination. MUSCULOSKELETAL: Positive for See HPI SKIN: Denies rash or itching. PSYCHOLOGICAL: Depression and Anxiety - sees a counselor NEURO: Numbness ENDOCRINE: PCOS HEMATOLOGY/LYMPHOLOGY: Denies cancer, bleeding or clotting disorders, anemia,and DVT's. ALLERGIC/IMMUNOLOGICAL: Denies risks for infection, or recent MRSA infections. OBJECTIVE: PHYSICAL EXAM Ht 160 cm (5' 3) Wt 111 kg (244 lb 11.4 oz) LMP 04/29/2024 (Exact Date) BMI 43.35 kg/m? GENERAL APPEARANCE: overweight/obese SKIN: Head, neck, trunk, and extremities dry, intact and without lesions LUNGS: even and non-labored breathing, normal chest excursion NEURO/PSYCH: oriented to time, place, and person, speech normal, mental status intact GAIT: normal, toe walking normal, heel walking normal, able to tandem gait POSTURE: Posture and spinal curves are normal PALPATION: no palpable masses, tenderness, or spasm, no palpable subluxation or step-off, no point tenderness over the spine MUSCULOSKELETAL: Extended Low Back AND Leg Exam Lumbar Range of Motion Flexion To knees Extension Normal With pain RIGHT LEFT Lateral Bending Full Full Oblique Extension Within Normal Limits Within Normal Limits Leg Raise Straight Leg Raise Caused low back pain Caused low back pain Contralateral Straight Leg Raise Negative Negative DTRs Knee Normal Normal Ankle Normal Normal Babinski normal normal Strength of Lower Extremities Extensor Hallux Longus 5/5 5/5 Ankle Dorsiflexion 5/5 5/5 Ankle Plantarflexion 5/5 5/5 Knee Extension 5/5 5/5 Theodore's Exam: Deferred Hip Range of Motion RIGHT LEFT Flexion Normal Normal Extension Normal Normal Abduction Normal Normal Adduction Normal Normal Internal Rotation Normal Normal External Rotation Normal Normal Hip Exam RIGHT LEFT LEYLA Exam Caused low back pain Caused low back pain Trochanteric Bursa Tenderness Normal Normal Gaenslen's Maneuver Normal Normal Martine's Test (IT-Band Pathology) Caused low back pain Caused low back pain @[id number]@ Cervical Range of Motion Flexion Normal Extension Normal Upper Body Reflex Exam RIGHT LEFT Reflex Status Reflex Status Biceps 2+ Normal 2+ Normal Brachioradialis 2+ Normal 2+ Normal Sorto's Sign absent absent Upper Extremity Strength RIGHT LEFT Strength (MMT) Strength (MMT) Shoulder Abduction 5/5 5/5 Biceps 5/5 5/5 Triceps 5/5 5/5 Resisted Suppination 5/5 5/5 Wrist Extension 5/5 5/5 Interossei 5/5 5/5 NEUROSENSORY: Soft touch; Within Normal Limits Logroll: Negative Thigh thrust: Negative Neto test caused low back pain bilaterally Mansi Finger test: Positive bilaterally Prone extension : Negative Neuro Tests: None Data Review: [facility] records independently reviewed Outside XR films reviewed Hemoglobin A1C (%) Date Value 12/31/2022 5.5 04/11/2021 5.3 She brought in x-ray lumbar spine imaging from September 2024. Imaging was completed at chiropractor and is on film not disc. Quality of films provided limited evaluation of spine. Spondylosis noted, no fractures. ASSESSMENT/PLAN Chronic bilateral low back pain with right-sided sciatica (primary encounter diagnosis) Si (sacroiliac) pain Lula Hull is a 29 year old female with chronic low back , SI , and leg pain. HX: PCOS, anxiety, depression. X-ray lumbar spine and sacrum orders placed for further evaluation and treatment considerations. She has not attended physical therapy in regards to current symptoms. She was educated on benefits of physical therapy and consultation order was placed. She is encouraged to establish with primary care provider for healthcare maintenance. Medications indicated for use reviewed, no changes made to current regimen. Plan of care, red flag signs, when to seek emergent treatment reviewed. 1. Imaging: X-ray lumbar and sacrum 2. Physical Therapy: Consult to 3. Medication: No changes 4. Referrals: PT 5. Considerations: MRI lumbar spine, gabapentin trial 6. Follow up: 3 months or upon completion of 6 to 8 weeks of physical therapy. I spent a total of 35 minutes on the date of the service which included preparing to see the patient, [id number] patient care, completing clinical documentation, obtaining and/or reviewing separately obtained history, performing a medically appropriate examination, counseling and educating the patient/family/caregiver, ordering medications, tests, or procedures, and communicating results to the patient/family/caregiver. Imaging Ordered: None SIGNATURE: Eros Cortes APRN.CNP PATIENT NAME: Lula Hull DATE:January 06, 2025 TIME: 12:26 PM Allergies As of Date: 01/06/2025 Noted Allergy Reaction TREE NUTS 12/16/2019 10 - Anaphylaxis COCONUT 04/18/2023 10 - Anaphylaxis NICKEL 01/27/2016 4 - Hives Date Reviewed: 01/06/2025 Reviewed by: Tone Lombardo LPN - Fully Assessed Reason for Visit: New Patient [172] Cmt: Low back and leg pain Primary Visit Diagnosis:Chronic bilateral low back pain with right-sided sciatica [M54.41, G89.29] Other Visit Diagnosis:SI (sacroiliac) pain [M53.3] Order(s):XR LUMBAR GENERAL 3V AP/LAT/L5-S1 [[id number]] Order #: [id number] FUTURE XR SACRUM/COCCYX 3V AP/LAT [[id number]] Order #: [id number] FUTURE CONSULT TO PHYSICAL THERAPY [9032] Order #: [id number]: 1 FUTURE Prescriptions as of 01/06/2025 - fluconazole (DIFLUCAN) 150 mg tablet Take 1 tablet by mouth as directed. Take one tablet at beginning of antibiotic and second tablet after you complete the antibiotic. - miSOPROStol (CYTOTEC) 200 mcg tablet Insert 2 tablets vaginally night prior to IUD and 2 tablets morning of procedure. Each dose should be in vagina for 6-8 hours. - metFORMIN ER (GLUCOPHAGE XR) 500 mg 24 hr tablet Take 1 tablet by mouth twice daily with meals. - ergocalciferol 50,000 unit capsule (VITAMIN D2, DRISDOL) Take 1 capsule by mouth one time a week. - buPROPion SR (WELLBUTRIN SR) 150 mg 12 hr tablet Take 1 tablet by mouth twice daily. Problem List As Of Date 01/06/2025 Noted Resolved Goiter [E04.9] 01/27/2016 06/22/2021 Abdominal pain, right lower quadrant [R10.31] 02/07/2018 06/22/2021 Abdominal mass, right lower quadrant [R19.03] 02/07/2018 06/22/2021 Endometrioma [N80.129] 02/07/2018 06/22/2021 Kidney stones [N20.0] 03/11/2018 06/22/2021 Class 3 severe obesity with body mass index (BM*03/11/2018 on oral contraceptive [O09.899, Z79.3]06/22/2021 02/13/2022 complicated by previous recurrent mis*06/22/2021 02/13/2022 with history of section, ant*06/22/2021 02/13/2022 History of goiter [Z86.39] 06/22/2021 History of depression [Z86.59] 06/22/2021 01/02/2023 History of recurrent UTIs [Z87.440] 06/22/2021 History of nicotine vaping [Z87.891] 06/22/2021 Obesity in [O99.210] 06/22/2021 02/13/2022 Family history of congenital heart defect [Z82.*06/22/2021 01/02/2023 Patient request for diagnostic testing [Z01.89] 06/22/2021 02/13/2022 Request for sterilization [Z30.2] 06/22/2021 02/13/2022 PCOS (polycystic ovarian syndrome) [E28.2] 06/22/2021 Elevated glucose [R73.09] 11/23/2021 02/13/2022 Herpes simplex type 2 (HSV-2) infection affecti*12/12/2021 02/13/2022 Metabolic syndrome [E88.810] 01/01/2023 Stress incontinence [N39.3] 01/01/2023 Depression [F32.A] 01/01/2023 Vitamin D deficiency [E55.9] 01/02/2023 Disposition: Return in about 3 months (around 04/08/2025). Follow-up and Disposition History for Encounter Date Provider Department Center 01/06/2025 [id number], [facility] [employer] Encounter Status:Closed by EROS CORTES on 01/06/25 FLUABV+SARS-COV-2+RSV PNL RE SP ALEYDA+PROBE Observed: 11/27/2024 8:10 AM Status: F Source: [facility] SARS-COV-2 (AGENT OF COVID-1 9) RNA: Not detectedINFLUENZA A RNA: Not detectedINFLUENZA B RNA: Not detectedRESPIRATORY SYNCYTIAL VIRUS (RSV) RNA: Not detected Performed By: #### [id number] # ### [facility] CLIA [id number] [address] [place] [address] STATES OF HOME PROGRESS Observed: 11/27/2024 7:52 AM Status: COMPLETED Source: [facility] HNO ID: [id number] Author: MITZY WRIGHT APRN.AUXILIARY POWERPLANT OPERATOR Service: ? Author Type: Nurse Practitioner Type: Progress Notes Filed: 11/27/2024 08:25 Note Text: Subjective HPI Nontoxic-appearing 29-year-old female presents urgent care chief complaint sore throat body aches sinus pressure headache fatigue. Duration of symptoms this morning. Associated symptoms listed above. Tylenol symptom management good success. 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 Past medical history prescription medications allergies reviewed. .Patient presents with: Sore Throat: Bodyaches, sinus congestion, HINOJOSA x this AM PAST MEDICAL HISTORY Diagnosis Date Depression Diabetes, gestational Endometriosis 2018 endometrioma removed Goiter 01/27/2016 Herpes simplex type 2 (HSV-2) infection affecting , antepartum, unspecified trimester 12/12/2021 Intractable migraine with aura Kidney stones 03/11/2018 Mental disorder Ovarian torsion 09/18/2020 right PCOS (polycystic ovarian syndrome) depression hemorrhage Recurrent UTI PAST SURGICAL HISTORY Procedure Laterality Date SECTION HX 2021, 2011,2009 HERNIA REPAIR HX 03/12/2018 ventral hernia repair [facility] OTHER 12/2017 laparotomy with removal of endometriosis implants PAST SURGICAL HISTORY OF 09/18/2020 right ovarian torsion-had right ovarian cystectomy SALPINGECTOMY Bilateral 02/01/2022 ALLERGIES Tree Nuts, Coconut, and Nickel MEDICATIONS fluconazole (DIFLUCAN) 150 mg tablet Take 1 tablet by mouth as directed. Take one tablet at beginning of antibiotic and second tablet after you complete the antibiotic. (Patient not taking: Reported on 11/27/2024) miSOPROStol (CYTOTEC) 200 mcg tablet Insert 2 tablets vaginally night prior to IUD and 2 tablets morning of procedure. Each dose should be in vagina for 6-8 hours. (Patient not taking: Reported on 11/27/2024) valACYclovir (VALTREX) 500 mg tablet Take 1 tablet by mouth once daily. (Patient not taking: Reported on 11/27/2024) metFORMIN ER (GLUCOPHAGE XR) 500 mg 24 hr tablet Take 1 tablet by mouth twice daily with meals. (Patient not taking: Reported on 11/27/2024) ergocalciferol 50,000 unit capsule (VITAMIN D2, DRISDOL) Take 1 capsule by mouth one time a week. (Patient not taking: Reported on 11/27/2024) buPROPion SR (WELLBUTRIN SR) 150 mg 12 hr tablet Take 1 tablet by mouth twice daily. (Patient not taking: Reported on 11/27/2024) FAMILY HISTORY Problem Relation Age of Onset Cancer Mother 49 SCC lung cancer GI Mother PUD Thyroid Father No Known Problems Sister Infertility Sister Breast Cancer Maternal Grandmother other (black lung disease) Maternal Grandfather Diabetes Paternal Grandmother No Known Problems Paternal Grandfather No Known Problems Son No Known Problems Daughter Social History Tobacco Use Smoking status: Former Current packs/day: 0.00 Average packs/day: 0.5 packs/day for 4.0 years (2.0 ttl pk-yrs) Types: Cigarettes Start date: 02/18/2014 Quit date: 02/18/2018 Years since quittin.7 Smokeless tobacco: Never Vaping Use Vaping status: Former Substances: Nicotine Devices: Pre-filled or refillable cartridge Substance Use Topics Alcohol use: Yes Alcohol/week: 1.0 standard drink of alcohol Types: 1 Cans of beer per week Drug use: Not Currently Types: Marijuana BP 118/80 Pulse 85 Temp 36.2 ?C (97.1 ?F) Resp 18 Wt 109.9 kg (242 lb 4.6 oz) LMP 04/29/2024 (Exact Date) SpO2 100% BMI 43.20 kg/m? Review of Systems Constitutional: Positive for chills and malaise/fatigue. Negative for fever. HENT: Positive for congestion and sore throat. Negative for ear discharge, ear pain and sinus pain. Eyes: Negative for blurred vision, pain, discharge and redness. Respiratory: Negative for cough, hemoptysis, sputum production, shortness of breath, wheezing and stridor. Cardiovascular: Negative for chest pain. Gastrointestinal: Negative for abdominal pain, diarrhea, nausea and vomiting. Musculoskeletal: Positive for myalgias. Skin: Negative for itching and rash. Neurological: Positive for headaches. Negative for dizziness. Objective Physical Exam Constitutional: General: She is not in acute distress. Appearance: She is not diaphoretic. HENT: Head: Normocephalic. Jaw: No trismus, tenderness, swelling or pain on movement. Nose: Congestion present. Mouth/Throat: Mouth: Mucous membranes are moist. Pharynx: Oropharynx is clear. Uvula midline. No pharyngeal swelling, oropharyngeal exudate, posterior oropharyngeal erythema or uvula swelling. Eyes: Conjunctiva/sclera: Conjunctivae normal. Pupils: Pupils are equal, round, and reactive to light. Cardiovascular: Rate and Rhythm: Normal rate and regular rhythm. Heart sounds: Normal heart sounds. Pulmonary: Effort: Pulmonary effort is normal. No tachypnea, accessory muscle usage or respiratory distress. Breath sounds: Normal breath sounds. No stridor. No wheezing, rhonchi or rales. Abdominal: General: There is no distension. Palpations: Abdomen is soft. Tenderness: There is no abdominal tenderness. There is no guarding or rebound. Musculoskeletal: Cervical back: Normal range of motion and neck supple. No edema, erythema, rigidity or tenderness. No pain with movement. Normal range of motion. Lymphadenopathy: Cervical: No cervical adenopathy. Skin: General: Skin is warm and dry. Neurological: Mental Status: She is alert and oriented to person, place, and time. ASSESSMENT/PLAN: 1. Pharyngitis, unspecified etiology - ICD9: 462, ICD10: J02.9 (primary diagnosis) - STREP A MOLECULAR (POC) - COVID AND INFLUENZA A/B AND RSV PCR, ROUTINE 2. Viral illness - ICD9: 079.99, ICD10: B34.9 - Discussed viral etiology and rationale for treatment. - Rapid strep negative in office today - Symptomatic treatment with prn analgesia - Supportive care with fluids and rest - COVID AND INFLUENZA A/B AND RSV PCR, ROUTINE Patient was educated on supportive therapies. Patient will follow up with primary care provider as needed. Patient was instructed to immediately proceed to emergency room for any new, worsening, or symptoms lasting longer than anticipated. The patient's clinical presentation is otherwise unremarkable at this time. Based on exam and clinical finding, the patient is stable for discharge. Plan of care was discussed with patient. Patient verbalizes understanding and agrees to plan of care. This note was generated using [employer] software. It may contain errors in wording, punctuation, or spelling. Mitzy Wright APRN.CNP CNOV Observed: 11/27/2024 7:30 AM Status: COMPLETED Source: [facility] Office Visit (WSTR) LULA HULL ([id number]) 1995 F Date Time Provider Department 11/27/24 7:30 AM MITZY WRIGHT WOO During your visit today, we recorded the following information about you: Temperature Pulse Respiration Blood pressure 97.1 degrees 85/minute 18/minute 118/80 Weight 109.9 kg Mitzy Wright APRN.CNP 11/27/2024 8:25 AM Signed Subjective HPI Nontoxic-appearing 29-year-old female presents urgent care chief complaint sore throat body aches sinus pressure headache fatigue. Duration of symptoms this morning. Associated symptoms listed above. Tylenol symptom management good success. 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 Past medical history prescription medications allergies reviewed. .Patient presents with: Sore Throat: Bodyaches, sinus congestion, HINOJOSA x this AM PAST MEDICAL HISTORY Diagnosis Date Depression Diabetes, gestational Endometriosis 2018 endometrioma removed Goiter 01/27/2016 Herpes simplex type 2 (HSV-2) infection affecting , antepartum, unspecified trimester 12/12/2021 Intractable migraine with aura Kidney stones 03/11/2018 Mental disorder Ovarian torsion 09/18/2020 right PCOS (polycystic ovarian syndrome) depression hemorrhage Recurrent UTI PAST SURGICAL HISTORY Procedure Laterality Date SECTION HX 2021, 2011,2009 HERNIA REPAIR HX 03/12/2018 ventral hernia repair [facility]ata OTHER 12/2017 laparotomy with removal of endometriosis implants PAST SURGICAL HISTORY OF 09/18/2020 right ovarian torsion-had right ovarian cystectomy SALPINGECTOMY Bilateral 02/01/2022 ALLERGIES Tree Nuts, Coconut, and Nickel MEDICATIONS fluconazole (DIFLUCAN) 150 mg tablet Take 1 tablet by mouth as directed. Take one tablet at beginning of antibiotic and second tablet after you complete the antibiotic. (Patient not taking: Reported on 11/27/2024) miSOPROStol (CYTOTEC) 200 mcg tablet Insert 2 tablets vaginally night prior to IUD and 2 tablets morning of procedure. Each dose should be in vagina for 6-8 hours. (Patient not taking: Reported on 11/27/2024) valACYclovir (VALTREX) 500 mg tablet Take 1 tablet by mouth once daily. (Patient not taking: Reported on 11/27/2024) metFORMIN ER (GLUCOPHAGE XR) 500 mg 24 hr tablet Take 1 tablet by mouth twice daily with meals. (Patient not taking: Reported on 11/27/2024) ergocalciferol 50,000 unit capsule (VITAMIN D2, DRISDOL) Take 1 capsule by mouth one time a week. (Patient not taking: Reported on 11/27/2024) buPROPion SR (WELLBUTRIN SR) 150 mg 12 hr tablet Take 1 tablet by mouth twice daily. (Patient not taking: Reported on 11/27/2024) FAMILY HISTORY Problem Relation Age of Onset Cancer Mother 49 SCC lung cancer GI Mother PUD Thyroid Father No Known Problems Sister Infertility Sister Breast Cancer Maternal Grandmother other (black lung disease) Maternal Grandfather Diabetes Paternal Grandmother No Known Problems Paternal Grandfather No Known Problems Son No Known Problems Daughter Social History Tobacco Use Smoking status: Former Current packs/day: 0.00 Average packs/day: 0.5 packs/day for 4.0 years (2.0 ttl pk-yrs) Types: Cigarettes Start date: 02/18/2014 Quit date: 02/18/2018 Years since quittin.7 Smokeless tobacco: Never Vaping Use Vaping status: Former Substances: Nicotine Devices: Pre-filled or refillable cartridge Substance Use Topics Alcohol use: Yes Alcohol/week: 1.0 standard drink of alcohol Types: 1 Cans of beer per week Drug use: Not Currently Types: Marijuana BP 118/80 Pulse 85 Temp 36.2 ?C (97.1 ?F) Resp 18 Wt 109.9 kg (242 lb 4.6 oz) LMP 04/29/2024 (Exact Date) SpO2 100% BMI 43.20 kg/m? Review of Systems Constitutional: Positive for chills and malaise/fatigue. Negative for fever. HENT: Positive for congestion and sore throat. Negative for ear discharge, ear pain and sinus pain. Eyes: Negative for blurred vision, pain, discharge and redness. Respiratory: Negative for cough, hemoptysis, sputum production, shortness of breath, wheezing and stridor. Cardiovascular: Negative for chest pain. Gastrointestinal: Negative for abdominal pain, diarrhea, nausea and vomiting. Musculoskeletal: Positive for myalgias. Skin: Negative for itching and rash. Neurological: Positive for headaches. Negative for dizziness. Objective Physical Exam Constitutional: General: She is not in acute distress. Appearance: She is not diaphoretic. HENT: Head: Normocephalic. Jaw: No trismus, tenderness, swelling or pain on movement. Nose: Congestion present. Mouth/Throat: Mouth: Mucous membranes are moist. Pharynx: Oropharynx is clear. Uvula midline. No pharyngeal swelling, oropharyngeal exudate, posterior oropharyngeal erythema or uvula swelling. Eyes: Conjunctiva/sclera: Conjunctivae normal. Pupils: Pupils are equal, round, and reactive to light. Cardiovascular: Rate and Rhythm: Normal rate and regular rhythm. Heart sounds: Normal heart sounds. Pulmonary: Effort: Pulmonary effort is normal. No tachypnea, accessory muscle usage or respiratory distress. Breath sounds: Normal breath sounds. No stridor. No wheezing, rhonchi or rales. Abdominal: General: There is no distension. Palpations: Abdomen is soft. Tenderness: There is no abdominal tenderness. There is no guarding or rebound. Musculoskeletal: Cervical back: Normal range of motion and neck supple. No edema, erythema, rigidity or tenderness. No pain with movement. Normal range of motion. Lymphadenopathy: Cervical: No cervical adenopathy. Skin: General: Skin is warm and dry. Neurological: Mental Status: She is alert and oriented to person, place, and time. ASSESSMENT/PLAN: 1. Pharyngitis, unspecified etiology - ICD9: 462, ICD10: J02.9 (primary diagnosis) - STREP A MOLECULAR (POC) - COVID AND INFLUENZA A/B AND RSV PCR, ROUTINE 2. Viral illness - ICD9: 079.99, ICD10: B34.9 - Discussed viral etiology and rationale for treatment. - Rapid strep negative in office today - Symptomatic treatment with prn analgesia - Supportive care with fluids and rest - COVID AND INFLUENZA A/B AND RSV PCR, ROUTINE Patient was educated on supportive therapies. Patient will follow up with primary care provider as needed. Patient was instructed to immediately proceed to emergency room for any new, worsening, or symptoms lasting longer than anticipated. The patient's clinical presentation is otherwise unremarkable at this time. Based on exam and clinical finding, the patient is stable for discharge. Plan of care was discussed with patient. Patient verbalizes understanding and agrees to plan of care. This note was generated using [employer] software. It may contain errors in wording, punctuation, or spelling. Mitzy Wright APRN.Mitzy Srinivasan APRN.CNP 11/27/2024 8:00 AM Signed How to Manage Common Symptoms Associated with COVID for Adults Fever- Fever is a temperature over 100.4 F and can occur when the body is fighting an infection. To help treat a fever: Drink plenty of fluids and stay well hydrated. Eat small amounts of easy to digest food. Rest. Your body needs rest to recover, but getting up and moving around the house frequently is a good idea. You should try to continue doing your normal daily activities (bathing, toileting, grooming, cooking), though you will probably feel tired, and need to rest often. Avoid any heavy activity or exercise, as this will increase your body temperature. Dress in light clothing and stay covered in a light sheet. Keep the room temperature cool. Take a slightly warm (not cold or cool) bath, or apply damp washcloths to the forehead and wrists. Cough- Cough is a common symptom associated with COVID and can be bothersome. To help treat a cough: Stay well hydrated. Try warm water or tea with lemon and/or honey to help soothe the cough. Use a humidifier to add moisture to the air. Try a product with menthol, like a cough drop or a rub for your chest such as Vicks, which can help reduce cough. Try cough drops. Avoid smoking and other strong odors or perfumes. Try breathing exercises to keep your lungs open and clear. Take a big deep breath through your nose and hold for 5 seconds before slowly releasing. Repeat frequently, while you are awake. Congestion- Runny nose or nasal congestion can occur with COVID. Treatment can help relieve symptoms: Try OTC nasal saline spray, or nasal saline rinse to relieve mucus congestion. Nasal strips can help keep nasal passages open, to increase airflow. Elevating your head with an extra pillow in bed can help reduce congestion. Using a humidifier can increase moisture in the air, and make breathing easier. Sore Throat- Another common symptom with COVID, can be managed at home by: Stay well hydrated. Gargle with salt water - mix ? teaspoon salt with 1 cup of warm water and gargle. This helps to loosen mucus in the back of the throat and may reduce discomfort. Try ice chips, popsicles or lozenges to soothe the throat. Nausea/Vomiting/Diarrhea- These are common symptoms, and staying hydrated is most important. If you are nauseous or vomiting, start with small sips of water every 10-15 minutes and increase as tolerated. You can try sucking an ice cube too. If tolerating, you can try pedialyte or Gatorade, or flat sprite or darrel-man. Start slowly and increase as you are able to. Instead of meals, try smaller, more frequent snacks. Try eating bland foods like crackers, toast, rice, and applesauce. Avoid spicy, greasy or fried foods and dairy containing foods. Even if you aren't feeling hungry due to lack of smell or taste, it is important to try to take in some food when you are able. After drinking and eating, rest in an upright position for up to two hours as needed to help decrease nauseous feelings. Try closing your eyes, avoid moving and watching TV. Avoid strong odors that can make you feel more nauseated. When to seek emergency medical attention Look for emergency warning signs for COVID-19. If having any of these symptoms, seek emergency medical care immediately: Trouble breathing Persistent pain or pressure in the chest New confusion Inability to wake or stay awake Bluish lips or face *This list is not all possible symptoms. Please call your medical provider for any other symptoms that are severe or concerning to you. 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 #:[id number] COVID AND INFLUENZA A/B AND RSV PCR, ROUTINE [SQCVFLRS] Order #: [id number]. #:[id number] Prescriptions as of 11/27/2024 - fluconazole (DIFLUCAN) 150 mg tablet Take 1 tablet by mouth as directed. Take one tablet at beginning of antibiotic and second tablet after you complete the antibiotic. - miSOPROStol (CYTOTEC) 200 mcg tablet Insert 2 tablets vaginally night prior to IUD and 2 tablets morning of procedure. Each dose should be in vagina for 6-8 hours. - valACYclovir (VALTREX) 500 mg tablet Take 1 tablet by mouth once daily. - metFORMIN ER (GLUCOPHAGE XR) 500 mg 24 hr tablet Take 1 tablet by mouth twice daily with meals. - ergocalciferol 50,000 unit capsule (VITAMIN D2, DRISDOL) Take 1 capsule by mouth one time a week. - buPROPion SR (WELLBUTRIN SR) 150 mg 12 hr tablet Take 1 tablet by mouth twice daily. Problem List As Of Date 11/27/2024 Noted Resolved Goiter [E04.9] 01/27/2016 06/22/2021 Abdominal pain, right lower quadrant [R10.31] 02/07/2018 06/22/2021 Abdominal mass, right lower quadrant [R19.03] 02/07/2018 06/22/2021 Endometrioma [N80.129] 02/07/2018 06/22/2021 Kidney stones [N20.0] 03/11/2018 06/22/2021 Class 3 severe obesity with body mass index (BM*03/11/2018 on oral contraceptive [O09.899, Z79.3]06/22/2021 02/13/2022 complicated by previous recurrent mis*06/22/2021 02/13/2022 with history of section, ant*06/22/2021 02/13/2022 History of goiter [Z86.39] 06/22/2021 History of depression [Z86.59] 06/22/2021 01/02/2023 History of recurrent UTIs [Z87.440] 06/22/2021 History of nicotine vaping [Z87.891] 06/22/2021 Obesity in [O99.210] 06/22/2021 02/13/2022 Family history of congenital heart defect [Z82.*06/22/2021 01/02/2023 Patient request for diagnostic testing [Z01.89] 06/22/2021 02/13/2022 Request for sterilization [Z30.2] 06/22/2021 02/13/2022 PCOS (polycystic ovarian syndrome) [E28.2] 06/22/2021 Elevated glucose [R73.09] 11/23/2021 02/13/2022 Herpes simplex type 2 (HSV-2) infection affecti*12/12/2021 02/13/2022 Metabolic syndrome [E88.810] 01/01/2023 Stress incontinence [N39.3] 01/01/2023 Depression [F32.A] 01/01/2023 Vitamin D deficiency [E55.9] 01/02/2023 Other instructions from your clinician: How to Manage Common Symptoms Associated with COVID for Adults Fever- Fever is a temperature over 100.4 F and can occur when the body is fighting an infection. To help treat a fever: Drink plenty of fluids and stay well hydrated. Eat small amounts of easy to digest food. Rest. Your body needs rest to recover, but getting up and moving around the house frequently is a good idea. You should try to continue doing your normal daily activities (bathing, toileting, grooming, cooking), though you will probably feel tired, and need to rest often. Avoid any heavy activity or exercise, as this will increase your body temperature. Dress in light clothing and stay covered in a light sheet. Keep the room temperature cool. Take a slightly warm (not cold or cool) bath, or apply damp washcloths to the forehead and wrists. Cough- Cough is a common symptom associated with COVID and can be bothersome. To help treat a cough: Stay well hydrated. Try warm water or tea with lemon and/or honey to help soothe the cough. Use a humidifier to add moisture to the air. Try a product with menthol, like a cough drop or a rub for your chest such as Vicks, which can help reduce cough. Try cough drops. Avoid smoking and other strong odors or perfumes. Try breathing exercises to keep your lungs open and clear. Take a big deep breath through your nose and hold for 5 seconds before slowly releasing. Repeat frequently, while you are awake. Congestion- Runny nose or nasal congestion can occur with COVID. Treatment can help relieve symptoms: Try OTC nasal saline spray, or nasal saline rinse to relieve mucus congestion. Nasal strips can help keep nasal passages open, to increase airflow. Elevating your head with an extra pillow in bed can help reduce congestion. Using a humidifier can increase moisture in the air, and make breathing easier. Sore Throat- Another common symptom with COVID, can be managed at home by: Stay well hydrated. Gargle with salt water - mix ? teaspoon salt with 1 cup of warm water and gargle. This helps to loosen mucus in the back of the throat and may reduce discomfort. Try ice chips, popsicles or lozenges to soothe the throat. Nausea/Vomiting/Diarrhea- These are common symptoms, and staying hydrated is most important. If you are nauseous or vomiting, start with small sips of water every 10-15 minutes and increase as tolerated. You can try sucking an ice cube too. If tolerating, you can try pedialyte or Gatorade, or flat sprite or darrel-man. Start slowly and increase as you are able to. Instead of meals, try smaller, more frequent snacks. Try eating bland foods like crackers, toast, rice, and applesauce. Avoid spicy, greasy or fried foods and dairy containing foods. Even if you aren't feeling hungry due to lack of smell or taste, it is important to try to take in some food when you are able. After drinking and eating, rest in an upright position for up to two hours as needed to help decrease nauseous feelings. Try closing your eyes, avoid moving and watching TV. Avoid strong odors that can make you feel more nauseated. When to seek emergency medical attention Look for emergency warning signs for COVID-19. If having any of these symptoms, seek emergency medical care immediately: Trouble breathing Persistent pain or pressure in the chest New confusion Inability to wake or stay awake Bluish lips or face *This list is not all possible symptoms. Please call your medical provider for any other symptoms that are severe or concerning to you. Level of Service: OFFICE/OUTPATIENT ESTABLISHED LOW [facility] 20 MIN [83828] Letter Text Encounter Status:Closed by MITZY WRIGHT on 11/27/24 ALLERGIES DATE TYPE / CODE NAME / CODE REACTION SEVERITY SOURCE 04/18/2023 DRUG INGREDI/[id number]( SNOMED CT) COCONUT ANAPHYLAXIS [facility] 12/16/2019 Drug Class/[id number](SN OMED CT) TREE NUTS ANAPHYLAXIS High [facility] 01/27/2016 DRUG INGREDI/[id number]( SNOMED CT) NICKEL HIVES [facility] ENCOUNTERS ADMIT/DISCHARGE ACCOUNT NUMBER ADMITTING ENCOUNTER CLASS LOC ATION SOURCE 06/18/2025/ [id number] [facility]/2025 [id number] [facility] 06/09/2025/ 5 [id number] [facility] 05/04/2025/ 5 [id number] [facility] 01/06/2025/ 5 [id number] [facility] 01/06/2025/ 5 [id number] [facility] [id number] [facility] PAYERS ENCOUNTER GUARANTOR PAYER SUBSCRIBER SOURCE 06/18/2025 Primary Insuranc e:[facility] MEDICAIDPolicy Number: [id number] Date:1075-80-72Zava Name:Benji LULA VAUGHAN: [id number] [address] 06/09/2025 Primary Insuranc e:[place] MEDICAIDPolicy Number: [id number] Date:6688-49-95Vwra Name:Benji VAUGHAN: [id number] [address] 06/09/2025 Primary Insuranc e:[place] MEDICAIDPolicy Number: [id number] Date:2796-49-59Vtwk Name:Benji VAUGHAN: [id number] [address] 05/04/2025 Primary Insuranc e:[place] MEDICAIDPolicy Number: [id number] Date:5225-20-91Wckb Name:Benji Renner CLEMENT: [id number] [place] [address] [facility] 01/06/2025 Primary Insuranc e:[facility] MEDICAIDPolicy Number: [id number] Date:1628-16-28Vtub Name:Benji Renner CLEMENT: [id number] [place] [address] [facility] 01/06/2025 Primary Insuranc e:[facility] MEDICAIDPolicy Number: [id number] Date:2824-15-43Weyt Name:Benji Renner CLEMENT: [id number] [place] [address] [facility] 11/27/2024 Primary Insuranc e:[facility] MEDICAIDPolicy Number: [id number] Date:1006-76-17Daio Name:Benji Renner CLEMENT: [id number] [place] [address] [facility]
[2025-07-12 02:02] VITALS: BP 141/96; PULSE 106; RESP 20; TEMP 36.9; O2SAT 96; BMI 44.3
--- NOTE | 2025-07-12 02:13 | US_ITS ---
PROCEDURE: TRANSVAGINAL NON- 07/12/2025 REASON FOR EXAM: HISTORY OF OVARIAN TORSION TECHNIQUE: Procedure Code: USTVAG Modality: US Procedure: TRANSVAGINAL NON- COMPARISON: CT scan on 07/12/2025. FINDINGS: The uterus measures 8.8 x 5.5 x 4.1 cm. The endometrium is normal in thickness measuring 5 mm. Scattered nabothian cysts of the cervix with the largest measuring 1 cm. The right ovary measures 3.6 x 2.8 x 2.6 cm. Right ovarian cyst measuring 2.1 x 1.5 x 1.8 cm. Normal right ovarian flow. The left ovary measures 1.4 x 0.9 x 0.7 cm. Normal left ovarian flow. The left ovary is wedged between the bowel and the iliac vessels and cartography technician was unable to move the bowel from the vicinity of the left ovary during the time of the scan. No free fluid is noted. US/Transvaginal Non- IMPRESSION: Normal bilateral ovarian flow. Right ovarian cyst that can be followed up in 6 weeks if clinically warranted. Reading [facility] [address]
[2025-07-12 02:22] LABS: Hematocrit 38.8 % (37-47); Hemoglobin 13.0 g/dL (12.0-15.0); Immature Granulocytes Count 0.080 X10^3/uL (0.0-0.0); Mean Corp Hgb Conc 33.5 g/dL (32-36); Mean Corpuscular Volume 88.2 fL (81-99); Mean Platelet Vol. 9.6 fl (6.2-12.0); NRBC Flagged by Analyzer 0 % (0-5); Platelet Count 411 K/mm3 (150-450); RBC Distribution Width CV 11.9 % (11.6-14.6); RBC Distribution Width SD 38.1 fl (35.1-43.9); Red Blood Count 4.40 M/mm3 (4.2-5.4); White Blood Count 13.3 K/mm3 (4.4-11.0)
--- NOTE | 2025-07-12 02:24 | CT_ITS ---
PROCEDURE: ABDOMEN/PELVIS W IV CONT ONLY 07/12/2025 REASON FOR EXAM: RLQ PAIN TECHNIQUE: Procedure Code: [id number] Modality: CT Procedure: ABDOMEN/PELVIS W IV CONT ONLY Coronal and Sagittal reconstruction series were provided. CONTRAST: isovue 370 VOLUME: 100 mL One or more dose reduction techniques were used (e.g., Automated exposure control, adjustment of the mA and/or kV according to patient size, use of iterative reconstruction technique. RADIATION DOSE SUMMARY: CTDIvol/DLP = ( 17.00 ) / (1334.76 ) mGy/mGycm COMPARISON: 23-Apr-2024 FINDINGS: The appendix appears unremarkable. No right iliac inflammatory changes. The examined ascending colon, the transverse colon, the descending colon & small bowel loops are unremarkable. The stomach is unremarkable. Average sized liver showing homogenous parenchymal attenuation with fatty changes. No dilated intra or extra-hepatic biliary tracts. Gall bladder showing no radiodense calculi. Normal appearance of the pancreas with clear surrounding fat planes. The spleen, adrenal glands, aorta and IVC are unremarkable. Both kidneys are of average size and showing smooth outline with preserved parenchymal thickness. No renal calculi. No hydronephrosis. Under distension of the urinary bladder showing minimal uniform mural thickening with no obvious masses. No obvious masses related to the pelvic viscera. Right ovarian corpus luteum cyst. No ascites or free air. No obvious pathologically enlarged lymph nodes. Scanned osseous structures show no osseous destruction. Scanned lung bases show resolution of the right lower lobe consolidative changes. CT/Abdomen/Pelvis W IV Cont ONLY IMPRESSION: Resolution of the right lower lobe consolidative changes. No obvious appendicitis. No acute pelvi-abdominal abnormalities, collections or free air. Reading Location: [place] [address]
[2025-07-12] MEDS: 0.9% Normal Saline (1000mL) 1,000 ML 999 ML IV (02:29)
--- NOTE | 2025-07-12 02:31 | EX.ED.DYSGE1 ---
HPI History of Present Illness Chief Complaint: Abd Pain Narrative Narrative: Patient is a 30-year-old female past medical history of ovarian torsion, PCOS who presents to the emergency department with a chief complaint of abdominal pain and nausea vomiting. Patient states that this all start about 2 hours ago and notes that she does not take the pain anymore and this reminded her of very similar presentation to her ovarian torsion which she states was on the right side and they were able to save her ovary. States that she had her tubes removed. [facility] Medical History Care and examination of lactating mother Late deceleration of heart rate BMI 40.0-44.9, adult Sterilization Maternal 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 High risk multigravida in third trimester 38 weeks gestation of History of endometriosis history of child Home Medications ?Medication ?Instructions ?Recorded ?Last Taken ?Type NK 07/12/25 Unknown History Allergy/AdvReac Type Severity Reaction Status Date / Time nickel (Nickel) Allergy Unknown Rash Verified 07/12/25 02:02 pistachio nut Allergy Swelling Verified 07/12/25 02:02 Surgical History Status post repeat low transverse section Previous delivery affecting , antepartum Social History Smoking Status: Former smoker alcohol intake: never ROS ROS ED ROS Narrative Constitutional: Denies fevers, chills, headaches Abdomen: Complains of right sided abdominal pain as well as nausea vomiting denies diarrhea : Denies urinary symptoms Neurological: Denies numbness, weakness, tingling Musculoskeletal: Denies back pain Skin: Denies rashes or lesions EXAM Physical Exam Narrative Exam Narrative: General: Patient is lying bed did appear to be uncomfortable secondary to her abdominal pain Head: Atraumatic, normocephalic Eyes: PERRL bilaterally, EOMI bilaterally, no conjunctival injection Neck: Soft, supple, trach midline Cardiovascular: Patient tachycardic with a regular rhythm Abdomen: Soft, nondistended, tenderness to palpation in the right lower quadrant no rebound or guarding on exam Extremities: +5/5 strength noted in the bilateral upper and lower extremities Neurological: Patient following commands and that she was at [facility] the year is 2024 Skin: Warm, dry, intact no rashes or lesions noted Const Vital Signs: 07/12/25 02:02 07/12/25 04:02 Temperature 98.4 F 98.8 F Temperature Source Oral Oral Pulse Rate 106 H 86 Respiratory Rate 20 H 16 Blood Pressure 141/96 H 110/85 H Blood Pressure Mean 111 93 Pulse Ox 96 98 Oxygen Delivery Method Room Air MDM MDM MDM Narrative Medical decision making narrative: Patient is a 30-year-old female who presented to the emergency department with concern for ovarian torsion. On the differential diagnose includes but not limited to ovarian torsion, UTI, pyelonephritis, appendicitis, viral gastroenteritis. Once workup is obtained reviewed she will be reevaluated. Patient be given IV fluids morphine Zofran. Patient's CBC was reviewed and showed a white blood count of 13,000, hemoglobin 13, platelet count of 411. Patient's sodium is 139, potassium was 3.7, creatinine 0.69. Patient AST and ALT were 18 and 21 respectively. Patient lipase normal 43, urinalysis showed negative nitrites negative leukocyte esterase 3+ bacteria 0-5 white cells with 5-10 squamous epithelial cells this likely contaminant sample test was negative. Patient's CT abdomen pelvis with IV contrast reviewed showed no obvious appendicitis resolution of the right lower lobe consolidative changes no acute other abnormalities identified. Patient transvaginal ultrasound reviewed and showed normal bilateral ovarian flow right ovarian cyst that can be followed up in 6 weeks if clinically warranted. Discussed case with COMPUTER LAB AIDE Dr. Stephens who states that she can call the office this morning for an appointment and they will get her in for close follow-up. She was vies return with worsening symptoms or concerns. She is agreeable to plan all question concerns answered she was discharged home in stable condition. Lab Data Labs: Laboratory Results - last 24 hr 07/12/25 07/12/25 02:15 02:26 WBC 13.3 H RBC 4.40 Hgb 13.0 Hct 38.8 MCV 88.2 MCH 29.5 MCHC 33.5 RDW Std Deviation 38.1 RDW Coeff of Theo 11.9 Plt Count 411 MPV 9.6 Immature Gran % (Auto) 0.600 Neut % (Auto) 76.1 H Lymph % (Auto) 15.5 L [place] % (Auto) 5.0 Eos % (Auto) 2.4 Baso % (Auto) 0.4 Absolute Neuts (auto) 10.1 H Absolute Lymphs (auto) 2.06 Nucleated RBC % 0 Sodium 139 Potassium 3.7 Chloride 104 Carbon Dioxide 22.3 Anion Gap 13 BUN 9 Creatinine 0.69 L Estim Creat Clear Calc 141.99 Est GFR (MDRD) Non-Af 118 BUN/Creatinine Ratio 13.2 Glucose 108 H Calcium 8.9 Total Bilirubin 0.18 AST 18 ALT 21 Alkaline Phosphatase 71 Total Protein 7.2 Albumin 4.2 Globulin 3.0 Albumin/Globulin Ratio 1.4 Lipase 43 Urine Color Yellow Urine Clarity Sl. Cloudy Urine pH 5.0 Ur Specific [place] 1.030 Urine Protein 30 H Urine Glucose (UA) Normal Urine Ketones 5 H Urine Occult Blood Negative Urine Nitrite Negative Urine Bilirubin 1 H Urine Urobilinogen Normal Ur Leukocyte Esterase Negative Urine RBC 0 SEEN Urine WBC 0-5 SEEN Ur Squamous Epith Cells 5-10 SEEN Urine Bacteria 3+ Hyaline Casts 0-5 SEEN Urine Mucus 2+ Urine Test Negative Radiography Diagnostic Testing: Clinical Impression(s) from Imaging Studies Transvaginal US 07/12/25 02:13 IMPRESSION: Normal bilateral ovarian flow. Right ovarian cyst that can be followed up in 6 weeks if clinically warranted. Reading Location: [place] [id number] Abdomen/Pelvis CT 07/12/25 02:24 IMPRESSION: Resolution of the right lower lobe consolidative changes. No obvious appendicitis. No acute pelvi-abdominal abnormalities, collections or free air. Reading [facility] Triage Chief Complaint: Abd Pain ED Provider: Mil Calixto Dx/Rx/DC Orders Clinical Impression: Abdominal pain, Nausea Prescriptions: No Action NK Primary Care Provider: Care Physician,No Primary Referrals: Care Physician,No Primary [Primary Care Provider, Medical] Activity Restrictions/Additional Instructions: Follow-up with your COMPUTER LAB AIDE call their office this morning for an appointment. Return with worsening symptoms or other concerns. Your blood work, CT scan of your abdomen and pelvis and your ultrasound did not show any acute findings. Print Language: Libyan Disposition Disposition: Home, Self Care
[2025-07-12 02:44] LABS: Red Blood Cells-Urine 0 SEEN /hpf (0-5)
[2025-07-12 02:54] LABS: Color, Urine Yellow (Yellow); Glucose, Dipstick Normal (Normal); Ketone-Dipstick 5 mg/dl (Negative); Leukocyte Esterase-Dipstick Negative /ul (Negative); Nitrite-Dipstick Negative (Negative); Occult Blood-Urine Negative /ul (Negative); Protein-Dipstick 30 mg/dl (Negative); Specific Gravity, Urine 1.030 (1.002-1.030)
[2025-07-12 02:56] LABS: Urine Bilirubin Dipstick 1 mg/dL (Negative)
[2025-07-12 03:04] LABS: Squamous Epithelial Cells - UA 5-10 SEEN /hpf (5-10)
[2025-07-12 03:05] LABS: Internal QC Validated? YES +Cl - CLEAR BKGD; Mucous, Urine 2+ /hpf (<or=2+); Pregnancy, Urine Negative Negative; Record Kit Lot#,Urine Preg 0000964736
[2025-07-12 03:11] LABS: AST(SGOT) 18 U/L (<=31); Alanine Aminotransfer ALT/SGPT 21 U/L (<=34); Albumin, Serum 4.2 g/dL (3.5-5.0); Alkaline Phosphatase 71 U/L (35-104); Anion Gap 13 (5-15); BUN 9 mg/dL (4-19); BUN/Creat Ratio 13.2 RATIO (10-20); Calcium,Total 8.9 mg/dL (7.6-11.0); Carbon Dioxide 22.3 mmol/L (21.0-32.0); Chloride 104 mmol/L (98-108); Estimated Creatinine Clearance 141.99 ml/min (50-250); Globulin 3.0 g/dL (2.2-4.2); Glucose 108 mg/dL (70-99); Lipase 43 U/L (13-75); Potassium 3.7 mmol/L (3.3-5.1)
[2025-07-12 04:02] VITALS: BP 110/85; PULSE 86; RESP 16; TEMP 37.1; O2SAT 98
[2025-07-12 06:00] VITALS: BP 100/63
[2025-07-12 06:54] VITALS: BP 100/65; PULSE 68; RESP 16; TEMP 37; O2SAT 98
== END 2025-07-12 07:18 | disposition home or self-care (01) ==
PROVIDERS: Emergency Provider Emergency Medicine; Visit Provider Emergency Medicine
DX: R10.9 Unspecified abdominal pain (principal); R11.0 Nausea; N83.201 Unspecified ovarian cyst, right side; Z87.891 Personal history of nicotine dependence
CPT/HCPCS: 74177; 76830; 80053; 81001; 81025; 83690; 85025; 93976; 96361; 96374; 96375; 96376; 99283; Q9967; A4216; J2405